=== PATIENT | female | born 1950 | race Caucasian/White ===

== ENCOUNTER 2016-05-29 20:08 | Observation (INO) | payer MEDICARE ==
[2016-05-29] MEDS ORDERED: Aspirin Low Dose CHEW TAB* 81 MG PO ONE (20:14)
--- NOTE | 2016-05-29 20:54 | RAD ---
INDICATION: Short of breath COMPARISON: Chest x-ray June 29, 2013 TECHNIQUE: An AP portable view obtained at 2045 hours is submitted. FINDINGS: Bones/Soft Tissues: There are no acute bony findings. Cardiomediastinal: The cardiomediastinal silhouette is normal. Lungs: There are no infiltrates. Pleura: There are no pleural effusions. Other: None IMPRESSION: NO ACTIVE DISEASE.
[2016-05-29 20:56] LABS: Hematocrit 26 % (35-47); Hemoglobin 8.7 g/dl (12.0-16.0); Mean Corpuscular HGB Conc 33 g/dl (31-36); Mean Corpuscular Hemoglobin 31 pg (27-31); Mean Corpuscular Volume 94 fL (80-97); Mean Platelet Volume 7 um3 (7.4-10.4); Red Blood Count 2.79 10^6/ul (4.0-5.4); Red Cell Distribution Width 14 % (10.5-15); White Blood Count 5.8 10^3/ul (3.5-10.8)
[2016-05-29 21:12] LABS: Albumin 3.8 g/dL (3.2-5.2); BUN/Creatinine Ratio 13.4 (8-20); Calcium 8.5 mg/dL (8.6-10.3); EGFR African American 11.1 (>60); EGFR Non-African American 8.6 (>60); Potassium 3.9 mmol/L (3.5-5.0); Total Bilirubin 0.3 mg/dL (0.2-1.0); Total Protein 6.8 g/dL (6.4-8.9)
--- NOTE | 2016-05-29 22:13 | ED ---
Francisco Bello Karl, scribed for Yani Lee MD on 05/29/16 at 2053 . HPI Chest Pain - HPI Summary HPI Summary: 65 y/o F presents with intermittent midsternal CP for the past 3 days. Pt reported that the CP began 3 days ago and radiates to her back. Pt stated that she has been having 4-5 episodes of CP per day with her episodes today starting this morning, the most recent being at approx 13:00 today. Pt reported nausea and diaphoresis with each episode. Pt described her CP as a pressure pain. Pt is on dialysis 3 days a week. Pt denied any current back pain, recent travel, or cough. Hx: renal failure. - History of Current Complaint Chief Complaint: EDChestPainROMI Time Seen by Provider: 05/29/16 20:14 Hx Obtained From: Patient Onset/Duration: Started Days Ago, Atraumatic, Still Present Timing: Intermittent Initial Severity: Mild Current Severity: None Pain Intensity: 0 Pain Scale Used: 0-10 Numeric Chest Pain Location: Mid Sternal Chest Pain Radiates: Yes Chest Pain Radiates To:: Back Character: Pressure/Squeezing Aggravating Factor(s): Nothing Alleviating Factor(s): Nothing Associated Signs and Symptoms: Positive: Chest Pain, Diaphoresis, Nausea, Back Pain - Additional Pertinent History Primary Care Physician: HETAL - Allergy/Home Medications Allergies/Adverse Reactions: Allergies Allergy/AdvReac Type Severity Reaction Status Date / Time Iodine Allergy Severe Hives Verified 02/14/15 08:06 Oxycodone [From Percocet] Allergy Severe Itching Verified 02/14/15 08:06 Penicillin G Allergy Severe Hives Verified 02/14/15 08:06 Risedronate [From Actonel] Allergy Severe Anaphylatic Verified 02/14/15 08:06 Shock Sulfa Antibiotics Allergy Severe Hives Verified 02/14/15 08:06 Tetracyclines & Related Allergy Severe Hives Verified 02/14/15 08:06 Calcium Acetate Allergy Intermediate trouble Verified 02/14/15 08:06 breathing, throat swelling Metronidazole Allergy Unknown Verified 02/14/15 08:06 Reaction Details Montelukast [From Singulair] Allergy Unknown Verified 02/14/15 08:06 Reaction Details butalazone Allergy Severe TOTAL BODY Uncoded 02/14/15 08:06 RASH latex Allergy Severe Rash Uncoded 02/14/15 08:06 pneumonia vaccine Allergy Severe arm Uncoded 02/14/15 08:06 swollen and hot APO-RISENDRONATE Allergy Unknown Uncoded 02/14/15 08:[address] CONTRAST DYE Allergy Hives Uncoded 02/14/15 08:06 PMH/Surg Hx/FS Hx/Imm Hx Previously Healthy: No Endocrine/Hematology History: Reports: Hx Anemia Denies: Hx Diabetes, Hx Systemic Lupus Erythematosus Cardiovascular History: Reports: Hx Congestive Heart Failure, Hx Hypercholesterolemia, Hx Hypertension, Hx Valvular Heart Disease - MITRAL VALVE PROLAPSE SEES DR TRACY, Other Cardiovascular Problems/Disorders - ANCA VASCULITIS Denies: Hx Pacemaker/ICD Respiratory History: Reports: Hx Asthma, Hx Chronic Obstructive Pulmonary Disease (COPD), Hx Lung Cancer, Other Respiratory Problems/Disorders - LLL lung ca dx'd 95 seen here @ [facility] GI History: Reports: Hx Diverticulosis, Other GI Disorders - ULCER REMOVED IN THE PAST History: Reports: Hx Acute Renal Failure, Hx Chronic Renal Failure, Hx Dialysis, 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 Musculoskeletal History: Reports: Hx Arthritis - KNEES Denies: Hx Rheumatoid Arthritis Sensory History: Reports: Hx Cataracts - FORMING, Hx Contacts or Glasses, Hx Eye Injury - retinal blister Denies: Hx Glaucoma, Hx Hearing Aid Opthamlomology History: Reports: Hx Cataracts - FORMING, Hx Contacts or Glasses , Hx Eye Injury - retinal blister Denies: Hx Glaucoma Neurological History: Reports: Other Neuro Impairments/Disorders - menigeal lesion Psychiatric History: Reports: Hx Anxiety - OK WITH MEDS, Hx Depression Denies: Hx Panic Disorder, Other Psychiatric Issues/Disorders - Cancer History Cancer Type, Location and Year: lung CA 1994 with partial lobectomy Hx Chemotherapy: No Hx Radiation Therapy: No - Surgical History Surgery Procedure, Year, and Place: tubal , left oopherectomy 1994,lung ca 1994 left lobectomy, benign tumor behind left eye per pt, breast lumpectomy 06/2011 benign,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 Hx Anesthesia Reactions: No - Immunization History Date of Influenza Vaccine: allergic Infectious Disease History: No Infectious Disease History: Denies: Traveled Outside the [place] in Last 30 Days - Family History Known Family History: Positive: Cardiac Disease - father MD in 80's, sister MD at 55 Negative: Other - breast CA - Social History Alcohol Use: None Substance Use Type: Reports: None Smoking Status (MU): Never Smoked Tobacco Review of Systems Positive: Skin Diaphoresis Eyes: Negative ENT: Negative Positive: Chest Pain Negative: Cough Positive: Nausea Genitourinary: Negative Positive: Arthralgia - back pain Skin: Negative Psychological: Normal All Other Systems Reviewed And Are Negative: Yes Physical Exam Triage Information Reviewed: Yes Vital Signs On Initial Exam: Initial Vitals Temp Pulse Resp BP Pulse Ox 99.6 F 72 16 172/92 100 05/29/16 20:17 05/29/16 20:17 05/29/16 20:17 05/29/16 20:17 05/29/16 20:17 Vital Signs Reviewed: Yes Appearance: Positive: Well-Appearing, No Pain Distress Skin: Positive: Warm, Skin Color Reflects Adequate Perfusion, Dry Head/Face: Positive: Normal Head/Face Inspection Eyes: Positive: EOMI, ALANA ENT: Positive: Hearing grossly normal, TMs normal Neck: Positive: Supple, Nontender Respiratory/Lung Sounds: Positive: Clear to Auscultation, Breath Sounds Present. Negative: Rales, Rhonchi, Wheezes Cardiovascular: Positive: RRR - good thrill in fistula right arm. Negative: Murmur, Rub Abdomen Description: Positive: Nontender, Soft Bowel Sounds: Positive: Present Musculoskeletal: Positive: Strength/ROM Intact. Negative: Edema Left, Edema Right Neurological: Positive: Sensory/Motor Intact, Alert, Oriented to Person Place, Time, CN Intact II-III Psychiatric: Positive: Affect/Mood Appropriate - Taylor Coma Scale Coma Scale Total: 15 Diagnostics - Vital Signs Vital Signs Temp Pulse Resp BP Pulse Ox 05/29/16 20:30 69 18 150/73 99 05/29/16 20:25 73 11 151/85 100 05/29/16 20:24 162/71 05/29/16 20:17 99.6 F 72 16 172/92 100 - Laboratory Lab Results: Lab Results 05/29/16 05/29/16 05/29/16 Range/Units 20:25 20:25 20:25 WBC 5.8 (3.5-10.8) 10^3/ul RBC 2.79 L (4.0-5.4) 10^6/ul Hgb 8.7 L (12.0-16.0) g/dl Hct 26 L (35-47) % MCV 94 (80-97) fL MCH 31 (27-31) pg MCHC 33 (31-36) g/dl RDW 14 (10.5-15) % Plt Count 206 (150-450) 10^3/ul MPV 7 L (7.4-10.4) um3 Neut % (Auto) 57.1 (38-83) % Lymph % (Auto) 27.1 (25-47) % Sabine % (Auto) 8.3 (1-9) % Eos % (Auto) 6.5 H (0-6) % Baso % (Auto) 1.0 (0-2) % Absolute Neuts (auto) 3.3 (1.5-7.7) 10^3/ul Absolute Lymphs (auto) 1.6 (1.0-4.8) 10^3/ul Absolute Monos (auto) 0.5 (0-0.8) 10^3/ul Absolute Eos (auto) 0.4 (0-0.6) 10^3/ul Absolute Basos (auto) 0.1 (0-0.2) 10^3/ul Absolute Nucleated RBC 0 10^3/ul Nucleated RBC % 0 Sodium 139 (133-145) mmol/L Potassium 3.9 (3.5-5.0) mmol/L Chloride 100 L (101-111) mmol/L Carbon Dioxide 30 (22-32) mmol/L Anion Gap 9 (2-11) mmol/L BUN 67 H (6-24) mg/dL Creatinine 5.00 H (0.51-0.95) mg/dL Est GFR ( Amer) 11.1 (>60) Est GFR (Non-Af Amer) 8.6 (>60) BUN/Creatinine Ratio 13.4 (8-20) Glucose 104 H (70-100) mg/dL Lactic Acid 1.4 (0.5-2.0) mmol/L Calcium 8.5 L (8.6-10.3) mg/dL Total Bilirubin 0.30 (0.2-1.0) mg/dL AST 13 (13-39) U/L ALT 7 (7-52) U/L Alkaline Phosphatase 133 H (34-104) U/L Troponin I 0.00 (<0.04) ng/mL B-Natriuretic Peptide ( - 100) pg/mL Total Protein 6.8 (6.4-8.9) g/dL Albumin 3.8 (3.2-5.2) g/dL Globulin 3.0 (2-4) g/dL Albumin/Globulin Ratio 1.3 (1-3) 05/29/16 Range/Units 20:25 WBC (3.5-10.8) 10^3/ul RBC (4.0-5.4) 10^6/ul Hgb (12.0-16.0) g/dl Hct (35-47) % MCV (80-97) fL MCH (27-31) pg MCHC (31-36) g/dl RDW (10.5-15) % Plt Count (150-450) 10^3/ul MPV (7.4-10.4) um3 Neut % (Auto) (38-83) % Lymph % (Auto) (25-47) % Sabine % (Auto) (1-9) % Eos % (Auto) (0-6) % Baso % (Auto) (0-2) % Absolute Neuts (auto) (1.5-7.7) 10^3/ul Absolute Lymphs (auto) (1.0-4.8) 10^3/ul Absolute Monos (auto) (0-0.8) 10^3/ul Absolute Eos (auto) (0-0.6) 10^3/ul Absolute Basos (auto) (0-0.2) 10^3/ul Absolute Nucleated RBC 10^3/ul Nucleated RBC % Sodium (133-145) mmol/L Potassium (3.5-5.0) mmol/L Chloride (101-111) mmol/L Carbon Dioxide (22-32) mmol/L Anion Gap (2-11) mmol/L BUN (6-24) mg/dL Creatinine (0.51-0.95) mg/dL Est GFR ( Amer) (>60) Est GFR (Non-Af Amer) (>60) BUN/Creatinine Ratio (8-20) Glucose (70-100) mg/dL Lactic Acid (0.5-2.0) mmol/L Calcium (8.6-10.3) mg/dL Total Bilirubin (0.2-1.0) mg/dL AST (13-39) U/L ALT (7-52) U/L Alkaline Phosphatase (34-104) U/L Troponin I (<0.04) ng/mL B-Natriuretic Peptide 204 H ( - 100) pg/mL Total Protein (6.4-8.9) g/dL Albumin (3.2-5.2) g/dL Globulin (2-4) g/dL Albumin/Globulin Ratio (1-3) Result Diagrams: 05/29/16 20:25 05/29/16 20:25 Lab Statement: Any lab studies that have been ordered have been reviewed, and results considered in the medical decision making process. - EKG 20:14 EKG Interpretation: NSR at 70 bpm, No STEMI Chest Pain Course/Dx - Course Course Of Treatment: 65 yo female with esrd and strong family hx for early cad comes in with episode of cp over the last few days first trop neg, ekg essentially normal. pt to be brought in as an obv - Diagnoses Provider Diagnoses: Chest pain - Provider Notifications Discussed Care Of Patient With: Dr. Baron (Hospitalist) at 21:15 who agreed to admit the pt. Discharge - Discharge Plan Condition: Stable Disposition: ADMITTED TO [facility] The documentation as recorded by the Francisco cabrera Karl accurately reflects the service I personally performed and the decisions made by me, Yani Lee MD.
[2016-05-29] MEDS ORDERED: Ondansetron INJ* 2 MG/ML VIAL IV PRN (22:15)
[2016-05-29] MEDS ORDERED: Acetaminophen TAB* 325 MG PO PRN (22:15)
--- NOTE | 2016-05-30 04:50 | HP ---
ADMISSION HISTORY AND PHYSICAL: DATE OF ADMISSION: 05/29/16 PRIMARY CARE PROVIDER: Dr. Bah. FIRE SPRINKLER FITTER: Dr. Gupta. ATTENDING PHYSICIAN: Christy Reyes MD * (DICTATED BY BEN BEASLEY) CHIEF COMPLAINT: Chest pain. HISTORY OF PRESENT ILLNESS: This is a 65-year-old female with history of end- stage renal disease secondary to vasculitis as well as chronic anemia, history of lung cancer status post resection, history of atrial fibrillation not currently anticoagulated, who presented to the emergency department with complaints of chest pain. The patient states that her symptoms started as right upper back pain earlier today and then migrated to kind of mid sternal pain. She experienced some associated shortness of breath and she states that her symptoms lasted all afternoon. The chest pain resolved after EMS gave her aspirin and has not resumed since reaching the hospital. She denies any associated palpitations. She has been a little congested recently but denies any associated cough or fever. No associated diaphoresis. No nausea or vomiting. No other associated symptoms. She denies any personal history of heart disease and no history of prior similar symptoms. PAST MEDICAL HISTORY: 1. End-stage renal disease, followed by Dr. Gupta secondary to ANCA-positive vasculitis. 2. Chronic anemia. 3. History of lung carcinoma, status post resection. 4. Atrial fibrillation, followed by Dr. Lara and not currently anticoagulated. PAST SURGICAL HISTORY: 1. 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 2. Hysterectomy. 3. Lung resection. HOME MEDICATIONS: (Unable to verify this list). 1. Aspirin 81 mg p.o. daily. 2. Celexa 10 mg p.o. daily. 3. Vitamin B12 at 1000 mcg p.o. daily. 4. Fluticasone nasal spray 2 puffs inhaled each morning. 5. Levalbuterol inhaler 2 puffs inhale daily. 6. Metoprolol succinate 12.5 mg p.o. daily. 7. Multivitamin 1 tablet p.o. daily. 8. Vitamin E. 9. Accolate 20 mg p.o. b.i.d. 10. Rythmol 75 mg p.o. t.i.d. FAMILY HISTORY: Both her father and sister of an acute NE. Her sister at about 55 years old. SOCIAL HISTORY: The patient lives at home alone in an apartment complex. She denies any history of smoking. Denies any regular alcohol consumption. REVIEW OF SYSTEMS: As noted above in HPI, otherwise negative. PHYSICAL EXAMINATION GENERAL: This is a well-appearing elderly female, in no acute distress. VITAL SIGNS: Initial vitals; temperature 99.6 degrees Fahrenheit, pulse 72 beats per minute, respiratory rate 16 per minute, oxygen saturation 100% on room air, and blood pressure 172/92 mmHg. HEENT: Head is normocephalic, atraumatic with moist mucous membranes. RESPIRATORY: Lungs are clear to auscultation without wheezes, crackles, or rhonchi. Chest wall exam: The patient does have some distal sternal tenderness to palpation, which she believes partially reproduces some of the symptoms that she was experiencing previously. CARDIOVASCULAR: Heart has regular rate and rhythm without murmurs, rubs, or gallops. ABDOMEN: Abdomen is soft and nontender to palpation. EXTREMITIES: No lower extremity edema appreciated. SKIN: Limited exam shows no concerning rashes or lesions. LABORATORY DATA: CBC shows white blood cell count of 5800, hemoglobin of 8.7 g /dL and platelet count of 206,000. Comprehensive metabolic panel shows sodium of 139 mmol/L, potassium 3.9 mmol/L. BUN of 67, creatinine 5.0. Estimated GFR of 8.6. Random glucose of 104 mg/dL. Transaminases and total bilirubin within normal limits. Troponin negative. BNP at 204. IMAGING: EKG shows a normal sinus rhythm. Chest x-ray shows no acute disease. ASSESSMENT AND PLAN: This is a 65-year-old female with end-stage renal disease secondary to vasculitis with an accompanying chronic anemia, history of lung cancer, status post resection and what sounds to be paroxysmal atrial fibrillation, not chronically anticoagulated and followed by Dr. Lara, who presents with complaints of chest pain. 1. Chest pain: The patient is at high risk for coronary artery disease due to family history and her comorbid conditions. Troponins are negative and initial EKG is benign. The patient will be admitted to observation status and cycle her troponins, maintain continuous telemetry monitoring. The patient does require stress testing but she is established with Dr. Lara and would recommend close followup with Dr. Lara for outpatient stress testing following discharge. 2. End-stage renal disease - the patient is followed by Dr. Gupta. She is on a Wednesday, , Wednesday schedule for her hemodialysis and will require dialysis prior to leaving the hospital tomorrow. 3. Chronic anemia - hemoglobin of 8.7. This seems to be near her baseline. 4. History of lung cancer, status post resection. 5. Paroxysmal atrial fibrillation, on antiarrhythmic and not chronically anticoagulated. 6. Code Status: The patient is full code. 7. DVT prophylaxis: The patient is at moderate to high risk for DVT and will be placed on heparin 5000 units q.8 hours for prophylaxis. 8. Healthcare proxy is unknown. DISPOSITION: The patient is being admitted to the hospital for observation status with complaints of chest pain. Anticipate discharge tomorrow morning. The patient does require hemodialysis prior to leaving the hospital tomorrow. BEN BEASLEY CC: Dr. Bah; Dr. Gupta* [id number]/[facility] #: [id number] RANDA
[2016-05-30] MEDS ORDERED: Heparin VIAL(*) 5000 UNITS/ML VIAL (FIVE THOUSAND) SUBCUT SCH (06:00)
[2016-05-30 06:35] LABS: HDL Cholesterol 40.7 mg/dL
[2016-05-30] MEDS ORDERED: Aspirin EC Low Dose* 81 MG TAB.EC PO SCH (09:00)
[2016-05-30] MEDS ORDERED: Cyanocobalamin TAB* 500 MCG PO SCH (09:45)
[2016-05-30 09:58] VITALS: BP 145/74
[2016-05-30] MEDS ORDERED: Vitamin E CAP* 400 UNIT PO SCH (10:00)
[2016-05-30] MEDS ORDERED: Prenatal Vitamin TAB PO SCH (10:00)
[2016-05-30] MEDS ORDERED: Mometasone 220 MCG MDI INH SCH (10:00)
[2016-05-30] MEDS ORDERED: proPAFENone TAB* 150 MG PO SCH (10:00)
[2016-05-30] MEDS ORDERED: Levalbuterol HFA INHALER* 1 PUFF MDI INH SCH (10:00)
[2016-05-30] MEDS ORDERED: Metoprolol Succinate XL TAB* 25 MG PO SCH (10:00)
[2016-05-30] MEDS ORDERED: Citalopram TAB* 10 MG PO SCH (12:00)
--- NOTE | 2016-05-31 01:52 | DS ---
DISCHARGE SUMMARY: DATE OF ADMISSION: 05/29/16 DATE OF DISCHARGE: 05/30/16 PRIMARY CARE PROVIDER: Pato Bah MD IN HOME SALES CONSULTANT: Cyril Lara MD HADOOP SOFTWARE ENGINEER: Don Gupta MD DISCHARGE DIAGNOSIS: Atypical chest pain, acute coronary syndrome ruled out, most likely musculoskeletal in nature. SECONDARY DIAGNOSES: 1. End-stage renal disease, on hemodialysis. 2. ANCA positive vasculitis. 3. Chronic anemia. 4. History of lung carcinoma, status post resection. 5. Paroxysmal atrial fibrillation. 6. 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 7. Status post hysterectomy. MEDICATION LIST: 1. Acetaminophen 650 mg p.o. q.4 hours p.r.n. pain. 2. Aspirin 81 mg p.o. daily. 3. Citalopram 10 mg p.o. daily. 4. Vitamin B12 1000 mcg p.o. daily. 5. Fluticasone HFA 2 puffs inhaled q.a.m. 6. Levalbuterol HFA 2 puffs inhaled q.a.m. 7. Metoprolol succinate 12.5 mg p.o. b.i.d. 8. Multivitamin 1 tablet p.o. daily. 9. PreserVision 1 tablet p.o. b.i.d. 10. Propafenone 75 mg p.o. t.i.d. 11. Vitamin E 1600 units p.o. daily. 12. Zafirlukast 20 mg b.i.d. HOSPITAL COURSE: Mrs. Cota is a 65-year-old lady with a past medical history as stated above that presented to the emergency room with complaints of chest pain. The patient states that she has had some right upper back pain earlier on the day of admission and this migrated to the anterior aspect of her chest. She did some cleaning at home and initially thought the pain was musculoskeletal that when migrated to her chest, she became concerned. For more details about her presentation, I refer you to her history and physical. The patient has had no recent surgical procedure, no recent trips, no lower extremity pain or edema, and her Wells score was 0. She had no significant arrhythmias while on telemetry and serial troponins were negative. Serial EKGs showed no acute changes. The impression is that the patient has chest pain, most likely musculoskeletal in nature and arrangements will be made for a stress test as outpatient with Dr. Lara. She is medically stable for discharge at this time. PHYSICAL EXAMINATION: Vital Signs: Temperature 97.9, heart rate is 67, respiratory rate is 16, oxygen saturation is 97% on room air, and blood pressure is 145/74. General: The patient is a pleasant elderly lady, sitting up in the bed, in no acute distress. Chest: Breath sounds present bilaterally , no added sounds. CVS: Normal S1, S2. Regular rate and rhythm. Abdomen: Soft. Bowel sounds are present. Extremities: No edema. There is a left arm AV fistula with a palpable thrill. Neuro: She is alert, awake, and oriented x3. She is able to move all 4 extremities. DIET: Heart healthy, renal diet. ACTIVITY: As tolerated. DISPOSITION: To home. STATUS WHILE IN THE HOSPITAL: Observation. If you need more information, please feel free to call me at or please obtain the full medical record. TIME SPENT: Approximately 45 minutes was spent to complete this discharge. CC: Dr. Bah; Dr. Lara; Dr. Gupta.* [id number]/[facility] #: [id number] [facility]
== END 2016-05-30 10:25 | disposition home or self-care (01) ==
LOC: ED 20:08 → MEDTELE 22:15
PROVIDERS: ADMIT Internal Medicine; ATTEND Internal Medicine
DX: R07.89 Other chest pain (principal); R06.02 Shortness of breath; N18.6 End stage renal disease; Z99.2 Dependence on renal dialysis; I77.6 Arteritis, unspecified; D64.9 Anemia, unspecified; Z85.118 Personal history of other malignant neoplasm of bronchus and lung; I48.0 Paroxysmal atrial fibrillation; Z85.841 Personal history of malignant neoplasm of brain; Z79.899 Other long term (current) drug therapy; Z79.82 Long term (current) use of aspirin; Z88.0 Allergy status to penicillin; Z88.2 Allergy status to sulfonamides; Z88.7 Allergy status to serum and vaccine; Z88.8 Allergy status to other drugs, medicaments and biological substances; Z91.041 Radiographic dye allergy status; Z91.040 Latex allergy status
CPT/HCPCS: 36415; 71010; 80053; 80061; 83605; 83880; 84484; 85025; 93005; 99284; A9270-GY; G0378; J1644

== ENCOUNTER 2017-04-24 09:11 | Emergency (ER) | payer MEDICARE ==
[2017-04-24 09:44] LABS: Hematocrit 34 % (35-47); Mean Corpuscular HGB Conc 35 g/dl (31-36); Mean Corpuscular Hemoglobin 35 pg (27-31); Mean Corpuscular Volume 98 fL (80-97); Mean Platelet Volume 6 um3 (7.4-10.4); Red Blood Count 3.47 10^6/ul (4.0-5.4); Red Cell Distribution Width 14 % (10.5-15)
[2017-04-24 10:00] LABS: Albumin 4.3 g/dL (3.2-5.2); BUN/Creatinine Ratio 9.8 (8-20); Calcium 8.8 mg/dL (8.6-10.3); EGFR African American 25.2 (>60); EGFR Non-African American 19.6 (>60); Globulin 3.1 g/dL (2-4); Magnesium 2.1 mg/dL (1.9-2.7); Potassium 3.7 mmol/L (3.5-5.0); Total Bilirubin 0.7 mg/dL (0.2-1.0); Total Protein 7.4 g/dL (6.4-8.9)
--- OUTSIDE RECORDS SUMMARY | 2017-04-24 10:28 | XMS REPORT ---
:1950 External Reference #:[id number] Author Organization [facility] Address [address] [place] [address] Phone [phone] Care Team Providers Name Role Phone Pato Bah M.D. Primary Care Physician Unavailable Payers Type Date Identification Numbers Payment Provider Subscriber Commercial Policy Number: [id number] BS [facility] Madelyn Cota Group Number: [id number] [address] [id number] PayID: [id number] MAHNAZ Velasquez [id number] Problems Date Description Provider Status Onset: Pruritus of skin Active Onset: Asthma Active Onset: Primary malignant neoplasm of lung Active Onset: Kidney disease Active Note: On Dialysis Onset: Atrial fibrillation Active Onset: Mitral valve prolapse Active Onset: Low blood pressure Active Onset: Osteoarthritis Active Onset: Depressive disorder Active Onset: Pure hypercholesterolemia Active Onset: Vasculitis Active Onset: 09/20/2015 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 Active Onset: 09/20/2015 Presence of intraocular lens Don Randall M.D. Active Onset: 10/07/2015 Other secondary cataract, right eye Don Randall M.D. Active Onset: Chronic renal failure Active Onset: 09/22/2016 Epiretinal membrane Don Randall M.D. 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 ETOH Use Occasionally consumes alcohol Smoking Patient has never smoked Daily Caffeine Consumes on average 1 cup of regular coffee per day Allergies, Adverse Reactions, Alerts Date Description Reaction Status Severity Comments 08/13/2014 Risedronate active 08/13/2014 Tetracycline active 08/13/2014 Codeine active 08/13/2014 Sulfa Antibiotics active 08/13/2014 Acetaminophen active 08/13/2014 Oxycodone active 08/13/2014 Iodine active 08/13/2014 Metaxalone active 08/13/2014 Prednisone active Medications Medication Date Status Form Strength Qnty SIG Indications Ordering Provider Preservision 09/18/ Active Capsules 1caps 1 tab by Don Pryor 2016 mouth Arleo, twice a M.D. day Visine Tears 09/18/ Active Solution 0.2-0.2-1% 3-4 times Don Randall 2016 a day Stephane Randall Zafirlukast 00/00/ Active Tablets 20mg Unknown 0000 Citalopram 00/ Active Tablets 10mg Unknown Hydrobromide 0000 Flovent HFA 00// Active Aerosol 110mcg/Act Unknown 0000 Multi Vitamin 00/00/ Active Tablets Unknown Daily 0000 Vitamin E 00/ Active Capsules 400Unit Unknown Complex 0000 Vitamin B12 0000/ Active Tablets 100mcg Unknown 0000 Aspirin 00/00/ Active Tablets 81mg Unknown 0000 Propafenone 00/00/ Active Tablets 150mg every day Unknown HCL 0000 Xopenex HFA 00/ Active Aerosol 45mcg/Act every day Unknown 0000 Renvela 0000/ Active Tablets 800mg Teeteeon,Ro 0000 justice M.D. Metoprolol /00/ Active Tablets ER 25mg Unknown Succinate ER 0000 24HR Ilevro 08/13/ Hx Suspension 0.3% 3ml 1 drop Don Randall 2014 - right eye [place], 08/12/ once a M.D. 2014 day. Start the day before surgery. [address] 04/12/ Hx Ointment 5% both eyes Don Randall 2014 - every Arleo, 09/18/ night M.D. 2015 Pred Forte 07/06/ Hx Suspension 1% 1 drop Don Randall 2014 - both eyes Arleo, 09/18/ every day M.D. 2016 Ilevro 07/06/ Hx Suspension 0.3% 3ml 1 drop Don Randall 2014 - right eye Arleo, 08/12/ once a M.D. 2014 day. Start the day before surgery. Vigamox 07/06/ Hx Solution 0.5% 3ml one drop Don Randall 2014 - right eye Arleo, 08/12/ three M.D. 2014 times a day, start the day before surgery Vital Signs Date Vital Result Comment 10/07/2015 BP Systolic 124 mmHg BP Diastolic 70 mmHg Heart Rate 80 /min Respiratory Rate 16 /min 09/23/2015 BP Systolic 100 mmHg BP Diastolic 60 mmHg Heart Rate 55 /min Respiratory Rate 14 /min Results Description No Information Procedures Date CPT Code Description Status 04/01/2017 40330 Patient No Show For Appt Completed 09/22/2016 60913 Scanning Computerized Opthalmic Diagnostic Posterior Completed Seg Retina 09/22/2016 85062 Est Patient Comprehensive Exam Completed 10/07/2015 25574 Remove Secondary Cataract, Laser (Yag) Completed 09/23/2015 05614 Remove Secondary Cataract, Laser (Yag) Completed 09/20/2015 89059 Est Patient Comprehensive Exam Completed 07/18/2014 45621 Cataract Surgery Complex Completed 07/12/2014 34911 Cataract Surgery Complex Completed 07/06/2014 03451 Ophthalmic Biometry Completed 07/06/2014 58655 Ophthalmic Biometry Completed 06/29/2014 72481 Scanning Computerized Opthalmic Diagnostic Posterior Completed Seg Retina 06/29/2014 94273 New Patient Comprehensive Exam Completed Plan of Care 04/05/2017 - Don Randall M.D.H35.373 Puckering of macula, bilateralComments :Smoking can increase the risk of developing or worsening any eye related disease, as well as affect your overall health. If you are a smoker, we strongly recommend that you quit.If you are not a smoker, we strongly recommend that you do not start. A Macular Pucker is a wrinkling of the retina tissue. It can cause distortion in your vision. Please call the office if you notice a decrease or new distortion in your vision before then.Follow up:6 Month Follow Up OCT MAC You can expect to have your eyes dilated at your next visit. If Dr. Orozcoders any additional testing, it may require extra time. We recommend that you bring sunglasses, asdilation drops often make you light sensitive until they wear off. We always recommend you bring someone to drive you home if you are uncomfortable driving with your eyes dilated. If you have any questions before your next visit, feel free to call our office at .H47.323 Drusen of optic disc, bilateralComments:You have Drusen of the Optic Nerves in both of your eyes. These can generally cause Visual Field Defects, so Dr. Randall will periodically request Visual Field testing to make sure these do not change.H37.2372 Nexdtve age-related mclr degn, bilateral, intermed dry [id number] Presence of intraocular lensComments:The artificial lens implants in both eyes appear to be stable at this time.
[2017-04-24 10:53] LABS: TSH (Thyroid Stimulating Horm) 2.38 mcIU/mL (0.34-5.60)
[2017-04-24 10:55] LABS: Free T4 0.97 ng/dL (0.61-1.12)
[2017-04-24 14:02] VITALS: BP 132/78
--- NOTE | 2017-04-25 15:25 | ED ---
Tao Bello Stephanie, scribed for Calvin Gatica MD on 04/24/17 at 1109 . HPI Chest Pain - HPI Summary HPI Summary: The pt is a 66 y/o F BIBA to the ED with c/o chest pain that began earlier today at the end of her dialysis treatment. Symptoms include a-fib (resolved). Pt denies fever, sweats, and chills. - History of Current Complaint Chief Complaint: EDChestPainROMI Time Seen by Provider: 04/24/17 09:21 Hx Obtained From: Patient Onset/Duration: Started Hours Ago Timing: Intermittent Pain Intensity: 0 Pain Scale Used: 0-10 Numeric Character: Fast Aggravating Factor(s): Nothing Alleviating Factor(s): Nothing Associated Signs and Symptoms: Negative: Fever, Chills, Diaphoresis - Additional Pertinent History Primary Care Physician: HETAL - Allergy/Home Medications Allergies/Adverse Reactions: Allergies Allergy/AdvReac Type Severity Reaction Status Date / Time Iodine Allergy Severe Hives Verified 04/24/17 09:17 Oxycodone [From Percocet] Allergy Severe Itching Verified 04/24/17 09:17 Penicillin G Allergy Severe Hives Verified 04/24/17 09:17 Risedronate [From Actonel] Allergy Severe Anaphylatic Verified 04/24/17 09:17 Shock Sulfa Antibiotics Allergy Severe Hives Verified 04/24/17 09:17 Tetracyclines & Related Allergy Severe Hives Verified 04/24/17 09:17 Calcium Acetate Allergy Intermediate trouble Verified 04/24/17 09:17 breathing, throat swelling Metronidazole Allergy Unknown Verified 04/24/17 09:17 Reaction Details Montelukast [From Singulair] Allergy Unknown Verified 04/24/17 09:17 Reaction Details butalazone Allergy Severe TOTAL BODY Uncoded 04/24/17 09:17 RASH latex Allergy Severe Rash Uncoded 04/24/17 09:17 pneumonia vaccine Allergy Severe arm Uncoded 04/24/17 09:17 swollen and hot APO-RISENDRONATE Allergy Unknown Uncoded 04/24/17 09:[address] CONTRAST DYE Allergy Hives Uncoded 04/24/17 09:17 PMH/Surg Hx/FS Hx/Imm Hx Endocrine/Hematology History: Reports: Hx Anemia Denies: Hx Diabetes, Hx Systemic Lupus Erythematosus Cardiovascular History: Reports: Hx Congestive Heart Failure, Hx Hypercholesterolemia, Hx Valvular Heart Disease - MITRAL VALVE PROLAPSE SEES DR TRACY, Other Cardiovascular Problems/Disorders - ANCA VASCULITIS Denies: Hx Hypertension, Hx Pacemaker/ICD Respiratory History: Reports: Hx Asthma, Hx Chronic Obstructive Pulmonary Disease (COPD), Hx Lung Cancer, Other Respiratory Problems/Disorders - [place] lung ca dx'd 95 [place] [facility] [place]: Reports: Hx Diverticulosis, Other GI Disorders - ULCER REMOVED IN THE PAST History: Reports: Hx Acute Renal Failure, Hx Chronic Renal Failure, Hx Dialysis - Wednesday, and Wednesday, 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 Musculoskeletal History: Reports: Hx Arthritis - KNEES Denies: Hx Rheumatoid Arthritis Sensory History: Reports: Hx Cataracts - FORMING, Hx Contacts or Glasses, Hx Eye Injury - retinal blister Denies: Hx Glaucoma, Hx Hearing Aid Opthamlomology History: Reports: Hx Cataracts - FORMING, Hx Contacts or Glasses , Hx Eye Injury - retinal blister Denies: Hx Glaucoma Neurological History: Reports: Other Neuro Impairments/Disorders - menigeal lesion Psychiatric History: Reports: Hx Anxiety - OK WITH MEDS, Hx Depression Denies: Hx Panic Disorder, Other Psychiatric Issues/Disorders - Cancer History Cancer Type, Location and Year: lung CA 1994 with partial lobectomy Hx Chemotherapy: No Hx Radiation Therapy: No - Surgical History Surgery Procedure, Year, and Place: tubal , left oopherectomy 1994,lung ca 1994 left lobectomy, benign tumor behind left eye per pt, breast lumpectomy 06/2011 benign,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 Hx Anesthesia Reactions: No - Immunization History Date of Influenza Vaccine: 2015 Infectious Disease History: No Infectious Disease History: Denies: Traveled Outside the [place] in Last 30 Days - Family History Known Family History: Positive: Cardiac Disease - father [place] in 80's, sister [place] at 55 Negative: Other - breast CA - Social History Alcohol Use: None Substance Use Type: Reports: None Smoking Status (MU): Never Smoked Tobacco Review of Systems Negative: Fever, Chills, Skin Diaphoresis Negative: Erythema Negative: Sore Throat Negative: Chest Pain Negative: Shortness Of Breath, Cough Negative: Abdominal Pain, Vomiting, Nausea Negative: dysuria, hematuria Negative: Myalgia, Edema Positive: Other - Negative: dizziness. Negative: Rash All Other Systems Reviewed And Are Negative: Yes Physical Exam - Summary Physical Exam Summary: Constitutional: Well-developed, Well-nourished, Alert. (-) Distressed Skin: Warm, Dry HENT: Normocephalic; Atraumatic Eyes: Conjunctiva normal Neck: Musculoskeletal ROM normal neck. (-) JVD, (-) Stridor, (-) Tracheal deviation Cardio: Rhythm regular, rate normal, Heart sounds normal; Intact distal pulses; The pedal pulses are 2+ and symmetric. Radial pulses are 2+ and symmetric. (-) Murmur Pulmonary/Chest wall: Effort normal. (-) Respiratory distress, (-) Wheezes, (-) Rales Abd: Soft, (-) Tenderness, (-) Distension, (-) Guarding, (-) Rebound Musculoskeletal: (-) Edema Lymph: (-) Cervical adenopathy Neuro: Alert, Oriented x3 Psych: Mood and affect Normal Triage Information Reviewed: Yes Vital Signs On Initial Exam: Initial Vitals Temp Pulse Resp BP Pulse Ox 97.8 F 92 14 132/91 100 04/24/17 09:18 04/24/17 09:18 04/24/17 09:18 04/24/17 09:18 04/24/17 09:18 Vital Signs Reviewed: Yes - [place] Coma Scale Coma Scale Total: 15 Diagnostics - Vital Signs Vital Signs Temp Pulse Resp BP Pulse Ox 04/24/17 09:18 97.8 F 92 14 132/91 100 - Laboratory Result Diagrams: 04/24/17 09:38 04/24/17 09:38 Lab Statement: Any lab studies that have been ordered have been reviewed, and results considered in the medical decision making process. Chest Pain Course/Dx - Course Course Of Treatment: Arrhythmia symptoms resolved prior to arriving to ED. - Diagnoses Provider Diagnoses: Atrial fibrillation Discharge - Discharge Plan Condition: Fair Disposition: HOME Patient Education Materials: A-fib (Atrial Fibrillation) (ED) Referrals: Pato Bah MD [Primary Care Provider] - The documentation as recorded by the Tao cabrera Stephanie accurately reflects the service I personally performed and the decisions made by , Cavlin Gatica MD.
== END 2017-04-24 14:01 | disposition home or self-care (01) ==
LOC: ED 09:11
DX: I48.91 Unspecified atrial fibrillation (principal); Z88.3 Allergy status to other anti-infective agents; Z88.0 Allergy status to penicillin; Z88.2 Allergy status to sulfonamides; Z88.7 Allergy status to serum and vaccine; Z88.8 Allergy status to other drugs, medicaments and biological substances
CPT/HCPCS: 36415; 80053; 83735; 84439; 84443; 85027; 99283

== ENCOUNTER 2017-05-22 10:00 | Emergency (ER) | payer MEDICARE ==
[2017-05-22 11:54] LABS: EGFR Non-African American 15.5 (>60)
[2017-05-22 12:25] VITALS: BP 108/63
[2017-05-22] MEDS ORDERED: Potassium Chlor TAB* 20 MEQ TAB.ER PO ONE (12:28)
--- NOTE | 2017-05-23 14:18 | ED ---
Ruma Bello Julia, scribed for Trent Marsh MD on 05/22/17 at 1034 . Palpitations / Dysrhythmia - HPI Summary HPI Summary: This patient is a 66 year old F BIBA to [facility] due to rapid a-fib during the end of dialysis at 10:03 today. Patient reports feeling okay now, but felt anxious while in a-fib at dialysis. Patient denies any pain. Patient goes to dialysis three times a week and takes. Patient takes half a pill of Propafenone three times a day. - History of Current Complaint Chief Complaint: EDDysrhythmPalp Time Seen by Provider: 05/22/17 10:19 Hx Obtained From: Patient Onset/Duration: Sudden Onset, Lasting Hours Character: Fast - Allergy/Home Medications Allergies/Adverse Reactions: Allergies Allergy/AdvReac Type Severity Reaction Status Date / Time Iodine Allergy Severe Hives Verified 05/22/17 10:08 Oxycodone [From Percocet] Allergy Severe Itching Verified 05/22/17 10:08 Penicillin G Allergy Severe Hives Verified 05/22/17 10:08 Risedronate [From Actonel] Allergy Severe Anaphylatic Verified 05/22/17 10:08 Shock Sulfa Antibiotics Allergy Severe Hives Verified 05/22/17 10:08 Tetracyclines & Related Allergy Severe Hives Verified 05/22/17 10:08 Calcium Acetate Allergy Intermediate trouble Verified 05/22/17 10:08 breathing, throat swelling Metronidazole Allergy Unknown Verified 05/22/17 10:08 Reaction Details Montelukast [From Singulair] Allergy Unknown Verified 05/22/17 10:08 Reaction Details butalazone Allergy Severe TOTAL BODY Uncoded 05/22/17 10:08 RASH latex Allergy Severe Rash Uncoded 05/22/17 10:08 pneumonia vaccine Allergy Severe arm Uncoded 05/22/17 10:08 swollen and hot APO-RISENDRONATE Allergy Unknown Uncoded 05/22/17 10:[address] CONTRAST DYE Allergy Hives Uncoded 05/22/17 10:08 PMH/Surg Hx/FS Hx/Imm Hx Endocrine/Hematology History: Reports: Hx Anemia Denies: Hx Diabetes, Hx Systemic Lupus Erythematosus Cardiovascular History: Reports: Hx Congestive Heart Failure, Hx Hypercholesterolemia, Hx Valvular Heart Disease - MITRAL VALVE PROLAPSE SEES DR TRACY, Other Cardiovascular Problems/Disorders - ANCA VASCULITIS Denies: Hx Hypertension, Hx Pacemaker/ICD Respiratory History: Reports: Hx Asthma, Hx Chronic Obstructive Pulmonary Disease (COPD), Hx Lung Cancer, Other Respiratory Problems/Disorders - LLL lung ca dx'd 95 seen here @ [facility] [place] GI History: Reports: Hx Diverticulosis, Other GI Disorders - ULCER REMOVED IN THE PAST History: Reports: Hx Acute Renal Failure, Hx Chronic Renal Failure, Hx Dialysis - Wednesday, and Wednesday, 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 Musculoskeletal History: Reports: Hx Arthritis - KNEES Denies: Hx Rheumatoid Arthritis Sensory History: Reports: Hx Cataracts - FORMING, Hx Contacts or Glasses, Hx Eye Injury - retinal blister Denies: Hx Glaucoma, Hx Hearing Aid Opthamlomology History: Reports: Hx Cataracts - FORMING, Hx Contacts or Glasses , Hx Eye Injury - retinal blister Denies: Hx Glaucoma Neurological History: Reports: Other Neuro Impairments/Disorders - menigeal lesion Psychiatric History: Reports: Hx Anxiety - OK WITH MEDS, Hx Depression Denies: Hx Panic Disorder, Other Psychiatric Issues/Disorders - Cancer History Cancer Type, Location and Year: lung CA 1994 with partial lobectomy Hx Chemotherapy: No Hx Radiation Therapy: No - Surgical History Surgery Procedure, Year, and Place: tubal , left oopherectomy 1994,lung ca 1994 left lobectomy, benign tumor behind left eye per pt, breast lumpectomy 06/2011 benign,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 Hx Anesthesia Reactions: No - Immunization History Date of Influenza Vaccine: 2015 Infectious Disease History: No Infectious Disease History: Denies: Traveled Outside the [place] in Last 30 Days - Family History Known Family History: Positive: Cardiac Disease - father [place] in 80's, sister [place] at 55 Negative: Other - breast CA - Social History Alcohol Use: None Hx Substance Use: No Substance Use Type: Reports: None Hx Tobacco Use: No Smoking Status (MU): Never Smoked Tobacco Review of Systems Positive: Palpitations Positive: Anxious All Other Systems Reviewed And Are Negative: Yes Physical Exam - Summary Physical Exam Summary: Appearance: The patient is well-nourished in no acute distress and in no acute pain. Skin: The skin is warm and dry and skin color reflects adequate perfusion. HEENT: The head is normocephalic and atraumatic. The pupils are equal and reactive. The conjunctivae are clear and without drainage. Nares are patent and without drainage. Mouth reveals moist mucous membranes and the throat is without erythema and exudate. The external ears are intact. The ear canals are patent and without drainage. The tympanic membranes are intact. Neck: the neck is supple with full range of motion and non-tender. There are no carotid bruits. There is no neck vein distension. Respiratory: Chest is non-tender. Lungs are clear to auscultation and breath sounds are symmetrical and equal. Cardiovascular: Heart is regular rate and rhythm. There is no murmur or rub auscultated. There is no peripheral edema and pulses are symmetrical and equal. Abdomen: The abdomen is soft and non-tender. There are normal bowel sounds heard in all four quadrants and there is no organomegaly palpated. Musculoskeletal: There is no back tenderness noted. Extremities are non-tender with full range of motion. There is good capillary refill. There is no peripheral edema or calf tenderness elicited. Neurological: Patient is alert and oriented to person, place and time. The patient has symmetrical motor strength in all four extremities. Cranial nerves are grossly intact. Deep tendon reflexes are symmetrical and equal in all four extremities. Psychiatric: The patient has an appropriate affect and does not exhibit any anxiety or depression. Triage Information Reviewed: Yes Vital Signs On Initial Exam: Initial Vitals Temp Pulse Resp BP Pulse Ox 98 F 97 22 128/84 100 05/22/17 10:02 05/22/17 10:02 05/22/17 10:02 05/22/17 10:02 05/22/17 10:02 Vital Signs Reviewed: Yes - [place] Coma Scale Coma Scale Total: 15 Diagnostics - Vital Signs Vital Signs Temp Pulse Resp BP Pulse Ox 05/22/17 10:02 98 F 97 22 128/84 100 - Laboratory Lab Results: Lab Results 05/22/17 Range/Units 10:54 Sodium 133 (133-145) mmol/L Potassium 3.4 L (3.5-5.0) mmol/L Chloride 91 L (101-111) mmol/L Carbon Dioxide 29 (22-32) mmol/L Anion Gap 13 H (2-11) mmol/L BUN 24 (6-24) mg/dL Creatinine 3.00 H (0.51-0.95) mg/dL Est GFR ( Amer) 20.0 (>60) Est GFR (Non-Af Amer) 15.5 (>60) BUN/Creatinine Ratio 8.0 (8-20) Glucose 94 (70-100) mg/dL Calcium 8.9 (8.6-10.3) mg/dL Result Diagrams: 05/22/17 10:54 Lab Statement: Any lab studies that have been ordered have been reviewed, and results considered in the medical decision making process. - EKG 10:02 Cardiac Rate: NL EKG Rhythm: Sinus Rhythm - borderline sinus tachycardia at 92 BPM EKG Interpretation: LVH Course/Dx - Course Course Of Treatment: Ms. Cota went into paroxysmal A-Fib at the end of dialysis and was sent over here. She converted on her own prior to my seeing her. I checked lytes and her potassium was low so I gave her a PO dose. She remained stable and asymptomatic here. - Diagnoses Provider Diagnoses: A-fib, Hypokalemia Discharge - Discharge Plan Condition: Stable Disposition: HOME Patient Education Materials: A-fib (Atrial Fibrillation) (ED), Hypokalemia (ED) Referrals: Pato Bah MD [Primary Care Provider] - Additional Instructions: Follow up with Primary Care Physician. RETURN TO THE EMERGENCY DEPARTMENT FOR CHANGING OR WORSENING SYMPTOMS. The documentation as recorded by the Ruma cabrera Julia accurately reflects the service I personally performed and the decisions made by me, Trent Marsh MD.
== END 2017-05-22 12:39 | disposition home or self-care (01) ==
LOC: ED 10:00
DX: R00.2 Palpitations (principal); F41.9 Anxiety disorder, unspecified; I48.91 Unspecified atrial fibrillation; E87.6 Hypokalemia; Z99.2 Dependence on renal dialysis; Z86.79 Personal history of other diseases of the circulatory system; Z87.09 Personal history of other diseases of the respiratory system
CPT/HCPCS: 36415; 80048; 93005; 99282; A9270-GY

== ENCOUNTER 2017-07-27 10:54 | Emergency (ER) | payer MEDICARE ==
[2017-07-27] MEDS ORDERED: Diltiazem IV* 5 MG/ML 5 ML VIAL (for loading dose/IV Push) (25 MG) IV PUSH ONE (11:23)
[2017-07-27] MEDS ORDERED: Metoprolol Tartrate TAB* 25 MG PO ONE (11:25)
[2017-07-27] MEDS ORDERED: Diltiazem IV* 5 MG/ML 5 ML VIAL (for loading dose/IV Push) (25 MG) ONE (11:27)
--- NOTE | 2017-07-27 12:26 | RAD ---
INDICATION: Near syncope COMPARISON: Chest x-ray June 29, 2013 TECHNIQUE: Single AP portable view of the chest was obtained. FINDINGS: Image quality is compromised due to the relative inferiority of a portable chest x-ray. Again seen are surgical clips overlying the left of midline upper mediastinum. The heart and mediastinum exhibit normal size and contour. The lungs are grossly clear. There is no evidence of a large pleural effusion. Visualized bones are normal for the patient's age. IMPRESSION: No radiographic evidence for acute cardiopulmonary abnormality on this portable chest x-ray.
[2017-07-27 12:31] LABS: ABS Basophils 0.1 10^3/ul (0-0.2); ABS Eosinophils 0.4 10^3/ul (0-0.6); ABS Lymphocytes 0.9 10^3/ul (1.0-4.8); ABS Monocytes 0.5 10^3/ul (0-0.8); ABS Neutrophils 5.7 10^3/ul (1.5-7.7); ABS Nucleated RBC 0 10^3/ul; Eosinophil % 5.8 % (0-6); Hematocrit 34 % (35-47); Hemoglobin 11.9 g/dl (12.0-16.0); Lymphocyte % 11.8 % (25-47); Mean Corpuscular HGB Conc 35 g/dl (31-36); Mean Corpuscular Hemoglobin 34 pg (27-31); Mean Corpuscular Volume 98 fL (80-97); Mean Platelet Volume 7.2 um3 (7.4-10.4); Nucleated Red Blood Cells % 0; Platelet Count 220 10^3/ul (150-450); Red Blood Count 3.51 10^6/ul (4.0-5.4); Red Cell Distribution Width 13 % (10.5-15); White Blood Count 7.6 10^3/ul (3.5-10.8)
[2017-07-27 12:43] LABS: INR 0.9 (0.77-1.02)
[2017-07-27 13:21] LABS: EGFR Non-African American 15.5 (>60)
[2017-07-27 14:53] VITALS: BP 121/81
--- NOTE | 2017-07-27 15:03 | ED ---
Luis Bello Jennifer, scribed for Joe Vegas on 07/27/17 at 1125 . Syncope/Near Syncope - HPI Summary HPI Summary: The patient is a 67 year old female who had a near syncopal episode at dialysis today. The patient reports that after dialysis, she went into afib. She denies chest pain, shortness of breath, or loss of consciousness. The patient adds that she last had afib a few months, but didnt take her medication this morning. - History Of Current Complaint Chief Complaint: EDSyncope Time Seen by Provider: 07/27/17 11:13 Hx Obtained From: Patient Onset/Duration: Sudden Onset, Lasting Hours, Still Present Timing: Frequency Of Episodes Activity At Onset: Other - At dialysis Aggravating Factor(s): Nothing Alleviating Factor(s): Nothing Associated Signs And Symptoms: Negative - Chest pain, shortness of breath, loss of consciousness, Other - Afib - Allergies/Home Medications Allergies/Adverse Reactions: Allergies Allergy/AdvReac Type Severity Reaction Status Date / Time MS Iodine [Iodine] Allergy Severe Hives Verified 05/22/17 10:08 MS Oxycodone [From Percocet] Allergy Severe Itching Verified 05/22/17 10:08 MS Penicillin G Allergy Severe Hives Verified 05/22/17 10:08 [Penicillin G] MS Risedronate [From Actonel] Allergy Severe Anaphylatic Verified 05/22/17 10:08 Shock MS Sulfa Antibiotics Allergy Severe Hives Verified 05/22/17 10:08 [Sulfa Antibiotics] MS Tetracyclines & Related Allergy Severe Hives Verified 05/22/17 10:08 [Tetracyclines & Related] MS Calcium Acetate Allergy Intermediate trouble Verified 05/22/17 10:08 [Calcium Acetate] breathing, throat swelling MS Metronidazole Allergy Unknown Verified 05/22/17 10:08 [Metronidazole] Reaction Details MS Montelukast Allergy Unknown Verified 05/22/17 10:08 [From Singulair] Reaction Details butalazone Allergy Severe TOTAL BODY Uncoded 05/22/17 10:08 RASH latex Allergy Severe Rash Uncoded 05/22/17 10:08 pneumonia vaccine Allergy Severe arm Uncoded 05/22/17 10:08 swollen and hot APO-RISENDRONATE Allergy Unknown Uncoded 05/22/17 10:[address] CONTRAST DYE Allergy Hives Uncoded 05/22/17 10:08 Home Medications: Home Medications Aspirin EC Low Dose* [Ecotrin EC Low Dose 81 MG*] 81 mg PO DAILY 07/27/17 [ History Confirmed 07/27/17] Cyanocobalamin TAB* [Vitamin B12 TAB*] 1,000 mcg PO DAILY 07/27/17 [History Confirmed 07/27/17] Ferrous Fum/Folic Acid/Bcomp,C [Dialyvite 800/Iron 29-0.8 mg] 1 tab PO DAILY [History Confirmed 07/27/17] Metoprolol Tartrate TAB* [Lopressor TAB*] 12.5 mg PO DAILY 07/27/17 [History Confirmed 07/27/17] Multivitamin [Daily Multiple Vitamins] 1 tab PO QAM 07/27/17 [History Confirmed 07/27/17] Sevelamer TAB* [Renvela TAB*] 2,400 mg PO TID WITH MEALS 07/27/17 [History Confirmed 07/27/17] Sodium Polystyrene Sulfon/Sorb [Sps] 30 gm PO DAILY PRN 07/27/17 [History Confirmed 07/27/17] Vit A/Vit C/Vit E/Zinc/Copper [Preservision Areds Softgel] 1 each PO BID [History Confirmed 07/27/17] Vitamin E CAP* 800 unit PO DAILY 07/27/17 [History Confirmed 07/27/17] Zafirlukast (NF) [Accolate (NF)] 20 mg PO DAILY 07/27/17 [History Confirmed ] proPAFENone TAB* [Rythmol*] 75 mg PO TID 07/27/17 [History Confirmed 07/27/17] PMH/Surg Hx/FS Hx/Imm Hx Endocrine/Hematology History: Reports: Hx Anemia Denies: Hx Diabetes, Hx Systemic Lupus Erythematosus Cardiovascular History: Reports: Hx Atrial Fibrillation, Hx Congestive Heart Failure, Hx Hypercholesterolemia, Hx Valvular Heart Disease - MITRAL VALVE PROLAPSE SEES DR TRACY, Other Cardiovascular Problems/Disorders - ANCA VASCULITIS Denies: Hx Hypertension, Hx Myocardial Infarction, Hx Pacemaker/ICD Respiratory History: Reports: Hx Asthma, Hx Chronic Obstructive Pulmonary Disease (COPD), Hx Lung Cancer, Other Respiratory Problems/Disorders - LLL lung ca dx'd 95 [place] [facility] [place] History: Reports: Hx Diverticulosis, Other GI Disorders - ULCER REMOVED IN THE PAST History: Reports: Hx Acute Renal Failure, Hx Chronic Renal Failure, Hx Dialysis - Wednesday, and Wednesday, 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 Musculoskeletal History: Reports: Hx Arthritis - KNEES Denies: Hx Rheumatoid Arthritis Sensory History: Reports: Hx Cataracts - FORMING, Hx Contacts or Glasses, Hx Eye Injury - retinal blister Denies: Hx Glaucoma, Hx Hearing Aid Opthamlomology History: Reports: Hx Cataracts - FORMING, Hx Contacts or Glasses , Hx Eye Injury - retinal blister Denies: Hx Glaucoma Neurological History: Reports: Other Neuro Impairments/Disorders - menigeal lesion Psychiatric History: Reports: Hx Anxiety - OK WITH MEDS, Hx Depression Denies: Hx Panic Disorder, Other Psychiatric Issues/Disorders - Cancer History Cancer Type, Location and Year: lung CA 1994 with partial lobectomy Hx Chemotherapy: No Hx Radiation Therapy: No - Surgical History Surgery Procedure, Year, and Place: tubal , left oopherectomy 1994,lung ca 1994 left lobectomy, benign tumor behind left eye per pt, breast lumpectomy 06/2011 benign,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 Hx Anesthesia Reactions: No - Immunization History Date of Influenza Vaccine: 2015 Infectious Disease History: No Infectious Disease History: Denies: Traveled Outside the [place] in Last 30 Days - Family History Known Family History: Positive: Cardiac Disease - father [place] in 80's, sister [place] at 55 Negative: Other - breast CA - Social History Alcohol Use: None Hx Substance Use: No Substance Use Type: Reports: None Hx Tobacco Use: No Smoking Status (MU): Never Smoked Tobacco Review of Systems Positive: Other - Afib Neurological: Negative - Loss of consciousness All Other Systems Reviewed And Are Negative: Yes Physical Exam - Summary Physical Exam Summary: Appearance: Well appearing, no pain distress Skin: warm, dry, reflects adequate perfusion Head/face: normal Eyes: EOMI, ALANA ENT: normal Neck: supple, non-tender Respiratory: CTA, breath sounds present Cardiovascular: Tachycardic, irregualrly irregular rhythm, pulses symmetrical ~ Abdomen: non-tender, soft Bowel: present Musculoskeletal: normal, strength/ROM intact, fistula shunt in left arm Neuro: normal, sensory motor intact, A&Ox3 Triage Information Reviewed: Yes Vital Signs On Initial Exam: Initial Vitals Temp Pulse Resp BP Pulse Ox 97.3 F 133 15 138/64 100 07/27/17 11:09 07/27/17 11:09 07/27/17 11:09 07/27/17 11:09 07/27/17 11:09 Vital Signs Reviewed: Yes Diagnostics - Vital Signs Vital Signs Temp Pulse Resp BP Pulse Ox 07/27/17 11:09 97.3 F 133 15 138/64 100 - Laboratory Lab Results: Lab Results 07/27/17 07/27/17 07/27/17 Range/Units 12:09 12:09 12:09 WBC 7.6 (3.5-10.8) 10^3/ul RBC 3.51 L (4.0-5.4) 10^6/ul Hgb 11.9 L (12.0-16.0) g/dl Hct 34 L (35-47) % MCV 98 H (80-97) fL MCH 34 H (27-31) pg MCHC 35 (31-36) g/dl RDW 13 (10.5-15) % Plt Count 220 (150-450) 10^3/ul MPV 7.2 L (7.4-10.4) um3 Neut % (Auto) 74.5 (38-83) % Lymph % (Auto) 11.8 L (25-47) % [place] % (Auto) 6.8 (0-7) % Eos % (Auto) 5.8 (0-6) % Baso % (Auto) 1.1 (0-2) % Absolute Neuts (auto) 5.7 (1.5-7.7) 10^3/ul Absolute Lymphs (auto) 0.9 L (1.0-4.8) 10^3/ul Absolute Monos (auto) 0.5 (0-0.8) 10^3/ul Absolute Eos (auto) 0.4 (0-0.6) 10^3/ul Absolute Basos (auto) 0.1 (0-0.2) 10^3/ul Absolute Nucleated RBC 0 10^3/ul Nucleated RBC % 0 INR (Anticoag Therapy) 0.90 (0.77-1.02) APTT 31.7 (26.0-36.3) seconds Sodium (139-145) mmol/L Potassium (3.5-5.0) mmol/L Chloride (101-111) mmol/L Carbon Dioxide (22-32) mmol/L Anion Gap (2-11) mmol/L BUN (6-24) mg/dL Creatinine (0.51-0.95) mg/dL Est GFR ( Amer) (>60) Est GFR (Non-Af Amer) (>60) BUN/Creatinine Ratio (8-20) Glucose (70-100) mg/dL Lactic Acid (0.5-2.0) mmol/L Calcium (8.6-10.3) mg/dL Magnesium (1.9-2.7) mg/dL Total Bilirubin (0.2-1.0) mg/dL AST (13-39) U/L ALT (7-52) U/L Alkaline Phosphatase (34-104) U/L Troponin I (<0.04) ng/mL B-Natriuretic Peptide 216 H ( - 100) pg/mL Total Protein (6.4-8.9) g/dL Albumin (3.2-5.2) g/dL Globulin (2-4) g/dL Albumin/Globulin Ratio (1-3) 07/27/17 07/27/17 Range/Units 12:09 12:09 WBC (3.5-10.8) 10^3/ul RBC (4.0-5.4) 10^6/ul Hgb (12.0-16.0) g/dl Hct (35-47) % MCV (80-97) fL MCH (27-31) pg MCHC (31-36) g/dl RDW (10.5-15) % Plt Count (150-450) 10^3/ul MPV (7.4-10.4) um3 Neut % (Auto) (38-83) % Lymph % (Auto) (25-47) % [place] % (Auto) (0-7) % Eos % (Auto) (0-6) % Baso % (Auto) (0-2) % Absolute Neuts (auto) (1.5-7.7) 10^3/ul Absolute Lymphs (auto) (1.0-4.8) 10^3/ul Absolute Monos (auto) (0-0.8) 10^3/ul Absolute Eos (auto) (0-0.6) 10^3/ul Absolute Basos (auto) (0-0.2) 10^3/ul Absolute Nucleated RBC 10^3/ul Nucleated RBC % INR (Anticoag Therapy) (0.77-1.02) APTT (26.0-36.3) seconds Sodium 136 L (139-145) mmol/L Potassium 3.9 (3.5-5.0) mmol/L Chloride 95 L (101-111) mmol/L Carbon Dioxide 30 (22-32) mmol/L Anion Gap 11 (2-11) mmol/L BUN 31 H (6-24) mg/dL Creatinine 3.00 H (0.51-0.95) mg/dL Est GFR ( Amer) 19.9 (>60) Est GFR (Non-Af Amer) 15.5 (>60) BUN/Creatinine Ratio 10.3 (8-20) Glucose 82 (70-100) mg/dL Lactic Acid 0.8 (0.5-2.0) mmol/L Calcium 9.3 (8.6-10.3) mg/dL Magnesium 2.3 (1.9-2.7) mg/dL Total Bilirubin 0.50 (0.2-1.0) mg/dL AST 16 (13-39) U/L ALT 7 (7-52) U/L Alkaline Phosphatase 169 H (34-104) U/L Troponin I 0.01 (<0.04) ng/mL B-Natriuretic Peptide ( - 100) pg/mL Total Protein 7.1 (6.4-8.9) g/dL Albumin 4.1 (3.2-5.2) g/dL Globulin 3.0 (2-4) g/dL Albumin/Globulin Ratio 1.4 (1-3) Result Diagrams: 07/27/17 12:09 07/27/17 12:09 Lab Statement: Any lab studies that have been ordered have been reviewed, and results considered in the medical decision making process. - Radiology CXR Xray Interpretation: No Acute Changes - No radiographic evidence for acute cardiopulmonary abnormality on this portable chest x-ray. Dr. Vegas has reviewed this report. Radiology Interpretation Completed By: Radiologist - EKG 11:23 EKG Rhythm: Atrial Fibrillation - 147 BPM EKG Interpretation: Rapid ventricular rate 14:11 Cardiac Rate: NL EKG Rhythm: Sinus Rhythm - 72 BPM EKG Comparison: No Significant Change Course/Dx Course Of Treatment: The patient is a 67 year old female who had a near syncopal episode after going into Afib at dialysis today. Bloodwork was obtained. CXR was obtained. EKG showed rapid afib at 147 BPM. The patient is diagnosed with end stage renal disease on dialysis and paroxysmal afib. I consulted with Dr. Lundy, cardiology, who recommended the patient take her meds before going to dialysis. Patient is instructed to follow up with PCP in 3 days. - Diagnoses Differential Diagnosis/HQI/PQRI: Positive: Dysrhythmia, Other - a fib parox Provider Diagnoses: ESRD on dialysis, Paroxysmal A-fib - Physician Notifications Discussed Care of Patient With: David Lundy Time Discussed With Above Provider: 14:20 Instructed by Provider To: Other - Pt said she did not take her meds. Dr. Lundy , cardiology, advised she take her meds before going to dialysis. - Critical Care Time Critical Care Time: 30-74 min Discharge - Sign-Out/Discharge Documenting (check all that apply): Discharge - Discharge Plan Condition: Stable Disposition: HOME Patient Education Materials: A-fib (Atrial Fibrillation) (ED), End Stage Kidney Disease (ED) Referrals: Pato Bah MD [Primary Care Provider] - 3 Days Additional Instructions: Follow up with your primary care physician in three days. Return to the emergency department for any new or worsening symptoms. - Billing Disposition and Condition Condition: STABLE Disposition: HOME The documentation as recorded by the Luis cabrera Jennifer accurately reflects the service I personally performed and the decisions made by me, Joe Vegas.
== END 2017-07-27 14:52 | disposition home or self-care (01) ==
LOC: ED 10:54
DX: N18.6 End stage renal disease (principal); Z99.2 Dependence on renal dialysis; I48.0 Paroxysmal atrial fibrillation; I50.9 Heart failure, unspecified; E78.00 Pure hypercholesterolemia, unspecified; I34.1 Nonrheumatic mitral (valve) prolapse; J44.9 Chronic obstructive pulmonary disease, unspecified; Z85.118 Personal history of other malignant neoplasm of bronchus and lung; F41.9 Anxiety disorder, unspecified; F32.9 Major depressive disorder, single episode, unspecified
CPT/HCPCS: 36415; 71045; 80053; 83605; 83735; 83880; 84484; 85025; 85610; 85730; 93005; 96374; 99283

== ENCOUNTER 2017-08-26 11:19 | Emergency (ER) | payer MEDICARE ==
[2017-08-26 12:33] LABS: ABS Basophils 0 10^3/ul (0-0.2); ABS Eosinophils 0.3 10^3/ul (0-0.6); ABS Lymphocytes 0.4 10^3/ul (1.0-4.8); ABS Monocytes 0.4 10^3/ul (0-0.8); ABS Nucleated RBC 0 10^3/ul; Hematocrit 31 % (35-47); Hemoglobin 10.3 g/dl (12.0-16.0); Lymphocyte % 5.2 % (25-47); Mean Corpuscular HGB Conc 34 g/dl (31-36); Mean Corpuscular Hemoglobin 33 pg (27-31); Mean Corpuscular Volume 99 fL (80-97); Mean Platelet Volume 6.5 um3 (7.4-10.4); Nucleated Red Blood Cells % 0; Platelet Count 249 10^3/ul (150-450); Red Blood Count 3.09 10^6/ul (4.0-5.4); Red Cell Distribution Width 13 % (10.5-15); White Blood Count 7.1 10^3/ul (3.5-10.8)
[2017-08-26 12:52] LABS: EGFR Non-African American 14.6 (>60)
[2017-08-26 13:03] VITALS: BP 125/71
--- NOTE | 2017-08-26 13:34 | ED ---
Tao Bello Stephanie, scribed for Joe Vegas on 08/26/17 at 1204 . GI/ HPI - HPI Summary HPI Summary: The pt is a 67 y/o F presenting to the ED with c/o N/V that began today s/p dialysis at 11:25 today. She denies CP, SOB and abd pain. - History of Current Complaint Chief Complaint: EDNauseaVomitDiarrh Time Seen by Provider: 08/26/17 11:29 Stated Complaint: GENERAL ILLNESS Hx Obtained From: Patient Onset/Duration: Started Hours Ago - 1, Resolved Timing: Constant Severity: Moderate Current Severity: Mild Pain Intensity: 0 Location of Pain: None Associated Signs and Symptoms: Positive: Nausea, Vomiting. Negative: Abdominal Pain, Chest Pain Alleviating Factor(s): Vomiting - Additional Pertinent History Primary Care Physician: HETAL - Allergy/Home Medications Allergies/Adverse Reactions: Allergies Allergy/AdvReac Type Severity Reaction Status Date / Time MS Iodine [Iodine] Allergy Severe Hives Verified 05/22/17 10:08 MS Oxycodone [From Percocet] Allergy Severe Itching Verified 05/22/17 10:08 MS Penicillin G Allergy Severe Hives Verified 05/22/17 10:08 [Penicillin G] MS Risedronate [From Actonel] Allergy Severe Anaphylatic Verified 05/22/17 10:08 Shock MS Sulfa Antibiotics Allergy Severe Hives Verified 05/22/17 10:08 [Sulfa Antibiotics] MS Tetracyclines & Related Allergy Severe Hives Verified 05/22/17 10:08 [Tetracyclines & Related] MS Calcium Acetate Allergy Intermediate trouble Verified 05/22/17 10:08 [Calcium Acetate] breathing, throat swelling MS Metronidazole Allergy Unknown Verified 05/22/17 10:08 [Metronidazole] Reaction Details MS Montelukast Allergy Unknown Verified 05/22/17 10:08 [From Singulair] Reaction Details butalazone Allergy Severe TOTAL BODY Uncoded 05/22/17 10:08 RASH latex Allergy Severe Rash Uncoded 05/22/17 10:08 pneumonia vaccine Allergy Severe arm Uncoded 05/22/17 10:08 swollen and hot APO-RISENDRONATE Allergy Unknown Uncoded 05/22/17 10:[address] CONTRAST DYE Allergy Hives Uncoded 05/22/17 10:08 Home Medications: Home Medications Multivitamins/Minerals TAB* [Theragran/minerals TAB*] 1 tab PO DAILY 08/26/17 [ History Confirmed 08/26/17] Sodium Polystyrene ORAL.KERRI* [Kayexalate ORAL.KERRI*] 30 gm PO DAILY PRN 08/26/17 [History Confirmed 08/26/17] PMH/Surg Hx/FS Hx/Imm Hx Endocrine/Hematology History: Reports: Hx Anemia Denies: Hx Diabetes, Hx Systemic Lupus Erythematosus Cardiovascular History: Reports: Hx Atrial Fibrillation, Hx Congestive Heart Failure, Hx Hypercholesterolemia, Hx Valvular Heart Disease - MITRAL VALVE PROLAPSE SEES DR TRACY, Other Cardiovascular Problems/Disorders - ANCA VASCULITIS Denies: Hx Hypertension, Hx Myocardial Infarction, Hx Pacemaker/ICD Respiratory History: Reports: Hx Asthma, Hx Chronic Obstructive Pulmonary Disease (COPD), Hx Lung Cancer, Other Respiratory Problems/Disorders - LLL lung ca dx'd 95 seen here @ [facility] [place] History: Reports: Hx Diverticulosis, Other GI Disorders - ULCER REMOVED IN THE PAST History: Reports: Hx Acute Renal Failure, Hx Chronic Renal Failure, Hx Dialysis - Wednesday, and Wednesday, 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 Musculoskeletal History: Reports: Hx Arthritis - KNEES Denies: Hx Rheumatoid Arthritis Sensory History: Reports: Hx Cataracts - FORMING, Hx Contacts or Glasses, Hx Eye Injury - retinal blister Denies: Hx Glaucoma, Hx Hearing Aid Opthamlomology History: Reports: Hx Cataracts - FORMING, Hx Contacts or Glasses , Hx Eye Injury - retinal blister Denies: Hx Glaucoma Neurological History: Reports: Other Neuro Impairments/Disorders - menigeal lesion Psychiatric History: Reports: Hx Anxiety - OK WITH MEDS, Hx Depression Denies: Hx Panic Disorder, Other Psychiatric Issues/Disorders - Cancer History Cancer Type, Location and Year: lung CA 1994 with partial lobectomy Hx Chemotherapy: No Hx Radiation Therapy: No - Surgical History Surgery Procedure, Year, and Place: tubal , left oopherectomy 1994,lung ca 1994 left lobectomy, benign tumor behind left eye per pt, breast lumpectomy 06/2011 benign,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 Hx Anesthesia Reactions: No - Immunization History Date of Influenza Vaccine: 2015 Infectious Disease History: No Infectious Disease History: Denies: Traveled Outside the [place] in Last 30 Days - Family History Known Family History: Positive: Cardiac Disease - father [place] in 80's, sister [place] at 55 Negative: Other - breast CA - Social History Occupation: Retired Lives: Alone Alcohol Use: None Hx Substance Use: No Substance Use Type: Reports: None Hx Tobacco Use: No Smoking Status (MU): Never Smoked Tobacco Have You Smoked in the Last Year: No Review of Systems Negative: Fever Negative: Chest Pain Negative: Shortness Of Breath Positive: Vomiting, Nausea. Negative: Abdominal Pain All Other Systems Reviewed And Are Negative: Yes Physical Exam - Summary Physical Exam Summary: Appearance: Well appearing, no pain distress, fistula in L arm Skin: warm, dry, reflects adequate perfusion Head/face: normal Eyes: EOMI, ALANA ENT: normal Neck: supple, non-tender Respiratory: CTA, breath sounds present Cardiovascular: RRR, pulses symmetrical Abdomen: non-tender, soft Bowel: present Musculoskeletal: normal, strength/ROM intact Neuro: normal, sensory motor intact, A&Ox3 Triage Information Reviewed: Yes Vital Signs On Initial Exam: Initial Vitals Temp Pulse Resp BP Pulse Ox 97.8 F 108 18 95/76 96 08/26/17 11:25 08/26/17 11:25 08/26/17 11:25 08/26/17 11:25 08/26/17 11:25 Vital Signs Reviewed: Yes Diagnostics - Vital Signs Vital Signs Temp Pulse Resp BP Pulse Ox 08/26/17 11:29 20 105/81 08/26/17 11:28 23 95/76 08/26/17 11:27 108 95 08/26/17 11:25 97.8 F 108 18 95/76 96 - Laboratory Lab Results: Lab Results 08/26/17 08/26/17 Range/Units 12:15 12:15 WBC 7.1 (3.5-10.8) 10^3/ul RBC 3.09 L (4.0-5.4) 10^6/ul Hgb 10.3 L (12.0-16.0) g/dl Hct 31 L (35-47) % MCV 99 H (80-97) fL MCH 33 H (27-31) pg MCHC 34 (31-36) g/dl RDW 13 (10.5-15) % Plt Count 249 (150-450) 10^3/ul MPV 6.5 L (7.4-10.4) um3 Neut % (Auto) 84.6 H (38-83) % Lymph % (Auto) 5.2 L (25-47) % [place] % (Auto) 5.6 (0-7) % Eos % (Auto) 4.0 (0-6) % Baso % (Auto) 0.6 (0-2) % Absolute Neuts (auto) 6.0 (1.5-7.7) 10^3/ul Absolute Lymphs (auto) 0.4 L (1.0-4.8) 10^3/ul Absolute Monos (auto) 0.4 (0-0.8) 10^3/ul Absolute Eos (auto) 0.3 (0-0.6) 10^3/ul Absolute Basos (auto) 0 (0-0.2) 10^3/ul Absolute Nucleated RBC 0 10^3/ul Nucleated RBC % 0 Sodium 139 (139-145) mmol/L Potassium 3.4 L (3.5-5.0) mmol/L Chloride 95 L (101-111) mmol/L Carbon Dioxide 30 (22-32) mmol/L Anion Gap 14 H (2-11) mmol/L BUN 25 H (6-24) mg/dL Creatinine 3.16 H (0.51-0.95) mg/dL Est GFR ( Amer) 18.7 (>60) Est GFR (Non-Af Amer) 14.6 (>60) BUN/Creatinine Ratio 7.9 L (8-20) Glucose 95 (70-100) mg/dL Calcium 8.8 (8.6-10.3) mg/dL Total Bilirubin 0.50 (0.2-1.0) mg/dL AST 14 (13-39) U/L ALT 7 (7-52) U/L Alkaline Phosphatase 155 H (34-104) U/L Troponin I 0.01 (<0.04) ng/mL Total Protein 7.4 (6.4-8.9) g/dL Albumin 4.2 (3.2-5.2) g/dL Globulin 3.2 (2-4) g/dL Albumin/Globulin Ratio 1.3 (1-3) Result Diagrams: 08/26/17 12:15 08/26/17 12:15 Lab Statement: Any lab studies that have been ordered have been reviewed, and results considered in the medical decision making process. - EKG 12:05 Cardiac Rate: Tachycardia EKG Rhythm: Sinus Tachycardia - 102 BPM EKG Interpretation: No acute changes Re-Evaluation - Re-Evaluation First Eval Re-Evaluation Time: 13:27 Change: Improved - The pt states she currently has no nausea. GIGU Course/Dx - Course Course Of Treatment: The pt is a 67 y/o F presenting to the ED with c/o N/V that began today s/p dialysis at 11:25 today. She denies CP, SOB and abd pain. Urines obtained. - Diagnoses Differential Diagnoses - Female: Gastroenteritis (Viral), Vomiting Provider Diagnoses: End stage kidney disease, Nausea and vomiting Discharge - Sign-Out/Discharge Documenting (check all that apply): Discharge/Admit/Transfer - discharge - Discharge Plan Condition: Stable Disposition: HOME Patient Education Materials: Acute Nausea and Vomiting (ED), End Stage Kidney Disease (ED) Referrals: Pato Bah MD [Primary Care Provider] - 2 Days Additional Instructions: Return to ED for any new or worsening symptoms. - Billing Disposition and Condition Condition: STABLE Disposition: HOME The documentation as recorded by the Tao cabrera Stephanie accurately reflects the service I personally performed and the decisions made by Shasta tafoya Emmanuel.
== END 2017-08-26 13:31 | disposition home or self-care (01) ==
LOC: ED 11:19
DX: N18.6 End stage renal disease (principal); R11.2 Nausea with vomiting, unspecified; R07.9 Chest pain, unspecified
CPT/HCPCS: 36415; 80053; 84484; 85025; 93005; 99282

== ENCOUNTER 2017-08-31 11:43 | Emergency (ER) | payer MEDICARE ==
[2017-08-31] MEDS ORDERED: Ondansetron ODT TAB* 4 MG SL ONE (12:00)
[2017-08-31] MEDS ORDERED: Metoprolol Tartrate TAB* 25 MG PO ONE (12:00)
[2017-08-31 13:05] LABS: Hematocrit 28 % (35-47); Hemoglobin 9.6 g/dl (12.0-16.0); Mean Corpuscular HGB Conc 34 g/dl (31-36); Mean Corpuscular Hemoglobin 34 pg (27-31); Mean Corpuscular Volume 99 fL (80-97); Mean Platelet Volume 6.6 um3 (7.4-10.4); Platelet Count 230 10^3/ul (150-450); Red Blood Count 2.84 10^6/ul (4.0-5.4); Red Cell Distribution Width 13 % (10.5-15); White Blood Count 5.6 10^3/ul (3.5-10.8)
[2017-08-31 13:14] LABS: INR 0.95 (0.77-1.02)
[2017-08-31 13:26] LABS: EGFR Non-African American 13.9 (>60)
[2017-08-31 14:39] VITALS: BP 121/76
--- NOTE | 2017-09-07 08:41 | ED ---
Luis Bello Jennifer scribed for Calvin Gatica MD on 08/31/17 at 1157 . Palpitations / Dysrhythmia - HPI Summary HPI Summary: The patient is a 67 year old female who went into atrial fibrillation while at dialysis today. The patient reports she felt fine before dialysis and only had two minutes left before she went into afib. She complains of nausea, vomiting, and abdominal pain in the ED. She denies chest pain, shortness of breath, and diarrhea. - History of Current Complaint Chief Complaint: EDDysrhythmPalp Time Seen by Provider: 08/31/17 11:49 Hx Obtained From: Patient Onset/Duration: Sudden Onset, Resolved Timing: Constant Severity Initially: Mild Severity Currently: None Character: Fast Aggravating: Nothing Alleviating: Nothing Associated Signs & Symptoms: Negative - Chest pain, shortness of breath, Nausea , Vomiting - Allergy/Home Medications Allergies/Adverse Reactions: Allergies Allergy/AdvReac Type Severity Reaction Status Date / Time MS Iodine [Iodine] Allergy Severe Hives Verified 05/22/17 10:08 MS Oxycodone [From Percocet] Allergy Severe Itching Verified 05/22/17 10:08 MS Penicillin G Allergy Severe Hives Verified 05/22/17 10:08 [Penicillin G] MS Risedronate [From Actonel] Allergy Severe Anaphylatic Verified 05/22/17 10:08 Shock MS Sulfa Antibiotics Allergy Severe Hives Verified 05/22/17 10:08 [Sulfa Antibiotics] MS Tetracyclines & Related Allergy Severe Hives Verified 05/22/17 10:08 [Tetracyclines & Related] MS Calcium Acetate Allergy Intermediate trouble Verified 05/22/17 10:08 [Calcium Acetate] breathing, throat swelling MS Metronidazole Allergy Unknown Verified 05/22/17 10:08 [Metronidazole] Reaction Details MS Montelukast Allergy Unknown Verified 05/22/17 10:08 [From Singulair] Reaction Details butalazone Allergy Severe TOTAL BODY Uncoded 05/22/17 10:08 RASH latex Allergy Severe Rash Uncoded 05/22/17 10:08 pneumonia vaccine Allergy Severe arm Uncoded 05/22/17 10:08 swollen and hot APO-RISENDRONATE Allergy Unknown Uncoded 05/22/17 10:[address] CONTRAST DYE Allergy Hives Uncoded 05/22/17 10:08 Home Medications: Home Medications Patiromer Calcium Sorbitex [Veltassa] 8.4 gm PO DAILY PRN 08/31/17 [History Confirmed 08/31/17] PMH/Surg Hx/FS Hx/Imm Hx Endocrine/Hematology History: Reports: Hx Anemia Denies: Hx Diabetes, Hx Systemic Lupus Erythematosus Cardiovascular History: Reports: Hx Atrial Fibrillation, Hx Congestive Heart Failure, Hx Hypercholesterolemia, Hx Valvular Heart Disease - MITRAL VALVE PROLAPSE SEES DR TRACY, Other Cardiovascular Problems/Disorders - ANCA VASCULITIS Denies: Hx Hypertension, Hx Myocardial Infarction, Hx Pacemaker/ICD Respiratory History: Reports: Hx Asthma, Hx Chronic Obstructive Pulmonary Disease (COPD), Hx Lung Cancer, Other Respiratory Problems/Disorders - LLL lung ca dx'd 95 seen here @ [facility] [place] GI History: Reports: Hx Diverticulosis, Other GI Disorders - ULCER REMOVED IN THE PAST History: Reports: Hx Acute Renal Failure, Hx Chronic Renal Failure, Hx Dialysis - Wednesday, and Wednesday, 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 Musculoskeletal History: Reports: Hx Arthritis - KNEES Denies: Hx Rheumatoid Arthritis Sensory History: Reports: Hx Cataracts - FORMING, Hx Contacts or Glasses, Hx Eye Injury - retinal blister Denies: Hx Glaucoma, Hx Hearing Aid Opthamlomology History: Reports: Hx Cataracts - FORMING, Hx Contacts or Glasses , Hx Eye Injury - retinal blister Denies: Hx Glaucoma Neurological History: Reports: Other Neuro Impairments/Disorders - menigeal lesion Psychiatric History: Reports: Hx Anxiety - OK WITH MEDS, Hx Depression Denies: Hx Panic Disorder, Other Psychiatric Issues/Disorders - Cancer History Cancer Type, Location and Year: lung CA 1994 with partial lobectomy Hx Chemotherapy: No Hx Radiation Therapy: No - Surgical History Surgery Procedure, Year, and Place: tubal , left oopherectomy 1994,lung ca 1994 left lobectomy, benign tumor behind left eye per pt, breast lumpectomy 06/2011 benign,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 Negative: Chest Pain Negative: Shortness Of Breath, Cough Positive: Abdominal Pain, Vomiting, Nausea. Negative: Diarrhea Negative: dysuria, hematuria Negative: Myalgia, Edema Negative: Rash Neurological: Negative - Dizziness All Other Systems Reviewed And Are Negative: Yes Physical Exam - Summary Physical Exam Summary: Constitutional: Well-developed, Well-nourished, Alert. (-) Distressed Skin: Warm, Dry HENT: Normocephalic; Atraumatic Eyes: Conjunctiva normal Neck: Musculoskeletal ROM normal neck. (-) JVD, (-) Stridor, (-) Tracheal deviation Cardio: Rhythm regular, rate normal, Heart sounds normal; Intact distal pulses; The pedal pulses are 2+ and symmetric. Radial pulses are 2+ and symmetric. (-) Murmur Pulmonary/Chest wall: Effort normal. (-) Respiratory distress, (-) Wheezes, (-) Rales Abd: Soft, (-) Tenderness, (-) Distension, (-) Guarding, (-) Rebound Musculoskeletal: (-) Edema Lymph: (-) Cervical adenopathy Neuro: Alert, Oriented x3 Psych: Mood and affect Normal Triage Information Reviewed: Yes Vital Signs Reviewed: Yes Diagnostics - Laboratory Result Diagrams: 08/31/17 12:45 08/31/17 12:45 Lab Statement: Any lab studies that have been ordered have been reviewed, and results considered in the medical decision making process. Re-Evaluation - Re-Evaluation First Eval Re-Evaluation Time: 14:25 Change: Improved Comment: The patient feels great and would like to go home. She is now normal sinus rhythm with heart rate 90 [address]pm. I discussed with Dr. Gupta, he agrees that she can go home. Course/Dx - Course Course Of Treatment: The patient is a 67 year old female who went into atrial fibrillation while at dialysis today. In the ED course the patient was given Lopressor and Zofran. Bloodwork and urinalysis were obtained. The patients Afib with RVR that she had at dialysis resolved before she got to the ED. Her labs were unremarkable. I discussed with Dr. Gupta, who agrees the patient can go home. The patient is diagnosed with tachycardia (resolved). The patient is instructed to follow up with PCP in three days. - Diagnoses Provider Diagnoses: Tachycardia - Physician Notifications Discussed Care Of Patient With: Don Gupta Time Discussed With Above Provider: 14:15 Instructed by Provider To: Other - Dr. Gupta agrees the patient can go home. Discharge - Sign-Out/Discharge Documenting (check all that apply): Discharge/Admit/Transfer - Discharge Plan Condition: Stable Disposition: HOME Patient Education Materials: Tachycardia (ED) Referrals: Pato Bah MD [Primary Care Provider] - 3 Days Additional Instructions: Follow up with your primary care physician in three days. RETURN TO THE EMERGENCY DEPARTMENT FOR CHANGING OR WORSENING SYMPTOMS. The documentation as recorded by the Luis cabrera Jennifer accurately reflects the service I personally performed and the decisions made by , Calvin Gatica MD.
== END 2017-08-31 14:39 | disposition home or self-care (01) ==
LOC: ED 11:43
DX: R00.0 Tachycardia, unspecified (principal); R00.2 Palpitations; R10.9 Unspecified abdominal pain; R11.2 Nausea with vomiting, unspecified
CPT/HCPCS: 36415; 80053; 84439; 84443; 85027; 85610; 85730; 99282; A9270-GY

== ENCOUNTER 2017-10-13 13:10 | Inpatient (IN) | payer MEDICARE ==
[2017-10-13] MEDS ORDERED: NS 0.9% 1000 ML* 1,000 ML IV ONE (13:11)
--- OUTSIDE RECORDS SUMMARY | 2017-10-13 13:18 | XMS REPORT ---
:1950 External Reference #:[id number] Author Organization [employer] Address [address] [place] [address] [place] [address] Phone [phone] Care Team Providers Name Role Phone Pato Bah III, MD Primary Care Physician Unavailable Payers Type Date Identification Numbers Payment Provider Subscriber Health Maintenance Policy Number: Medicare Blue [facility] Don Xavier [facility] (O) [id number] Group Number: [id number] [address] [address] PayID: [id number] [place] [address] Problems Date Description Provider Status Onset: 05/13/2011 Atrial fibrillation Pato Bah M.D. 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 Active Onset: 03/23/2016 Paroxysmal atrial fibrillation Cyril Lara M.D., Active SACHIN BRODY Onset: 03/11/2015 Other specified postprocedural Anjel Chiu M.D. 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 Cigarette Use Never Smoked Cigarettes ETOH Use Rarely consumes alcohol Smoking Patient has never smoked Recreational Drug Use Denies Drug Use Daily Caffeine Consumes on average 1 cup of regular coffee per day Exercise Type/Frequency Exercises regularly Exercise Type/Frequency walks briskly 30+ minutes daily weather permitting Allergies, Adverse Reactions, Alerts Date Description Reaction Status Severity Comments 04/13/2007 Iodine active 04/13/2007 Sulfa active 04/13/2007 Tetracyclines active 04/13/2007 Actonel active 04/13/2007 Percocet active 04/13/2007 Pneumovax active 04/13/2007 Butazolidin active 04/13/2007 Singulair active 01/30/2013 Latex hives active Mild 01/30/2013 CT Contrast Dye hives active Moderate to Severe 02/02/2014 Penicillins active 07/06/2014 PhosLo active 01/31/2015 Risedronate active 01/31/2015 Metronidazole active 02/20/2015 Dilantin Urticaria active Medications Medication Date Status Form Strength Qnty SIG Indications Ordering Provider Propafenone 04/13/ Active Tablets 150mg 135tab 1/2 tablet Cyril HCL 2013 s by mouth Dupont three times Lara, a day M.D., [facility], [facility] Xopenex HFA 01/06/ Active Aerosol 45mcg/Act 15unit Inhale 2 Pato Sultana 2012 s Puffs 4 Niurka, Times A M.D. Day as Needed Preservision 07/07/ Active Capsules 1 capsule Pato Pryor 2012 bid w/food Stephane Bah Aspirin 07/07/ Active Tablets 81 mg 1 po Pato Gaines 2012 daily Stephane Bah Vitamin B12 / Active Tablets ER 1000mcg 30tabs 1 po qd Unknown 0000 Vitamin E / Active Capsules 400Unit 1 po qd Unknown Complex 0000 Renvela / Active Tablets 800mg 3 tablets Unknown 0000 after every meal and snacks. Daily Millie / Active Tablets 1 by mouth Unknown 0000 every day Citalopram / Active Tablets 10mg 90tabs take 1 by Pato Sultana Hydrobromide 0000 mouth daily Stephane Bah Metoprolol 02/02/ Hx Tablets ER 25mg 90tabs take 1/2 by Pato Sultana Succinate ER 2014 - 24HR mouth two Niurka, 10/06/ timesdaily M.D. 2018 Aspirin 01/30/ Hx Tablets 81mg 1 po qd Cyril 2012 - Dupont 02/05/ Patti Lara M.D., [facility], FASNC Flovent HFA 01/09/ Hx Aerosol 110mcg/Act 12unit inhale 2 Adolfo 2012 - s puffs by Pachikara 10/06/ mouth two , M.D. 2018 times daily Ventolin HFA 10/07/ Hx Aerosol 108(90Base 1units 2 puffs po Marily 2012 - ) mcg/Act qid prn Hank, 12/28/ N.P. 2013 Vitamins/Director Content Marketing 06/03/ Hx Tablets 1 po qd Pato Sultana als Multiple 2009 - Niurka, 04/06/ M.D. 2013 Citalopram 06/03/ Hx Tablets 20mg 90tabs 1 po qd Pato Sultana Hydrobromide 2009 - Niurka, 07/07/ M.D. 2012 Pravastatin 06/03/ Hx Tablets 20mg 90tabs 1 po qd Pato Sultana Sodium 2009 - Niurka, 12/12/ M.D. 2009 Accolate 06/03/ Hx Tablets 20mg 60tabs Take 1 By Pato Sultana 2009 - Mouth Two Niurka, 10/06/ Times Daily M.D. 2018 Flovent 05/11/ Hx Aerosol 110mcg/Act 1units 2 po puffs Pato Sultana 2007 - bid Niurka, 01/09/ M.D. 2012 Theophylline / Hx Tablets ER 200mg 30tabs 1 po bid Pato Sultana CR 0000 - 12HR Niurka, 07/07/ M.D. 2012 Albuterol / Hx Aerosol 90mcg/Act 1units 2 puffs po Pato Sultana 0000 - qid prn Niurka, 12/28/ M.D. 2013 Multi-Day 00/00/ Hx Tablets 1 PO qd Unknown Vitamins 0000 - 2014 Lexapro 00/ Hx Tablets 10mg 90tabs 1 PO qd Mitali 0000 - MD Ralf 2009 Vagifem / Hx Tablets 10mcg 24tabs pv 6 days a Unknown 0000 - week for 2 07/07/ weeks and 2012 then pv twice a week. Vitamin D /00/ Hx Tablets 1000Unit 30tabs po qday Unknown - 2012 Flaxseed Oil / Hx Capsules 1000mg 1 po bid Unknown - 2012 Renagel 00/ Hx Tablets 800mg 270tab 3 pills tid Unknown 0000 - s 2014 Prednisone /00/ Hx Tablets 35mg 120tab 1 po qod Unknown 0000 - s 2013 Cytra-2 / Hx Solution 500-334mg/ tid Unknown 0000 - 5ML 2013 Coumadin 00/ Hx Tablets 2.5mg 90tabs take 1-3 as Unknown 0000 - directed at 02/05/ 5pm daily 2013 Metoprolol / Hx Tablets 100mg 60tabs 1 tab by Cyril Tartrate 0000 - mouth twice Cresencio 02/02/ a day Patti Lara M.D., RONN, SACHIN Propafenone / Hx Tablets 150mg 135tab 1/2 tab by Cyril HCL 0000 - s mouth three Cresencio 01/31/ times a day Елена Lara M.D., RONN, SACHIN Zafirlukast / Hx Tablets 20mg 180tab 1 po bid Unknown 0000 - s 2012 Propafanol / Hx 75mg 1/2 tid Unknown 0000 - 2014 Medications Administered in Office Medication Date Status Form Strength Qnty SIG Indications Ordering Provider Technetium TC Administered Injection Rich S. 99M 017 DO Ishan Carey FACC Per Unit Dose Up To 40 Millicuries Inj, Administered Injection Cyril Dupont Regadenoson, 013 Lara, 0.1 MG Stephane, RONN, SACHIN Technetium TC Administered Injection Cyril Dupont 99M 013 Ishan Lara M.D., FACC, Per Unit Dose SACHIN Up To 40 Millicuries Immunizations CPT Code Status Date Vaccine Lot # [id number] Given 01/02/2016 Influenza Virus Vaccine, Quadrivalent, Split Virus, [place] Use [id number] Given 07/06/2014 Tdap - Tetanus/Diptheria/Acellular Pertussis [id number] Given 04/20/2014 Pneumococcal Conjugate Vaccine 13 Valent For [id number] Intramuscular Use Vital Signs Date Vital Result Comment 10/06/2017 Weight 119.00 lb Heart Rate 76 /min BP Systolic Sitting 157 mmHg BP Diastolic Sitting 90 mmHg O2 % BldC Oximetry 96 % 09/22/2017 Weight 119.00 lb Heart Rate 75 /min BP Systolic Sitting 122 mmHg BP Diastolic Sitting 82 mmHg O2 % BldC Oximetry 94 % 06/29/2016 Height 59 inches 4'11" Weight 128.00 lb with shoes Heart Rate 68 /min BP Systolic Sitting 120 mmHg Rue reg cuff BP Diastolic Sitting 70 mmHg Rue reg cuff BP Systolic Standing 120 mmHg Rue reg cuff BP Diastolic Standing 72 mmHg Rue reg cuff Respiratory Rate 17 /min BMI (Body Mass Index) 25.9 kg/m2 Ejection Fraction 57% date 06/18/16 ECHO 06/03/2016 Height 60.25 inches 5'0.25" Weight 126.00 lb with shoes Heart Rate 66 /min BP Systolic Sitting 114 mmHg Rue reg cuff BP Diastolic Sitting 80 mmHg Rue reg cuff BP Systolic Standing 110 mmHg Rue reg cuff BP Diastolic Standing 72 mmHg Rue reg cuff Respiratory Rate 16 /min BMI (Body Mass Index) 24.4 kg/m2 Ejection Fraction 55-60% date 01/28/15 ECHO 05/18/2016 Height 60.75 inches 5'0.75" Weight 133.25 lb Heart Rate 65 /min BP Systolic Sitting 124 mmHg BP Diastolic Sitting 70 mmHg Body Temperature 97.8 F O2 % BldC Oximetry 98 % BMI (Body Mass Index) 25.4 kg/m2 03/23/2016 Height 60 inches 5'0" Weight 132.00 lb w/ shoes Heart Rate 64 /min BP Systolic Sitting 104 mmHg Rue, reg cuff BP Diastolic Sitting 66 mmHg Rue, reg cuff BP Systolic Standing 100 mmHg Rue BP Diastolic Standing 70 mmHg Rue Respiratory Rate 16 /min BMI (Body Mass Index) 25.8 kg/m2 Ejection Fraction 55-60% as of 01/28/15 echo 03/11/2015 Weight 119.00 lb Heart Rate 64 /min BP Systolic Sitting 112 mmHg BP Diastolic Sitting 78 mmHg Pain Level 4 lower back 02/04/2015 Height 59 inches 4'11" Weight 120.00 lb without shoes Heart Rate 60 /min BP Systolic Sitting 110 mmHg Ra reg cuff BP Diastolic Sitting 78 mmHg Ra reg cuff BP Systolic Standing 110 mmHg Ra reg cuff BP Diastolic Standing 80 mmHg Ra reg cuff Respiratory Rate 17 /min BMI (Body Mass Index) 24.2 kg/m2 Ejection Fraction 55-60% date 01/28/15 ECHO 01/31/2015 Height 59 inches 4'11" Weight 121.00 lb Heart Rate 60 /min BP Systolic Sitting 110 mmHg BP Diastolic Sitting 70 mmHg Pain Level 5 back BMI (Body Mass Index) 24.4 kg/m2 07/06/2014 Weight 113.25 lb Heart Rate 69 /min BP Systolic Sitting 108 mmHg BP Diastolic Sitting 74 mmHg 04/13/2014 Weight 114.50 lb Heart Rate 66 /min BP Systolic Sitting 118 mmHg BP Diastolic Sitting 73 mmHg Body Temperature 98.1 F O2 % BldC Oximetry 98 % 02/05/2014 Height 59 inches 4'11" Weight 115.00 lb w/shoes Heart Rate 64 /min BP Systolic Sitting 122 mmHg Ra Reg cuff BP Diastolic Sitting 60 mmHg Ra Reg cuff BP Systolic Standing 118 mmHg BP Diastolic Standing 60 mmHg BMI (Body Mass Index) 23.2 kg/m2 01/30/2013 Height 59 inches 4'11" Weight 110.31 lb Heart Rate 64 /min BP Systolic Sitting 140 mmHg R arm reg cuff BP Diastolic Sitting 82 mmHg R arm reg cuff BP Systolic Standing 134 mmHg R arm reg cuff BP Diastolic Standing 74 mmHg R arm reg cuff Respiratory Rate 16 /min BMI (Body Mass Index) 22.3 kg/m2 12/28/2012 Weight 115.00 lb Heart Rate 68 /min BP Systolic Sitting 140 mmHg BP Diastolic Sitting 82 mmHg O2 % BldC Oximetry 96 % 07/07/2012 Height 60.5 inches 5'0.50" Weight 139.00 lb Heart Rate 88 /min BP Systolic Sitting 144 mmHg BP Diastolic Sitting 86 mmHg BMI (Body Mass Index) 26.7 kg/m2 05/13/2011 Weight 163.00 lb Heart Rate 80 /min BP Systolic Sitting 116 mmHg BP Diastolic Sitting 70 mmHg 01/24/2010 Weight 166.00 lb Heart Rate 76 /min BP Systolic Sitting 120 mmHg BP Diastolic Sitting 78 mmHg 12/12/2009 Weight 164.00 lb Heart Rate 60 /min BP Systolic 128 mmHg BP Diastolic 80 mmHg 06/03/2009 Height 61 inches 5'1" Weight 163.50 lb Heart Rate 60 /min BP Systolic Sitting 130 mmHg BP Diastolic Sitting 70 mmHg BMI (Body Mass Index) 30.9 kg/m2 01/23/2009 Height 61 inches 5'1" Weight 158.00 lb down 3# Heart Rate 60 /min BP Systolic Sitting 104 mmHg BP Diastolic Sitting 70 mmHg BMI (Body Mass Index) 29.9 kg/m2 05/11/2007 Height 61 inches 5'1" Weight 161.00 lb Heart Rate 80 /min BP Systolic Sitting 104 mmHg BP Diastolic Sitting 66 mmHg BMI (Body Mass Index) 30.4 kg/m2 Results Test Date Test Result H/L Range Note Laboratory test finding 08/31/2017 TSH (Thyroid Stim 1.57 mcIU/mL 0.34- 5.60 Horm) Free T4 (Free Thyroxine) 1.02 ng/dL 0.61-1.12 Inr/Protime 08/31/2017 Inr 0.95 0.77-1.02 Laboratory test finding 08/31/2017 Partial Thrombo Time 30.5 seconds 26.0 -36.3 PTT CBC No Diff 08/31/2017 White Blood Count 5.6 10^3/uL 3.5-10.8 Red Blood Count 2.84 10^6/uL Low 4.0-5.4 Hemoglobin 9.6 g/dL Low 12.0-16.0 Hematocrit 28 % Low 35-47 Mean Corpuscular Volume 99 fL High 80-97 Mean Corpuscular Hemoglobin 34 pg High 27-31 Mean Corpuscular HGB Conc 34 g/dL 31-36 Red Cell Distribution Width 13 % 10.5-15 Platelet Count 230 10^3/uL 150-450 Mean Platelet Volume 6.6 um3 Low 7.4-10.4 Comp Metabolic Panel 08/31/2017 Sodium 138 mmol/L Low 139-145 Potassium 3.5 mmol/L 3.5-5.0 Chloride 95 mmol/L Low 101-111 Co2 Carbon Dioxide 31 mmol/L 22-32 Anion Gap 12 mmol/L High 2-11 Calcium 8.6 mg/dL 8.6-10.3 Albumin 4.0 g/dL 3.2-5.2 Total Bilirubin 0.50 mg/dL 0.2-1.0 Glucose 87 mg/dL 70-100 Blood Urea Nitrogen 24 mg/dL 6-24 Creatinine 3.29 mg/dL High 0.51-0.95 BUN/Creatinine Ratio 7.3 Low 8-20 Total Protein 7.0 g/dL 6.4-8.9 Globulin 3.0 g/dL 2-4 Albumin/Globulin Ratio 1.3 1-3 Alkaline Phosphatase 155 U/L High 34-104 Alt 6 U/L Low 7-52 Ast 13 U/L 13-39 Egfr Non- 13.9 >60 Egfr 17.9 >60 1 CBC Auto Diff 08/26/2017 White Blood Count 7.1 10^3/uL 3.5-10.8 Red Blood Count 3.09 10^6/uL Low 4.0-5.4 Hemoglobin 10.3 g/dL Low 12.0-16.0 Hematocrit 31 % Low 35-47 Mean Corpuscular Volume 99 fL High 80-97 Mean Corpuscular Hemoglobin 33 pg High 27-31 Mean Corpuscular HGB Conc 34 g/dL 31-36 Red Cell Distribution Width 13 % 10.5-15 Platelet Count 249 10^3/uL 150-450 Mean Platelet Volume 6.5 um3 Low 7.4-10.4 Abs Neutrophils 6.0 10^3/uL 1.5-7.7 Abs Lymphocytes 0.4 10^3/uL Low 1.0-4.8 Abs Monocytes 0.4 10^3/uL 0-0.8 Abs Eosinophils 0.3 10^3/uL 0-0.6 Abs Basophils 0 10^3/uL 0-0.2 Abs Nucleated RBC 0 10^3/uL Granulocyte % 84.6 % High 38-83 Lymphocyte % 5.2 % Low 25-47 Monocyte % 5.6 % 0-7 Eosinophil % 4.0 % 0-6 Basophil % 0.6 % 0-2 Nucleated Red Blood Cells % 0 Comp Metabolic Panel 08/26/2017 Sodium 139 mmol/L 139-145 Potassium 3.4 mmol/L Low 3.5-5.0 Chloride 95 mmol/L Low 101-111 Co2 Carbon Dioxide 30 mmol/L 22-32 Anion Gap 14 mmol/L High 2-11 Glucose 95 mg/dL 70-100 Blood Urea Nitrogen 25 mg/dL High 6-24 Creatinine 3.16 mg/dL High 0.51-0.95 BUN/Creatinine Ratio 7.9 Low 8-20 Calcium 8.8 mg/dL 8.6-10.3 Total Protein 7.4 g/dL 6.4-8.9 Albumin 4.2 g/dL 3.2-5.2 Globulin 3.2 g/dL 2-4 Albumin/Globulin Ratio 1.3 1-3 Total Bilirubin 0.50 mg/dL 0.2-1.0 Alkaline Phosphatase 155 U/L High 34-104 Alt 7 U/L 7-52 Ast 14 U/L 13-39 Egfr Non- 14.6 >60 Egfr 18.7 >60 2 Laboratory test finding 08/26/2017 Troponin-I (TnI) 0.01 ng/mL <0.04 CBC Auto Diff 07/27/2017 White Blood Count 7.6 10^3/uL 3.5-10.8 Red Blood Count 3.51 10^6/uL Low 4.0-5.4 Hemoglobin 11.9 g/dL Low 12.0-16.0 Hematocrit 34 % Low 35-47 Mean Corpuscular Volume 98 fL High 80-97 Mean Corpuscular Hemoglobin 34 pg High 27-31 Mean Corpuscular HGB Conc 35 g/dL 31-36 Red Cell Distribution Width 13 % 10.5-15 Platelet Count 220 10^3/uL 150-450 Mean Platelet Volume 7.2 um3 Low 7.4-10.4 Abs Neutrophils 5.7 10^3/uL 1.5-7.7 Abs Lymphocytes 0.9 10^3/uL Low 1.0-4.8 Abs Monocytes 0.5 10^3/uL 0-0.8 Abs Eosinophils 0.4 10^3/uL 0-0.6 Abs Basophils 0.1 10^3/uL 0-0.2 Abs Nucleated RBC 0 10^3/uL Granulocyte % 74.5 % 38-83 Lymphocyte % 11.8 % Low 25-47 Monocyte % 6.8 % 0-7 Eosinophil % 5.8 % 0-6 Basophil % 1.1 % 0-2 Nucleated Red Blood Cells % 0 Inr/Protime 07/27/2017 Inr 0.90 0.77-1.02 Laboratory test finding 07/27/2017 Partial Thrombo Time 31.7 seconds 26.0 -36.3 PTT B-Type Natriuretic Peptide BNP 216 pg/mL High 3 Lactic Acid 0.8 mmol/L 0.5-2.0 4 Troponin-I (TnI) 0.01 ng/mL <0.04 Comp Metabolic Panel 07/27/2017 Sodium 136 mmol/L Low 139-145 Potassium 3.9 mmol/L 3.5-5.0 Chloride 95 mmol/L Low 101-111 Co2 Carbon Dioxide 30 mmol/L 22-32 Anion Gap 11 mmol/L 2-11 Glucose 82 mg/dL 70-100 Blood Urea Nitrogen 31 mg/dL High 6-24 Creatinine 3.00 mg/dL High 0.51-0.95 BUN/Creatinine Ratio 10.3 8-20 Calcium 9.3 mg/dL 8.6-10.3 Total Protein 7.1 g/dL 6.4-8.9 Albumin 4.1 g/dL 3.2-5.2 Globulin 3.0 g/dL 2-4 Albumin/Globulin Ratio 1.4 1-3 Total Bilirubin 0.50 mg/dL 0.2-1.0 Alkaline Phosphatase 169 U/L High 34-104 Alt 7 U/L 7-52 Ast 16 U/L 13-39 Egfr Non- 15.5 >60 Egfr 19.9 >60 5 Laboratory test finding 07/27/2017 Magnesium 2.3 mg/dL 1.9-2.7 Basic Metabolic Panel 05/22/2017 Sodium 133 mmol/L 133-145 Potassium 3.4 mmol/L Low 3.5-5.0 Chloride 91 mmol/L Low 101-111 Co2 Carbon Dioxide 29 mmol/L 22-32 Anion Gap 13 mmol/L High 2-11 Glucose 94 mg/dL 70-100 Blood Urea Nitrogen 24 mg/dL 6-24 Creatinine 3.00 mg/dL High 0.51-0.95 BUN/Creatinine Ratio 8.0 8-20 Calcium 8.9 mg/dL 8.6-10.3 Egfr Non- 15.5 >60 Egfr 20.0 >60 6 Comp Metabolic Panel 05/29/2016 Sodium 139 mmol/L 133-145 Potassium 3.9 mmol/L 3.5-5.0 Chloride 100 mmol/L Low 101-111 Co2 Carbon Dioxide 30 mmol/L 22-32 Anion Gap 9 mmol/L 2-11 Glucose 104 mg/dL High 70-100 Blood Urea Nitrogen 67 mg/dL High 6-24 Creatinine 5.00 mg/dL High 0.51-0.95 BUN/Creatinine Ratio 13.4 8-20 Calcium 8.5 mg/dL Low 8.6-10.3 Total Protein 6.8 g/dL 6.4-8.9 Albumin 3.8 g/dL 3.2-5.2 Globulin 3.0 g/dL 2-4 Albumin/Globulin Ratio 1.3 1-3 Total Bilirubin 0.30 mg/dL 0.2-1.0 Alkaline Phosphatase 133 U/L High 34-104 Alt 7 U/L 7-52 Ast 13 U/L 13-39 Egfr Non- 8.6 >60 Egfr 11.1 >60 7 Laboratory test finding 05/29/2016 Troponin-I (TnI) 0.00 ng/mL <0.04 8 B-Type Natriuretic Peptide BNP 204 pg/mL High 9 Laboratory test finding 05/29/2016 Lactic Acid 1.4 mmol/L 0.5-2.0 10 CBC Auto Diff 05/29/2016 White Blood Count 5.8 10^3/uL 3.5-10.8 Red Blood Count 2.79 10^6/uL Low 4.0-5.4 Hemoglobin 8.7 g/dL Low 12.0-16.0 Hematocrit 26 % Low 35-47 Mean Corpuscular Volume 94 fL 80-97 Mean Corpuscular Hemoglobin 31 pg 27-31 Mean Corpuscular HGB Conc 33 g/dL 31-36 Red Cell Distribution Width 14 % 10.5-15 Platelet Count 206 10^3/uL 150-450 Mean Platelet Volume 7 um3 Low 7.4-10.4 Abs Neutrophils 3.3 10^3/uL 1.5-7.7 Abs Lymphocytes 1.6 10^3/uL 1.0-4.8 Abs Monocytes 0.5 10^3/uL 0-0.8 Abs Eosinophils 0.4 10^3/uL 0-0.6 Abs Basophils 0.1 10^3/uL 0-0.2 Abs Nucleated RBC 0 10^3/uL Granulocyte % 57.1 % 38-83 Lymphocyte % 27.1 % 25-47 Monocyte % 8.3 % 1-9 Eosinophil % 6.5 % High 0-6 Basophil % 1.0 % 0-2 Nucleated Red Blood Cells % 0 Basic Metabolic Panel 02/14/2015 Sodium 138 mmol/L 133-145 Potassium 4.3 mmol/L 3.5-5.0 Chloride 97 mmol/L Low 101-111 Co2 Carbon Dioxide 33 mmol/L High 22-32 Anion Gap 8 mmol/L 2-11 Glucose 80 mg/dL 70-100 Blood Urea Nitrogen 58 mg/dL High 6-24 Creatinine 4.44 mg/dL High 0.51-0.95 BUN/Creatinine Ratio 13.1 8-20 Calcium 9.0 mg/dL 8.6-10.3 Egfr Non- 9.9 >60 Egfr 12.8 >60 11 Type & Screen 02/05/2015 Patient Blood Type B Positive Antibody Screen NEGATIVE CBC No Diff 02/05/2015 White Blood Count 4.2 10^3/uL Low 4.8-10.8 Red Blood Count 3.13 10^6/uL Low 4.0-5.4 Hemoglobin 10.7 g/dL Low 12.0-16.0 Hematocrit 32 % Low 35-47 Mean Corpuscular Volume 103 fL High 80-97 Mean Corpuscular Hemoglobin 34 pg High 27-31 Mean Corpuscular HGB Conc 33 g/dL 31-36 Red Cell Distribution Width 15 % 10.5-15 Platelet Count 234 10^3/uL 150-450 Mean Platelet Volume 7 um3 Low 7.4-10.4 Anca Panel For Vasculitis 06/19/2014 Myeloperoxidase AB >8.0 U 12 Proteinase 3 AB <0.2 U 13 C-Anca Negative Negative P-Anca Positive Negative 14 CBC Auto Diff 06/29/2013 White Blood Count 4.0 10^3/uL Low 4.8-10.8 Red Blood Count 2.99 10^6/uL Low 4.0-5.4 Hemoglobin 10.2 g/dL Low 12.0-16.0 Hematocrit 30 % Low 35-47 Mean Corpuscular Volume 99 fL High 80-97 Mean Corpuscular Hemoglobin 34 pg High 27-31 Mean Corpuscular HGB Conc 35 g/dL 31-36 Red Cell Distribution Width 15 % 10.5-15 Platelet Count 199 10^3/uL 150-450 Mean Platelet Volume 7 um3 Low 7.4-10.4 Abs Neutrophils 2.2 10^3/uL 1.5-7.7 Abs Lymphocytes 1.4 10^3/uL 1.0-4.8 Abs Monocytes 0.4 10^3/uL 0-0.8 Abs Eosinophils 0 10^3/uL 0-0.6 Abs Basophils 0 10^3/uL 0-0.2 Abs Nucleated RBC 0 10^3/uL Granulocyte % 54.3 % 38-83 Lymphocyte % 34.5 % 25-47 Monocyte % 10.8 % High 1-9 Eosinophil % 0 % 0-6 Basophil % 0.4 % 0-2 Nucleated Red Blood Cells % 0.1 Comp Metabolic Panel 06/29/2013 Sodium 137 mmol/L 133-145 Potassium 3.4 mmol/L Low 3.7-5.6 Chloride 93 mmol/L Low 101-111 Co2 Carbon Dioxide 39 mmol/L High 22-32 Anion Gap 5 mmol/L 2-11 Glucose 80 mg/dL 70-100 Blood Urea Nitrogen 29 mg/dL High 6-24 Creatinine 2.42 mg/dL High 0.51-0.95 BUN/Creatinine Ratio 12.0 8-20 Calcium 8.5 mg/dL Low 8.6-10.3 Total Protein 6.3 g/dL Low 6.4-8.9 Albumin 4.2 g/dL 3.2-5.2 Globulin 2.1 g/dL 2-4 Albumin/Globulin Ratio 2.0 1-3 Total Bilirubin 0.40 mg/dL 0.2-1.0 Alkaline Phosphatase 122 U/L High 34-104 Alt 12 U/L 7-52 Ast 18 U/L 13-39 Egfr Non- 20.1 >60 Egfr 25.8 >60 15 Laboratory test finding 12/02/2012 B Type Natriuretic 2091.0 pg/mL High 0- 100 Peptide Comp Metabolic Panel 12/02/2012 Sodium 128 mmol/L Low 133-145 Potassium 3.8 mmol/L 3.5-5.0 Chloride 93 mmol/L Low 101-111 Co2 Carbon Dioxide 24.0 mmol/L 22-32 Anion Gap 11.0 mmol/L 2-11 Glucose 101 mg/dL High 70-100 Blood Urea Nitrogen 75 mg/dL High 6-24 Creatinine 5.90 mg/dL High 0.50-1.40 16 BUN/Creatinine Ratio 12.7 8-20 Calcium 8.4 mg/dL 8.1-9.9 Total Protein 5.4 g/dL Low 6.2-8.1 Albumin 3.7 g/dL 3.2-5.2 Globulin 1.7 g/dL Low 2-4 Albumin/Globulin Ratio 2.2 1-3 Total Bilirubin 0.8 mg/dL 0.4-1.5 Alkaline Phosphatase 57 U/L 30-110 Alt 24 U/L 14-54 Ast 23 U/L 12-42 Egfr Non- 7.2 >60 Egfr 9.3 >60 17 Laboratory test finding 12/02/2012 Magnesium 2.6 mg/dL 1.7-2.6 Troponin I 0.07 ng/mL High 0-0.06 18 Inr/Protime 12/02/2012 Inr 0.87 0.87-0.97 Laboratory test finding 12/02/2012 Serum Negative Negative 19 CBC Auto Diff 12/02/2012 White Blood Count 11.7 10^3/uL High 4.8-10.8 Red Blood Count 2.45 10^6/uL Low 4.0-5.4 Hemoglobin 7.7 g/dL Low 12.0-16.0 Hematocrit 23 % Low 35-47 Mean Corpuscular Volume 95 fL 80-97 Mean Corpuscular Hemoglobin 32 pg High 27-31 Mean Corpuscular HGB Conc 33 g/dL 31-36 Red Cell Distribution Width 13 % 10.5-15 Platelet Count 293 10^3/uL 150-450 Mean Platelet Volume 7 um3 Low 7.4-10.4 Abs Neutrophils 9.5 10^3/uL High 1.5-7.7 Abs Lymphocytes 1.3 10^3/uL 1.0-4.8 Abs Monocytes 0.9 10^3/uL High 0-0.8 Abs Eosinophils 0.1 10^3/uL 0-0.6 Abs Basophils 0 10^3/uL 0-0.2 Abs Nucleated RBC 0 10^3/uL Granulocyte % 80.5 % 38-83 Lymphocyte % 11.3 % Low 25-47 Monocyte % 7.3 % 1-9 Eosinophil % 0.7 % 0-6 Basophil % 0.2 % 0-2 Nucleated Red Blood Cells % 0 Cell Morphology 12/02/2012 Hypochromasia 1+ Polychromasia 1+ Basophilic Stippling 1+ Comp Metabolic Panel 11/19/2012 Sodium 132 mmol/L Low 133-145 Potassium 3.8 mmol/L 3.5-5.0 Chloride 97 mmol/L Low 101-111 Co2 Carbon Dioxide 26.0 mmol/L 22-32 Anion Gap 9.0 mmol/L 2-11 Glucose 97 mg/dL 70-100 Blood Urea Nitrogen 74 mg/dL High 6-24 Creatinine 5.80 mg/dL High 0.50-1.40 20 One Over Creatinine 0.10 BUN/Creatinine Ratio 12.8 8-20 Calcium 8.2 mg/dL 8.1-9.9 Total Protein 5.1 g/dL Low 6.2-8.1 Albumin 3.4 g/dL 3.2-5.2 Globulin 1.7 g/dL Low 2-4 Albumin/Globulin Ratio 2.0 1-3 Total Bilirubin 0.8 mg/dL 0.4-1.5 Alkaline Phosphatase 41 U/L 30-110 Alt 15 U/L 14-54 Ast 16 U/L 12-42 Egfr Non- 7.3 >60 Egfr 9.4 >60 21 Iron & Iron Binding Capacity 11/19/2012 Iron 43 g/dL 28-170 Unsaturated Iron Binding 254 g/dL Total Iron Binding Capacity 297 g/dL 250-450 % Iron Saturation 14 % Low 15-55 Laboratory test finding 11/19/2012 Ferritin 99 ng/mL 11-307 Creatinine Clearance 11/19/2012 Urine Random Creatinine 34.7 mg/dL Creatinine 5.9 mg/dL High 0.5-1.4 22 Creatinine Clearance 12 mL/min Low 80-125 Urine Random Creatinine 34.7 mg/dL Creatinine 5.9 mg/dL High 0.5-1.4 23 Creatinine Clearance 12 mL/min Low 80-125 Total Protein 24HR Urine 11/19/2012 Urine Random Total Protein 104 mg/dL Urine Total Protein/24HR 3021 mg/24Hr High 0-165 Urine Random Total Protein 104 mg/dL Urine Total Protein/24HR 3021 mg/24Hr High 0-165 Urea Nitrogen Clearance 11/19/2012 BUN Serum 74 mg/dL High 6-22 Urine Random Urea Nitrogen 237 Urea Nitrogen Clearance 6 mL/min Low 59-99 Urine Collection Time 24 Urine Total Volume 2850 mL Urea Nitrogen 24HR Urine 11/19/2012 Urine Random Urea Nitrogen 237 Urine Urea Nitrogen/24HR 6.0 Urine Collection Time 24 Urine Total Volume 2850 mL Urine Urea Nitrogen/24HR 6.0 Hemoglobin/Hematacrit 11/09/2012 Hemoglobin 7.6 g/dL Low 12.0-16.0 24 Hematocrit 23 % Low 35-47 25 Cytoplasmic Neutrophilic AB 10/04/2012 C-Anca Negative Negative P-Anca Positive Negative 26 Laboratory test finding 10/04/2012 Phosphorus 5.3 mg/dL High 2.4-4.7 27 Liver Function Panel 10/04/2012 Direct Bilirubin 0 mg/dL Low 0.1-0.5 Indirect Bilirubin (SEE NOTE) mg/dL 0.3-1.0 28 Lipid Profile (Trig/Chol/HDL) 10/04/2012 Triglycerides 325 mg/dL High 40- 200 Cholesterol 273 mg/dL High Less than 200 HDL Cholesterol 50 mg/dL 40-60 29 Cholesterol/HDL Ratio 5.5 Average High 1-4.44 LDL Cholesterol 158.0 High Less Than 100 30 Comp Metabolic Panel 10/04/2012 Sodium 137 mmol/L 133-145 Potassium 3.7 mmol/L 3.5-5.0 Chloride 109 mmol/L 101-111 Co2 Carbon Dioxide 19.0 mmol/L Low 22-32 Anion Gap 9.0 mmol/L 2-11 Glucose 87 mg/dL 70-100 Blood Urea Nitrogen 90 mg/dL High 6-24 Creatinine 5.20 mg/dL High 0.50-1.40 31 One Over Creatinine 0.10 BUN/Creatinine Ratio 17.3 8-20 Calcium 8.6 mg/dL 8.1-9.9 Total Protein 5.0 g/dL Low 6.2-8.1 Albumin 3.4 g/dL 3.2-5.2 Globulin 1.6 g/dL Low 2-4 Albumin/Globulin Ratio 2.1 1-3 Total Bilirubin 0.8 mg/dL 0.4-1.5 Alkaline Phosphatase 45 U/L 30-110 Alt 14 U/L 14-54 Ast 13 U/L 12-42 Egfr Non- 8.3 >60 Egfr 10.7 >60 32 Total Protein 24HR Urine 10/04/2012 Urine Random Total Protein 64 mg/dL Urine Total Protein/24HR 1728 mg/24Hr High 0-165 Creatinine Clearance 10/04/2012 Urine Random Creatinine 39.7 mg/dL Creatinine 5.3 mg/dL High 0.5-1.4 33 Creatinine Clearance 14 mL/min Low 80-125 Urine Collection Time 24 Urine Total Volume 2700 mL CBC Auto Diff 10/04/2012 White Blood Count 5.8 10^3/uL 4.8-10.8 Red Blood Count 2.50 10^6/uL Low 4.0-5.4 Hemoglobin 8.0 g/dL Low 12.0-16.0 Hematocrit 24 % Low 35-47 Mean Corpuscular Volume 94 fL 80-97 Mean Corpuscular Hemoglobin 32 pg High 27-31 Mean Corpuscular HGB Conc 34 g/dL 31-36 Red Cell Distribution Width 14 % 10.5-15 Platelet Count 192 10^3/uL 150-450 Mean Platelet Volume 7 um3 Low 7.4-10.4 Abs Neutrophils 3.8 10^3/uL 1.5-7.7 Abs Lymphocytes 1.6 10^3/uL 1.0-4.8 Abs Monocytes 0.3 10^3/uL 0-0.8 Abs Eosinophils 0.1 10^3/uL 0-0.6 Abs Basophils 0 10^3/uL 0-0.2 Abs Nucleated RBC 0 10^3/uL Granulocyte % 65.0 % 38-83 Lymphocyte % 27.9 % 25-47 Monocyte % 5.4 % 1-9 Eosinophil % 1.1 % 0-6 Basophil % 0.6 % 0-2 Nucleated Red Blood Cells % 0 Comp Metabolic Panel 09/14/2012 Sodium 137 mmol/L 133-145 Potassium 4.4 mmol/L 3.5-5.0 Chloride 108 mmol/L 101-111 Co2 Carbon Dioxide 20.0 mmol/L Low 22-32 Anion Gap 9.0 mmol/L 2-11 Glucose 183 mg/dL High 70-100 Blood Urea Nitrogen 80 mg/dL High 6-24 Creatinine 5.40 mg/dL High 0.50-1.40 34 One Over Creatinine 0.10 BUN/Creatinine Ratio 14.8 8-20 Calcium 8.2 mg/dL 8.1-9.9 Total Protein 5.1 g/dL Low 6.2-8.1 Albumin 3.4 g/dL 3.2-5.2 Globulin 1.7 g/dL Low 2-4 Albumin/Globulin Ratio 2.0 1-3 Total Bilirubin 0.7 mg/dL 0.4-1.5 Alkaline Phosphatase 52 U/L 30-110 Alt 17 U/L 14-54 Ast 16 U/L 12-42 Egfr Non- 8.0 >60 Egfr 10.3 >60 35 Urinalysis W/Microscopic 07/21/2012 Urine Color Yellow Urine Appearance Clear Urine Specific [place] 1.013 1.010-1.030 Urine Esterase Negative Negative Urine Nitrate Negative Negative Urine Urobilinogen Negative E.U./dL Negative Urine Protein 3+ mg/dL Negative Urine pH 5.5 5-9 Urine Blood 3+ Negative Urine Ketones Negative mg/dL Negative Urine Bilirubin Negative Negative Urine Glucose Negative mg/dL Negative Urine Casts 1+ Granular /lpf None Seen Urine WBC None Seen None Seen Urine RBC 3+ (>10 /hpf) None Seen CBC Auto Diff 07/21/2012 White Blood Count 6.8 10^3/uL 4.8-10.8 Red Blood Count 2.49 10^6/uL Low 4.0-5.4 Hemoglobin 7.6 g/dL Low 12.0-16.0 Hematocrit 23 % Low 35-47 Mean Corpuscular Volume 92 fL 80-97 Mean Corpuscular Hemoglobin 31 pg 27-31 Mean Corpuscular HGB Conc 33 g/dL 31-36 Red Cell Distribution Width 14 % 10.5-15 Platelet Count 233 10^3/uL 150-450 Mean Platelet Volume 7 um3 Low 7.4-10.4 Abs Neutrophils 4.3 10^3/uL 1.5-7.7 Abs Lymphocytes 1.4 10^3/uL 1.0-4.8 Abs Monocytes 0.4 10^3/uL 0-0.8 Abs Eosinophils 0.5 10^3/uL 0-0.6 Abs Basophils 0.1 10^3/uL 0-0.2 Abs Nucleated RBC 0 10^3/uL Granulocyte % 63.9 % 38-83 Lymphocyte % 21.0 % Low 25-47 Monocyte % 6.3 % 1-9 Eosinophil % 7.0 % High 0-6 Basophil % 1.8 % 0-2 Nucleated Red Blood Cells % 0 Comp Metabolic Panel 07/21/2012 Sodium 138 mmol/L 133-145 Potassium 4.6 mmol/L 3.5-5.0 Chloride 106 mmol/L 101-111 Co2 Carbon Dioxide 22.0 mmol/L 22-32 Anion Gap 10.0 mmol/L 2-11 Glucose 139 mg/dL High 70-100 Blood Urea Nitrogen 75 mg/dL High 6-24 Creatinine 5.50 mg/dL High 0.50-1.40 36 One Over Creatinine 0.10 BUN/Creatinine Ratio 13.6 8-20 Calcium 8.6 mg/dL 8.1-9.9 Total Protein 5.8 g/dL Low 6.2-8.1 Albumin 3.5 g/dL 3.2-5.2 Globulin 2.3 g/dL 2-4 Albumin/Globulin Ratio 1.5 1-3 Total Bilirubin 0.6 mg/dL 0.4-1.5 Alkaline Phosphatase 81 U/L 30-110 Alt 12 U/L Low 14-54 Ast 18 U/L 12-42 Egfr Non- 7.8 >60 Egfr 10.0 >60 37 Laboratory test finding 07/21/2012 Inr 0.92 0.87-0.97 38 Activated Partial Thrombo Time 30.7 sec 22.18-37.18 Hepatitis B Autumn AB 07/21/2012 Hepatitis B Surface AB Nonreactive Nonreactive Titer Hep B Surf AB Index < 0.10 39 Laboratory test finding 07/21/2012 Hepatitis B Surface Nonreactive Nonreactive Antigen Pthi 07/21/2012 PTH Intact 8.5 pmol/L 1.3-9.0 Calcium (PTH Intact) 8.5 mg/dL 8.1-9.9 Laboratory test finding 07/21/2012 Erythrocyte Sed Rate 96 mm/Hr High 0- 30 Retic Count 07/21/2012 Retic Count 1.5 % 0.5-1.5 Corrected Retic Count 0.8 % 0.5-1.5 Maturation Factor Retic 2.0 Retic Index 0.40 Mean Retic Volume 107.1 Immature Retic Fraction 0.36 RBC Retic Count 2.49 10^6/uL Low 4.6-6.2 Hematocrit for Retic CNT 23 % Low 35-47 Type & Screen 07/21/2012 Patient Blood Type B Positive Antibody Screen NEGATIVE Laboratory test 07/21/2012 Packed Cell - RBC [id number] B 40 finding Leukoreduced <SEE NOTE> Comp Metabolic Panel 07/21/2012 Sodium 137 mmol/L 133-145 Potassium 4.8 mmol/L 3.5-5.0 Chloride 106 mmol/L 101-111 Co2 Carbon Dioxide 22.0 mmol/L 22-32 Anion Gap 9.0 mmol/L 2-11 Glucose 82 mg/dL 70-100 Blood Urea Nitrogen 74 mg/dL High 6-24 Creatinine 5.40 mg/dL High 0.50-1.40 41 One Over Creatinine 0.10 BUN/Creatinine Ratio 13.7 8-20 Calcium 8.6 mg/dL 8.1-9.9 Total Protein 6.0 g/dL Low 6.2-8.1 Albumin 3.4 g/dL 3.2-5.2 Globulin 2.6 g/dL 2-4 Albumin/Globulin Ratio 1.3 1-3 Total Bilirubin 0.5 mg/dL 0.4-1.5 Alkaline Phosphatase 81 U/L 30-110 Alt 12 U/L Low 14-54 Ast 17 U/L 12-42 Egfr Non- 8.0 >60 Egfr 10.3 >60 42 Lipid Profile (Trig/Chol/HDL) 07/21/2012 Triglycerides 141 mg/dL 40-200 Cholesterol 209 mg/dL High Less than 200 HDL Cholesterol 48 mg/dL 40-60 43 Cholesterol/HDL Ratio 4.4 Average 1-4.44 LDL Cholesterol 132.8 mg/dL High Less Than 100 44 Liver Function Panel 07/21/2012 Direct Bilirubin < 0.1 mg/dL Low 0.1- 0.5 Indirect Bilirubin (SEE NOTE) mg/dL 0.3-1.0 45 Iron & Iron Binding Capacity 07/21/2012 Iron 49 g/dL 28-170 Unsaturated Iron Binding 253 g/dL Total Iron Binding Capacity 302 g/dL 250-450 % Iron Saturation 16 % 15-55 Laboratory test finding 07/21/2012 Ferritin 124 ng/mL 11-307 T4 9.2 g/mL 5.0-12.0 TSH (Thyroid Stimulating Horm) 3.36 miu/mL 0.34-5.60 C Reactive Protein 0.5 mg/dL Less than 0.5 Laboratory test 07/21/2012 Vanita (Anti-Nuclear AB) Reflexed to FA Negative finding Screen Vanita Hep-2 07/21/2012 Vanita Pattern Homogeneous Negative Vanita Titer 1:160 <1:80 Vanita Reviewed By MD Patrick Montanez <SEE NOTE> 46 Laboratory test 07/21/2012 Antistreptolysin O Negative IU/mL <200 Iu/ mL 47 finding Titer Vitamin D, 25 07/21/2012 25-Hydroxy Vitamin D2 <4.0 ng/mL Hydroxy 25-Hydroxy Vitamin D3 47 ng/mL 25-Hydroxy Vitamin D Total 47 ng/mL 48 Protein Electrophoresis Serum 07/21/2012 Albumin (Pep) 3.09 g/dL 3.0- 4.35 Alpha 1 Globulins 0.29 g/dL 0.09-0.33 Alpha 2 Globulin 0.96 g/dL 0.59-1.18 Beta Globulin 0.99 g/dL 0.68-1.02 Gamma Globulin 0.98 g/dL 0.76-1.60 Albumin % (Pep) 49.0 % 46-63 Alpha 1 Globulins % 4.6 % 1.2-5.3 Alpha 2 Globulin % 15.2 % 9-17 Beta Globulin % 15.7 % 10-16 Gamma Globulin % 15.6 % 12-22 Albumin/Globulin Ratio 1.0 0.9-2.0 Total Protein (Pep) 6.3 g/dL 6.2-8.1 Spep Comments (SEE NOTE) 49 Laboratory test finding 07/21/2012 Vitamin D 1,25-Dihydroxy 19 pg/mL 18- 78 50 Kemp/Lambda Free Light 07/21/2012 Kemp Free Light Chain 11.4 mg/dL 51 Chains Ser Lambda Free Light Chain 5.86 mg/dL 52 Kemp/Lambda Free Light Chain 1.95 53 Laboratory test finding 07/21/2012 Erythropoietin 7.4 mIU/mL 2.6 - 18.5 54 Glomerular Basement Membrane <0.2 U 55 Hepatitis B Core Total Ab Negative Negative 56 Cytoplasmic Neutrophilic AB 07/21/2012 C-Anca Negative Negative P-Anca Positive Negative 57 Laboratory test finding 07/21/2012 Complement C3 106 mg/dL 75 - 175 58 Complement C4 29 mg/dL 14 - 40 59 Complement CH50 54 U/mL 30 - 75 60 Stool For Blood 07/12/2012 Misc negative CBC Auto Diff 07/07/2012 White Blood Count 6.5 10^3/uL 4.8-10.8 Red Blood Count 2.61 10^6/uL Low 4.0-5.4 Hemoglobin 8.5 g/dL Low 12.0-16.0 Hematocrit 24 % Low 35-47 Mean Corpuscular Volume 92 fL 80-97 Mean Corpuscular Hemoglobin 33 pg High 27-31 Mean Corpuscular HGB Conc 36 g/dL 31-36 Red Cell Distribution Width 13 % 10.5-15 Platelet Count 227 10^3/uL 150-450 Mean Platelet Volume 7 um3 Low 7.4-10.4 Abs Neutrophils 5.4 10^3/uL 1.5-7.7 Abs Lymphocytes 0.6 10^3/uL Low 1.0-4.8 Abs Monocytes 0.3 10^3/uL 0-0.8 Abs Eosinophils 0.2 10^3/uL 0-0.6 Abs Basophils 0 10^3/uL 0-0.2 Abs Nucleated RBC 0 10^3/uL Granulocyte % 83.0 % 38-83 Lymphocyte % 9.5 % Low 25-47 Monocyte % 4.6 % 1-9 Eosinophil % 2.5 % 0-6 Basophil % 0.4 % 0-2 Nucleated Red Blood Cells % 0.1 Comp Metabolic Panel 07/07/2012 Sodium 136 mmol/L 133-145 Potassium 4.4 mmol/L 3.5-5.0 Chloride 103 mmol/L 101-111 Co2 Carbon Dioxide 23.0 mmol/L 22-32 Anion Gap 10.0 mmol/L 2-11 Glucose 77 mg/dL 70-100 Blood Urea Nitrogen 80 mg/dL High 6-24 Creatinine 4.80 mg/dL High 0.50-1.40 61 BUN/Creatinine Ratio 16.7 8-20 62 Calcium 8.7 mg/dL 8.1-9.9 Total Protein 6.2 g/dL 6.2-8.1 Albumin 3.7 g/dL 3.2-5.2 Globulin 2.5 g/dL 2-4 Albumin/Globulin Ratio 1.5 1-3 Total Bilirubin 0.6 mg/dL 0.4-1.5 Alkaline Phosphatase 80 U/L 30-110 Alt 13 U/L Low 14-54 Ast 20 U/L 12-42 Egfr Non- 9.1 >60 63 Egfr 11.7 >60 64 Urinalysis W/Microscopic 07/07/2012 Urine Color Yellow Urine Appearance Clear Urine Specific [place] 1.011 1.010-1.030 Urine Esterase Trace Negative Urine Nitrate Negative Negative Urine Urobilinogen Negative E.U./dL Negative Urine Protein 3+ mg/dL Negative Urine pH 6.0 5-9 Urine Blood 3+ Negative Urine Ketones Negative mg/dL Negative Urine Bilirubin Negative Negative Urine Glucose Negative mg/dL Negative Urine WBC 2+ (>10-30 /hpf) None Seen 65 Urine RBC 3+ (>10 /hpf) None Seen Bacteria Urine 1+ None Seen Laboratory test finding 07/07/2012 Erythrocyte Sed Rate 120 mm/Hr High 0- 30 CBC Auto Diff 06/15/2012 White Blood Count 5.2 10^3/uL 4.8-10.8 Red Blood Count 2.57 10^6/uL Low 4.0-5.4 Hemoglobin 8.2 g/dL Low 12.0-16.0 Hematocrit 24 % Low 35-47 Mean Corpuscular Volume 93 fL 80-97 Mean Corpuscular Hemoglobin 32 pg High 27-31 Mean Corpuscular HGB Conc 34 g/dL 31-36 Red Cell Distribution Width 13 % 10.5-15 Platelet Count 194 10^3/uL 150-450 Mean Platelet Volume 7 um3 Low 7.4-10.4 Abs Neutrophils 3.6 10^3/uL 1.5-7.7 Abs Lymphocytes 0.8 10^3/uL Low 1.0-4.8 Abs Monocytes 0.3 10^3/uL 0-0.8 Abs Eosinophils 0.4 10^3/uL 0-0.6 Abs Basophils 0.1 10^3/uL 0-0.2 Abs Nucleated RBC 0 10^3/uL Granulocyte % 69.8 % 38-83 Lymphocyte % 14.4 % Low 25-47 Monocyte % 6.6 % 1-9 Eosinophil % 7.7 % High 0-6 Basophil % 1.5 % 0-2 Nucleated Red Blood Cells % 0 Comp Metabolic Panel 06/15/2012 Sodium 138 mmol/L 133-145 Potassium 4.3 mmol/L 3.5-5.0 Chloride 106 mmol/L 101-111 Co2 Carbon Dioxide 24.0 mmol/L 22-32 Anion Gap 8.0 mmol/L 2-11 Glucose 151 mg/dL High 70-100 Blood Urea Nitrogen 66 mg/dL High 6-24 Creatinine 3.80 mg/dL High 0.50-1.40 66 BUN/Creatinine Ratio 17.4 8-20 Calcium 8.2 mg/dL 8.1-9.9 Total Protein 5.7 g/dL Low 6.2-8.1 Albumin 3.4 g/dL 3.2-5.2 Globulin 2.3 g/dL 2-4 Albumin/Globulin Ratio 1.5 1-3 Total Bilirubin 0.6 mg/dL 0.4-1.5 Alkaline Phosphatase 81 U/L 30-110 Alt 11 U/L Low 14-54 Ast 18 U/L 12-42 Egfr Non- 12.0 >60 Egfr 15.4 >60 67 Cytology Non-Career Development Associate 05/26/2012 N[place]ka RUN DATE: <SEE NOTE> Laboratory test 05/25/2012 HPV Dna High Risk TNP Negative 69 finding Cytology 05/25/2012 Cy RUN DATE: <SEE NOTE> Creatinine 02/13/2011 Creatinine 0.8 mg/dL 0.50-1.40 One Over Creatinine 1.25 eGFR Non- 72.7 > 60 eGFR 93.5 > 60 71 Laboratory test finding 02/13/2011 BUN 16 mg/dL 6-24 CBC With Electronic Diff 01/24/2010 White Blood Count 6.4 CUMM 4.8-10.8 Red Cell Count 3.81 CUMM Low 4.2-5.4 Hemoglobin 12.3 g/dL 12.0-16.0 Hematocrit 35 % 35-47 Mean Corpuscular Volume 92 um3 79-97 Mean Corpuscular Hemoglob 32 pg High 27-31 Mean Corpuscular HGB Cone 35 g/dL 32-36 Redcell Distribution WDTH 13 % 10.5-15 Platelet Count 289 CUMM 150-450 Mean Platelet Volume 6.4 um3 Low 7.4-10.4 Gran % 57.4 % 38-83 Lymph % 27.9 % 25-47 Mononuclear % 7.1 % 1-9 Eosinophil % 6.1 % High 0-6 Basophil % 1.5 % 0-2 Abs Lymphs 1.8 1.0-4.8 Abs Mononuclear 0.5 0-0.8 Absolute Neutrophil Count 3.7 1.5-7.7 Abs Eosinophils 0.4 0-0.6 Abs Basophils 0.1 0-0.2 Laboratory test finding 12/05/2009 PTT (Aptt) 27.5 25.15-38.53 72 D Dimer Quantitative < 200 Less Than 230 Comp Metabolic Panel 12/05/2009 Sodium 139 mmol/L 135-145 Potassium 3.7 mmol/L 3.5-5.0 Chloride 104 mmol/L 101-111 Co2 (Carbon Dioxide) 26.0 mmol/L 22-32 Anion Gap 9.0 mmol/L 2-11 73 Glucose 100 mg/dL 70-100 74 BUN 18 mg/dL 6-24 Creatinine 0.80 mg/dL 0.50-1.40 One Over Creatinine 1.20 BUN/Creatinine Ratio 22.5 High 8-20 Calcium 8.8 mg/dL 8.1-9.9 75 Total Protein 6.6 GM/DL 6.2-8.1 Albumin 3.8 GM/DL 3.2-5.2 Globulin 2.8 GM/DL 2-4 Albumin/Globulin Ratio 1.4 1-3 Bilirubin Total 0.6 mg/dL 0.4-1.5 76 Alkaline Phosphatase 89 U/L 30-110 Alt (SGPT) 17 U/L 14-54 Ast (Sgot) 25 U/L 12-42 eGFR Non- 77.5 > 60 eGFR 93.8 > 60 77 Laboratory test finding 12/05/2009 Troponin-I (TnI) 0 NG/ML 78 Protime 12/05/2009 Inr 0.97 0.97-1.03 79 Protime 11.4 SEC Low 11.5-12.2 80 CBC With Electronic Diff 12/05/2009 White Blood Count 5.5 CUMM 4.8-10.8 Red Cell Count 3.75 CUMM Low 4.2-5.4 Hemoglobin 11.9 g/dL Low 12.0-16.0 Hematocrit 34 % Low 35-47 Mean Corpuscular Volume 90 um3 79-97 Mean Corpuscular Hemoglob 32 pg High 27-31 Mean Corpuscular HGB Cone 35 g/dL 32-36 Redcell Distribution WDTH 13 % 10.5-15 Platelet Count 264 CUMM 150-450 Mean Platelet Volume 5.6 um3 Low 7.4-10.4 Gran % 56.1 % 38-83 Lymph % 27.6 % 25-47 Mononuclear % 8.5 % 1-9 Eosinophil % 6.8 % High 0-6 Basophil % 1.0 % 0-2 Abs Lymphs 1.5 1.0-4.8 Abs Mononuclear 0.5 0-0.8 Absolute Neutrophil Count 3.1 1.5-7.7 Abs Eosinophils 0.4 0-0.6 Abs Basophils 0.1 0-0.2 Lipid Profile (Trig/Chol/HDL) 08/05/2009 Triglyceride 108 mg/dL 40-200 Cholesterol 204 mg/dL High Less Than 200 81 High Density Lipoprotein 52 mg/dL 40-60 82 Cholesterol/HDL Ratio 3.92 AVERAGE 1-4.44 Low Density Lipoprotein 130 mg/dL High Less Than 100 83 Laboratory test finding 08/05/2009 Ast (Sgot) 22 U/L 12-42 Laboratory test finding 05/20/2009 LDL Direct 200 mg/dL High Less Than 100 84 Thyroid Panel 05/20/2009 Free Thyroxine 0.69 NG/ML 0.61-1.24 85 Thyroxine 6.6 g/dL 5-12 TSH 2.88 MIU/ML 0.34-5.60 CBC With Manual Diff 05/20/2009 White Blood Count 6.0 CUMM 4.8-10.8 Red Cell Count 4.40 CUMM 4.2-5.4 Hemoglobin 13.7 g/dL 12.0-16.0 Hematocrit 40 % 35-47 Mean Corpuscular Volume 91 um3 79-97 Mean Corpuscular Hemoglob 31 pg 27-31 Mean Corpuscular HGB Cone 34 g/dL 32-36 Redcell Distribution WDTH 13 % 10.5-15 Platelet Count 293 CUMM 150-450 Mean Platelet Volume 6.4 um3 Low 7.4-10.4 Polysegmented Neutrophil 40 % 38-83 Band Neutrophil 3 % 0-8 Lymphocyte 42 % 25-47 Monocyte 4 % 0-13 Eosenophil 9 % High 0-6 Basophil 2 % 0-2 Absolute Neutrophil Count 2.5 RBC Morphology NORMAL Manual Diff Comments (SEE NOTE) 86 Liver Function Panel 05/20/2009 Bilirubin Direct 0.0 mg/dL Low 0.1-0.5 Indirect Bilirubin (SEE NOTE) mg/dL 0.1-0.75 87 Lipid Profile (Trig/Chol/HDL) 05/20/2009 Triglyceride 189 mg/dL 40-200 Cholesterol 304 mg/dL High Less Than 200 88 High Density Lipoprotein 52 mg/dL 40-60 89 Cholesterol/HDL Ratio 5.85 AVERAGE High 1-4.44 Low Density Lipoprotein 214 mg/dL High Less Than 100 90 Comp Metabolic Panel 05/20/2009 Sodium 140 mmol/L 135-145 Potassium 4.6 mmol/L 3.5-5.0 Chloride 105 mmol/L 101-111 Co2 (Carbon Dioxide) 30.0 mmol/L 22-32 Anion Gap 5.0 mmol/L 2-11 91 Glucose 78 mg/dL 70-100 92 BUN 25 mg/dL High 6-24 Creatinine 0.70 mg/dL 0.50-1.40 One Over Creatinine 1.40 BUN/Creatinine Ratio 35.7 High 8-20 Calcium 9.7 mg/dL 8.1-9.9 93 Total Protein 6.5 GM/DL 6.2-8.1 Albumin 4.4 GM/DL 3.2-5.2 Globulin 2.1 GM/DL 2-4 Albumin/Globulin Ratio 2.1 1-3 Bilirubin Total 0.6 mg/dL 0.4-1.5 94 Alkaline Phosphatase 91 U/L 30-110 Alt (SGPT) 18 U/L 14-54 Ast (Sgot) 23 U/L 12-42 eGFR Non- 90.7 > 60 eGFR 109.8 > 60 95 Creatinine Stat 02/04/2009 Creatinine 0.73 mg/dL 0.50-1.40 One Over Creatinine 1.30 eGFR Non- 86.4 > 60 eGFR 104.6 > 60 96 Laboratory test finding 02/04/2009 BUN Urgent 29 mg/dL High 6-24 CBC With Manual Diff 05/09/2007 White Blood Count 5.1 CUMM 4.8-10.8 Absolute Neutrophil Count 3.1 Anisocytosis SLIGHT Band Neutrophil 7 % 0-8 Hematocrit 38 % 35-47 Hemoglobin 13.1 g/dL 12.0-16.0 Eosenophil 5 % 0-6 Lymphocyte 30 % 5-47 Mean Corpuscular HGB Cone 35 g/dL 32-36 Mean Corpuscular Hemoglob 31 pg 27-31 Mean Corpuscular Volume 90 um3 79-97 Monocyte 4 % 0-13 Mean Platelet Volume 6.8 um3 Low 7.4-10.4 Platelet Count 306 CUMM 150-450 Polysegmented Neutrophil 54 % 38-83 Red Cell Count 4.18 CUMM Low 4.2-5.4 Redcell Distribution WDTH 13 % 10.5-15 Comp Metabolic Panel 05/09/2007 One Over Creatinine 1.00 Anion Gap 6.0 mmol/L 2-11 97 Albumin/Globulin Ratio 1.5 1-3 Albumin 4.1 GM/DL 3.6-5.4 Alkaline Phosphatase 90 U/L 30-110 Alt (SGPT) 20 U/L 14-54 Ast (Sgot) 26 U/L 12-42 BUN 24 mg/dL 6-24 Calcium 9.0 mg/dL 8.7-10.2 Chloride 104 mmol/L 101-111 Co2 (Carbon Dioxide) 31.0 mmol/L 22-32 Globulin 2.8 GM/DL 2-4 Glucose 87 mg/dL 70-105 Potassium 3.9 mmol/L 3.5-5.0 Sodium 141 mmol/L 135-145 Bilirubin Total 0.8 mg/dL 0.4-1.5 Total Protein 6.9 GM/DL 6.2-8.1 BUN/Creatinine Ratio 24.0 High 8-20 Creatinine 1.0 mg/dL 0.5-1.4 Laboratory test finding 05/09/2007 LDH 180 U/L 95-185 1 Because ethnic data is not always readily available, this report includes an eGFR for both -Americans and non- Americans. The National Kidney Disease Education Program (NKDEP) does not endorse the use of the MDRD equation for patients that are not between the ages of 18 and 70, are , have extremes of body size, muscle mass, or nutritional status, or are non- or non-. According to the National Kidney Foundation, irrespective of diagnosis, the stage of the disease is based on the level of kidney function: Stage Description GFR(mL/min/1.73 m(2)) 1 Kidney damage with normal or decreased GFR 90 2 Kidney damage with mild decrease in GFR 60-89 3 Moderate decrease in GFR 30-59 4 Severe decrease in GFR 15-29 5 Kidney failure <15 (or dialysis) 2 Because ethnic data is not always readily available, this report includes an eGFR for both -Americans and non- Americans. The National Kidney Disease Education Program (NKDEP) does not endorse the use of the MDRD equation for patients that are not between the ages of 18 and 70, are , have extremes of body size, muscle mass, or nutritional status, or are non- or non-. According to the National Kidney Foundation, irrespective of diagnosis, the stage of the disease is based on the level of kidney function: Stage Description GFR(mL/min/1.73 m(2)) 1 Kidney damage with normal or decreased GFR 90 2 Kidney damage with mild decrease in GFR 60-89 3 Moderate decrease in GFR 30-59 4 Severe decrease in GFR 15-29 5 Kidney failure <15 (or dialysis) 3 >100 to <200 pg/mL: likely compensated congestive heart failure (CHF) 200 to 400 pg/mL: likely moderate CHF >400 pg/mL: likely moderate to severe CHF 4 Specimen hemolyzed. Result may not be valid. RIS Severe Sepsis and Septic Shock Management Bundle Measure requires all lactic acids initially measuring >2.0 mmol/L be repeated. 5 Because ethnic data is not always readily available, this report includes an eGFR for both -Americans and non- Americans. The National Kidney Disease Education Program (NKDEP) does not endorse the use of the MDRD equation for patients that are not between the ages of 18 and 70, are , have extremes of body size, muscle mass, or nutritional status, or are non- or non-. According to the National Kidney Foundation, irrespective of diagnosis, the stage of the disease is based on the level of kidney function: Stage Description GFR(mL/min/1.73 m(2)) 1 Kidney damage with normal or decreased GFR 90 2 Kidney damage with mild decrease in GFR 60-89 3 Moderate decrease in GFR 30-59 4 Severe decrease in GFR 15-29 5 Kidney failure <15 (or dialysis) 6 Because ethnic data is not always readily available, this report includes an eGFR for both -Americans and non- Americans. The National Kidney Disease Education Program (NKDEP) does not endorse the use of the MDRD equation for patients that are not between the ages of 18 and 70, are , have extremes of body size, muscle mass, or nutritional status, or are non- or non-. According to the National Kidney Foundation, irrespective of diagnosis, the stage of the disease is based on the level of kidney function: Stage Description GFR(mL/min/1.73 m(2)) 1 Kidney damage with normal or decreased GFR 90 2 Kidney damage with mild decrease in GFR 60-89 3 Moderate decrease in GFR 30-59 4 Severe decrease in GFR 15-29 5 Kidney failure <15 (or dialysis) 7 Because ethnic data is not always readily available, this report includes an eGFR for both -Americans and non- Americans. The National Kidney Disease Education Program (NKDEP) does not endorse the use of the MDRD equation for patients that are not between the ages of 18 and 70, are , have extremes of body size, muscle mass, or nutritional status, or are non- or non-. According to the National Kidney Foundation, irrespective of diagnosis, the stage of the disease is based on the level of kidney function: Stage Description GFR(mL/min/1.73 m(2)) 1 Kidney damage with normal or decreased GFR 90 2 Kidney damage with mild decrease in GFR 60-89 3 Moderate decrease in GFR 30-59 4 Severe decrease in GFR 15-29 5 Kidney failure <15 (or dialysis) 8 99th percentile=0.04 ng/mL Troponin results at [facility] and [facility] are not interchangeable. 9 >100 to <200 pg/mL: likely compensated congestive heart failure (CHF) 200 to 400 pg/mL: likely moderate CHF >400 pg/mL: likely moderate to severe CHF 10 [facility] Severe Sepsis and Septic Shock Management Bundle Measure requires all lactic acids initially measuring >2.0 mmol/L be repeated. 11 Because ethnic data is not always readily available, this report includes an eGFR for both -Americans and non- Americans. The National Kidney Disease Education Program (NKDEP) does not endorse the use of the MDRD equation for patients that are not between the ages of 18 and 70, are , have extremes of body size, muscle mass, or nutritional status, or are non- or non-. According to the National Kidney Foundation, irrespective of diagnosis, the stage of the disease is based on the level of kidney function: Stage Description GFR(mL/min/1.73 m(2)) 1 Kidney damage with normal or decreased GFR 90 2 Kidney damage with mild decrease in GFR 60-89 3 Moderate decrease in GFR 30-59 4 Severe decrease in GFR 15-29 5 Kidney failure <15 (or dialysis) 12 Interpretation: Positive (>=1.0) REFERENCE VALUE <0.4 (Negative) 13 REFERENCE VALUE <0.4 (Negative) Test Performed by: [place] [address] [employer]: Michael Singh II, M.D., Ph.D. 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 Test Performed by: [place] [address] [employer]: Michael Singh II, M.D., Ph.D. 15 Because ethnic data is not always readily available, this report includes an eGFR for both -Americans and non- Americans. The National Kidney Disease Education Program (NKDEP) does not endorse the use of the MDRD equation for patients that are not between the ages of 18 and 70, are , have extremes of body size, muscle mass, or nutritional status, or are non- or non-. According to the National Kidney Foundation, irrespective of diagnosis, the stage of the disease is based on the level of kidney function: Stage Description GFR(mL/min/1.73 m(2)) 1 Kidney damage with normal or decreased GFR 90 2 Kidney damage with mild decrease in GFR 60-89 3 Moderate decrease in GFR 30-59 4 Severe decrease in GFR 15-29 5 Kidney failure <15 (or dialysis) 16 Verbal to [id number] by [id number] at 1700 on 12/02/12. Results read back accurately. Consistent with previous results. 17 Because ethnic data is not always readily available, this report includes an eGFR for both -Americans and non- Americans. The National Kidney Disease Education Program (NKDEP) does not endorse the use of the MDRD equation for patients that are not between the ages of 18 and 70, are , have extremes of body size, muscle mass, or nutritional status, or are non- or non-. According to the National Kidney Foundation, irrespective of diagnosis, the stage of the disease is based on the level of kidney function: Stage Description GFR(mL/min/1.73 m(2)) 1 Kidney damage with normal or decreased GFR 90 2 Kidney damage with mild decrease in GFR 60-89 3 Moderate decrease in GFR 30-59 4 Severe decrease in GFR 15-29 5 Kidney failure <15 (or dialysis) 18 Reference Range and Interpretation: TnI (ng/mL) Interpretation Less Than 0.06 ng/mL Not supportive of diagnosis of [place] 0.06 - 0.50 ng/mL Indeterminate: suggest serial studies if clinically indicated. Greater than 0.5 ng/mL Consistent with diagnosis of [place] 19 This test detects intact HCG only and is indicated for the early detection of . 20 Verbal to answering service at 1208 on 11/19/12 by . Doctor to return call. 21 Because ethnic data is not always readily available, this report includes an eGFR for both -Americans and non- Americans. The National Kidney Disease Education Program (NKDEP) does not endorse the use of the MDRD equation for patients that are not between the ages of 18 and 70, are , have extremes of body size, muscle mass, or nutritional status, or are non- or non-. According to the National Kidney Foundation, irrespective of diagnosis, the stage of the disease is based on the level of kidney function: Stage Description GFR(mL/min/1.73 m(2)) 1 Kidney damage with normal or decreased GFR 90 2 Kidney damage with mild decrease in GFR 60-89 3 Moderate decrease in GFR 30-59 4 Severe decrease in GFR 15-29 5 Kidney failure <15 (or dialysis) 22 Verbal to answering service at 1144 on 11/19/12 by . Doctor to return call. Verbal to answering service at 1209 on 11/19/12 by . Doctor to return call. --- 11/19/12 1144 --- Creatinine previously reported as: 5.9 *P mg/dL --- 11/19/12 1209 --- Creatinine previously reported as: 5.9 *P mg/dL Verbal to answering service at 1144 on 11/19/12 by . Doctor to return call. --- 11/19/12 1144 --- Creatinine previously reported as: 5.9 *P mg/dL 23 Verbal to answering service at 1144 on 11/19/12 by . Doctor to return call. Verbal to answering service at 1209 on 11/19/12 by . Doctor to return call. --- 11/19/12 1209 --- Creatinine previously reported as: 5.9 *P mg/dL Verbal to answering service at 1144 on 11/19/12 by . Doctor to return call. --- 11/19/12 1144 --- Creatinine previously reported as: 5.9 *P mg/dL --- 11/21/12 1714 --- Creatinine previously reported as: 5.9 *P mg/dL Verbal to answering service at 1144 on 11/19/12 by . Doctor to return call. Verbal to answering service at 1209 on 11/19/12 by . Doctor to return call. --- 11/19/12 1144 --- Creatinine previously reported as: 5.9 *P mg/dL --- 11/19/12 1209 --- Creatinine previously reported as: 5.9 *P mg/dL Verbal to answering service at 1144 on 11/19/12 by . Doctor to return call. 24 Verbal to CELESTIA by [id number] at 1029 on 11/09/12. Results read back accurately. --- 11/09/12 1029 --- Hemoglobin previously reported as: 7.6 L g/dl 25 Verbal to CELESTIA by [id number] at 1030 on 11/09/12. Results read back accurately. 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 Suggest further testing for anti-myeloperoxidase (anti-MPO) antibodies, if clinically indicated. Test Performed by: [address] [address] [employer]er: Brandon Tirado III, M.D. 27 Note: High doses of Liposomal Amphotericin bB(Ambisome) therapy may cause falsely elevated results for phosphorous. 28 UNABLE TO CALCULATE IND.BILI D.BILI IS <0.1 29 HDL Interpretation: Undesirable: High Risk: Less than 40 mg/dL Desirable: Low Risk: Greater than 60 mg/dL 30 LDL Interpretation: Low Risk Optimal Level: LDL Less than 100 mg/dL Near or Above Optimal: LDL 100-129 mg/dL Borderline High Risk: LDL 130-159 mg/dL High Risk: LDL 160-189 mg/dL Very High Risk: LDL Greater than 189 mg/dL 31 Consistent with previous results. Verbal to CEDRIC SALGADO by [id number] at 1157 on 10/04/12. Results read back accurately. 32 Because ethnic data is not always readily available, this report includes an eGFR for both -Americans and non- Americans. The National Kidney Disease Education Program (NKDEP) does not endorse the use of the MDRD equation for patients that are not between the ages of 18 and 70, are , have extremes of body size, muscle mass, or nutritional status, or are non- or non-. According to the National Kidney Foundation, irrespective of diagnosis, the stage of the disease is based on the level of kidney function: Stage Description GFR(mL/min/1.73 m(2)) 1 Kidney damage with normal or decreased GFR 90 2 Kidney damage with mild decrease in GFR 60-89 3 Moderate decrease in GFR 30-59 4 Severe decrease in GFR 15-29 5 Kidney failure <15 (or dialysis) 33 Consistent with previous results. Verbal to CEDRIC SALGADO by [id number] at 1141 on 10/04/12. Results read back accurately. 34 Verbal to CEDRIC SALGADO by [id number] at 1348 on 09/14/12. Results read back accurately. 35 Because ethnic data is not always readily available, this report includes an eGFR for both -Americans and non- Americans. The National Kidney Disease Education Program (NKDEP) does not endorse the use of the MDRD equation for patients that are not between the ages of 18 and 70, are , have extremes of body size, muscle mass, or nutritional status, or are non- or non-. According to the National Kidney Foundation, irrespective of diagnosis, the stage of the disease is based on the level of kidney function: Stage Description GFR(mL/min/1.73 m(2)) 1 Kidney damage with normal or decreased GFR 90 2 Kidney damage with mild decrease in GFR 60-89 3 Moderate decrease in GFR 30-59 4 Severe decrease in GFR 15-29 5 Kidney failure <15 (or dialysis) 36 Verbal to CEDRIC by ADITI at 1210 on 07/21/12. Results read back accurately. Consistent with previous results. 37 Because ethnic data is not always readily available, this report includes an eGFR for both -Americans and non- Americans. The National Kidney Disease Education Program (NKDEP) does not endorse the use of the MDRD equation for patients that are not between the ages of 18 and 70, are , have extremes of body size, muscle mass, or nutritional status, or are non- or non-. According to the National Kidney Foundation, irrespective of diagnosis, the stage of the disease is based on the level of kidney function: Stage Description GFR(mL/min/1.73 m(2)) 1 Kidney damage with normal or decreased GFR 90 2 Kidney damage with mild decrease in GFR 60-89 3 Moderate decrease in GFR 30-59 4 Severe decrease in GFR 15-29 5 Kidney failure <15 (or dialysis) 38 Please note the change in INR reference range effective 12. The INR(International Normalized Ratio) was adopted by the World Health Organization (WHO) in 1982 as a standardized system of reporting PT (Prothrombin Time). The Centers for Disease Control (CDC) states that reporting of PT results in INR only is the preferred method. Recommended INR for Patients on Oral Anticoagulants Prophylaxis 2.0 - 3.0 Treatment of thrombosis 2.0 - 3.0 Prevention of embolism 2.0 - 3.0 Prevention of embolism from prosthetic heart valves 2.5 - 3.5 39 The World Health Organization (WHO) Hepatitis B Immunoglobulin 1st International Reference Preparation (1976): The accepted criteria for immunity to HBV is anti-HBs activity greater than or equal to 10 mIU/mL. An Index Value of 1.00 is equivalent to 10 mIU/mL. Samples with an Index Value of 1.00 or greater are considered reactive (protective) in accordance with the CDC guidelines. 40 [id number] BP PC TRANSFUSED 07/22/12 1512 [id number] BP PC NOT AVAILABLE 41 Verbal to CEDRIC by ADITI at 1433 on 07/21/12. Results read back accurately. Consistent with previous results. 42 Because ethnic data is not always readily available, this report includes an eGFR for both -Americans and non- Americans. The National Kidney Disease Education Program (NKDEP) does not endorse the use of the MDRD equation for patients that are not between the ages of 18 and 70, are , have extremes of body size, muscle mass, or nutritional status, or are non- or non-. According to the National Kidney Foundation, irrespective of diagnosis, the stage of the disease is based on the level of kidney function: Stage Description GFR(mL/min/1.73 m(2)) 1 Kidney damage with normal or decreased GFR 90 2 Kidney damage with mild decrease in GFR 60-89 3 Moderate decrease in GFR 30-59 4 Severe decrease in GFR 15-29 5 Kidney failure <15 (or dialysis) 43 HDL Interpretation: Undesirable: High Risk: Less than 40 MG/DL Desirable: Low Risk: Greater than 60 MG/DL 44 LDL Interpretation: Low Risk Optimal Level: LDL Less than 100 MG/DL Near or Above Optimal: LDL 100-129 MG/DL Borderline High Risk: LDL 130-159 MG/DL High Risk: LDL 160-189 MG/DL Very High Risk: LDL Greater than 189 MG/DL 45 UNABLE TO CALCULATE IND.BILI D.BILI IS <0.1 46 Patrick Santoro 47 Normal values may vary with age, season and geographic area. Titers above upper limits may be indicative of infection, however only a two dilution rise in titer is required to be considered significant. ASO titer will usually rise above upper limits within one week of exposure, increase to peak levels at 3-5 weeks and return to baseline level at 6-12 twelve months. 48 -- REFERENCE VALUE -- 25-HYDROXY D TOTAL (D2+D3) Optimum levels in the normal population are 25-80 Test Performed by: [address] [address] [employer]: Brandon Tirado III, M.D. 49 Normal serum electrophoretic pattern. 50 Test Performed by: [place] [address] [employer]er: Brandon Tirado III, M.D. 51 -- REFERENCE VALUE -- 0.3300-1.94 52 -- REFERENCE VALUE -- 0.5700-2.63 53 -- REFERENCE VALUE -- 0.2600-1.65 Test Performed by: [place] [address] [employer]er: Brandon Tirado III, M.D. 54 Test Performed by: [place] [address] [employer]er: Brandon Tirado III, M.D. 55 -- REFERENCE VALUE -- <1.0 (Negative) Test Performed by: [place] [address] [employer]er: Brandon Tirado III, M.D. 56 Test Performed by: [place] [address] [employer]er: Brandon Tirado III, M.D. 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 Suggest further testing for anti-myeloperoxidase (anti-MPO) antibodies, if clinically indicated. Test Performed by: [place] [address] [employer]er: Brandon Tirado III, M.D. 58 Test Performed by: [place] [address] [employer]in [employer]er: Brandon Tirado III, M.D. 59 Test Performed by: [place] [address] [employer]er: Brandon Tirado III, M.D. 60 Test Performed by: [place] [address] [employer]in [employer]er: Brandon Tirado III, M.D. 61 @Repeated by: Rosalinda Dillard 07/07/121945 @Prev Result: 4.90 #*P mg/dL @Avg 4.70,4.9=4.80 07/07/121946 Verbal to answering service at 1949 on 07/07/12 by [id number] . Doctor to return call. 62 --- 07/07/121945 --- BUN/Creat Ratio previously reported as: 16.3 @ Edited by: Rosalinda Dillard @ Reason: 63 --- 07/07/121945 --- EGFR Non-Margie previously reported as: 8.9 @ Edited by: Rosalinda Dillard @ Reason: 64 --- 07/07/121945 --- EGFR Afric.Amer previously reported as: 11.5 @ Edited by: Rosalinda Dillard @ Reason: Because ethnic data is not always readily available, this report includes an eGFR for both -Americans and non- Americans. The National Kidney Disease Education Program (NKDEP) does not endorse the use of the MDRD equation for patients that are not between the ages of 18 and 70, are , have extremes of body size, muscle mass, or nutritional status, or are non- or non-. According to the National Kidney Foundation, irrespective of diagnosis, the stage of the disease is based on the level of kidney function: Stage Description GFR(mL/min/1.73 m(2)) 1 Kidney damage with normal or decreased GFR 90 2 Kidney damage with mild decrease in GFR 60-89 3 Moderate decrease in GFR 30-59 4 Severe decrease in GFR 15-29 5 Kidney failure <15 (or dialysis) 65 2+ (>10-30 /hpf) 66 @Repeated by: Katarina Malagon 06/15/12 1901 @Prev Result: 3.70 *P mg/dL 67 Because ethnic data is not always readily available, this report includes an eGFR for both -Americans and non- Americans. The National Kidney Disease Education Program (NKDEP) does not endorse the use of the MDRD equation for patients that are not between the ages of 18 and 70, are , have extremes of body size, muscle mass, or nutritional status, or are non- or non-. According to the National Kidney Foundation, irrespective of diagnosis, the stage of the disease is based on the level of kidney function: Stage Description GFR(mL/min/1.73 m(2)) 1 Kidney damage with normal or decreased GFR 90 2 Kidney damage with mild decrease in GFR 60-89 3 Moderate decrease in GFR 30-59 4 Severe decrease in GFR 15-29 5 Kidney failure <15 (or dialysis) 68 RUN DATE: 05/30/12 [facility] LAB LIVE PAGE 1 RUN TIME: 0 [place], [place] [address] Specimen Inquiry Name: DON XAVIER : [address]: Patrick Santoro MD Acct: [id number] Unit: [id number] AGE: 61 Location: [facility] Re05/26/12 SEX: F Status: REG REF SPEC: [id number] GASTON: 05/26/12-[address]: Patrick Santoro MD REQ: [id number] RECD: 05/26/12-1533 STATUS: CARLEE SMALL DR: Gold Bah III, MD _ ORDERED: FN ASP SUPERFIC, FN ASP PALP, LEVEL IV, FNA IMMEDIATE S, PATH CONSULT FINAL DIAGNOSIS Breast, left, fine needle aspiration by palpation: Benign - lymphocytic mastitis/fibrous mastopathy (see comment). COMMENTS: The aspirate smear slides are cellular and demonstrate a pleomorphic mixed lymphoid background with lymphoid tangles and histiocytic aggregates including tingible body macrophages. Within this inflammatory background are scattered cohesive, relatively flat locker benign appearing epithelial elements with mild reactive nuclear changes and associated myoepithelial elements. No specific features of a neoplastic process are identified. No distinct features of neoplasia are identified. The cytologic features are compatible with the clinical exam. Lymphocytic mastitis (fibrous mastopathy) includes a spectrum of inflammatory changes that can occur in the breast with age ranges from the late 20's into the 70's. While this may be entirely idiopathic it is not infrequently associated with autoimmune diseases and/or diabetes mellitus. Clinical correlation and correlation with imaging findings is suggested. The procedure was explained to and understood by the patient. Signed consent was obtained and a time-out procedure was performed to verify patient identity and biopsy site. Fine needle aspiration biopsy was performed a 2.5 cm. ill-defined CONTINUED ON NEXT PAGE * ML=Testing performed at Main Lab DEPARTMENT OF PATHOLOGY, [facility] [employer] [place], [place] [address] Patrick Santoro M.D. Director [facility] Permit #[id number] RUN DATE: 05/30/12 [facility] LAB LIVE PAGE 2 RUN TIME: [address] [facility] [employer] [place], [place] [address] Specimen Inquiry Patient: DUCTERRIDON R [id number] (Continued) SPECIMEN COMMENTS (Continued) soft density in the left breast lower outer quadrant. The procedure was performed with a 25 gauge needle. Adequacy was assessed by fast stain technique. Two biopsies were performed. The procedure was tolerated well without complications. A cell block was prepared in the evaluation of this specimen. Smears and cell block reveal similar findings. BREAST LEFT - LEFT BREAST, FINE NEEDLE ASPIRATION IMMEDIATE INTERPRETATION Breast, left, fine needle aspiration: Pass 1- adequate Pass 2- adequate GROSS DESCRIPTION Fine needle aspiration by palpation x 2 passes done at Breast [facility], with 3 Alcohol fixed slide(s) and needle rinse in formalin for cell block. Signed (signature on file) Patrick Santoro MD 1617 END OF REPORT * ML=Testing performed at Main Lab DEPARTMENT OF PATHOLOGY, [address] [place] [address] Patrick Santoro M.D. Director [facility] Permit #[id number] 69 High Risk HPV DNA Detection was cancelled on 05/27/2012 at 14:42; Quantity not sufficient. source:cerv Test Performed by: [address] [address] [employer]er: Brandon Tirado III, M.D. 70 RUN DATE: 05/30/12 [facility] LAB LIVE PAGE 1 RUN TIME: [address] [place] [address] Specimen Inquiry Name: DON XAVIER : [address]: Ivan Avila MD Acct: [id number] Unit: [id number] AGE: 61 Location: [facility] Re05/25/12 SEX: F Status: REG REF SPEC: [id number] GASTON: 05/25/12-[address] [facility] [address]: Ivan Avila MD REQ: [id number] RECD: 05/25/12 STATUS: SOUT _ ORDERED: IMAGE ANALYSIS, HPV / Thin Prep HPV DNA High Risk Test Cancelled. Quantity not sufficient. [employer]imen [employer] or [employer] ThinPrep PapTest PreservCyt Solution are the collection systems approved for use with this method by the U.S. Food and Drug Administration. Performance characteristics for [employer] (SurPath) collection device have been determined by [facility], [place], [place]. It has not been cleared or approved by the U.S. Food and Drug Administration. Test Performed by: [facility] Dpt of lab Med and Pathology [address] [place] [address] [employer]er: Brandon Tirado III, M.D. Original hard copy report from [facility] [employer] is available upon request by calling Pathology at [phone]. Addendum Signed (signature on file) OFE Becker (ASCP) 05/30/12 0855 FINAL DIAGNOSIS Negative for Intraepithelial lesion or Malignancy COMMENTS: Specimen sent to [employer] in [place], [place] on 05/26/12. Results will be reported separately in an Addendum. A. Ectocervical/Endocervical Specimen Adequacy: Satisfactory of evaluation Transformation zone component cannot be definitely identified due to presence of atrophy or other hormonal changes Patient Information: CONTINUED ON NEXT PAGE * ML=Testing performed at Main Lab DEPARTMENT OF PATHOLOGY, [facility] [employer] [place], [place] [address] Patrick Santoro M.D. Director [facility] Permit #[id number] RUN DATE: 05/30/12 [facility] LAB LIVE PAGE 2 RUN TIME: [address] [facility] [employer] [facility], [place], [place] [address] Specimen Inquiry Patient: DON XAVIER [id number] (Continued) CYTOLOGY PATIENT INFORMATION (Continued) HPV: High risk HPV DNA testing regardless of pap results. Actual Specimen Date: 05/25/12 LMP If Unknown: None Given Spec Date if unknown: None Given Post Menopausal?: Y Previous Abnormal Pap Smears?:Y If Yes, enter Diagnosis: Dysplasia Signed (signature on file) OFE Becker (ASCP) 05/26/12 1024 This Pap test was evaluated with the assistance of the [employer] Test Imaging System. Due to cytologic findings at the wood heel flap trimmer microscope, comprehensive manual rescreening by a Water Purifier Operator may be required. The Pap Smear is a screening test designed to aid in the detection of premalignant and malignant conditions of the uterine cervix. It is not a diagnostic procedure and should not be used as the sole means of detecting cervical cancer. Both false- positive and false- negative reports do occur. Depending on your risk status, a Pap smear shoudl be obtained and evaluated every 1-3 years. END OF REPORT * ML=Testing performed at Main Lab DEPARTMENT OF PATHOLOGY, [address] [place] [address] Patrick Santoro M.D. Director [facility] Permit #[id number] 71 Because ethnic data is not always readily available, this report includes an eGFR for both -Americans and non- Americans. The National Kidney Disease Education Program (NKDEP) does not endorse the use of the MDRD equation for patients that are not between the ages of 18 and 70, are , have extremes of body size, muscle mass, or nutritional status, or are non- or non-. According to the National Kidney Foundation, irrespective of diagnosis, the stage of the disease is based on the level of kidney function: Stage Description GFR(mL/min/1.73 m(2)) 1 Kidney damage with normal or decreased GFR 90 2 Kidney damage with mild decrease in GFR 60-89 3 Moderate decrease in GFR 30-59 4 Severe decrease in GFR 15-29 5 Kidney failure <15 (or dialysis) 72 PLEASE NOTE NEW REFERENCE RANGE EFFECTIVE 08. 73 Anion gap measurement may be of limited value in the presence of any alkalosis, especially in a combined acid base disorder. . 74 Note change in reference range as of 12/22/07. The change was based on recommendations from the [place] [employer]. 75 Please note change in reference range effective 07 . 76 A metabolite of Naproxen, O-desmethylnaproxen, has been shown to interfere with the Jendrassik-Mark method for measuring total bilirubin. Samples from patients who have taken Naproxen have shown spurious elevation in total bilirubin levels. 77 Because ethnic data is not always readily available, this report includes an eGFR for both -Americans and non- Americans. The National Kidney Disease Education Program (NKDEP) does not endorse the use of the MDRD equation for patients that are not between the ages of 18 and 70, are , have extremes of body size, muscle mass, or nutritional status, or are non- or non-. According to the National Kidney Foundation, irrespective of diagnosis, the stage of the disease is based on the level of kidney function: Stage Description GFR(mL/min/1.73 m(2)) 1 Kidney damage with normal or decreased GFR 90 2 Kidney damage with mild decrease in GFR 60-89 3 Moderate decrease in GFR 30-59 4 Severe decrease in GFR 15-29 5 Kidney failure <15 (or dialysis) 78 New Reference Range and Interpretation effective 02/03/2002 TnI (ng/ml) INTERPRETATION Less Than 0.06 ng/mL NOT SUPPORTIVE OF DIAGNOSIS OF [place] 0.06 - 0.50 ng/ml INDETERMINATE: SUGGEST SERIAL STUDIES IF CLINICALLY INDICATED. Greater than 0.5 ng/mL CONSISTENT WITH DIAGNOSIS OF [place] . 79 Recommended INR for Patients on Oral Anticoagulants Prophylaxis 2.0 - 3.0 Treatment of thrombosis 2.0 - 3.0 Prevention of embolism 2.0 - 3.0 Prevention of embolism from prosthetic heart valves 2.5 - 3.5 80 DIAGNOSIS,TREATMENT,AND THERAPY MUST BE BASED ON THE INR VALUE ALONE. 81 CHOLESTEROL INTERPRETATION: Desirable: Less than 200 MG/DL Borderline-High Risk: 200-239 MG/DL High-Risk: 240 MG/DL and over 82 HDL INTERPRETATION: Undesirable: High Risk: Less than 40 MG/DL Desirable: Low Risk: Greater than 60 MG/DL 83 LDL INTERPRETATION: Low Risk Optimal Level: LDL Less than 100 MG/DL Near or Above Optimal: LDL 100-129 MG/DL Borderline High Risk: LDL 130-159 MG/DL High Risk: LDL 160-189 MG/DL Very High Risk: LDL Greater than 189 MG/DL 84 LDL INTERPRETATION: Low Risk Optimal Level: LDL Less than 100 MG/DL Near or Above Optimal: LDL 100-129 MG/DL Borderline High Risk: LDL 130-159 MG/DL High Risk: LDL 160-189 MG/DL Very High Risk: LDL Greater than 189 MG/DL 85 PLEASE NOTE NEW REFERENCE RANGES. 86 REVIEWED BY MARTHA TIM MD 87 UNABLE TO CALCULATE IND.BILI D.BILI IS <0.1 88 CHOLESTEROL INTERPRETATION: Desirable: Less than 200 MG/DL Borderline-High Risk: 200-239 MG/DL High-Risk: 240 MG/DL and over 89 HDL INTERPRETATION: Undesirable: High Risk: Less than 40 MG/DL Desirable: Low Risk: Greater than 60 MG/DL 90 LDL INTERPRETATION: Low Risk Optimal Level: LDL Less than 100 MG/DL Near or Above Optimal: LDL 100-129 MG/DL Borderline High Risk: LDL 130-159 MG/DL High Risk: LDL 160-189 MG/DL Very High Risk: LDL Greater than 189 MG/DL 91 Anion gap measurement may be of limited value in the presence of any alkalosis, especially in a combined acid base disorder. . 92 Note change in reference range as of 12/22/07. The change was based on recommendations from the [place] [employer]. 93 Please note change in reference range effective 07 . 94 A metabolite of Naproxen, O-desmethylnaproxen, has been shown to interfere with the Jendrassik-Mark method for measuring total bilirubin. Samples from patients who have taken Naproxen have shown spurious elevation in total bilirubin levels. 95 Because ethnic data is not always readily available, this report includes an eGFR for both -Americans and non- Americans. The National Kidney Disease Education Program (NKDEP) does not endorse the use of the MDRD equation for patients that are not between the ages of 18 and 70, are , have extremes of body size, muscle mass, or nutritional status, or are non- or non-. According to the National Kid[employer] Foundation, irrespective of diagnosis, the stage of the disease is based on the level of kidney function: Stage Description GFR(mL/min/1.73 m(2)) 1 Kidney damage with normal or decreased GFR 90 2 Kidney damage with mild decrease in GFR 60-89 3 Moderate decrease in GFR 30-59 4 Severe decrease in GFR 15-29 5 Kidney failure <15 (or dialysis) 96 Because ethnic data is not always readily available, this report includes an eGFR for both -Americans and non- Americans. The National Kidney Disease Education Program (NKDEP) does not endorse the use of the MDRD equation for patients that are not between the ages of 18 and 70, are , have extremes of body size, muscle mass, or nutritional status, or are non- or non-. According to the National Kidney Foundation, irrespective of diagnosis, the stage of the disease is based on the level of kidney function: Stage Description GFR(mL/min/1.73 m(2)) 1 Kidney damage with normal or decreased GFR 90 2 Kidney damage with mild decrease in GFR 60-89 3 Moderate decrease in GFR 30-59 4 Severe decrease in GFR 15-29 5 Kidney failure <15 (or dialysis) 97 Anion gap measurement may be of limited value in the presence of any alkalosis, especially in a combined acid base disorder. . Procedures Date CPT Code Description Status Comment 06/22/2016 10392 Stress Test Completed 06/22/2016 41597 Myocardial Perfusion Imaging Completed Tomographic (Spect) Multiple Studies 06/18/2016 53462 ECHO Transthoracic, Real-Time Completed 2D With Doppler And Color Flow 06/03/2016 84400 EKG Tracing & Completed Interpretation 05/30/2016 54015 EKG, Interpretation Only Completed 03/23/2016 10453 EKG Tracing & Completed Interpretation 02/15/2015 39196 EKG, Interpretation Only Completed 02/14/2015 34951 Stereotactic CAD Proc Completed Cranial,Intradural Add On Code 02/14/2015 44271 Craniectomy, Trephination,Bone Completed Flap For Exc Meningioma, Supratent 02/04/2015 32946 EKG Tracing & Completed Interpretation 01/28/2015 01550 ECHO Transthoracic, Real-Time Completed 2D With Doppler And Color Flow 05/28/2014 Diabetic Retinal Eye Exam Completed 03/05/2014 Mammogram Completed 02/05/2014 01329 EKG Tracing & Completed Interpretation 01/03/2014 46422 ECHO Transthoracic, Real-Time Completed 2D With Doppler And Color Flow 08/31/2013 Mammogram Completed 01/25/2013 Diabetic Retinal Eye Exam Completed Document: 01/25/13 - Consult Ophthalmology/[place] 01/16/2013 35046 ECHO Transthoracic, Real-Time Completed 2D With Doppler And Color Flow 01/13/2013 50361 Myocardial Perfusion Imaging Completed Tomographic (Spect) Multiple Studies 01/13/2013 67178 Stress Test Completed 01/06/2013 60184 EKG Tracing & Completed Interpretation 12/15/2012 35803 EKG, Interpretation Only Completed 12/14/2012 15718 EKG, Interpretation Only Completed 12/13/2012 16137 EKG, Interpretation Only Completed 12/12/2012 60077 EKG, Interpretation Only Completed 12/11/2012 52825 EKG, Interpretation Only Completed 12/09/2012 17151 EKG, Interpretation Only Completed 12/09/2012 45038 EKG, Interpretation Only Completed 12/09/2012 15588 EKG, Interpretation Only Completed 12/08/2012 01586 EKG, Interpretation Only Completed 12/07/2012 10428 EKG, Interpretation Only Completed 12/05/2012 15785 EKG, Interpretation Only Completed 12/04/2012 66004 EKG, Interpretation Only Completed 12/04/2012 68328 ECHO Transthorasic Realtime 2D Completed W Doppler & Color Flow Hosp 12/03/2012 44499 EKG, Interpretation Only Completed 12/02/2012 69437 EKG, Interpretation Only Completed 07/04/2012 86420 EKG Tracing & Completed Interpretation 06/27/2012 52681 ECHO Transthoracic, Real-Time Completed 2D With Doppler And Color Flow 05/26/2012 Mammogram Completed 06/29/2011 Mammogram Completed 05/20/2011 27796 Holter Monitor Review (24 hr)dr Completed review & interp only 05/12/2011 82172 EKG, Interpretation Only Completed 05/12/2011 Colonoscopy Completed 06/17/2010 Mammogram Completed 06/12/2010 Diabetic Retinal Eye Exam Completed Document: 06/12/10 - Consult Yuridia Tee 04/22/2009 Mammogram Completed 05/07/2006 Colonoscopy Completed Encounters Type Date Location Provider CPT E/M Dx Office Visit 09/22/[address] [facility] Internal Medicine Pato Bah, 59611 G31.84 3:20p - Varun Calderón I48.0 Office Visit 06/29/2016 11:30a [facility] Cyril Cresencio Lara, 26383 R07.9 MMessi, [facility], FASMI Office Visit 06/03/2016 1:30p [facility] Cyril Lara, 93381 R07.9 M.DXavier, [facility], FASMI Office Visit 05/30/2016 8:51a [facility] Christy Reza, 23059 R07.9 Hospitalists M.DXavier N18.6 I48.0 Office Visit 05/29/2016 8:46a [facility] Vijay Dumas, 49203 R07.9 Assoc,pc [place] Hospitalists N18.6 I48.0 Z99.2 Office Visit 05/18/2016 1:20p [facility] Internal Medicine Pato Bah, 73474 N18.6 [place]phane I48.0 D32.0 J45.909 F41.3 G31.84 Z12.31 Z13.820 Office Visit 03/23/2016 1:30p [facility] Cyril Lara, 48068 I48.0 Stephane, [facility], [facility] Office Visit 02/17/2015 [facility]maz [facility], 91964 N18.6 Hospitalists N.P. D32.9 I48.91 Z98.89 Office Visit 02/16/2015 9:46a [facility] Almaz Correa, 38424 N18.6 Hospitalists N.P. D32.9 I48.91 Z98.89 Office Visit 02/15/2015 9:45a [facility] Almaz Correa, 23252 Z98.89 Hospitalists N.P. D32.9 I42.9 N18.9 Office Visit 02/14/2015 9:44a [facility] Jeremy Fontenot, 20597 Z98.89 Assoc,pc Hospitalists N.P. D32.9 I42.9 N18.6 Office Visit 02/04/2015 11:00a [facility] Cyril Cresencio Lara, 82302 I48.0 AT [facility] Stephane, FAC, FASMI Office Visit 01/31/2015 3:00p [facility] Ch[facility], 85538 D32.0 Dena Calderón G93.9 Office Visit 07/06/2014 11:00a [facility] Internal Medicine Pato Bah, 34264 V72.81 - Sterling Calderón 366.10 493.90 585.6 272.0 300.00 V10.11 V06.1 Office Visit 04/13/2014 11:40a [facility] Internal Medicine Pato Bah, 73035 585.6 - Sterling Calderón 427.31 493.90 272.0 300.00 V10.11 Office Visit 02/05/2014 12:45p [facility] Cyr[facility] Dupont Lara, 85157 427.31 Dena Calderón, [facility], [facility] Office Visit 01/30/2013 11:30a [facility] C[facility] Dupont Lara, 73528 424.0 Dena Calderón, RONN, [facility] Office Visit 01/06/2013 9:30a [facility] C[facility] Dupont Lara, 87686 427.31 Dena Calderón, IVIS, [facility] Office Visit 12/28/2012 2:00p [facility] Internal Medicine - Pato Bah, 29304 427.31 Sterling Calderón 585.6 493.90 272.0 Office Visit 12/20/2012 10:40a [facility], Leyda Cox, 01485 427.31 Hospitalists D.O. 512.1 585.6 Office Visit 12/19/2012 10:39a [facility] Leyda Cox, 81933 427.31 Hospitalists D.O. 512.1 585.6 Office Visit 12/18/2012 10:39a [facility] Leyda Cox, 89379 427.31 Hospitalists D.O. 512.1 585.6 518.4 Office Visit 12/17/2012 10:39a [facility] Leyda Cox, 39640 427.31 Hospitalists D.O. 512.1 585.6 518.4 Office Visit 12/16/2012 10:38a [facility] Alberto Reese, 50551 518.4 Hospitalists Stephane 585.6 512.1 427.31 Office Visit 12/15/2012 10:38a [facility], Alberto Reese, 82747 518.4 Hospitalists Stephane 585.6 512.1 427.31 Office Visit 12/14/2012 10:37a [facility], Alberto Reese, 05554 518.4 Hospitalists Stephane 585.6 512.1 427.31 Office Visit 12/13/2012 10:37a [facility], Solomon Horn 79399 518.4 Hospitalists Stephane Calero 427.31 512.1 585.6 Office Visit 12/13/2012 10:54a [facility] Cyril Lara, 83841 427.31 Stephane, [facility], [facility] Office Visit 12/12/2012 10:37a [facility], Solomon Horn 72407 518.4 Hospitalists Stephane Calero 427.31 512.1 585.6 Office Visit 12/12/2012 10:18a [facility] Cyril Lara, 96436 427.31 Stephane, [facility], [facility] Office Visit 12/11/2012 12:29p [facility] Yakelin Pickard, 96004 427.31 Stephane Office Visit 12/11/2012 10:36a [facility], Solomon Horn 46821 518.4 Hospitalists Stephane Calero 427.31 512.1 585.6 Office Visit 12/10/2012 10:36a [facility], Solomon Horn 12848 518.4 Hospitalists Stephane Calero 427.31 512.1 585.6 Office Visit 12/09/2012 11:03a [facility] Yakelin Pickard M.D. [address] [facility] 428.0 786.05 Office Visit 12/09/2012 10:36a [facility], Solomon Horn 74895 518.4 Hospitalists Stephane Calero 427.31 512.1 585.6 Office Visit 12/08/2012 10:34a [facility] Solomon GraceXavier Horn 84850 518.4 Hospitalists Stephane Calero 427.31 512.1 585.6 Office Visit 12/08/2012 10:00a [facility] Cyr[facility] Dupont Marco, 29836 427.31 Dena Calderón, [facility], [facility] 786.05 Office Visit 12/07/2012 10:34a [facility] Adela Nolasco, 80083 518.4 Hospitalists MMessi 427.31 512.1 585.6 Office Visit 12/06/2012 10:36a [facility] Alberto Reese, 73534 428.0 Hospitalists M.DXavier 427.0 585.6 279.10 Office Visit 12/05/2012 10:35a [facility] Alberto Reese, 07693 428.0 Hospitalists MXavierDXavier 427.0 585.6 279.10 Office Visit 12/04/2012 10:35a [facility], Kun Scott D.O. 93199 428.0 Hospitalists 427.0 585.6 279.10 Office Visit 12/03/2012 10:34a [facility] Kun Scott D.O. 73246 428.0 Hospitalists 427.31 585.6 279.10 Office Visit 12/02/2012 9:17a [facility] Jamie Milligan 21028 486 Infectious Diseases Stephane Reyes Office Visit 12/02/2012 10:34a [facility] Kun Scott D.O. 85337 518.81 Assoc, Hospitalists 428.0 427.31 585.6 Office Visit 07/07/2012 3:40p [facility] Internal Medicine Pato Bah, 23729 586 - Sterling Calderón Office Visit 07/04/2012 1:00p [facility] Cyrilayad Lara, 02597 427.31 Dena Calderón, [facility], [facility] Office Visit 05/13/2011 1:20p [facility] Internal Medicine Pato Bah, 00019 427.31 - Sterling Calderón Office Visit 01/24/2010 10:20a DO Not Use [facility], 25119 386.11 [facility] 12/12/2009 4:00p DO Not Use [facility], 26970 780.2 [facility] 06/[facility]/2009 4:00p DO Not Use [facility], 20003 272.0 [facility] 01/23/2009 3:00p DO Not Use [facility], 53851 493.90 [facility] 272.0 227.3 Office Visit 05/11/2007 3:30p [facility], 28279 493.90 [facility] 272.0 300.09 Plan of Care 10/06/2017 - Pato Bah M.D.G31.84 Mild cognitive impairment, so statedNew Labs:C Reactive ProteinErythrocyte Sed RateSyphillis Igg W/Reflex RPRVitamin B12 And Folate SerumVitamin D Total 25(Oh)New Xrays:MRI Brain W/ ON18.6 End stage renal khhclqdJ40.0 Benign neoplasm of cerebral gzjdyjdeR49.2 Mixed hyperlipidemiaNew Labs:Lipid Profile (Trig/Chol/HDL)Z11.59 Encounter for screening for other viral diseasesNew Labs:Hepatitis C HpdlilvyS27.0 Paroxysmal atrial fibrillationFollow up:call cardiology- pt overdue for a recheck with Dr Lara
--- OUTSIDE RECORDS SUMMARY | 2017-10-13 13:19 | XMS REPORT ---
:1950 External Reference #:[id number] Author Organization [facility] Address [address] [address] Phone [phone] Care Team Providers Name Role Phone Pato Bah III, MD Primary Care Physician Unavailable Payers Type Date Identification Numbers Payment Provider Subscriber Health Maintenance Policy Number: Medicare Blue [facility] Don Xavier [facility] (O) [id number] Group Number: [id number] [address] [address] PayID: [id number] [place] [address] Problems Date Description Provider Status Onset: 05/13/2011 Atrial fibrillation Pato Bah M.D. 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 Active Onset: 03/23/2016 Paroxysmal atrial fibrillation Cyril Lara M.D., Active FACC, FASNC Onset: 03/11/2015 Other specified postprocedural Anjel Chiu M.D. 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 Day as Needed Preservision 07/07/ Active Capsules 1 capsule Pato Pryor 2012 bid w/food Stephane Bah Aspirin 07/07/ Active Tablets 81 mg 1 po Pato Gaines 2012 daily Stephane Bah Accolate 06/03/ Active Tablets 20mg 60tabs Take 1 By Pato Chan Mouth Two Niurka, Times Daily M.DXavier Vitamin B12 / Active Tablets ER 1000mcg 30tabs 1 po qd Unknown 0000 Vitamin E / Active Capsules 400Unit 2 po qd Unknown Complex 0000 Renvela / Active Tablets 800mg 3 tablets Unknown 0000 after every meal and snacks. Daily Millie / Active Tablets 1 by mouth Unknown 0000 every day Citalopram / Active Tablets 10mg 90tabs take 1 by Pato Braunbromide 0000 mouth daily Stephane Bah Aspirin 01/30/ Hx Tablets 81mg 1 po qd Cyril 2012 - Dupont 02/05/ Lara, 2013 Stephane, [facility], FASNC Ventolin HFA 10/07/ Hx Aerosol 108(90Base 1units 2 puffs po Marily 2012 - ) mcg/Act qid prn Hank, 12/28/ N.P. 2013 Vitamins/[place] 06/03/ Hx Tablets 1 po qd Pato Kramer. als Multiple 2009 - Niurka, 04/06/ M.D. 2013 Citalopram 06/03/ Hx Tablets 20mg 90tabs 1 po qd Pato E. Hydrobromide 2009 - Niurka, 07/07/ M.D. 2012 Pravastatin 06/03/ Hx Tablets 20mg 90tabs 1 po qd Pato E. Sodium 2009 - Niurka, 12/12/ M.D. 2009 Flovent 05/11/ Hx Aerosol 110mcg/Act 1units 2 po puffs Pato Sultana 2007 - bid Niurka, 01/09/ M.D. 2012 Theophylline / Hx Tablets ER 200mg 30tabs 1 po bid Pato E. CR 0000 - 12HR Niurka, 07/07/ M.D. 2012 Albuterol / Hx Aerosol 90mcg/Act 1units 2 puffs po Pato E. 0000 - qid prn Niurka, 12/28/ M.D. 2012 Multi-Day / Hx Tablets 1 PO qd Unknown Vitamins 0000 - 2014 Lexapro / Hx Tablets 10mg 90tabs 1 PO qd Mitali 0000 - MD Ralf 2009 Vagifem / Hx Tablets 10mcg 24tabs pv 6 days a Unknown 0000 - week for 2 07/07/ and 2012 then pv twice a week. Vitamin D 00/00/ Hx Tablets 1000Unit 30tabs po qday Unknown 0000 - 2012 Flaxseed Oil / Hx Capsules 1000mg 1 po bid Unknown 0000 - 2012 Renagel / Hx Tablets 800mg 270tab 3 pills tid [...] 01/31/ times a day Елена Lara M.D., FACC, SACHIN Zafirlukast / Hx Tablets 20mg 180tab 1 po bid Unknown 0000 - s 2012 Propafanol / Hx 75mg 1/2 tid Unknown 0000 - 2014 Medications Administered in Office Medication Date Status Form Strength Qnty SIG Indications Ordering Provider Technetium TC Administered Injection Rich S. 99M 017 DO Aurelio TetrofosmRONN gutierrez Per Unit Dose Up To 40 Millicuries Inj, Administered Injection Cyril Dupont Regadenoson, 013 Lara, 0.1 MG RONN Calderón, SACHIN Technetium TC Administered Injection Cyril Dupont 99M 013 Ishan Lara M.D., FACC, Per Unit Dose SACHIN Up To 40 Millicuries Immunizations CPT Code Status Date Vaccine Lot # [id number] Given 01/02/2016 Influenza Virus Vaccine, Quadrivalent, Split Virus, [place] Use [id number] Given 07/06/2014 Tdap - Tetanus/Diptheria/Acellular Pertussis [id number] Given 04/20/2014 Pneumococcal Conjugate Vaccine 13 Valent For [id number] Intramuscular Use Vital Signs Date Vital Result Comment 09/22/2017 Weight 119.00 lb Heart Rate 75 [...] Test Date Test Result H/L Range Note Inr/Protime 08/31/2017 Inr 0.95 0.77-1.02 Laboratory test finding 08/31/2017 Partial Thrombo 30.5 seconds 26.0- 36.3 Time PTT CBC No Diff 08/31/2017 White Blood [...] Non- 13.9 >60 Egfr 17.9 >60 1 Laboratory test finding 08/31/2017 TSH (Thyroid Stim Horm) 1.57 mcIU/mL 0.34-5.60 Free T4 (Free Thyroxine) 1.02 ng/dL 0.61-1.12 CBC Auto Diff 08/26/2017 White Blood Count [...] finding 08/26/2017 Troponin-I (TnI) 0.01 ng/mL <0.04 Laboratory test finding 07/27/2017 Magnesium 2.3 mg/dL 1.9-2.7 Comp Metabolic Panel 07/27/2017 Sodium 136 mmol/L [...] Egfr Non- 15.5 >60 Egfr 19.9 >60 3 Laboratory test finding 07/27/2017 Partial Thrombo Time 31.7 seconds 26.0 -36.3 PTT B-Type Natriuretic Peptide BNP 216 pg/mL High 4 Lactic Acid 0.8 mmol/L 0.5-2.0 5 Troponin-I (TnI) 0.01 ng/mL <0.04 Inr/Protime 07/27/2017 Inr 0.90 0.77-1.02 CBC Auto Diff 07/27/2017 White Blood Count [...] Blood Cells % 0 Basic Metabolic Panel 05/22/2017 Sodium 133 mmol/L 133-145 Potassium 3.4 mmol/L Low 3.5-5.0 Chloride 91 mmol/L Low 101-111 Co2 Carbon Dioxide 29 mmol/L 22-32 Anion Gap 13 mmol/L High 2-11 Glucose 94 mg/dL 70-100 Blood Urea Nitrogen 24 mg/dL 6-24 Creatinine 3.00 mg/dL High 0.51-0.95 BUN/Creatinine Ratio 8.0 8-20 Calcium 8.9 mg/dL 8.6-10.3 Egfr Non- 15.5 >60 Egfr 20.0 >60 6 Laboratory test finding 05/29/2016 Lactic Acid 1.4 mmol/L 0.5-2.0 7 Comp Metabolic Panel 05/29/2016 Sodium 139 mmol/L [...] Egfr Non- 8.6 >60 Egfr 11.1 >60 8 Laboratory test finding 05/29/2016 Troponin-I (TnI) 0.00 ng/mL <0.04 9 B-Type Natriuretic Peptide BNP 204 pg/mL High 10 CBC Auto Diff 05/29/2016 White Blood [...] C-Anca Negative Negative P-Anca Positive Negative 14 Comp Metabolic Panel 06/29/2013 Sodium 137 mmol/L [...] Non- 20.1 >60 Egfr 25.8 >60 15 CBC Auto Diff 06/29/2013 White Blood Count [...] 0-2 Nucleated Red Blood Cells % 0.1 Laboratory test finding 12/02/2012 B Type Natriuretic [...] 24 Hematocrit 23 % Low 35-47 25 CBC Auto Diff 10/04/2012 White Blood Count [...] 0-2 Nucleated Red Blood Cells % 0 Creatinine Clearance 10/04/2012 Urine Random Creatinine 39.7 mg/dL Creatinine 5.3 mg/dL High 0.5-1.4 26 Creatinine Clearance 14 mL/min Low 80-125 Urine Collection Time 24 Urine Total Volume 2700 mL Total Protein 24HR Urine 10/04/2012 Urine Random Total Protein 64 mg/dL Urine Total Protein/24HR 1728 mg/24Hr High 0-165 Comp Metabolic Panel 10/04/2012 Sodium 137 mmol/L 133-145 Potassium 3.7 mmol/L 3.5-5.0 Chloride 109 mmol/L 101-111 Co2 Carbon Dioxide 19.0 mmol/L Low 22-32 Anion Gap 9.0 mmol/L 2-11 Glucose 87 mg/dL 70-100 Blood Urea Nitrogen 90 mg/dL High 6-24 Creatinine 5.20 mg/dL High 0.50-1.40 27 One Over Creatinine 0.10 BUN/Creatinine Ratio 17.3 8-20 Calcium 8.6 mg/dL 8.1-9.9 Total Protein 5.0 g/dL Low 6.2-8.1 Albumin 3.4 g/dL 3.2-5.2 Globulin 1.6 g/dL Low 2-4 Albumin/Globulin Ratio 2.1 1-3 Total Bilirubin 0.8 mg/dL 0.4-1.5 Alkaline Phosphatase 45 U/L 30-110 Alt 14 U/L 14-54 Ast 13 U/L 12-42 Egfr Non- 8.3 >60 Egfr 10.7 >60 28 Lipid Profile (Trig/Chol/HDL) 10/04/2012 Triglycerides 325 mg/dL High 40- 200 Cholesterol 273 mg/dL High Less than 200 HDL Cholesterol 50 mg/dL 40-60 29 Cholesterol/HDL Ratio 5.5 Average High 1-4.44 LDL Cholesterol 158.0 High Less Than 100 30 Liver Function Panel 10/04/2012 Direct Bilirubin 0 mg/dL Low 0.1-0.5 Indirect Bilirubin (SEE NOTE) mg/dL 0.3-1.0 31 Laboratory test finding 10/04/2012 Phosphorus 5.3 mg/dL High 2.4-4.7 32 Cytoplasmic Neutrophilic AB 10/04/2012 C-Anca Negative Negative P-Anca Positive Negative 33 Comp Metabolic Panel 09/14/2012 Sodium 137 mmol/L [...] Color Yellow Urine Appearance Clear Urine Specific [place] 1.013 1.010-1.030 Urine Esterase Negative Negative Urine [...] 0-2 Nucleated Red Blood Cells % 0 Laboratory test finding 07/21/2012 Erythrocyte Sed Rate [...] Laboratory test 07/21/2012 Packed Cell - RBC [id number] B 36 finding Leukoreduced <SEE NOTE> Comp Metabolic Panel 07/21/2012 Sodium 138 mmol/L 133-145 Potassium 4.6 mmol/L 3.5-5.0 Chloride 106 mmol/L 101-111 Co2 Carbon Dioxide 22.0 mmol/L 22-32 Anion Gap 10.0 mmol/L 2-11 Glucose 139 mg/dL High 70-100 Blood Urea Nitrogen 75 mg/dL High 6-24 Creatinine 5.50 mg/dL High 0.50-1.40 37 One Over Creatinine 0.10 BUN/Creatinine Ratio 13.6 8-20 Calcium 8.6 mg/dL 8.1-9.9 Total Protein 5.8 g/dL Low 6.2-8.1 Albumin 3.5 g/dL 3.2-5.2 Globulin 2.3 g/dL 2-4 Albumin/Globulin Ratio 1.5 1-3 Total Bilirubin 0.6 mg/dL 0.4-1.5 Alkaline Phosphatase 81 U/L 30-110 Alt 12 U/L Low 14-54 Ast 18 U/L 12-42 Egfr Non- 7.8 >60 Egfr 10.0 >60 38 Laboratory test finding 07/21/2012 Inr 0.92 0.87-0.97 39 Activated Partial Thrombo Time 30.7 sec 22.18-37.18 Hepatitis B Autumn AB 07/21/2012 Hepatitis B Surface AB Nonreactive Nonreactive Titer Hep B Surf AB Index < 0.10 40 Laboratory test finding 07/21/2012 Hepatitis B Surface Nonreactive Nonreactive Antigen Pthi 07/21/2012 PTH Intact 8.5 pmol/L 1.3-9.0 Calcium (PTH Intact) 8.5 mg/dL 8.1-9.9 Comp Metabolic Panel 07/21/2012 Sodium 137 mmol/L [...] 25-Hydroxy Vitamin D Total 47 ng/mL 48 Laboratory test finding 07/21/2012 Complement C3 106 mg/dL 75 - 175 49 Complement C4 29 mg/dL 14 - 40 50 Complement CH50 54 U/mL 30 - 75 51 Protein Electrophoresis Serum 07/21/2012 Albumin (Pep) 3.09 [...] 6.3 g/dL 6.2-8.1 Spep Comments (SEE NOTE) 52 Laboratory test finding 07/21/2012 Vitamin D 1,25-Dihydroxy 19 pg/mL 18- 78 53 Allison Gap/Lambda Free Light 07/21/2012 Allison Gap Free Light Chain 11.4 mg/dL 54 Chains Ser Lambda Free Light Chain 5.86 mg/dL 55 Allison Gap/Lambda Free Light Chain 1.95 56 Laboratory test finding 07/21/2012 Erythropoietin 7.4 mIU/mL 2.6 - 18.5 57 Glomerular Basement Membrane <0.2 U 58 Hepatitis B Core Total Ab Negative Negative 59 Cytoplasmic Neutrophilic AB 07/21/2012 C-Anca Negative Negative P-Anca Positive Negative 60 Stool For Blood 07/12/2012 Misc negative [...] Color Yellow Urine Appearance Clear Urine Specific [place] 1.011 1.010-1.030 Urine Esterase Trace Negative Urine [...] 12.0 >60 Egfr 15.4 >60 67 Cytology Non-Hotel Clerk 05/26/2012 Nneka RUN DATE: <SEE NOTE> Cytology 05/25/2012 Cy RUN DATE: <SEE NOTE> Laboratory test 05/25/2012 HPV Dna High Risk TNP Negative 70 finding Laboratory test 02/13/2011 BUN 16 mg/dL 6-24 finding Creatinine 02/13/2011 Creatinine 0.8 mg/dL 0.50-1.40 One Over Creatinine 1.25 eGFR Non- 72.7 > 60 eGFR 93.5 > 60 71 CBC With Electronic Diff 01/24/2010 White Blood [...] Eosinophils 0.4 0-0.6 Abs Basophils 0.1 0-0.2 Protime 12/05/2009 Inr 0.97 0.97-1.03 72 Protime 11.4 SEC Low 11.5-12.2 73 CBC With Electronic Diff 12/05/2009 White Blood [...] Eosinophils 0.4 0-0.6 Abs Basophils 0.1 0-0.2 Comp Metabolic Panel 12/05/2009 Sodium 139 mmol/L 135-145 Potassium 3.7 mmol/L 3.5-5.0 Chloride 104 mmol/L 101-111 Co2 (Carbon Dioxide) 26.0 mmol/L 22-32 Anion Gap 9.0 mmol/L 2-11 74 Glucose 100 mg/dL 70-100 75 BUN 18 mg/dL 6-24 Creatinine 0.80 mg/dL 0.50-1.40 One Over Creatinine 1.20 BUN/Creatinine Ratio 22.5 High 8-20 Calcium 8.8 mg/dL 8.1-9.9 76 Total Protein 6.6 GM/DL 6.2-8.1 Albumin 3.8 GM/DL 3.2-5.2 Globulin 2.8 GM/DL 2-4 Albumin/Globulin Ratio 1.4 1-3 Bilirubin Total 0.6 mg/dL 0.4-1.5 77 Alkaline Phosphatase 89 U/L 30-110 Alt (SGPT) 17 U/L 14-54 Ast (Sgot) 25 U/L 12-42 eGFR Non- 77.5 > 60 eGFR 93.8 > 60 78 Laboratory test finding 12/05/2009 Troponin-I (TnI) 0 NG/ML 79 Laboratory test finding 12/05/2009 PTT (Aptt) 27.5 25.15-38.53 80 D Dimer Quantitative < 200 Less Than 230 Laboratory test finding 08/05/2009 Ast (Sgot) 22 U/L 12-42 Lipid Profile (Trig/Chol/HDL) 08/05/2009 Triglyceride 108 mg/dL 40-200 Cholesterol 204 mg/dL High Less Than 200 81 High Density Lipoprotein 52 mg/dL 40-60 82 Cholesterol/HDL Ratio 3.92 AVERAGE 1-4.44 Low Density Lipoprotein 130 mg/dL High Less Than 100 83 CBC With Manual Diff 05/20/2009 White Blood [...] Morphology NORMAL Manual Diff Comments (SEE NOTE) 84 Thyroid Panel 05/20/2009 Free Thyroxine 0.69 NG/ML 0.61-1.24 85 Thyroxine 6.6 g/dL 5-12 TSH 2.88 MIU/ML 0.34-5.60 Laboratory test finding 05/20/2009 LDL Direct 200 mg/dL High Less Than 100 86 Liver Function Panel 05/20/2009 Bilirubin Direct [...] 5 Kidney failure <15 (or dialysis) 3 Because ethnic data is not always readily [...] 15-29 5 Kidney failure <15 (or dialysis) 4 >100 to <200 pg/mL: likely compensated congestive heart failure (CHF) 200 to 400 pg/mL: likely moderate CHF >400 pg/mL: likely moderate to severe CHF 5 Specimen hemolyzed. Result may not be valid. [facility] Severe Sepsis and Septic Shock Management Bundle Measure requires all lactic acids initially measuring >2.0 mmol/L be repeated. 6 Because ethnic data is not always [...] 5 Kidney failure <15 (or dialysis) 7 [facility] Severe Sepsis and Septic Shock Management Bundle Measure requires all lactic acids initially measuring >2.0 mmol/L be repeated. 8 Because ethnic data is not always readily [...] 15-29 5 Kidney failure <15 (or dialysis) 9 99th percentile=0.04 ng/mL Troponin results at [facility] and [facility] are not interchangeable. 10 >100 to <200 pg/mL: likely compensated congestive heart failure (CHF) 200 to 400 pg/mL: likely moderate CHF >400 pg/mL: likely moderate to severe CHF 11 Because ethnic data is not always [...] REFERENCE VALUE <0.4 (Negative) Test Performed by: [place] [address] Curing Bin Operator: Michael Singh II, M.D., Ph.D. 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 Test Performed by: [place] [address] Curing Bin Operator: Michael Singh II, M.D., Ph.D. 15 Because [...] failure <15 (or dialysis) 16 Verbal to [id number] by [id number] at 1700 on 12/02/12. Results read back [...] 0.06 ng/mL Not supportive of diagnosis of MD 0.06 - 0.50 ng/mL Indeterminate: suggest serial studies if clinically indicated. Greater than 0.5 ng/mL Consistent with diagnosis of MD 19 This test detects intact HCG only [...] Doctor to return call. 24 Verbal to YESENIA by [id number] at 1029 on 11/09/12. Results read back accurately. --- 11/09/12 1029 --- Hemoglobin previously reported as: 7.6 L g/dl 25 Verbal to CELESTIA by [id number] at 1030 on 11/09/12. Results read back accurately. --- 11/09/12 1030 --- Hematocrit previously reported as: 23 L % 26 Consistent with previous results. Verbal to CEDRIC SALGADO by [id number] at 1141 on 10/04/12. Results read back accurately. 27 Consistent with previous results. Verbal to CEDRIC SALGADO by [id number] at 1157 on 10/04/12. Results read back accurately. 28 Because ethnic data is not always readily [...] 15-29 5 Kidney failure <15 (or dialysis) 29 HDL Interpretation: Undesirable: High Risk: Less than 40 mg/dL Desirable: Low Risk: Greater than 60 mg/dL 30 LDL Interpretation: Low Risk Optimal Level: LDL Less than 100 mg/dL Near or Above Optimal: LDL 100-129 mg/dL Borderline High Risk: LDL 130-159 mg/dL High Risk: LDL 160-189 mg/dL Very High Risk: LDL Greater than 189 mg/dL 31 UNABLE TO CALCULATE IND.BILI D.BILI IS <0.1 32 Note: High doses of Liposomal Amphotericin bB(Ambisome) therapy may cause falsely elevated results for phosphorous. 33 Positive for pANCA pattern by immunofluorescence. Suggest further testing for anti-myeloperoxidase (anti-MPO) antibodies, if clinically indicated. Test Performed by: [place] [id number] Curing Bin Operator: Brandon Tirado III, M.D. 34 Verbal to CEDRIC SALGADO by [id number] at 1348 on 09/14/12. Results read back [...] 5 Kidney failure <15 (or dialysis) 36 [id number] BP PC TRANSFUSED 07/22/12 1512 [id number] BP PC NOT AVAILABLE 37 Verbal to CEDRIC by [email or web address] at 1210 on 07/21/12. Results read back accurately. Consistent with previous results. 38 Because ethnic data is not always readily [...] 15-29 5 Kidney failure <15 (or dialysis) 39 Please note the change in INR reference [...] from prosthetic heart valves 2.5 - 3.5 40 The World Health Organization (WHO) Hepatitis B Immunoglobulin 1st International Reference Preparation (1976): The accepted criteria for immunity to HBV is anti-HBs activity greater than or equal to 10 mIU/mL. An Index Value of 1.00 is equivalent to 10 mIU/mL. Samples with an Index Value of 1.00 or greater are considered reactive (protective) in accordance with the CDC guidelines. 41 Verbal to CEDRIC by ADITI at [...] normal population are 25-80 Test Performed by: [place] [address] Curing Bin Operator: Brandon Tirado III, M.D. 49 Test Performed by: [address] [address] Curing Bin Operator: Brandon Tirado III, M.D. 50 Test Performed by: [place] [address] Curing Bin Operator: Brandon Tirado III, M.D. 51 Test Performed by: [place] [address] Curing Bin Operator: Brandon Tirado III, M.D. 52 Normal serum electrophoretic pattern. 53 Test Performed by: [place] [address] Curing Bin Operator: Brandon Tirado III, M.D. 54 -- REFERENCE VALUE -- 0.3300-1.94 55 -- REFERENCE VALUE -- 0.5700-2.63 56 -- REFERENCE VALUE -- 0.2600-1.65 Test Performed by: [place] [address] Curing Bin Operator: Brandon Tirado III, M.D. 57 Test Performed by: [place] [address] Curing Bin Operator: Brandon Tirado III, M.D. 58 -- REFERENCE VALUE -- <1.0 (Negative) Test Performed by: [place] [address] Curing Bin Operator: Brandon Tirado III, M.D. 59 Test Performed by: [place] [address] Curing Bin Operator: Brandon Tirado III, M.D. 60 Positive for pANCA pattern by immunofluorescence. Suggest further testing for anti-myeloperoxidase (anti-MPO) antibodies, if clinically indicated. Test Performed by: [place] [address] Curing Bin Operator: Brandon Tirado III, M.D. 61 @Repeated by: Rosalinda Dillard 07/07/121945 @Prev Result: 4.90 #*P mg/dL @Avg 4.70,4.9=4.80 07/07/121946 Verbal to answering service at 1948 on 07/07/12 by . Doctor to return call. 62 --- 07/07/121945 --- BUN/Creat Ratio previously reported as: 16.3 @ Edited by: Rosalinda Dillard @ Reason: 63 --- 07/07/121945 --- EGFR Non-Margie previously reported as: 8.9 @ Edited by: Rosalinda Dillard @ Reason: 64 --- 07/07/121945 --- EGFR Afric.Georgi previously reported as: 11.5 @ Edited by: [...] /hpf) 66 @Repeated by: Katarina Malagon 06/15/12 190 @Prev Result: 3.70 *P mg/dL 67 Because [...] <15 (or dialysis) 68 RUN DATE: 05/30/12 [facility] LAB LIVE PAGE 1 RUN TIME: [address] [place] [address], [place], [place] [address] Specimen Inquiry Name: DON XAVIER Anca : [address]: Patrick Santoro MD Acct: [id number] Unit: [id number] AGE: 61 [place] [facility]05[place]26/12 SEX: F Status: REG REF SPEC: [id number] GASTON: 05/26/12-[address]: Patrick Santoro MD REQ: [id number] RECD: 05/26/12-1533 STATUS: CARLEE SMALL DR: Gold [...] this inflammatory background are scattered cohesive, relatively senior foreman benign appearing epithelial elements with mild reactive [...] performed at Main Lab DEPARTMENT OF PATHOLOGY, [facility] [place] [address] Patrick Santoro M.D. Director [facility] Permit #[id number] RUN DATE: 05/30/12 [facility] LAB LIVE PAGE 2 RUN TIME: 659 [facility] [address] [employer] [place], [place] [address] Specimen Inquiry Patient: DON XAVIER [id number] (Continued) SPECIMEN COMMENTS (Continued) soft density in [...] palpation x 2 passes done at [facility], with 3 Alcohol fixed slide(s) and needle rinse in formalin for cell block. Signed (signature on file) Patrick Santoro MD 1617 END OF REPORT * ML=Testing performed at Main Lab DEPARTMENT OF PATHOLOGY, [facility] [place] [address] Patrick Santoro M.D. Director [facility] Permit #[id number] RUN DATE: 05/30/12 [facility] LAB LIVE PAGE 1 RUN TIME: 0855 [facility] [address] [place], [place] [address] Specimen Inquiry Name: DON XAVIER : [address]: Ivan Avila MD Acct: [id number] Unit: [id number] AGE: 61 Location: [facility] Re05/25/12 SEX: F Status: REG REF SPEC: [id number] GASTON: 05/25/12-[address] [facility] [address]: Ivan Avila MD REQ: [id number] RECD: 05/25/12 STATUS: SOUT _ ORDERED: IMAGE ANALYSIS, HPV / Thin Prep HPV DNA High Risk Test Cancelled. Quantity not sufficient. [place] Hybrid Capture Specimen Transport Media or HeyLets ThinPrep PapTest PreservCyt Solution are the collection systems approved for use with this method by the U.S. Food and Drug Administration. Performance characteristics for AutoCyte (SurPath) collection device have been determined by Laboratory Medicine and Pathology, [facility], [place], [place]. It has not been cleared or approved by the U.S. Food and Drug Administration. Test Performed by: [facility] Dpt of lab Med and Pathology [address] [place] [address] Curing Bin Operator: Brandon Tirado III, M.D. Original hard copy report from [facility] is available upon request by calling Pathology at [phone]. Addendum Signed (signature on file) OFE Becker (ASCP) 05/30/12 0855 FINAL DIAGNOSIS Negative for Intraepithelial lesion or Malignancy COMMENTS: Specimen sent to [facility] in [place], [place] on 05/26/12. Results will be reported separately in an Addendum. A. Ectocervical/Endocervical Specimen Adequacy: Satisfactory of evaluation Transformation zone component cannot be definitely identified due to presence of atrophy or other hormonal changes Patient Information: CONTINUED ON NEXT PAGE * ML=Testing performed at Main Lab DEPARTMENT OF PATHOLOGY, [address] [place] [address] Patrick Santoro M.D. Director [facility] Permit #[id number] RUN DATE: 05/30/12 [facility] LAB LIVE PAGE 2 RUN TIME: [address] [place] [address] Specimen Inquiry Patient: DON XAVIER [id number] (Continued) CYTOLOGY PATIENT INFORMATION (Continued) HPV: High risk HPV DNA testing regardless of pap results. Actual Specimen Date: 05/25/12 LMP If Unknown: None Given Spec Date if unknown: None Given Post Menopausal?: Y Previous Abnormal Pap Smears?:Y If Yes, enter Diagnosis: Dysplasia Signed (signature on file) OFE Becker (ASCP) 05/26/12 1024 This Pap test was evaluated with the assistance of the Beyond Meat[employer] Test Imaging System. Due to cytologic findings at the after school caregiver microscope, comprehensive manual rescreening by a Lpn Private Duty may be required. The Pap Smear is [...] at Main Lab DEPARTMENT OF PATHOLOGY, [address] [place] [address] Patrick Santoro M.D. Director [facility] Permit #[id number] 70 High Risk HPV DNA Detection was cancelled on 05/27/2012 at 14:42; Quantity not sufficient. source:cerv Test Performed by: [address] [address] Curing Bin Operator: Brandon Tirado III, M.D. 71 Because ethnic data is not always [...] 5 Kidney failure <15 (or dialysis) 72 Recommended INR for Patients on Oral Anticoagulants Prophylaxis 2.0 - 3.0 Treatment of thrombosis 2.0 - 3.0 Prevention of embolism 2.0 - 3.0 Prevention of embolism from prosthetic heart valves 2.5 - 3.5 73 DIAGNOSIS,TREATMENT,AND THERAPY MUST BE BASED ON THE INR VALUE ALONE. 74 Anion gap measurement may be of limited value in the presence of any alkalosis, especially in a combined acid base disorder. . 75 Note change in reference range as of 12/22/07. The change was based on recommendations from the [employer]. 76 Please note change in reference range effective 07 . 77 A metabolite of Naproxen, O-desmethylnaproxen, has been shown to interfere with the Jendrassik-Mark method for measuring total bilirubin. Samples from patients who have taken Naproxen have shown spurious elevation in total bilirubin levels. 78 Because ethnic data is not always readily [...] 15-29 5 Kidney failure <15 (or dialysis) 79 New Reference Range and Interpretation effective 02/03/2002 TnI (ng/ml) INTERPRETATION Less Than 0.06 ng/mL NOT SUPPORTIVE OF DIAGNOSIS OF MD 0.06 - 0.50 ng/ml INDETERMINATE: SUGGEST SERIAL STUDIES IF CLINICALLY INDICATED. Greater than 0.5 ng/mL CONSISTENT WITH DIAGNOSIS OF MD . 80 PLEASE NOTE NEW REFERENCE RANGE EFFECTIVE 08. 81 CHOLESTEROL INTERPRETATION: Desirable: Less than 200 [...] Risk: LDL Greater than 189 MG/DL 84 REVIEWED BY MARTHA TIM MD 85 PLEASE NOTE NEW REFERENCE RANGES. 86 LDL INTERPRETATION: Low Risk Optimal Level: LDL Less than 100 MG/DL Near or Above Optimal: LDL 100-129 MG/DL Borderline High Risk: LDL 130-159 MG/DL High Risk: LDL 160-189 MG/DL Very High Risk: LDL Greater than 189 MG/DL 87 UNABLE TO CALCULATE IND.BILI D.BILI IS [...] change was based on recommendations from the [employer]. 93 Please note change in [...] Date CPT Code Description Status Comment 06/22/2016 04946 Stress Test Completed 06/22/2016 18088 Myocardial Perfusion Imaging Completed Tomographic (Spect) Multiple Studies 06/18/2016 03256 ECHO Transthoracic, Real-Time Completed 2D With Doppler And Color Flow 06/03/2016 17138 EKG Tracing & Completed Interpretation 05/30/2016 49133 EKG, Interpretation Only Completed 03/23/2016 95019 EKG Tracing & Completed Interpretation 02/15/2015 63185 EKG, Interpretation Only Completed 02/14/2015 19291 Stereotactic CAD Proc Completed Cranial,Intradural Add On Code 02/14/2015 25464 Craniectomy, Trephination,Bone Completed Flap For Exc Meningioma, Supratent 02/04/2015 20807 EKG Tracing & Completed Interpretation 01/28/2015 64481 ECHO Transthoracic, Real-Time Completed 2D With Doppler And Color Flow 05/28/2014 Diabetic Retinal Eye Exam Completed 03/05/2014 Mammogram Completed 02/05/2014 85748 EKG Tracing & Completed Interpretation 01/03/2014 50338 ECHO Transthoracic, Real-Time Completed 2D With Doppler And Color Flow 08/31/2013 Mammogram Completed 01/25/2013 Diabetic Retinal Eye Exam Completed Document: 01/25/13 - Consult Ophthalmology/Emmons 01/16/2013 27958 ECHO Transthoracic, Real-Time Completed 2D With Doppler And Color Flow 01/13/2013 26963 Myocardial Perfusion Imaging Completed Tomographic (Spect) Multiple Studies 01/13/2013 81753 Stress Test Completed 01/06/2013 80209 EKG Tracing & Completed Interpretation 12/15/2012 14892 EKG, Interpretation Only Completed 12/14/2012 66782 EKG, Interpretation Only Completed 12/13/2012 56747 EKG, Interpretation Only Completed 12/12/2012 11082 EKG, Interpretation Only Completed 12/11/2012 46907 EKG, Interpretation Only Completed 12/09/2012 00766 EKG, Interpretation Only Completed 12/09/2012 03172 EKG, Interpretation Only Completed 12/09/2012 35805 EKG, Interpretation Only Completed 12/08/2012 48384 EKG, Interpretation Only Completed 12/07/2012 69792 EKG, Interpretation Only Completed 12/05/2012 41986 EKG, Interpretation Only Completed 12/04/2012 22466 EKG, Interpretation Only Completed 12/04/2012 56840 ECHO Transthorasic Realtime 2D Completed W Doppler & Color Flow Hosp 12/03/2012 36831 EKG, Interpretation Only Completed 12/02/2012 17205 EKG, Interpretation Only Completed 07/04/2012 42738 EKG Tracing & Completed Interpretation 06/27/2012 54606 ECHO Transthoracic, Real-Time Completed 2D With Doppler And Color Flow 05/26/2012 Mammogram Completed 06/29/2011 Mammogram Completed 05/20/2011 91319 Holter Monitor Review (24 hr)dr Completed review & interp only 05/12/2011 73204 EKG, Interpretation Only Completed 05/12/2011 Colonoscopy Completed 06/17/2010 Mammogram Completed 06/12/2010 Diabetic Retinal Eye Exam Completed Document: 06/12/10 - Consult Yuridia Tee 04/22/2009 Mammogram Completed 05/07/2006 Colonoscopy Completed Encounters Type Date Location Provider CPT E/M Dx Office Visit 06/29/2016 [facility] Alexander Lara, 82884 R07.9 11:30a Dena Calderón, [facility], [facility] Office Visit 06/03/2016 [facility] Cyril Lara, 73611 R07.9 1:30p Dena Calderón, [facility], [facility] Office Visit 05/30/2016 [facility],pc Christy Reza, 32438 R07.9 8:51a Hospitalists Stephane N18.6 I48.0 Office Visit 05/29/2016 8:46a [facility] Vijay Dumas, 76476 R07.9 Assoc,pc [facility] Hospitalists N18.6 I48.0 Z99.2 Office Visit 05/18/2016 1:20p [facility] Pato Bah, 92841 N18.6 - Varun Calderón I48.0 D32.0 J45.909 F41.3 G31.84 Z12.31 Z13.820 Office Visit 03/23/2016 1:30p [facility] Cyril Lara, 64298 I48.0 Stephane, [facility], [facility] Office Visit 02/17/2015 9:47a [facility] Almaz Correa, 48391 N18.6 Hospitalists N.P. D32.9 I48.91 Z98.89 Office Visit 02/16/2015 9:46a [facility] Almaz Correa, 64657 N18.6 Hospitalists N.P. D32.9 I48.91 Z98.89 Office Visit 02/15/2015 9:45a [facility] Almaz Correa, 42597 Z98.89 Hospitalists N.P. D32.9 I42.9 N18.9 Office Visit 02/14/2015 9:44a [facility], 57410 Z98.89 Assoc,pc Hospitalists N.P. D32.9 I42.9 N18.6 Office Visit 02/04/2015 11:00a [facility] Cyril Lara, 63583 I48.0 [place] [facility] [place]ane, [facility], [facility] Office Visit 01/31/2015 3:00p [facility] Anjel Chiu, 69151 D32.0 [facility] Stephane G93.9 Office Visit 07/06/2014 11:00a [facility] Pato Bah, 88672 V72.81 - Menominee M.D. 366.10 493.90 585.6 272.0 300.00 V10.11 V06.1 Office Visit 04/13/2014 11:40a [facility] Pato Bah, 20814 585.6 - Sterling Calderón 427.31 493.90 272.0 300.00 V10.11 Office Visit 02/05/2014 12:45p [facility] Cyril Dupont Lara, 48849 427.31 Dena Calderón, [facility], [facility] Office Visit 01/30/2013 11:30a [facility] Cyril Dupont Lara, 41241 424.0 Dena Calderón, [facility], [facility] Office Visit 01/06/2013 9:30a [facility] Of Cyrilayad Dupont Lara, 83006 427.31 Dena Calderón, [facility], [facility] Office Visit 12/28/2012 2:00p [facility] - Pato Bah, 60932 427.31 Sterling Calderón 585.6 493.90 272.0 Office Visit 12/20/2012 10:40a [facility], Leyda Cox, 09424 427.31 Hospitalists D.O. 512.1 585.6 Office Visit 12/19/2012 10:39a [facility], Leyda Cox, 66446 427.31 Hospitalists D.O. 512.1 585.6 Office Visit 12/18/2012 10:39a [facility], Leyda Cox, 43922 427.31 Hospitalists D.O. 512.1 585.6 518.4 Office Visit 12/17/2012 10:39a [facility], Leyda Cox, 48099 427.31 Hospitalists D.O. 512.1 585.6 518.4 Office Visit 12/16/2012 10:38a [facility], Alberto Reese, 91946 518.4 Hospitalists Stephane 585.6 512.1 427.31 Office Visit 12/15/2012 10:38a [facility], Alberto Reese, 47062 518.4 Hospitalists Stephane 585.6 512.1 427.31 Office Visit 12/14/2012 10:37a [facility]pc Alberto Reese, 50755 518.4 Hospitalists Stephane 585.6 512.1 427.31 Office Visit 12/13/2012 10:37a [facility], Solomon Horn 88897 518.4 Hospitalists Stephane Calero 427.31 512.1 585.6 Office Visit 12/13/2012 10:54a [facility] Cyril Lara, 61752 427.31 Stephane, [facility], [facility] Office Visit 12/12/2012 10:37a [facility], Solomon Horn 58805 518.4 Hospitalists Stephane Calero 427.31 512.1 585.6 Office Visit 12/12/2012 10:18a [facility] Cyril Lara, 61482 427.31 Stephane, [facility], [facility] Office Visit 12/11/2012 12:29p [facility] Yakelin Pickard, 51062 427.31 Stephane Office Visit 12/11/2012 10:36a [facility], Solomon Horn 68033 518.4 Hospitalists Stephane Calero 427.31 512.1 585.6 Office Visit 12/10/2012 10:36a [facility] Solomon Horn 08452 518.4 Hospitalists Stephane Calero 427.31 512.1 585.6 Office Visit 12/09/2012 11:03a [facility] Yakelin Pickard M.D. 73372 427.31 [facility] 428.0 786.05 Office Visit 12/09/2012 10:36a [facility] Solomon Horn 48771 518.4 Hospitalists Stephane Calero 427.31 512.1 585.6 Office Visit 12/08/2012 10:34a [facility] Solomon Horn 66876 518.4 Hospitalists Stephane Calero 427.31 512.1 585.6 Office Visit 12/08/2012 10:00a [facility] 63799 427.31 Dena Calderón, [facility], [facility] 786.05 Office Visit 12/07/2012 10:34a [facility] Adela Nolasco, 76149 518.4 Hospitalists M.Chel 427.31 512.1 585.6 Office Visit 12/06/2012 10:36a [facility] Alberto Reese, 24064 428.0 Hospitalists M.D. 427.0 585.6 279.10 Office Visit 12/05/2012 10:35a [facility] Alberto Reese, 75328 428.0 Hospitalists M.D. 427.0 585.6 279.10 Office Visit 12/04/2012 10:35a [facility] Kun Scott D.O. 51437 428.0 Hospitalists 427.0 585.6 279.10 Office Visit 12/03/2012 10:34a [facility] Kun Scott D.O. 04664 428.0 Hospitalists 427.31 585.6 279.10 Office Visit 12/02/2012 [facility] 28697 486 Infectious Diseases Stephane Reyes Office Visit 12/02/2012 10:34a [facility] Kun Scott D.O. 16365 518.81 Assoc, Hospitalists 428.0 427.31 585.6 Office Visit 07/07/2012 3:40p [facility] Medicine Pato Bah, 84485 586 Lawanda Katz M.D. Office Visit 07/04/2012 1:00p [facility] Cyril Lara, 40164 427.31 Dena Calderón, [facility] Office Visit 05/13/2011 1:20p [facility] Medicine Pato Bah 00055 427.31 Lawanda Katz M.D. Office Visit 01/24/2010 10:20a DO Not Use [facility] AT Pato Bah, 14331 386.11 Bettye Calderón 285.9 Office Visit 12/12/2009 4:00p DO Not Use [facility] AT Pato Bah, 41420 780.2 Bettye Calderón Office Visit 06/03/2009 4:00p DO Not Use [facility] AT [facility], 35918 272.0 [facility] 01/23/2009 3:00p DO Not Use [facility] AT [facility], 43374 493.90 [facility] 272.0 227.3 Office Visit 05/11/2007 3:30p [facility], 36427 493.90 [facility] 272.0 300.09 Plan of Care Future Appointment(s):10/06/2017 4:00 pm - Pato Bah M.D. at [facility] Internal Medicine - Ghqiqlgpd22/23/2018 - Pato Bah M.D.G31.84 Mild cognitive impairment, so statedFollow up:2 weeks for MMSEI48.0 Paroxysmal atrial fibrillationFollow up:pt needs a recheck appt with Dr Lara for her a-fib
[2017-10-13] MEDS ORDERED: Dexamethasone IV* 4 MG/ML 5 ML VIAL (20 MG) IVPB ONE (13:34)
[2017-10-13] MEDS ORDERED: levETIRAcetam IV* 500 MG in NS 0.9% 100 ML* 100 ML IVPB ONE (13:34)
[2017-10-13] MEDS ORDERED: Diltiazem IV* 5 MG/ML 5 ML VIAL (for loading dose/IV Push) (25 MG) IV SLOW PU ONE (13:36)
--- NOTE | 2017-10-13 13:37 | RAD ---
HISTORY: Neurological changes/code montano COMPARISONS: Head CT dated February 14, 2015, MRI dated August 14, 2016 TECHNIQUE: Multiple contiguous axial CT scans were obtained of the head without intravenous contrast. FINDINGS: HEMORRHAGE/INFARCT: There is no hemorrhage or acute infarct. MASSES/SHIFT: Again noted is a left parietal mass corresponding to the extra-axial lesion on the previous MRI. This measures 3.2 x 3.9 cm transversely, increased in size from the previous examination. There has been interval development of extensive vasogenic edema. There is approximately 0.4 cm of subfalcine shift to the right. The basal cisterns are preserved. EXTRA-AXIAL SPACES: As noted above, there is a 3.9 cm mass of the left parietal region corresponding to an extra-axial lesion on the previous MRI, increased in size. SULCI AND VENTRICLES: There is mass effect upon the left lateral ventricle. CEREBRUM: There has been interval development of a pattern of vasogenic edema within the left posterior frontal, posterior temporal, parietal, and occipital lobes. BRAINSTEM: There are no focal parenchymal abnormalities. CEREBELLUM: There are no focal parenchymal abnormalities. VESSELS: The vessels are grossly normal. PARANASAL SINUSES: The paranasal sinuses are clear. ORBITS: The orbits are unremarkable. BONES AND SOFT TISSUE: There is postsurgical change to the skull. OTHER: None IMPRESSION: 1. THERE HAS BEEN INTERVAL PROGRESSION OF THE LEFT PARIETAL EXTRA-AXIAL MASS, WITH INTERVAL DEVELOPMENT OF EXTENSIVE VASOGENIC EDEMA. THE DIFFERENTIAL INCLUDES PROGRESSION OF AN INVASIVE /AGGRESSIVE MENINGIOMA, OR PROGRESSION OF DURAL BASED METASTATIC DISEASE. 2. THERE IS 0.4 CM OF SUBFALCINE SHIFT TO THE RIGHT. PRELIMINARY FINDINGS WERE DISCUSSED WITH DR. TERRELL IN THE EMERGENCY DEPARTMENT AT APPROXIMATELY 1:33 PM ON OCTOBER 13, 2017.
[2017-10-13] MEDS ORDERED: Diltiazem DRIP* 100 MG/100 ML ADDV.BAG IVPB ONE (13:47)
[2017-10-13 13:50] LABS: ABS Basophils 0 10^3/ul (0-0.2); ABS Eosinophils 0.3 10^3/ul (0-0.6); ABS Lymphocytes 1.3 10^3/ul (1.0-4.8); ABS Monocytes 0.2 10^3/ul (0-0.8); ABS Neutrophils 5.2 10^3/ul (1.5-7.7); ABS Nucleated RBC 0 10^3/ul; Eosinophil % 3.9 % (0-6); Hematocrit 31 % (35-47); Hemoglobin 10.1 g/dl (12.0-16.0); Lymphocyte % 18.1 % (25-47); Mean Corpuscular HGB Conc 33 g/dl (31-36); Mean Corpuscular Hemoglobin 33 pg (27-31); Mean Corpuscular Volume 98 fL (80-97); Nucleated Red Blood Cells % 0; Platelet Count 285 10^3/ul (150-450); Red Blood Count 3.12 10^6/ul (4.00-5.40); Red Cell Distribution Width 14 % (10.5-15)
[2017-10-13 14:14] LABS: INR 0.93 (0.77-1.02)
--- NOTE | 2017-10-13 14:17 | RAD ---
Indication: Code montano; possible stroke. History of atrial fibrillation, mitral valve prolapse, end-stage renal disease on dialysis, and remote history of lung carcinoma. ANCA vasculitis. Comparison: July 27, 2017 Technique: Upright AP 1351 hours Report: Negative for cardiomegaly. Prominent central pulmonary vasculature with mild prominence of interstitial markings most confluent within the residual LEFT lung including subtle thickened peripheral interlobular septa. Negative for pleural effusions or pneumothorax. Mildly tortuous descending thoracic aorta. LEFT suprahilar surgical clips. Negative for free air beneath the diaphragm. Chronic postsurgical deformity of the LEFT thorax. IMPRESSION: Mild pulmonary vascular congestion and interstitial edema.
[2017-10-13 14:20] LABS: EGFR Non-African American 8.6 (>60)
[2017-10-13] MEDS: Diltiazem IV VIAL* 125 MG in NS 0.9% 100 ML* 100 ML IVPB ONE ×2 (14:39→16:12)
[2017-10-13] MEDS ORDERED: levETIRAcetam 500 MG IVPREMIX* 500 MG/100 ML BAG IV ONE (15:00)
[2017-10-13] MEDS ORDERED: Gadoteridol* (CONTRAST) 279.3 MG/ML 10 ML IV ONE (16:14)
--- NOTE | 2017-10-13 16:22 | RAD ---
INDICATION: Altered mental status, brain mass, history of meningioma and lung cancer. COMPARISON: Comparison is made with a prior MRI of the brain from August 14, [address] of the brain from October 13, 2017. TECHNIQUE: Sagittal T1, axial T1, T2, susceptibility, FLAIR and diffusion weighted images were obtained. FINDINGS: There is a large extra-axial mass which is heterogeneous in signal intensity on T1 and T2-weighted images centered in the posterior left parietal lobe with a large amount of surrounding vasogenic edema. The mass has restricted diffusion and measures 5.0 x 5.0 x 3.0 cm in size and has increased significantly in size from the prior exam and previously measured 2.4 x 2.2 x 2.5 cm. There are postsurgical changes in this region. There is significant mass effect with compression and anterior displacement of the atrium of the left lateral ventricle and approximate 7 mm of herniation toward the right side. No other focal abnormalities are seen. There is some susceptibility artifact within the mass although no hemorrhage is seen on the prior CT study and there are no other areas of hemorrhage seen. Incidental note is made of mucosal thickening within the frontal, ethmoid and maxillary sinuses consistent with chronic sinusitis. IMPRESSION: LARGE EXTRA-AXIAL MASS CENTERED IN THE POSTERIOR LEFT PARIETAL REGION WITH SURROUNDING VASOGENIC EDEMA SIGNIFICANTLY INCREASED IN SIZE FROM THE PRIOR EXAM AND CAUSING MASS EFFECT DESCRIBED DIFFERENTIAL DIAGNOSIS INCLUDES INVASIVE AGGRESSIVE MENINGIOMA OR LESS LIKELY DURAL METASTATIC DISEASE.
[2017-10-13] MEDS: Metoprolol Tartrate IV* 1 MG/ML 5 ML VIAL IV ONE (17:13)
[2017-10-13 17:27] LABS: Urine Appearance Clear; Urine Blood 3+ (Negative); Urine Color Yellow; Urine Ketones 1+ (Negative); Urine Protein 2+(100 mg/dL) (Negative); Urine Specific Gravity 1.006 (1.010-1.030); Urine Urobilinogen Negative (Negative)
[2017-10-13] MEDS ORDERED: Dexamethasone IV* 4 MG in NS 0.9% 50 ML* 50 ML IVPB SCH (20:00)
[2017-10-13] MEDS: Dexamethasone IV* 4 MG/ML 1 ML (4 MG) IV SLOW PU SCH (20:11)
[2017-10-13] MEDS: cefTRIAXone(*) 1 GM in NS 0.9% 50 ML* 50 ML IVPB SCH (20:11)
[2017-10-13] MEDS: Metoprolol Tartrate TAB* 25 MG PO SCH (20:11)
--- NOTE | 2017-10-13 21:28 | CONS ---
NEUROLOGY CONSULTATION NOTE: DATE OF CONSULT: 10/13/17 CONSULTING PHYSICIAN: Dr. Pato Sanchez. REASON FOR CONSULT: Activated Code Cabrera due to right-sided weakness. CHIEF COMPLAINT: Right-sided weakness. HISTORY OF PRESENT ILLNESS: The patient is a 67-year-old right-handed female with history of end-stage renal disease, on hemodialysis; ANCA-positive vasculitis; history of lung cancer, status post resection; paroxysmal atrial fibrillation, not on any anticoagulation therapy; history of meningioma base tumor, status post left parietal craniotomy, who has had episodes on and off of headaches for the last 1-2 weeks as well as progressive declining in cognitive state according to her . The patient was on dialysis today when she was last seen normal at 12:00 and at 12:30, developed symptoms of confusion and right-sided weakness. No seizure activity was noted. The findings were constant. The patient was having trouble stating her name. She had what was reported as contractures of the right upper extremity with abnormal movements. This lasted for approximately 1-2 minutes. The patient was neglecting the right side. EMS was contacted. Her Accu-Chek was 107 and blood pressure was 139/78. The patient takes aspirin 81 mg daily. NIH Stroke Scale done at 1:15 p.m. was 10 for inability to answer 1 question, right facial droop, right arm weakness, right leg weakness, and aphasia. I also gave her a point for mild dysarthria. CT head without contrast was obtained immediately upon arrival, which showed an interval progression of the left parietal mass with interval development of extensive vasogenic edema. The differential includes progression of an invasive aggressive meningioma or progression of dural-based mass metastasis. There is a subfalcine shift to the right measuring approximately 4 mm. The patient was deemed not a tPA candidate due to her symptoms being related to a large intracranial mass and we suspect that the patient may have had a focal motor seizure. PAST MEDICAL HISTORY: End-stage renal disease; ANCA-positive vasculitis; chronic anemia; history of lung cancer; paroxysmal atrial fib, not on anticoagulation; meningeal base tumor, status post left parietal craniotomy; status post hysterectomy. The patient has IgA nephropathy that caused end- stage renal disease. MEDICATIONS: 1. Fluticasone. 2. Citalopram. 3. Vitamin E. 4. Sevelamer. 5. Metoprolol. 6. Vitamin A, C, E, zinc, copper. 7. Cyanocobalamin. 8. Aspirin 81 mg. 9. Kayexalate. ALLERGIES: IODINE CONTRAST, OXYCODONE, PENICILLIN, RISEDRONATE. REVIEW OF SYSTEMS: The patient is unable to complete a review of systems due to significant aphasia. PHYSICAL EXAM: Vitals: Blood pressure 138/78; heart rate 160, dropped to 125 after diltiazem; respiratory rate 18. The patient is in no acute distress. General: Ill-appearing female, who appears older than stated age. She is confused. Head is normocephalic without obvious abnormality. Eyes: Conjunctivae/corneas are clear. Neck is supple and symmetrical with no carotid bruit. Lungs are clear to auscultation bilaterally. Irregular rate and rhythm with heart rate in the 160s. She is in atrial fibrillation with RVR. Extremities: Normal range of motion with no cyanosis, but there is some mild asterixis, especially in the right upper and right lower extremities. Skin: No skin lesions or laceration. She has an AV fistula in the left upper arm. Psych: No applicable. Neurological Examination: Mental Status: Awake, alert to self, but not place or time. She has perseverative speech with mixed aphasia and nearly global aphasia. Cranial Nerves: Right homonymous hemianopsia with pupils mid range and reactive to light, normal consensual response. No ptosis. Sensation is intact in the forehead, cheeks, and jaw region bilaterally. There is a right facial droop. She is able to hear throughout the history process. Tongue is symmetrical and midline. Motor Examination: She is able to elevate all 4 extremities on command, but there is a droop on the right arm and right leg. She has mild contractures of the right wrist. Reflexes: Right/left, brachioradialis 2/1, biceps 2/1, triceps 2/1, patella 1/0, ankle 0/0, plantar extensor/flexor. Sensation is intact to distal noxious stimuli. Coordination: Limited examination due to poor cooperation due to aphasia. Gait and station were not assessed as the patient is in AFib with RVR. LABORATORY DATA: This is what is currently available: WBC of 7.1, hemoglobin of 10.1, platelets of 285. ASSESSMENT: 1. Ms. Madelyn Cota is a 67-year-old critically-ill female, who is currently in atrial fibrillation with rapid ventricular response, who developed progressive confusion over the last few days and new-onset aphasia with right- sided weakness. The patient was found to have a large intracranial versus extradural mass with significant vasogenic cerebral edema with midline shift of approximately 4 mm. 2. We suspect the patient may have had focal motor seizures without secondary generalization. She is not on any antiseizure therapy. 3. Atrial fibrillation with rapid ventricular response. The patient is not on any anticoagulation therapy and is only taking aspirin 81 mg daily. 4. History of end-stage renal disease, on hemodialysis. RECOMMENDATIONS: It is difficult to say that the patient did not have an acute infarct; however, given her temporal profile and history, I suspect the patient' s symptoms are most likely progressive and are related to the intracranial mass with cerebral edema rather than an acute vascular phenomenon. It is difficult to say that the patient may not be experiencing vascular occlusion related to the extensive cerebral edema or possible emboli from the ongoing atrial fibrillation with RVR without anticoagulation therapy. However, considering the fact that she has a progressive worsening tumor that has progressed since 2017, and her intermittent confusion over the last few days, I suspect an intracranial mass is the likely cause of her presentation. Therefore, the patient was not and will not be a candidate for IV tPA. Neurosurgery has been consulted. Please obtain an MRI brain with and without contrast. Decadron will be started by Dr. Sanchez. I do recommend loading her with levetiracetam 1000 mg IV x1 and continuing 500 mg IV twice a day. I recommend ICU admission for close monitoring as the patient's swelling may progressively increase over the next 24 hours. Neuro checks every 1 hour for the next 24 hours, maintain normotensive blood pressures. There is no absolute contraindication to anticoagulation therapy from the neurology standpoint, but please consult with the neurosurgeon as the patient may require craniotomy surgery. TIME SPENT: I spent a total of 80 minutes of critical care time and greater than 50% of that was spent directly reviewing the medical chart, obtaining history, evaluating the patient for acute stroke, examining the patient, and discussing the treatment plan and prognosis with the primary team. Her prognosis at this time is guarded. I will continue to follow. [id number]/[facility] #: [id number] RANDA
[2017-10-13] MEDS: levETIRAcetam 500 MG IVPREMIX* 500 MG/100 ML BAG IV SCH (22:51)
--- NOTE | 2017-10-13 23:16 | HP ---
CC: Dr. Bah * [facility] MEDICINE HISTORY AND PHYSICAL: DATE OF ADMISSION: 10/13/17 ATTENDING PHYSICIAN: Dr. Christy Snow * (dictation provided by Kimberlyn Landaverde NP ). PRIMARY CARE PHYSICIAN: Dr. Bah. CHIEF COMPLAINT: Confusion. HISTORY OF PRESENT ILLNESS: Ms. Cota is a 67-year-old female, who is very confused today and cannot offer any of her medical history to me. Medical history was obtained from the medical record and from the patient's ex-, who is at the bedside, and the patient's son. Per the report, the patient has a history of IgA nephropathy leading to end-stage renal disease, on hemodialysis. She also has a history of atrial fibrillation; COPD; lung cancer , status post resection; left parietal craniotomy for meningeal-based tumor resected in 2014 with pathology showing a meningioma. Per the patient's son, the patient reportedly has had a decline generally since January of last year. Within the past couple of months, the patient went from living alone independently to living with her estranged who has been helping to take care of her. He has noted that she has very poor short-term memory, that she seems very confused at times. He states at times he will ask her questions and she will stare at him without answering. Sometimes, he finds her up standing in the middle of the room at night staring at the wall. Other times, she answers questions, but inappropriately. She had been driving up until a week ago when they realized that she was too significantly confused to be allowed to drive any further as she was likely to get lost or be injured. The patient has been following with Dr. Bah, her primary care physician, for this reason and it appears per the record that an MRI had been attempted to be obtained outpatient, but thus far the authorization for that has not been given per her insurance company. The patient continues with hemodialysis with Dr. Gupta. Today, she was at the hemodialysis appointment when she suddenly began staring off into space. She was unresponsive, her pupils were fixed, and therefore they transferred her to the emergency room about shelter through dialysis for further evaluation. In the emergency room, Ms. Cota is now awake. She is very confused. When I asked her where she is, she states "I'm in my ." She has difficulty following commands. She repeatedly asked where her is. She went on to have a CT of the brain, which showed concern for return of her meningioma and then she has now had an MRI brain, which indeed confirms this along with an extensive edema and midline shift. Consultation has been obtained with Dr. Vela from Neurosurgery, who recommends that the patient be started on Decadron and Keppra. In addition to this alteration in mental status, the patient was also noted to be in rapid atrial fibrillation with the heart rate running about one teens to 140s. Diltiazem drip has been initiated in the emergency room. PAST MEDICAL HISTORY: 1. IgA nephropathy. 2. End-stage renal disease, on hemodialysis. 3. Atrial fibrillation. 4. COPD. 5. Anemia of chronic disease. 6. Lung cancer, status post resection. 7. Left parietal craniotomy for meningeal-based tumor, found to have meningioma in 2015. 8. Hysterectomy. MEDICATIONS: As outpatient: The patient is unable to give me her medication list and I spoke with both her son and her ex-, who also do not know which medication she takes. There are clear discrepancies between the list at Dr. Bah's office and available in [facility] and what appears to be available in the electronic medical record today. At this point, based on the description of the patient's home status, I do not believe she was taking any of her medications regularly. ALLERGIES: To IODINE, OXYCODONE, PENICILLIN, RISEDRONATE, SULFA ANTIBIOTICS, TETRACYCLINE, CALCIUM ACETATE, METRONIDAZOLE, MONTELUKAST, METOLAZONE, LATEX, PNEUMONIA VACCINE, APO-RISEDRONATE, CT CONTRAST DYE. FAMILY HISTORY: She had both father and sister related to an [place]. No further information was available in the electronic medical record. SOCIAL HISTORY: There is no report of alcohol, tobacco, and drug use per the family or per the electronic medical record. REVIEW OF SYSTEMS: Unobtainable. PHYSICAL EXAMINATION GENERAL: Ms. Cota is lying in the bed. She is in no acute distress. VITAL SIGNS: Temperature 98.3, pulse rate 118, respiratory rate 22, O2 saturation 95% on room air, blood pressure 137/75. LUNGS: Clear to auscultation bilaterally with no accessory muscle use and good aeration. HEART: S1, S2. No murmur, rub, or gallop and regular. ABDOMEN: Soft, nontender with bowel sounds positive x4. EXTREMITIES: No cyanosis or edema. NEURO: She is alert. She is very interactive. She is noted to move all extremities equally. She has no facial droop. Her pupils are fixed and about 1 to 2 mm. She has some ataxia with movement with [id number], but some of this appears to be related to how difficult it is for her to follow directions. She is not able to follow directions to check it for ataxia in her lower extremities. She has good strong strength, +5, upper and lower. She has sensation intact. She is oriented to herself only. SKIN: Intact. DIAGNOSTIC STUDIES/LAB DATA: WBC 7.0, hemoglobin 10.1, hematocrit 31, platelet count 285. INR 0.93. Sodium 135, potassium 4.1, chloride 91, serum bicarbonate 27, BUN 30, creatinine 5.01, glucose 85, lactic acid 1.8. Urine is not available. Urinalysis has been ordered and is pending. We will straight cath if necessary. CT brain: There has been interval progression of the left parietal intraaxial mass with interval development of extensive vasogenic edema. Differential includes progression of an invasive aggressive meningioma or progression of dural-based metastatic disease. The chest x-ray shows mild pulmonary vascular congestion and interstitial edema. The brain MRI shows "large intraaxial mass centered in the posterior left parietal region with surrounding vasogenic edema significantly increased in size from the prior exam and causing mass effect as described. Differential diagnosis includes invasive aggressive meningioma or less likely dural metastatic disease." ASSESSMENT AND PLAN: Ms. Cota is a 67-year-old female with a past medical history of meningeal tumor, status post resection in 2014; as well as atrial fibrillation; end-stage renal disease, on hemodialysis; chronic obstructive pulmonary disease, who presents to the hospital today with concern for significantly altered mental status, found to have a large meningeal tumor with vasogenic edema and shift. Our plans are for inpatient admission as I expect her length of stay to be greater than 2 days for the followin. Large meningeal tumor: Neurosurgery has been consulted and Dr. Vela will be following along with the patient. He has recommended that she have Decadron and Keppra, which have been ordered, and he will be seeing the patient in consultation as well as speaking with the family about any possible surgical intervention. In the meantime, the patient will have neuro checks q 4 hours and seizure precautions. 2. End-stage renal disease, on hemodialysis. I have spoken with the dialysis unit and they will be dialyzing her per routine. 3. Atrial fibrillation. The patient has a rapid ventricular response and has thus far not been very susceptible to diltiazem. We will switch to metoprolol for rate control. The patient is not a good candidate for anticoagulation at this time and appears not to have been on anticoagulation at home. 4. Chronic obstructive pulmonary disease. No evidence of acute exacerbation. 5. DVT prophylaxis. With SCDs. 6. Code status is full code at this point. TIME SPENT: Approximately 60 minutes was spent in the admission of this patient , more than half of the time was spent with the patient at the bedside reviewing the events leading up to and during this hospitalization with the patient's son and the ex-, performing the physical examination, and reviewing the plan of care. KIMBERLYN LANDAVERDE NP [id number]/CPS #: [id number] RANDA
[2017-10-14] MEDS: Melatonin 3 MG TAB PO PRN (01:13)
[2017-10-14] MEDS: Dexamethasone IV* 4 MG/ML 1 ML (4 MG) IV SLOW PU SCH ×4 (01:13→19:46)
--- NOTE | 2017-10-14 02:56 | CONS ---
CONSULTATION NOTE: DATE OF CONSULT: 10/13/17 HISTORY OF PRESENT ILLNESS: The patient is a very pleasant 67-year-old female with a history of left parietal meningioma resection by Dr. Chiu in 2014, history of lung CA and end-stage renal failure, on hemodialysis as well as anemia, history of atrial fibrillation, congestive heart failure, hypercholesterolemia, who was reported here for altered mental status this morning during dialysis. The patient was transferred to the emergency room and the CT scan revealed a large lesion adjacent to her previous resection cavity with significant surrounding edema. MRI requested to the patient by emergency room physician, Dr. Sanchez, because of the CT scan findings. The patient had MRI of the brain revealing similar findings and was admitted to the intensive care unit. History was obtained from the patient's chart. The patient is confused. He is a poor historian at this time and there is no family available. The patient was seen in the intensive care unit. She denies any headaches. There is no history of seizures. No history of urinary or GI incontinence. The patient is and has 1 son, who is her healthcare proxy. PAST MEDICAL HISTORY: The patient has history of anemia; atrial fibrillation; congestive heart failure; hypercholesterolemia; mitral valve prolapse; vasculitis; asthma; COPD; lung cancer; diverticulosis; GI ulcers; acute renal failure, on dialysis; arthritis; cataracts; lung CA. PAST SURGICAL HISTORY: Left oophorectomy; lung CA, left lobectomy in 1994; left eye benign tumor; breast lumpectomy; and meningioma resection on 02/15/15. ALLERGIES: The patient has multiple allergies including IODINE, OXYCODONE, PENICILLIN, RISEDRONATE, SULFA, TETRACYCLINES, CALCIUM ACETATE, METRONIDAZOLE, MONTELUKAST, METOLAZONE, LATEX, PNEUMONIA VACCINE, CT CONTRAST DYE. FAMILY HISTORY: Cardiac disease, breast CA. SOCIAL HISTORY: Tobacco: Negative. Alcohol: Negative. Recreational drug use : Negative. PHYSICAL EXAM: The patient is not in acute distress. She is awake, alert and pleasantly confused. She is oriented x1. Her pupils are equal and reactive. Cranial nerves II through XII are grossly intact, visual bazan are difficult to asses . Motor 4-5/5 in all extremities with the exception of the right upper extremity, which is 4/5. The patient does have a mild right-sided pronator drift. Sensory is grossly intact to light touch. Deep tendon reflexes +1 bilaterally. No clonus, no Babinski. Wong's negative. Straight leg raise test is negative in sitting position. DIAGNOSTIC STUDIES/LAB DATA: The patient had a CT scan of the brain revealing postoperative changes of the left parietal craniotomy and left parietal tumor with surrounding edema. The patient also had an MRI of the brain revealing a large left parietal lesion with significant edema and mass effect. ASSESSMENT: The patient is a very pleasant 67-year-old female with history of left parietal meningoma resection, end-stage renal failure and lung cancer who presented with new onset of altered mental status and MRI findings consistent with recurrent left parietal tumor, possibly meningoma. PLAN: The patient is being admitted to intensive care unit. Based on her imaging and her presentation, the patient may require surgical intervention in the form of left parietal craniotomy and tumor resection. At this point, the patient is placed on steroids. We discussed with the patient's oncologist, Dr. Espino, regarding the patient's presentation and at this point, he is agreeable with the possibility of surgical intervention from oncologic standpoint. We will discuss with the patient's family and if family will be agreeable to proceed with surgical intervention, we will schedule the patient for the above procedure. Appreciate Internal Medicine care. Thank you very much for allowing us to participate in the care of this patient. Please do not hesitate to contact our office in case you have any further questions or concerns regarding the care of this patient. [id number]/CPS #: [id number] MTDD
[2017-10-14 05:26] LABS: ABS Basophils 0 10^3/ul (0-0.2); ABS Eosinophils 0 10^3/ul (0-0.6); ABS Lymphocytes 0.4 10^3/ul (1.0-4.8); ABS Monocytes 0 10^3/ul (0-0.8); ABS Neutrophils 2.5 10^3/ul (1.5-7.7); ABS Nucleated RBC 0 10^3/ul; Eosinophil % 0.1 % (0-6); Hematocrit 25 % (35-47); Hemoglobin 8.6 g/dl (12.0-16.0); Lymphocyte % 14.1 % (25-47); Mean Corpuscular HGB Conc 34 g/dl (31-36); Mean Corpuscular Hemoglobin 33 pg (27-31); Mean Corpuscular Volume 97 fL (80-97); Mean Platelet Volume 6.8 um3 (7.4-10.4); Nucleated Red Blood Cells % 0; Platelet Count 191 10^3/ul (150-450); Red Blood Count 2.59 10^6/ul (4.00-5.40); Red Cell Distribution Width 14 % (10.5-15)
[2017-10-14 05:45] LABS: EGFR Non-African American 6.8 (>60)
[2017-10-14] MEDS: Metoprolol Tartrate TAB* 25 MG PO SCH ×2 (07:32→19:44)
[2017-10-14] MEDS: levETIRAcetam 500 MG IVPREMIX* 500 MG/100 ML BAG IV SCH ×2 (10:30→23:21)
[2017-10-14] MEDS ORDERED: ALPRAZolam TAB* 0.25 MG PO ONE (10:31)
--- NOTE | 2017-10-14 13:47 | PN ---
Subjective Date of Service: 10/14/17 Interval History: Mr. Cota is much more oriented today. She denies any complaint and is aware that her meningioma has returned. She specifically denies chest pain, SOB, nausea, or abdominal pain. Objective Active Medications: Dexamethasone Sodium Phosphate (Decadron Iv*) 4 mg IV SLOW PU Q6H GURJIT Levetiracetam (Keppra Iv Premix*) 500 mg in 100 mls @ 400 mls/hr IV Q12H GURJIT Ceftriaxone Sodium 1 gm/ (Sodium Chloride) 50 mls @ 200 mls/hr IVPB Q24H GURJIT Melatonin (Melatonin) 3 mg PO BEDTIME PRN Metoprolol Tartrate (Lopressor Tab*) 12.5 mg PO BID GURJIT Vital Signs: Temp Pulse Resp BP Pulse Ox 97.9 F 76 18 132/70 98 10/14/17 13:14 10/14/17 13:14 10/14/17 13:14 10/14/17 13:14 10/14/17 13:14 Oxygen Devices in Use Now: None Appearance: Female sitting up in chair in NAD Eyes: No Scleral Icterus Ears/Nose/Mouth/Throat: NL Teeth, Lips, Gums Respiratory: Symmetrical Chest Expansion and Respiratory Effort, Clear to Auscultation Cardiovascular: NL Sounds; No Murmurs; No JVD, No Edema Abdominal: NL Sounds; No Tenderness; No Distention Extremities: No Edema Skin: No Rash or Ulcers Neurological: Alert and Oriented x 3, NL Muscle Strength and Tone Nutrition: Taking PO's Result Diagrams: 10/14/17 05:12 10/14/17 05:12 Microbiology and Other Data: Microbiology 10/13/17 17:00 Nasal Screen MRSA (PCR)(YOSSI) - Final Nasal Mrsa Not Detected Assess/Plan/Problems-Billing Assessment: Ms. Cota is a 67 yo female with a PMH of afib and menigioma s/p resection in 2015 who was admitted on 10/13/17 with altered mental status with return of large meningeal tumor. - Patient Problems (1) Meningioma Comment: - Significant improvement in mentation with decadron, may also have had seizure and been post ictal on arrival. - Management per neurosurgery. - Continue decadron and keppra. (2) End stage renal disease Comment: - MWF dialysis while inpatient. - Have updated dialysis team to make plan for dialysis in light of planned surgery on Wednesday. (3) Atrial fibrillation Comment: - Rapid afib on arrival, now converted to NSR. - Continue metoprolol. (4) Anemia Comment: - At baseline. May need a transfusion before surgery. (5) ANCA-associated vasculitis Comment: - Hx noted. (6) DVT prophylaxis Comment: - SCDs (7) Full code status Comment: Status and Disposition: Inpatient. Anticipate discharge to home when medically stable, however may need rehab after surgery
--- NOTE | 2017-10-14 16:16 | PN ---
NEUROLOGY PROGRESS NOTE: DATE OF SERVICE: 10/14/17 PRIMARY PROVIDER: Kimberlyn Landaverde NP. Neurology is following for the evaluation and management of seizures. CHIEF COMPLAINT: Word finding difficulty. INTERVAL HISTORY: The patient is resting comfortably. She is in no acute distress. She has not had any more seizures. Her sensorium is clear, but she has significant word finding difficulty. She de nied any headaches, visual disturbance, or focal weakness. REVIEW OF SYSTEMS: She denies any chest pain, shortness of breath, or palpitations. MEDICATIONS: 1. Ceftriaxone. 2. Dexamethasone 4 mg IV slow push every 6 hours. 3. Levetiracetam 500 mg twice daily. 4. Melatonin. 5. Metoprolol. PHYSICAL EXAMINATION: Vitals: Temperature of 98.4, heart rate 65, respiratory rate is 24, oxygen sa turation is 92% on room air, blood pressure is 146/74. General: Ill-appearing female, in no acute di stress. Head: Atraumatic, normocephalic. Eyes: Conjunctivae/corneas are clear. Neck is supple wi th no carotid bruits. Lungs are clear to auscultation bilaterally. Cardiovascular: Irregular rhythm with normal rate. Extremities: Normal range of motion with no cyanosis. Skin: No skin lesions or laceration. Neurological Examination: Mental Status: Awake and alert to self and place, but has m oderate mixed aphasia. She had trouble naming, fluency, but had intact comprehension. Cranial Nerve s: Pupils are equal, round, reactive to light. Extraocular muscles are intact. There is a right fa cial droop. Tongue is symmetrical and midline. Motor Examination: Pronator drift on the right upper extremity. Otherwise, 5/5 strength throughout. Reflexes: Right/left, brachioradialis 2/1, biceps 2 /1, triceps 2/1, patella 2/1, ankle 0/0, plantar extensor/flexor. Sensation is intact to light touch throughout. Coordination: Normal [id number] on the left, but mild motor dysmetria on the right. Gait was not assessed as the patient is in the ICU and has language impairment making it difficult to follow complex commands. LABS, IMAGING, AND OTHER DIAGNOSTIC TESTING: Laboratory Findings: WBC of 3, hemoglobin of 8.6, isidro tocrit 25. Sodium of 136, potassium of 5.4, BUN 43, creatinine 6.10. MRI of the brain done with and without contrast completed on 10/13/17 showed evidence of a large extr aaxial mass centered in the posterior left parietal region with surrounding vasogenic edema, signific antly increased in size from the prior exam causing mass effect. I personally reviewed this study. ASSESSMENT AND PLAN: 1. Large intracranial mass in the left parietal region with mass effect - the patient is on Decadron . Neurosurgery is on the case and there is presumptive craniotomy and resection of the tumor/mass to be arranged for Wednesday. 2. Suspect complex partial seizures secondary to intracranial mass - the patient's mentation was com pletely different than her current mental status. This can be in part due to seizures with postictal confusion or improvement in the cerebral edema secondary to Decadron. However, given the large intr acranial mass, I recommend to continue levetiracetam 500 mg twice daily. Continue neuro checks every 2 hours. Seizure precautions. 3. Endstage renal disease, anemia, leukopenia. Defer to the primary team. Continue supportive care. Neurology will sign off. Please contact us for any questions or concerns, or if the patient has any new neurological deficits or seizures. Discussed the above recommendations with Dr. Crain, as well as Dr. Vela from Neurosurgery. TIME SPENT: I spent a total of 25 minutes and greater than 50% was spent directly reviewing the [facility] chart, obtaining history, examining the patient, and discussing the treatment plan with the [facility] team. [id number]/[facility] #: [id number]
[2017-10-14] MEDS: cefTRIAXone(*) 1 GM in NS 0.9% 50 ML* 50 ML IVPB SCH (20:04)
--- NOTE | 2017-10-14 21:03 | PN ---
Progress Note - Progress Note Date of Service: 10/14/17 SOAP: Subjective: [] Patient seen earlier in ICU. No events ON. On steroids Objective: []VSS, Afebrile AAOx1, ALANA, CN III-XII grossly intact. Visual field difficult to assess in details, Rt visual field deficit. Motor 4-5/5 Rt pronator drift. Sensory grossly intact to light touch Assessment: []67 yof ESRF, Left parietal tumor. Plan: []Monitor VS, Neurochecks continue Steroids Patient was seen later in the afternoon. Discussed in details with family (son and ) on the phone, regarding patient's condition and possible surgical intervention. Family will decide regarding further treatment. Plan for OR on Wednesday if family agreeable. May need dialysis without heparin the day before surgery. Appreciate IM care. Vincenzo Vela MD
[2017-10-15] MEDS: Dexamethasone IV* 4 MG/ML 1 ML (4 MG) IV SLOW PU SCH ×4 (01:39→21:00)
[2017-10-15 07:14] LABS: EGFR Non-African American 5.3 (>60)
[2017-10-15] MEDS: Metoprolol Tartrate TAB* 25 MG PO SCH ×2 (10:01→22:28)
--- NOTE | 2017-10-15 10:40 | ED ---
Ruma Bello Julia, scribed for Pato Sanchez MD on 10/13/17 at 1311 . Neurological HPI - HPI Summary HPI Summary: This patient is a 67 year old F BIBA to [facility] due to stroke like symptoms during dialysis today. Patient is unable to report her name or her age correctly. - History of Current Complaint Stated Complaint: POSS STROKE Time Seen by Provider: 10/13/17 13:11 - Additional Pertinent History Primary Care Physician: HETAL - Allergy/Home Medications Allergies/Adverse Reactions: Allergies Allergy/AdvReac Type Severity Reaction Status Date / Time iodine Allergy Severe Hives Verified 10/13/17 19:19 oxycodone Allergy Severe Itching Verified 10/13/17 19:19 penicillin G Allergy Severe Hives Verified 10/13/17 19:19 risedronate sodium Allergy Severe Anaphylatic Verified 10/13/17 19:19 Shock Sulfa (Sulfonamide Allergy Severe Hives Verified 10/13/17 19:20 Antibiotics) Tetracyclines Allergy Severe Hives Verified 10/13/17 19:20 metronidazole Allergy Unknown Verified 10/13/17 19:22 Reaction Details montelukast Allergy Unknown Verified 10/13/17 19:40 Reaction Details butalazone Allergy Severe TOTAL BODY Uncoded 05/22/17 10:08 RASH latex Allergy Severe Rash Uncoded 05/22/17 10:08 pneumonia vaccine Allergy Severe arm Uncoded 05/22/17 10:08 swollen and hot APO-RISENDRONATE Allergy Unknown Uncoded 05/22/17 10:08 Reaction Details CALCIUM ACETATE Allergy See Comment Uncoded 10/13/17 19:40 CT CONTRAST DYE Allergy Hives Uncoded 05/22/17 10:08 PMH/Surg Hx/FS Hx/Imm Hx Endocrine/Hematology History: Reports: Hx Anemia Denies: Hx Diabetes, Hx Systemic Lupus Erythematosus Cardiovascular History: Reports: Hx Atrial Fibrillation, Hx Congestive Heart Failure, Hx Hypercholesterolemia, Hx Valvular Heart Disease - MITRAL VALVE PROLAPSE SEES DR TRACY, Other Cardiovascular Problems/Disorders - ANCA VASCULITIS Denies: Hx Hypertension, Hx Myocardial Infarction, Hx Pacemaker/ICD Respiratory History: Reports: Hx Asthma, Hx Chronic Obstructive Pulmonary Disease (COPD), Hx Lung Cancer, Other Respiratory Problems/Disorders - LLL lung ca dx'd 95 [place] [facility] [place] History: Reports: Hx Diverticulosis, Other GI Disorders - ULCER REMOVED IN THE PAST History: Reports: Hx Acute Renal Failure, Hx Chronic Renal Failure, Hx Dialysis - Wednesday, and Wednesday, 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 Musculoskeletal History: Reports: Hx Arthritis - KNEES Denies: Hx Rheumatoid Arthritis Sensory History: Reports: Hx Cataracts - FORMING, Hx Contacts or Glasses, Hx Eye Injury - retinal blister Denies: Hx Glaucoma, Hx Hearing Aid Opthamlomology History: Reports: Hx Cataracts - FORMING, Hx Contacts or Glasses , Hx Eye Injury - retinal blister Denies: Hx Glaucoma Neurological History: Reports: Other Neuro Impairments/Disorders - menigeal lesion Psychiatric History: Reports: Hx Anxiety - OK WITH MEDS, Hx Depression Denies: Hx Panic Disorder, Other Psychiatric Issues/Disorders - Cancer History Cancer Type, Location and Year: lung CA 1994 with partial lobectomy Hx Chemotherapy: No Hx Radiation Therapy: No - Surgical History Surgery Procedure, Year, and Place: tubal , left oopherectomy 1994,lung ca 1994 left lobectomy, benign tumor behind left eye per pt, breast lumpectomy 06/2011 benign,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 GENERAL: Patient is a well-developed and nourished female who is lying comfortable in the stretcher. Patient is not in any acute respiratory distress. HEAD AND FACE: No signs of trauma. No ecchymosis, hematomas or skull depressions. No sinus tenderness. EYES: PERRLA, EOMI x 2, No injected conjunctiva, no nystagmus. No photophobia. EARS: Hearing grossly intact. Ear canals and tympanic membranes are within normal limits. MOUTH: Oropharynx within normal limits. NECK: Supple, trachea is midline, no adenopathy, no JVD, no carotid bruit, no c- spine tenderness, neck with full ROM. No meningeal signs, no Kernig's or brudzinskis signs. CHEST: Symmetric, no tenderness at palpation LUNGS: Clear to auscultation bilaterally. No wheezing or crackles. CVS: Regular rhythm tachycardic rate, S1 and S2 present, no murmurs or gallops appreciated. ABDOMEN: Soft, non-tender. No signs of distention. No rebound no guarding, and no masses palpated. Bowel sounds are normal. EXTREMITIES: FROM in all major joints, no edema, no cyanosis or clubbing. Positive LUE AV fistula. NEURO: Alert but not oriented. Weakness in the RUE. NIH score is 5 SKIN: Dry and warm Triage Information Reviewed: Yes Vital Signs On Initial Exam: Initial Vitals Temp Pulse Resp BP Pulse Ox 98.1 F 160 18 135/84 97 10/13/17 13:10 10/13/17 13:10 10/13/17 13:10 10/13/17 13:10 10/13/17 13:10 Vital Signs Reviewed: Yes Diagnostics - Vital Signs Vital Signs Temp Pulse Resp BP Pulse Ox 10/13/17 14:58 99.5 F 124 18 136/87 94 10/13/17 13:35 94 10/13/17 13:20 98.1 F 165 18 135/84 97 10/13/17 13:10 98.1 F 160 18 135/84 97 - Laboratory Lab Results: Lab Results 10/13/17 10/13/17 10/13/17 Range/Units 13:41 13:41 13:41 WBC (3.5-10.8) 10^3/ul RBC (4.00-5.40) 10^6/ul Hgb (12.0-16.0) g/dl Hct (35-47) % MCV (80-97) fL MCH (27-31) pg MCHC (31-36) g/dl RDW (10.5-15) % Plt Count (150-450) 10^3/ul MPV (7.4-10.4) um3 Neut % (Auto) (38-83) % Lymph % (Auto) (25-47) % Barnes % (Auto) (0-7) % Eos % (Auto) (0-6) % Baso % (Auto) (0-2) % Absolute Neuts (auto) (1.5-7.7) 10^3/ul Absolute Lymphs (auto) (1.0-4.8) 10^3/ul Absolute Monos (auto) (0-0.8) 10^3/ul Absolute Eos (auto) (0-0.6) 10^3/ul Absolute Basos (auto) (0-0.2) 10^3/ul Absolute Nucleated RBC 10^3/ul Nucleated RBC % INR (Anticoag Therapy) 0.93 (0.77-1.02) APTT 30.3 (26.0-36.3) seconds Sodium 135 L (139-145) mmol/L Potassium 4.1 (3.5-5.0) mmol/L Chloride 91 L (101-111) mmol/L Carbon Dioxide 27 (22-32) mmol/L Anion Gap 17 H (2-11) mmol/L BUN 30 H (6-24) mg/dL Creatinine 5.01 H (0.51-0.95) mg/dL Est GFR ( Amer) 11.0 (>60) Est GFR (Non-Af Amer) 8.6 (>60) BUN/Creatinine Ratio 6.0 L (8-20) Glucose 85 (70-100) mg/dL Lactic Acid 1.8 (0.5-2.0) mmol/L Calcium 9.3 (8.6-10.3) mg/dL Total Bilirubin 0.70 (0.2-1.0) mg/dL AST 16 (13-39) U/L ALT 6 L (7-52) U/L Alkaline Phosphatase 142 H (34-104) U/L Troponin I 0.02 (<0.04) ng/mL Total Protein 7.5 (6.4-8.9) g/dL Albumin 4.2 (3.2-5.2) g/dL Globulin 3.3 (2-4) g/dL Albumin/Globulin Ratio 1.3 (1-3) Triglycerides 296 mg/dL Cholesterol 238 mg/dL LDL Cholesterol 138 mg/dL HDL Cholesterol 41.0 mg/dL Blood Type Antibody Screen 10/13/17 10/13/17 Range/Units 13:41 13:44 WBC 7.0 (3.5-10.8) 10^3/ul RBC 3.12 L (4.00-5.40) 10^6/ul Hgb 10.1 L (12.0-16.0) g/dl Hct 31 L (35-47) % MCV 98 H (80-97) fL MCH 33 H (27-31) pg MCHC 33 (31-36) g/dl RDW 14 (10.5-15) % Plt Count 285 (150-450) 10^3/ul MPV 7.0 L (7.4-10.4) um3 Neut % (Auto) 74.1 (38-83) % Lymph % (Auto) 18.1 L (25-47) % Barnes % (Auto) 3.5 (0-7) % Eos % (Auto) 3.9 (0-6) % Baso % (Auto) 0.4 (0-2) % Absolute Neuts (auto) 5.2 (1.5-7.7) 10^3/ul Absolute Lymphs (auto) 1.3 (1.0-4.8) 10^3/ul Absolute Monos (auto) 0.2 (0-0.8) 10^3/ul Absolute Eos (auto) 0.3 (0-0.6) 10^3/ul Absolute Basos (auto) 0 (0-0.2) 10^3/ul Absolute Nucleated RBC 0 10^3/ul Nucleated RBC % 0 INR (Anticoag Therapy) (0.77-1.02) APTT (26.0-36.3) seconds Sodium (139-145) mmol/L Potassium (3.5-5.0) mmol/L Chloride (101-111) mmol/L Carbon Dioxide (22-32) mmol/L Anion Gap (2-11) mmol/L BUN (6-24) mg/dL Creatinine (0.51-0.95) mg/dL Est GFR ( Amer) (>60) Est GFR (Non-Af Amer) (>60) BUN/Creatinine Ratio (8-20) Glucose (70-100) mg/dL Lactic Acid (0.5-2.0) mmol/L Calcium (8.6-10.3) mg/dL Total Bilirubin (0.2-1.0) mg/dL AST (13-39) U/L ALT (7-52) U/L Alkaline Phosphatase (34-104) U/L Troponin I (<0.04) ng/mL Total Protein (6.4-8.9) g/dL Albumin (3.2-5.2) g/dL Globulin (2-4) g/dL Albumin/Globulin Ratio (1-3) Triglycerides mg/dL Cholesterol mg/dL LDL Cholesterol mg/dL HDL Cholesterol mg/dL Blood Type B Positive Antibody Screen Negative Result Diagrams: 10/14/17 05:12 10/15/17 06:38 Lab Statement: Any lab studies that have been ordered have been reviewed, and results considered in the medical decision making process. - CT Brain CT CT Interpretation Completed By: Radiologist - 1. THERE HAS BEEN INTERVAL PROGRESSION OF THE LEFT PARIETAL EXTRA-AXIAL MASS, WITH INTERVAL DEVELOPMENT OF EXTENSIVE VASOGENIC EDEMA. THE DIFFERENTIAL INCLUDES PROGRESSION OF AN INVASIVE /AGGRESSIVE MENINGIOMA, OR PROGRESSION OF DURAL BASED METASTATIC DISEASE. 2. THERE IS 0.4 CM OF SUBFALCINE SHIFT TO THE RIGHT. PRELIMINARY FINDINGS WERE DISCUSSED WITH DR. SANCHEZ IN THE EMERGENCY DEPARTMENT AT APPROXIMATELY 1:33 PM ON OCTOBER 13, 2017. ED Physician has reviewed this report. MRI CT Interpretation Completed By: Radiologist - LARGE EXTRA-AXIAL MASS CENTERED IN THE POSTERIOR LEFT PARIETAL REGION WITH SURROUNDING VASOGENIC EDEMA SIGNIFICANTLY INCREASED IN SIZE FROM THE PRIOR EXAM AND CAUSING MASS EFFECT DESCRIBED DIFFERENTIAL DIAGNOSIS INCLUDES INVASIVE AGGRESSIVE MENINGIOMA OR LESS LIKELY DURAL METASTATIC DISEASE. ED Physician has reviewed this report. - EKG 1325 Cardiac Rate: Tachycardia - 142 BPM EKG Rhythm: Atrial Fibrillation EKG Interpretation: no ST elevations EKG Comparison: Other - changed from 08/26/17 NIH Scale - NIH Scale Level of Consciousness: Alert/Keenly Responsive Ask Patient the Month and His/Her Age: Neither Correct/Aphasic Ask Pt to Open/Close Eyes and Track Dresser/Release Non-Paretic Hand: One Correctly Best Gaze (Only Horizontal Eye Movement): Normal Visual Field Testing: No Visual Loss Facial Paresis-Pt to Smile & Close Eyes or Grimace Symmetry: Normal/Symmetrical Motor Function - Right Arm: Drifts LT 10 seconds Motor Function - Left Arm: No Drift-Holds 10 Seconds Motor Function - Right Leg: No Drift-Holds 10 Seconds Motor Function - Left Leg: No Drift-Holds 10 Seconds Limb Ataxia-Must be out of Proportion to Weakness Present: Present in One Limb Sensory (Use Pinprick to Test Arms/Legs/Trunk/Face): Normal Best Language (Describe Picture, Name Items): No Aphasia Dysarthria (Read Several Words): Normal Extinction and Inattention: No Abnormality Total Score: 5 Course/Dx - Course Assessment/Plan: This is a 67-year-old female who presents to the emergency department via ambulance with a chief complaint of confusion, facial droop, slurred speech. Patient was at Dr. Graham office and he was noticing above complaints. Arrival to the emergency department the patient had an NIH score 5 therefore she was sent to the CT suite for head CT. She was placed in a playground monitor and was noted to the patient has atrial fibrillation with RVR and she was given Cardizem bolus of 20 mg IV and after in a cardizem drip. Dr. Rdz from neurology came and assessed the patient thank you recommends no TPA at this time since the patient has a CT with a Brain mass and vasogenic edema. Thus, she was given Decadron and Keppra. I discussed the case with Dr. Jc who recommends an MRI with and without IV contrast. He will consult for the patient. Blood test results without any significant abnormality except for normocytic normochromic anemia, renal failure however the patient has history of end-stage renal disease. MRI impression: Large extra-axial mass centrally in the posterior left parietal region with surrounding vasogenic edema significantly increased in size from the prior exam and causing mass effect as described differential diagnoses includes invasive aggressive meningioma or less likely throughout metastatic disease. At this point since the patient has a intervention with rate control and discussed case with Dr. Reza who accepted the patient for admission. - Differential Dx Differential Diagnoses Neuro: Positive: Cerebrovascular Accident, Concussion, Intracranial Bleed, Seizure Disorder, Transient Ischemic Attack - Diagnoses Provider Diagnoses: Brain mass, Atrial fibrillation with RVR, ESRD (end stage renal disease), Meningioma, Atrial fibrillation During the Visit The Following Alert/Code Occurred: Code Wood - 13:11 - Physician Notifications Discussed Care Of Patient With: Christy Reza - hospitalist Time Discussed With Above Provider: 14:56 Instructed by Provider To: Admit As Inpatient - Critical Care Time Critical Care Time: 75-104 min Discharge - Sign-Out/Discharge Documenting (check all that apply): Discharge/Admit/Transfer - Discharge Plan Condition: Stable Disposition: ADMITTED TO [facility] - Billing Disposition and Condition Condition: STABLE Disposition: Admitted to [facility] The documentation as recorded by the mayeibRuma crockett Julia accurately reflects the service I personally performed and the decisions made by me, Pato Sanchez MD.
[2017-10-15] MEDS ORDERED: Metoprolol Tartrate TAB* 25 MG PO ONE (11:07)
--- NOTE | 2017-10-15 11:10 | PN ---
Subjective Date of Service: 10/15/17 Interval History: Ms. Cota denies complaint today. She is not able to confirm her medications and confirms that she was likely not taking many of them at home. She denies chest pain, SOB, nausea, or abdominal pain. She notes that she is generally active though she does not exercise regularly. She confirms that she would be able to walk up a flight of stairs easily and denies chest pain or unusual shortness of breath with activity. The hydroelectric plant electrical engineer called during dialysis to report that patient had converted to rapid afib during dialysis, requiring it to be discontinued early. Patient asymptomatic, SBP 120-150s throughout. Objective Active Medications: Dexamethasone Sodium Phosphate (Decadron Iv*) 4 mg IV SLOW PU Q6H GURJIT Levetiracetam (Keppra Iv Premix*) 500 mg in 100 mls @ 400 mls/hr IV Q12H GURJIT Ceftriaxone Sodium 1 gm/ (Sodium Chloride) 50 mls @ 200 mls/hr IVPB Q24H GURJIT Melatonin (Melatonin) 3 mg PO BEDTIME PRN Metoprolol Tartrate (Lopressor Tab*) 12.5 mg PO BID GURJIT Metoprolol Tartrate (Lopressor Tab*) 12.5 mg PO ONCE ONE Propafenone HCl (Rythmol*) 75 mg PO Q8HR GURJIT Vital Signs: Temp Pulse Resp BP Pulse Ox 97.7 F 66 18 141/73 97 10/15/17 07:30 10/15/17 07:30 10/15/17 08:00 10/15/17 07:30 10/15/17 07:30 Oxygen Devices in Use Now: None Appearance: Female lying in bed in NAD Eyes: No Scleral Icterus Ears/Nose/Mouth/Throat: Mucous Membranes Moist Neck: Trachea Midline Respiratory: Symmetrical Chest Expansion and Respiratory Effort, Clear to Auscultation Cardiovascular: NL Sounds; No Murmurs; No JVD, No Edema Abdominal: NL Sounds; No Tenderness; No Distention Extremities: No Edema Skin: No Rash or Ulcers Neurological: Alert and Oriented x 3, NL Muscle Strength and Tone Nutrition: Taking PO's Result Diagrams: 10/14/17 05:12 10/15/17 06:38 Additional Lab and Data: . Assess/Plan/Problems-Billing Assessment: Ms. Cota is a 67 yo female with a PMH of afib and menigioma s/p resection in 2014 who was admitted on 10/13/17 with altered mental status with return of large meningeal tumor. - Patient Problems (1) Meningioma Comment: - Significant improvement in mentation with decadron, may also have had seizure and been post ictal on arrival. - Management per neurosurgery. - Continue decadron and keppra. - Plan for surgical resection on Wednesday with Dr. Jc. In terms of perioperative cardic evaluation, patient states that she is able to obtain 4 METS of activity and she has no known cardiac history other than afib. Exercise stress test 06/2016 without evidence of ischemia. Echo from 06/2016 showed an intact EF and functionally benign heart valves. However, patient has had chronic problems with rapid afib per report from hydroelectric plant electrical engineer. Plan to consult cardiology (Kamron arevalo) for optimization of rate control. (2) Atrial fibrillation Comment: - Rapid afib during dialysis today. Transferred to telemetry, now back in NSR. - Spoke briefly with Dr. Lundy (sees Dr. Lara outpatient) who will provide official consultation today or tomorrow. Plan to resume home propafenone. - Patient has refused anticoagulation in the past but has agreed to asa 81mg per Dr. Lara's records. Recommend resume aspirin when approved per neurosurgery. (3) End stage renal disease Comment: - Secondary to ANCA vasculitis history. - MWF dialysis while inpatient. Patient had only partial dialysis today due to rapid afib but hydroelectric plant electrical engineer notes that patient is euvolemic and that this dialysis was likely enough to clear her hyperkalemia. Check labs in AM. - Patient will have dialysis on Wednesday in preparation for surgery Wednesday. Will need to avoid heparin during dialysis until approved per neurosurg. (4) UTI (urinary tract infection) Comment: - Continue ceftriaxone for proteus UTI with sensitivies pending. (5) Anemia Comment: - At baseline. May need a transfusion before surgery, CBC ordered for Wednesday. (6) COPD (chronic obstructive pulmonary disease) Comment: - Asymptomatic. (7) ANCA-associated vasculitis Comment: - Hx noted. (8) DVT prophylaxis Comment: - Heparin SQ, will need to hold for surgery on Wednesday (9) Full code status Comment: Status and Disposition: Inpatient. Anticipate discharge to home when medically stable, however may need rehab after surgery
[2017-10-15] MEDS ORDERED: Epoetin Alfa* 10,000 UNITS/ML VIAL IV ONE (11:30)
[2017-10-15] MEDS: levETIRAcetam 500 MG IVPREMIX* 500 MG/100 ML BAG IV SCH ×2 (12:18→23:47)
[2017-10-15] MEDS: proPAFENone TAB* 150 MG PO SCH ×3 (12:18→22:30)
[2017-10-15] MEDS: Heparin VIAL(*) 5000 UNITS/ML VIAL (FIVE THOUSAND) SUBCUT SCH ×2 (13:59→22:31)
[2017-10-15] MEDS: ALPRAZolam TAB* 0.25 MG PO PRN (16:09)
[2017-10-15] MEDS: cefTRIAXone(*) 1 GM in NS 0.9% 50 ML* 50 ML IVPB SCH (21:00)
--- NOTE | 2017-10-15 21:51 | PN ---
Progress Note - Progress Note Date of Service: 10/15/17 SOAP: Subjective: []Patient seen earlier. No events ON. On steroids. Reported episode of Afib during dialysis. Objective: []VSS, Afebrile AAOx1, ALANA, CN III-XII grossly intact. Visual field difficult to assess in details. Motor 4-5/5 Rt pronator drift. Sensory grossly intact to light touch Assessment: []67 yof ESRF, Left parietal tumor. Plan: [] Monitor VS, Neurochecks Continue Steroids On Keppra.On ceftrioxone for UTI. Patient was seen later in the afternoon. Discussed in details with family, son and , at the bedside, regarding patient's condition and possible surgical intervention. Discussed treatment options as well as expectations, limitations and possible complications of surgical intervention. Complications include, but not limited to bleeding, infection, risk of injury to adjacent structures, coma, paralysis, , need for additional procedures, VPS placement, prolonged ICU stay, need for tracheostomy or gastrostomy, need for further treatment modalities, inability to remove tumor, anesthesia risks. Family understands that her condition may not improve and in fact may get worse after surgery and that she may need additional procedures in the future. They also understand that operative plan may be modified according to intraoperative findings and conditions and that it may be performed in more than one stages. Family understood and would like to proceed with surgical intervention. Plan for OR on Wednesday if medically cleared. May need dialysis without heparin the day before surgery. Cardiology consult pending. Appreciate IM, nephrology, cardiology care. Vincenzo Vela MD
--- NOTE | 2017-10-15 22:22 | CONS ---
CC: Dr. David Lundy; Dr. Gupta; Dr. Bah; Kimberlyn Landaverde NP CARDIOLOGY CONSULTATION NOTE: DATE OF CONSULT: 10/15/17 CONSULTING PROVIDER: Kimberlyn Landaverde NP REASON FOR EVALUATION: Paroxysmal atrial fibrillation. HISTORY OF PRESENT ILLNESS: History was obtained from the chart note from 10/13 by Kimberlyn Landaverde NP, as well as talking to Kimberlyn Landaverde NP, directly and the patient and Dr. Lara's prior note from June 2016. This is a very pleasant , but somewhat limited historian, a 67-year-old woman, who was admitted with confusion, and was brought into the emergency room and found to be in AFib with rapid ventricular response. She was confused at dialysis and transferred to the emergency room. She was confused. She had a CT of the brain, which was concerning for return of meningioma and had an MRI, which confirmed that along with extensive edema and midline shift. She was started on Decadron. She was also noted to be in AFib in the 140s and she was started on a diltiazem drip. Eventually, she converted to sinus rhythm. It is unclear if she was taking her medications when she was home. Today, she went to dialysis and had recurrent AFib and a consult was requested. Of note, she was restarted on a beta rita , but has not been restarted on her propafenone. The patient said in the past, she has been aware of her AFib and feels her heart racing, but was not aware of it today or on admission, although her history is somewhat unreliable. She denies chest pain, syncope, near syncope. The patient does report that she has had decline in her ability to live independently over the last 6 to 8 months. Within the last 2 months, she went from living independently to living with a person that Kimberlyn Landaverde NP, thought was her ex-. PAST MEDICAL HISTORY: She denies tobacco use, but she does have a history of paroxysmal atrial fibrillation; COPD; lung cancer, status post resection; craniotomy for meningeal-based tumor in 2014. She has a history of IgA nephropathy and end-stage renal disease, on hemodialysis; COPD; anemia of chronic disease. PAST SURGICAL HISTORY: Includes hysterectomy, meningioma resection in 2015. MEDICATIONS: Include: 1. Keppra 500 mg q.12. 2. Subcu heparin 5000 q.8. 3. Dexamethasone 4 mg IV q.6. 4. Melatonin 3 mg at bedtime as needed. 5. Metoprolol 12.5 mg b.i.d. 6. Propafenone 75 mg q.8. ALLERGIES: Include IODINE, OXYCODONE, PENICILLIN, RISEDRONATE, SULFA ANTIBIOTICS, TETRACYCLINE, CALCIUM ACETATE, METRONIDAZOLE, SINGULAIR, METOLAZONE , LATEX, PNEUMONIA VACCINE, APO-RISEDRONATE. FAMILY HISTORY: Includes according to the patient, brother of an [place], sister in her 30s of an [place], although this was not confirmed. Mother and father, she said both of coronary disease. SOCIAL HISTORY: She says she is , although the history says that she has been from for 25 years until recently. She is and has 2 children. She cannot tell me her former employment. ROS x10 neg except as above ; however, patient' s history is unreliable. PHYSICAL EXAM: She is a well-developed, well-nourished woman, who is somewhat emotional and concerned about what is happening. She knows that she has had trouble with confusion. She cannot tell me the year or the date. At first, she said she is home, then she said she is at [facility], even though she is at [facility]. She seemed to recognize me from a previous encounter when I first walked in, although I am not sure that we had an encounter before, but she could not remember my name even a few minutes after I told her. Her blood pressure is 160/88, it had been 120s/60s earlier today; temperature 99; heart rate of 85. No significant JVD. Carotids 2+. Cardiac Exam: S1, S2 with a 3/4 diastolic decrescendo murmur at the left upper sternal border. Chest was mostly clear with some scattered expiratory wheezes and increased resonance to percussion. No CVAT. Abdomen: Bowel sounds present, nontender. No hepatosplenomegaly. Femoral pulses intact without bruits. Distal pulses intact. No edema. Motor strength 5/5 bilaterally. Her left upper extremity has 3 AV fistulas in it with thrills. Distal radial pulse was diminished on the left, present on the right. The patient was not oriented to person, place, or time. DIAGNOSTIC STUDIES/LAB DATA: CBC includes a white count of 3, hemoglobin of 8.6 , hematocrit of 25, platelet count of 191. Sodium 133, potassium of 5.5, BUN of 68, creatinine of 7.6, calcium of 6.9. Cholesterol of 238, LDL of 138, triglycerides of 296. EKG from 10/13/17 at 1325 revealed what appeared to be AFib with LVH, ST-T changes and rapid ventricular response in the 140s. EKG from 10/13/17 at 2108 revealed sinus rhythm and prolonged QT. Her echocardiogram from 06/18/16 revealed EF of 57%, abnormal diastolic function , benign valves with trace MR, [id number] TR, and trace AI, and similar to . She had a stress test on 06/22/16, which revealed normal stress nuclear with no evidence of ischemia or infarct, low risk, and she completed 8 minutes of a Salvador to 10.1 METs. IMPRESSION AND PLAN: My impression is that Ms. Cota has multiple medical issues including possible recurrent meningioma; end-stage renal disease, on dialysis; as well as paroxysmal atrial fibrillation and mildly prolonged QT. In order to facilitate stabilization of her rhythm and future treatment, I would suggest restarting the propafenone cautiously and following her QT intervals. In the past, she has tolerated the propafenone with a corrected QT of 459. She has a murmur on exam, which was not heard before. I will repeat her echo to evaluate for possible aortic insufficiency. She has had no cardioembolic events, although certainly she is at risk for cardioembolic on the basis of her CHADS2-VASc score of 2 given her age and gender. In the past, she has declined anticoagulation and was put on aspirin. At this point, I would defer anticoagulation given her need for surgery. We would try to correct her calcium, which may be contributing to prolonged QT. She had a negative stress test and a nl echo in 2017; this would make her relatively low risk for surgery. We will await the echo to evaluate the murmur and her LV function before making a final recommendation. Further recommendations will depend on her clinical course. [id number]/[facility] #: [id number] RANDA
[2017-10-15] MEDS: Melatonin 3 MG TAB PO PRN (23:56)
[2017-10-16] MEDS: Dexamethasone IV* 4 MG/ML 1 ML (4 MG) IV SLOW PU SCH ×4 (01:40→22:18)
[2017-10-16 05:30] LABS: ABS Basophils 0 10^3/ul (0-0.2); ABS Eosinophils 0 10^3/ul (0-0.6); ABS Lymphocytes 0.3 10^3/ul (1.0-4.8); ABS Monocytes 0.1 10^3/ul (0-0.8); ABS Neutrophils 2.6 10^3/ul (1.5-7.7); ABS Nucleated RBC 0 10^3/ul; Eosinophil % 0 % (0-6); Hematocrit 23 % (35-47); Hemoglobin 7.7 g/dl (12.0-16.0); Lymphocyte % 10.8 % (25-47); Mean Corpuscular HGB Conc 34 g/dl (31-36); Mean Corpuscular Hemoglobin 33 pg (27-31); Mean Corpuscular Volume 97 fL (80-97); Mean Platelet Volume 7.2 um3 (7.4-10.4); Nucleated Red Blood Cells % 0; Platelet Count 230 10^3/ul (150-450); Red Blood Count 2.33 10^6/ul (4.00-5.40); Red Cell Distribution Width 14 % (10.5-15)
[2017-10-16] MEDS: Heparin VIAL(*) 5000 UNITS/ML VIAL (FIVE THOUSAND) SUBCUT SCH ×3 (05:40→22:19)
[2017-10-16 05:51] LABS: EGFR Non-African American 6.3 (>60)
[2017-10-16] MEDS: Metoprolol Tartrate TAB* 25 MG PO SCH ×2 (08:04→22:17)
[2017-10-16] MEDS: ALPRAZolam TAB* 0.25 MG PO PRN (09:17)
[2017-10-16] MEDS: levETIRAcetam 500 MG IVPREMIX* 500 MG/100 ML BAG IV SCH ×2 (11:02→23:22)
[2017-10-16] MEDS: proPAFENone TAB* 150 MG PO SCH ×2 (11:55→22:18)
--- NOTE | 2017-10-16 12:15 | PN ---
Subjective Date of Service: 10/16/17 Interval History: Ms. Cota reports she feels "much, much better". Reports she overall feels better and wishes she could go home. She is upset she has to have surgery again but states she wants to move forward with it. per friend at the bedside she confirms that she is looking much better and acting more like herself. No further seizure activity. reports her appetite is better today. Denies any weakness, no current GERARDO. She has been ambulating from bed to bathroom reporting a steady gait. Objective Active Medications: Alprazolam (Xanax Tab*) 0.25 mg PO Q8H PRN PRN Reason: ANXIETY Last Admin: 10/16/17 09:17 Dose: 0.25 mg Dexamethasone Sodium Phosphate (Decadron Iv*) 4 mg IV SLOW PU Q6H [facility] Last Admin: 10/16/17 08:04 Dose: 4 mg Heparin Sodium (Porcine) (Heparin Vial(*)) 5,000 units SUBCUT Q8HR [facility] Last Admin: 10/16/17 05:40 Dose: 5,000 units Levetiracetam (Keppra Iv Premix*) 500 mg in 100 mls @ 400 mls/hr IV Q12H [facility] Last Admin: 10/16/17 11:02 Dose: 400 mls/hr Ceftriaxone Sodium 1 gm/ (Sodium Chloride) 50 mls @ 200 mls/hr IVPB Q24H [facility] Last Admin: 10/15/17 21:00 Dose: 200 mls/hr Melatonin (Melatonin) 3 mg PO BEDTIME PRN PRN Reason: INSOMNIA Last Admin: 10/15/17 23:56 Dose: 3 mg Metoprolol Tartrate (Lopressor Tab*) 12.5 mg PO BID [facility] Last Admin: 10/16/17 08:04 Dose: 12.5 mg Propafenone HCl (Rythmol*) 75 mg PO BID [facility] Last Admin: 10/16/17 11:55 Dose: 75 mg Vital Signs - 8 hr 10/16/17 10/16/17 10/16/17 08:00 08:02 08:04 Temperature 97.3 F Pulse Rate 58 62 Respiratory 16 16 Rate Blood Pressure 138/72 (mmHg) O2 Sat by Pulse 95 Oximetry 10/16/17 10/16/17 09:17 11:52 Temperature Pulse Rate Respiratory 18 16 Rate Blood Pressure (mmHg) O2 Sat by Pulse Oximetry Oxygen Devices in Use Now: None Appearance: 67 yo female sitting up in bed visiting with a freiend in NAD. A+O x3 Eyes: No Scleral Icterus, PERRLA Ears/Nose/Mouth/Throat: Mucous Membranes Moist Neck: NL Appearance and Movements; NL JVP Respiratory: Symmetrical Chest Expansion and Respiratory Effort, Clear to Auscultation Cardiovascular: NL Sounds; No Murmurs; No JVD, RRR, No Edema Abdominal: NL Sounds; No Tenderness; No Distention Extremities: No Edema, No Clubbing, Cyanosis Skin: No Rash or Ulcers, No Nodules or Sclerosis Neurological: Alert and Oriented x 3, NL Sensation, NL Gait, NL Muscle Strength and Tone Lines/Tubes/Other Access: Clean, Dry and Intact Peripheral IV Nutrition: Taking PO's Result Diagrams: 10/16/17 04:56 10/16/17 04:56 Additional Lab and Data: . Microbiology and Other Data: Microbiology 10/13/17 17:00 Nasal Screen MRSA (PCR)(YOSSI) - Final Nasal Mrsa Not Detected Assess/Plan/Problems-Billing Assessment: Ms. Cota is a 67 yo female with a PMH of afib and menigioma s/p resection in 2014 who was admitted on 10/13/17 with altered mental status with return of large meningeal tumor. - Patient Problems (1) Meningioma Comment: - Significant improvement in mentation with decadron, may also have had seizure and been post ictal on arrival. - Management per neurosurgery. - Continue decadron (no change in dose per NS) and keppra. - Plan for surgical resection on Wednesday with Dr. Jc. In terms of perioperative cardic evaluation, patient states that she is able to obtain 4 METS of activity and she has no known cardiac history other than afib. Exercise stress test 06/2016 without evidence of ischemia. Echo from 06/2016 showed an intact EF and functionally benign heart valves. However, patient has had chronic problems with rapid afib per report from office electrician. Cardiology ( Kamron aware) for optimization of rate control. - Wednesday morning plan per NS is to obatin MRI w/wo with [employer] (MM) protocol. Spoke to radiology to set this up for 6am Wednesday (awaiting a call back) (2) COPD (chronic obstructive pulmonary disease) Comment: - Asymptomatic. (3) Anemia Comment: - At baseline. May need a transfusion before surgery, CBC ordered for Wednesday. (4) Atrial fibrillation Comment: - Rapid afib during dialysis yesterday. Transferred to telemetry, now back in NSR. - Spoke with Dr. Lundy (sees Dr. Lara outpatient) who saw the pt in consultation today. Plan to resume home propafenone - Patient has refused anticoagulation in the past but has agreed to asa 81mg per Dr. Lara's records. Recommend resume aspirin when approved per neurosurgery. (5) End stage renal disease Comment: - Secondary to ANCA vasculitis history. - MWF dialysis while inpatient. Patient had only partial dialysis yesterday due to rapid afib but office electrician notes that patient is euvolemic and that this dialysis was likely enough to clear her hyperkalemia. Check labs in AM. - Patient will have dialysis on Wednesday in preparation for surgery Wednesday. Will need to avoid heparin during dialysis until approved per neurosurg. - Hypocalcemia with ionized calcium of 2.9; replace calcium and recheck in 4 hours. may require supplementaion as an outpt (6) Full code status Current Visit: No Status: Acute Code(s): Z78.9 - OTHER SPECIFIED HEALTH STATUS SNOMED Code(s): 617008117 Comment: (7) DVT prophylaxis Comment: - Heparin SQ, will need to hold for surgery on Wednesday Status and Disposition: Inpatient. Anticipate discharge to home when medically stable, however may need rehab after surgery
[2017-10-16] MEDS ORDERED: Calcium CHLORIDE 10% SYRINGE* 1 GM in D5W 100 ML BAG* 100 ML IV ONE (14:00)
[2017-10-16] MEDS ORDERED: CALCIUM CHLORIDE IV ONE (14:00)
[2017-10-16] MEDS ORDERED: NS 0.9% IV ONE (14:00)
[2017-10-16] MEDS: cefTRIAXone(*) 1 GM in NS 0.9% 50 ML* 50 ML IVPB SCH (22:17)
--- NOTE | 2017-10-16 23:41 | PN ---
Progress Note - Progress Note Date of Service: 10/16/17 SOAP: Subjective: []]Patient seen earlier. No events ON. On steroids. Objective: [VSS, Afebrile AAOx1, ALANA, CN III-XII grossly intact. Visual field difficult to assess in details. Motor 4-5/5 Rt pronator drift. Sensory grossly intact to light touch Assessment: []67 yof ESRF, Left parietal tumor. Plan: []Monitor VS, Neurochecks Continue Steroids On .On ceftrioxone for UTI. Plan for OR on Wednesday if cardiac/medical clearance is possible. Dialysis without heparin the day before surgery. Anemia. Will need transfusion prior to surgery. Appreciate IM, nephrology, cardiology care. Vincenzo Vela MD
[2017-10-17] MEDS: Dexamethasone IV* 4 MG/ML 1 ML (4 MG) IV SLOW PU SCH ×4 (02:43→20:36)
[2017-10-17] MEDS: Heparin VIAL(*) 5000 UNITS/ML VIAL (FIVE THOUSAND) SUBCUT SCH ×2 (06:00→14:48)
[2017-10-17 07:11] LABS: ABS Basophils 0 10^3/ul (0-0.2); ABS Eosinophils 0 10^3/ul (0-0.6); ABS Lymphocytes 0.3 10^3/ul (1.0-4.8); ABS Monocytes 0.1 10^3/ul (0-0.8); ABS Neutrophils 3.2 10^3/ul (1.5-7.7); ABS Nucleated RBC 0 10^3/ul; Eosinophil % 0 % (0-6); Hematocrit 23 % (35-47); Mean Corpuscular HGB Conc 34 g/dl (31-36); Mean Corpuscular Hemoglobin 33 pg (27-31); Mean Corpuscular Volume 97 fL (80-97); Mean Platelet Volume 7.5 um3 (7.4-10.4); Nucleated Red Blood Cells % 0.1; Platelet Count 257 10^3/ul (150-450); Red Blood Count 2.42 10^6/ul (4.00-5.40); Red Cell Distribution Width 14 % (10.5-15); White Blood Count 3.6 10^3/ul (3.5-10.8)
[2017-10-17 07:20] LABS: EGFR Non-African American 5.4 (>60)
[2017-10-17] MEDS ORDERED: Calcium CHLORIDE 10% SYRINGE* 1 GM in D5W 100 ML BAG* 100 ML IV ONE ×2 (09:00→19:05)
--- NOTE | 2017-10-17 09:31 | PN ---
Subjective Date of Service: 10/17/17 Interval History: Pt underwent dialysis early this morning. She feels "better". She denies GERARDO, vision changes or any numbness, tingling. Reports good appetite this am. Objective Active Medications: Alprazolam (Xanax Tab*) 0.25 mg PO Q8H PRN PRN Reason: ANXIETY Last Admin: 10/16/17 09:17 Dose: 0.25 mg Calcitriol (Rocaltrol Cap*) 0.5 mcg PO ONCE ONE Stop: 10/17/17 10:01 Calcitriol (Rocaltrol Cap*) 0.25 mcg PO ONCE ONE Stop: 10/17/17 21:01 Dexamethasone Sodium Phosphate (Decadron Iv*) 4 mg IV SLOW PU Q6H [facility] Last Admin: 10/17/17 02:43 Dose: 4 mg Heparin Sodium (Porcine) (Heparin Vial(*)) 5,000 units SUBCUT Q8HR [facility] Last Admin: 10/17/17 06:00 Dose: 5,000 units Levetiracetam (Keppra Iv Premix*) 500 mg in 100 mls @ 400 mls/hr IV Q12H [facility] Last Admin: 10/16/17 23:22 Dose: 400 mls/hr Ceftriaxone Sodium 1 gm/ (Sodium Chloride) 50 mls @ 200 mls/hr IVPB Q24H [facility] Last Admin: 10/16/17 22:17 Dose: 200 mls/hr Calcium Chloride 1 gm/ (Dextrose) 110 mls @ 55 mls/hr IV ONCE ONE Stop: 10/17/17 10:59 Melatonin (Melatonin) 3 mg PO BEDTIME PRN PRN Reason: INSOMNIA Last Admin: 10/15/17 23:56 Dose: 3 mg Metoprolol Tartrate (Lopressor Tab*) 12.5 mg PO BID [facility] Last Admin: 10/16/17 22:17 Dose: 12.5 mg Propafenone HCl (Rythmol*) 75 mg PO BID [facility] Last Admin: 10/16/17 22:18 Dose: 75 mg Vital Signs - 8 hr 10/17/17 10/17/17 03:54 07:38 Temperature 97.8 F 99.2 F Pulse Rate 57 57 Respiratory 16 16 Rate Blood Pressure 144/75 144/73 (mmHg) O2 Sat by Pulse 97 96 Oximetry Oxygen Devices in Use Now: None Appearance: 67 yo female laying in bed in NAD. Alert and oriented Eyes: No Scleral Icterus, PERRLA Ears/Nose/Mouth/Throat: NL Teeth, Lips, Gums, Mucous Membranes Moist Neck: NL Appearance and Movements; NL JVP Respiratory: Symmetrical Chest Expansion and Respiratory Effort, Clear to Auscultation Cardiovascular: NL Sounds; No Murmurs; No JVD, RRR, No Edema Abdominal: NL Sounds; No Tenderness; No Distention Extremities: No Edema, No Clubbing, Cyanosis Neurological: Alert and Oriented x 3, NL Sensation, - - Rt pronator drift noted Lines/Tubes/Other Access: Clean, Dry and Intact Peripheral IV Nutrition: Taking PO's Result Diagrams: 10/17/17 06:43 10/17/17 06:43 Additional Lab and Data: . Microbiology and Other Data: Microbiology 10/13/17 17:00 Nasal Screen MRSA (PCR)(YOSSI) - Final Nasal Mrsa Not Detected Assess/Plan/Problems-Billing Assessment: Ms. Cota is a 67 yo female with a PMH of afib and menigioma s/p resection in 2014 who was admitted on 10/13/17 with altered mental status with return of large meningeal tumor. - Patient Problems (1) Meningioma Comment: - Significant improvement in mentation with decadron, may also have had seizure and been post ictal on arrival. - Management per neurosurgery. Continue decadron (no change in dose per NS) and keppra. - Plan for surgical resection on Wednesday with Dr. Jc. In terms of perioperative cardic evaluation, patient states that she is able to obtain 4 METS of activity and she has no known cardiac history other than afib. Exercise stress test 06/2016 without evidence of ischemia. Echo from 06/2016 showed an intact EF and functionally benign heart valves. Patient has had chronic problems with rapid afib per report from junior paralegal. Appreciate Cardiology Dr. Lundy - Patient again went into rapid afib during dialysis today. Pt now is sinus rhythm. Propafenone 75 mg BID. If she goes into rapid afib recommends small dose of digoxin. She is bradycardia to SR on telemetry. Continue to replace calicum this evening and this could help improve her paroxsymal afib. Per Dr. lundy he would not recommend a pacer at this point. The patients repeat echo is stable. The patient is optimized to proceed with surgery tomorrow. - Wednesday morning plan per NS is to obatin MRI w/wo with [email or web address] protocol. Spoke to radiology to set this up for 6am Wednesday (2) COPD (chronic obstructive pulmonary disease) Comment: - Asymptomatic. (3) Hypocalcemia Comment: - trending down since admission. Ionized calcium 2.9, was given 1gm calcium chloride 10/16 w/o much improvement, Spoke to Dr. eldridge today, plan to give Calcium chloride 1gm now, calcitriol 0.5mg po now and 0.25 mg this evening. Will repeat ionized calcium 4 hours after IV calcium, most likely she will need another 1 gm this evening. Repeat labs this evening - Follow up with Dr. Eldridge after surgery regarding calcium if she continues to lose calcium (4) Anemia Comment: - Transfused 1 unit PRBC for 12/23 - discussed with NS and Dr. Eldridge. Was given slowly after dialysis today (5) Atrial fibrillation Comment: - Paroxsymal afib. Now back in NSR to bradycardia. - Spoke with Dr. Lundy (sees Dr. Lara outpatient) who saw the pt in consultation today. Continue propafenone. Recommends digoxin if needed - Patient has refused anticoagulation in the past but has agreed to asa 81mg [address] Dr. Lara's records. Recommend resume aspirin when approved per neurosurgery. (6) End stage renal disease Comment: - Secondary to ANCA vasculitis history. - MWF dialysis while inpatient. Patient had dialysis this am in prepartaion for surgery (7) Full code status Comment: (8) DVT prophylaxis Comment: - Heparin SQ, hold for surgery on Wednesday Status and Disposition: Inpatient. Unclear discharge plan, will determine post-op course.
[2017-10-17] MEDS ORDERED: Calcitriol CAP* 0.25 MCG PO ONE ×2 (10:00→21:00)
[2017-10-17] MEDS: Metoprolol Tartrate TAB* 25 MG PO SCH ×2 (10:59→20:39)
[2017-10-17] MEDS: proPAFENone TAB* 150 MG PO SCH ×2 (10:59→20:38)
[2017-10-17] MEDS: levETIRAcetam 500 MG IVPREMIX* 500 MG/100 ML BAG IV SCH ×2 (12:17→23:40)
--- NOTE | 2017-10-17 13:30 | PN ---
Progress Note - Progress Note Date of Service: 10/17/17 SOAP: Subjective: [] No events ON. On steroids. Dialysis today. Objective: []VSS, Afebrile AAOx1, ALANA, CN III-XII grossly intact. Visual field difficult to assess in details. Motor 4-5/5 Rt pronator drift. Sensory grossly intact to light touch Assessment: []67 yof ESRF, Left parietal tumor, possible recurrent meningioma. Plan: [] Monitor VS, Neurochecks Continue Steroids On Keppra.On ceftrioxone for UTI. Plan for OR tomorrow if cardiac/medical clearance is possible. Anemia. Will need transfusion prior to surgery. Called Blood Bank, will have RBC, PLT available for OR Appreciate IM, nephrology, cardiology care. Vincenzo Vela MD
--- NOTE | 2017-10-17 15:17 | ECHO ---
Patient: DON XAVIER [facility] Rec#: [id number] : 1950 Date: 10/17/2017 Age: 67y Height: 152.4 cm / 60.0 in Weight: 54.88 kg / 121.0 lbs Sex: F BSA: 1.51 Room#: 438 Admit Date#: 10/13/2017 Type: Inpatient Referring: David Lundy MD Reading: David Lundy MD [employer] Custodian: Pavithra Kaye RD,RDMS CC: Pato Bah MD Transthoracic Echocardiogram Indication: Murmur BP: 144/73 HR: 120 Rhythm: A-Fib Findings History: AFIB, COPD, lung cancer, ESRD Technical Comments: The study quality is fair. Left Ventricle: The left ventricular chamber size is normal. There is increased basal septal hypertrophy noted without evidence of an increased gradient across the left ventricular outflow tract. The estimated ejection fraction is 60-65%. The assessment of diastolic function is non-diagnostic. Left Atrium: The left atrium is moderate to severely dilated. Right Ventricle: The right ventricular chamber size and systolic function are within normal limits. Right Atrium: The right atrial cavity size is normal. Aortic Valve: The aortic valve leaflets are mildly thickened. Systolic excursion of the aortic valve is normal. There is trace to mild aortic regurgitation. There is no evidence of aortic stenosis. Mitral Valve: The mitral valve leaflets are mildly thickened. There is mild mitral regurgitation. There is no evidence of mitral stenosis. Tricuspid Valve: The tricuspid valve leaflets are normal. There is mild to moderate tricuspid regurgitation. No pulmonary hypertension is noted. Pulmonic Valve: The pulmonic valve structure is not well visualized. There is trace to mild pulmonic regurgitation. Pericardium: There is no significant pericardial effusion. Aorta: The aortic root appears normal. There is no dilatation of the aortic arch. Pulmonary Artery: The main pulmonary artery is not well visualized. Venous: The inferior vena cava is dilated. There is an approximate 50% respiratory change in the inferior vena cava dimension. Summary: There was not any prior study for comparison. Conclusions There is increased basal septal hypertrophy noted without evidence of an increased gradient across the left ventricular outflow tract. The estimated ejection fraction is 60-65%. The left atrium is moderate to severely dilated. The aortic valve leaflets are mildly thickened. There is trace to mild aortic regurgitation. There is mild mitral regurgitation. There is mild to moderate tricuspid regurgitation. There is trace to mild pulmonic regurgitation. No prior echo at this time. Measurements Name Value Normal Range RVIDd (AP) 2D 3.2 cm (0.9 - 2.6) RVDdMajor (2D) 3.1 cm (2.2 - 4.4) RAd ISD 4CH 4.6 cm (3.4 - 4.9) RA (A4C)W 4.1 cm (2.9 - 4.6) IVSd (2D) 1.6 cm (0.6 - 1) LVPWd (2D) 1 cm (0.6 - 1) LVIDd (2D) 4 cm (3.6 - 5.4) LVIDs (2D) 2.9 cm - LV FS (2D) 26 % (25 - 45) Aortic Annulus 1.9 cm (1.4 - 2.6) Ao root diameter (2D) 2.6 cm (2.1 - 3.5) Ascending Ao 2.1 cm (2.1 - 3.4) Aortic arch 3.2 cm (1.8 - 3.4) LA dimension (AP) 2D 4.2 cm (2.3 - 3.8) LAd ISD 4CH 5.5 cm (2.9 - 5.3) LA ISD 4CH W 4.8 cm (2.5 - 4.5) Name Value Normal Range LA ESV SP 4CH (A/L) 84.58 ml - LA ESV SP 2CH (A/L) 102.62 ml - LA ESV BP (A/L) 93.84 ml - LA ESV BP (A/L) index 62 ml/m2 - LA ESV SP 4CH (MOD) 78.6 ml - LA ESV SP 2CH (MOD) 95.7 ml - Name Value Normal Range MV E-wave Vmax 1.1 m/sec - MV deceleration time 144 msec - LV septal e' Vmax 0.06 m/sec - LV E:e' septal ratio 17 ratio - Name Value Normal Range AV Vmax 1.4 m/sec - AV peak gradient 8 mmHg - LVOT Vmax 1 m/sec - LVOT peak gradient 4 mmHg - AR PHT 409.94 msec - AR peak gradient 63.62 mmHg - SANDRA Vmax 0.5 m/sec - Name Value Normal Range MV Vmax 1.1 m/sec - MV VTI 13.4 cm - MV peak gradient 5 mmHg - MV mean gradient 2.2 mmHg - MV PHT 32 msec - MVA (PHT) 6.9 cm2 - Name Value Normal Range TR Vmax 2.3 m/sec - TR peak gradient 21 mmHg - RAP 8 mmHg - RVSP 29 mmHg - IVC diameter 2.4 cm - Name Value Normal Range PV Vmax 1 m/sec - PV peak gradient 4 mmHg -
[2017-10-17] MEDS ORDERED: Buffered Lidocaine 0.9% SYRIN* 5 ML/SYR SYRINGE INTRADERM ONE (15:24)
[2017-10-17 20:10] LABS: EGFR Non-African American 10.3 (>60)
[2017-10-17] MEDS: cefTRIAXone(*) 1 GM in NS 0.9% 50 ML* 50 ML IVPB SCH (20:39)
[2017-10-18] MEDS: Dexamethasone IV* 4 MG/ML 1 ML (4 MG) IV SLOW PU SCH ×4 (02:17→20:19)
[2017-10-18] MEDS ORDERED: Calcium CHLORIDE 1 GM in D5W* (approx = 2.92 gm of Calcium Gluc) IV ONE (04:00)
[2017-10-18 04:58] LABS: ABS Basophils 0 10^3/ul (0-0.2); ABS Eosinophils 0 10^3/ul (0-0.6); ABS Lymphocytes 0.4 10^3/ul (1.0-4.8); ABS Monocytes 0.2 10^3/ul (0-0.8); ABS Nucleated RBC 0 10^3/ul; Eosinophil % 0 % (0-6); Hematocrit 27 % (35-47); Hemoglobin 9.4 g/dl (12.0-16.0); Lymphocyte % 10.4 % (25-47); Mean Corpuscular HGB Conc 35 g/dl (31-36); Mean Corpuscular Hemoglobin 33 pg (27-31); Mean Corpuscular Volume 94 fL (80-97); Mean Platelet Volume 7.2 um3 (7.4-10.4); Nucleated Red Blood Cells % 0.1; Platelet Count 223 10^3/ul (150-450); Red Blood Count 2.85 10^6/ul (4.00-5.40); Red Cell Distribution Width 14 % (10.5-15); White Blood Count 3.6 10^3/ul (3.5-10.8)
[2017-10-18 05:14] LABS: EGFR Non-African American 8.8 (>60)
[2017-10-18] MEDS ORDERED: Famotidine IV* 10 MG/ML 2 ML (20 mg) IV ONE (06:00)
[2017-10-18] MEDS ORDERED: NS 0.45% 1000 ML BAG* 1,000 ML IV SCH (06:00)
[2017-10-18] MEDS ORDERED: Famotidine IV* 10 MG/ML 2 ML (20 mg) ONE (06:04)
[2017-10-18] MEDS ORDERED: Buffered Lidocaine 0.9% SYRIN* 5 ML/SYR SYRINGE ONE (06:04)
[2017-10-18] MEDS ORDERED: Thrombin 5,000 UNITS* 1 APPLIC KIT - topical use - TOPICAL ONE ×3 (07:15→23:11)
[2017-10-18] MEDS ORDERED: Lidocain 1% EPI 1:100,000 * 30 ML MDV ONE ×2 (07:15→23:10)
[2017-10-18] MEDS ORDERED: Mannitol 25% (12.5 GM) 50 ML* 12.5 GM/50 ML VIAL ONE ×2 (07:16→23:11)
[2017-10-18] MEDS ORDERED: Artificial Tear OPHTH.OINT* 3.5 GM ONE (07:33)
[2017-10-18] MEDS ORDERED: Dexamethasone IV* 4 MG/ML 1 ML (4 MG) ONE ×3 (07:33→16:38)
[2017-10-18] MEDS ORDERED: fentaNYL* 50 MCG/ML 2 ML VIAL (100 MCG VIAL) ONE ×2 (07:33→11:43)
[2017-10-18] MEDS ORDERED: Propofol* 500 MG/50 ML BTL ONE ×2 (07:33→11:03)
[2017-10-18] MEDS ORDERED: Phenylephrine INJ* 10 MG/ML 1 ML VIAL (10 MG) ONE (07:33)
[2017-10-18] MEDS ORDERED: Propofol* 10 MG/ML 20 ML BTL IV PUSH ONE ×2 (07:33→23:05)
[2017-10-18] MEDS ORDERED: Sodium Chloride 0.9%* 10 ML ONE (07:33)
[2017-10-18] MEDS ORDERED: Cisatracurium* 2 MG/ML MDV 5 ML ONE (07:33)
[2017-10-18] MEDS ORDERED: Remifentanil* 2 MG VIAL ONE ×2 (07:33→11:00)
[2017-10-18] MEDS ORDERED: Midazolam* 1 MG/ML 5 ML VIAL (5 MG) ONE (07:33)
[2017-10-18] MEDS ORDERED: Lidocaine 2% PF * 5 ML VIAL ONE (07:33)
[2017-10-18] MEDS ORDERED: EPHEDrine (Pressors)* 50 MG/ML VIAL ONE (07:36)
[2017-10-18] MEDS: proPAFENone TAB* 150 MG PO SCH ×2 (07:42→20:50)
[2017-10-18] MEDS: Metoprolol Tartrate TAB* 25 MG PO SCH ×2 (07:43→20:50)
--- NOTE | 2017-10-18 07:50 | RAD ---
HISTORY: Brain tumor COMPARISONS: MRI dated October 13, 2017 TECHNIQUE: Multiple 3-D phase contrast MR venography was performed, with multiple 3-D maximum intensity projection reconstructions. FINDINGS: VENOUS SINUSES: The venous sinuses are patent. There is no stenosis or occlusion. There is no filling defect to suggest thrombosis. DEEP VEINS: The deep veins are patent. The internal cerebral veins are dominant over the basal veins of Db. OTHER FINDINGS: The left parieto-occipital tumor described on previous examinations is distant from the venous sinuses. There is mild plethora of the cortical veins in the region of tumor suggestive of increased venous drainage. IMPRESSION: NO VENOUS SINUS THROMBOSIS OR OCCLUSION. THE LEFT SIDED TUMOR IS NOT CLOSELY RELATED TO THE VENOUS SINUSES..
[2017-10-18] MEDS ORDERED: ceFAZolin 1 GM in Dextrose (*) 1 GM/50 ML BAG IVPB ONE (07:59)
--- NOTE | 2017-10-18 08:20 | RAD ---
HISTORY: brain tumor COMPARISONS: October 13, 2017 TECHNIQUE: The following sequences were obtained of the head: Thin section axial 3-D T1-weighted gradient echo imaging for the purposes of intraoperative navigation. FINDINGS: This is a limited study for the purposes of intraoperative navigation. Again noted is a mass of the left parietal-occipital region that appears to be extra-axial with associated vasogenic edema and minimal subfalcine shift to the right. This is stable from the October 13, 2017 examination. IMPRESSION: LIMITED STUDY FOR THE PURPOSES OF INTRAOPERATIVE NAVIGATION AGAIN DEMONSTRATES A LEFT PARIETO-OCCIPITAL MASS WITH ASSOCIATED VASOGENIC EDEMA AND MINIMAL SUBFALCINE SHIFT.
[2017-10-18] MEDS ORDERED: Labetalol IV* 5 MG/ML 20 ML VIAL ONE (10:11)
[2017-10-18] MEDS: levETIRAcetam 500 MG IVPREMIX* 500 MG/100 ML BAG IV SCH ×2 (10:54→22:52)
[2017-10-18] MEDS ORDERED: Acetaminophen IV 1GM/100ML * 1,000 MG/100 ML VIAL IVPB ONE (11:36)
[2017-10-18] MEDS ORDERED: fentaNYL* 50 MCG/ML 2 ML VIAL (100 MCG VIAL) IV PRN (11:36)
[2017-10-18] MEDS ORDERED: DiMENhydriNATE IV* 50 MG/ML VIAL IV PUSH PRN (11:36)
[2017-10-18] MEDS ORDERED: Naloxone* 0.4 MG/ML 1 ML VIAL IV PRN (11:36)
[2017-10-18] MEDS ORDERED: PROCHLORPERAZINE INJ 5 MG/ML 2 ML VIAL IV PRN (11:36)
[2017-10-18] MEDS ORDERED: Ondansetron INJ* 2 MG/ML VIAL IV PRN (14:46)
[2017-10-18 15:12] LABS: ABS Basophils 0 10^3/ul (0-0.2); ABS Eosinophils 0 10^3/ul (0-0.6); ABS Lymphocytes 0.6 10^3/ul (1.0-4.8); ABS Monocytes 0.6 10^3/ul (0-0.8); ABS Neutrophils 16.2 10^3/ul (1.5-7.7); ABS Nucleated RBC 0 10^3/ul; Eosinophil % 0 % (0-6); Hematocrit 23 % (35-47); Hemoglobin 7.8 g/dl (12.0-16.0); Lymphocyte % 3.2 % (25-47); Mean Corpuscular HGB Conc 34 g/dl (31-36); Mean Corpuscular Hemoglobin 32 pg (27-31); Mean Corpuscular Volume 94 fL (80-97); Mean Platelet Volume 7.6 um3 (7.4-10.4); Nucleated Red Blood Cells % 0; Platelet Count 313 10^3/ul (150-450); Red Blood Count 2.45 10^6/ul (4.00-5.40); Red Cell Distribution Width 14 % (10.5-15); White Blood Count 17.4 10^3/ul (3.5-10.8)
[2017-10-18] MEDS ORDERED: PROCHLORPERAZINE INJ 5 MG/ML 2 ML VIAL ONE ×2 (15:17→15:49)
[2017-10-18 15:27] LABS: INR 1.02 (0.77-1.02)
[2017-10-18 16:11] LABS: EGFR Non-African American 7.9 (>60)
[2017-10-18] MEDS ORDERED: Acetaminophen IV 1GM/100ML * 100 ML ONE (17:03)
--- NOTE | 2017-10-18 19:29 | PN ---
Date of Service: 10/18/17 - Note from Lamberto Carey MD (ICU Attending) Critical Care Services: Patient back from OR following resection of meningioma - the major postop event has been BRB per saba catheter, which has cleared with bladder irrigation. No prior Hx of urinary bleeding and no apparent hemostatic defect (other than the platelet function abnormality in renal failure). Currently receiving one unit packed RBCs - pre-infusion Hb was 7.8, and has been hemodynamically stable. Vital Signs: Temp Pulse Resp BP SpO2 FiO2 97.7 F 50 18 113/78 100 Physical Exam: Gen:arouses with difficulty HEENT:pupils midposition and reactive Lungs:clear Cardiac: reg rhythm Extremities:warm. No cyanosis Fluid Balance (Past 24 Hours): 10/18/17 06:59 Intake Total 583 Output Total 550 Balance 33 Weight 121 lb Intake: IV Fluids 20 ABX - CEFTRIAXONE 20 Keppra LR NS (0.9%) NS 50ML, Cefazolin 1G IVPB 363 ABX - CEFTRIAXONE 55 Calcium 208 Keppra 100 Oral 200 Output: RUDDY #1 Urine 250 Saba 300 Other: # Bowel Movements 0 # Voids 1 Labs: 10/18/17 10/18/17 10/18/17 04:52 04:52 04:52 WBC 3.6 Hgb 9.4 L Hct 27 L MCV 94 Plt Count 223 Sodium 135 Potassium 4.5 Chloride 95 L Carbon Dioxide 31 Anion Gap 9 BUN 52 H Creatinine 4.88 H Glucose 128 H Calcium 8.4 L Ionized Calcium 4.06 L Total Bilirubin AST ALT Alkaline Phosphatase Total Protein Albumin Globulin Albumin/Globulin Ratio Blood Type Antibody Screen Crossmatch 10/18/17 10/18/17 10/18/17 09:36 15:05 15:05 WBC 17.4 RBC 2.45 Hgb 7.8 Hct 23 MCV 94 MCH 32 MCHC 34 RDW 14 Plt Count 313 MPV 7.6 Neut % (Auto) 92.9 H Lymph % (Auto) 3.2 L Bradford % (Auto) 3.7 Eos % (Auto) 0 Baso % (Auto) 0.2 Absolute Neuts (auto) 16.2 H Absolute Lymphs (auto) 0.6 L Absolute Monos (auto) 0.6 Absolute Eos (auto) 0 Absolute Basos (auto) 0 Absolute Nucleated RBC 0 Nucleated RBC % 0 INR (Anticoag Therapy) 1.02 ABG pH 7.65 H* ABG pCO2 26 L ABG pO2 352 H ABG HCO3 31.1 H ABG O2 Saturation 95.0 ABG Base Excess 7.9 H 10/18/17 15:37 Sodium 131 L Potassium 4.6 Chloride 93 L Carbon Dioxide 27 Anion Gap 11 BUN 60 H Creatinine 5.35 H Glucose 249 H Calcium 7.6 L Ionized Calcium Total Bilirubin 0.40 AST 12 L ALT 9 Alkaline Phosphatase 91 Total Protein 5.0 L Albumin 2.9 Globulin 2.1 Albumin/Globulin Ratio 1.4 Studies: Postop CT scan for tonight Nutrition: NPO since surgery Impression: Doing well postop without recurrence of urinary bleeding. Has been hemodyanmically stable. Plan: 1. Continue irrigation for now (can probably d/c in AM) 2. Check H&H post transfusion 2. if rebleeds, give DDAVP to correct the platelet defects associated with renal failure.
[2017-10-18] MEDS: cefTRIAXone(*) 1 GM in NS 0.9% 50 ML* 50 ML IVPB SCH (20:39)
--- NOTE | 2017-10-18 21:38 | RAD ---
Indication: Postop removal of extra-axial LEFT parietal region mass. Comparison: October 18, 2017 0652 hours neural navigation MRI. October 13, [address] Technique: Noncontrast CT vertex of skull through foramen magnum. Report: Postsurgical change of LEFT occipital temporal parietal craniotomy and craniectomy with overlying mesh. Postsurgical change of resection of the extra-axial mass at the LEFT parietal region with resolution of compression of the LEFT lateral ventricle and significant improvement in magnitude of [id number] subfalcine herniation which measures only 2 mm on the current study. Interval decrease in magnitude of vasogenic edema at the LEFT frontal and parietal lobes. New hyperdense intra-axial hematoma at the LEFT cerebellum measuring up to 3.3 cm AP by 4.6 cm transverse with associated partial compression and up to 5 mm rightward shift of the fourth ventricle. Postoperative extra-axial gas noted. IMPRESSION: 1. Acute large LEFT posterior fossa intra-axial hematoma with significant mass effect on the fourth ventricle. 2. Postsurgical change of resection of the extra-axial mass at the LEFT parietal region and interval decrease in magnitude of vasogenic edema at the LEFT frontal and parietal lobes with resolution of compression of the LEFT lateral ventricle and significant improvement in magnitude of [id number] subfalcine herniation which measures only 2 mm on the current study. Results discussed with nurse Walker in the ICU 10/18/2017 9:31 PM EDT
--- NOTE | 2017-10-18 21:47 | CONS ---
CONSULTATION NOTE: DATE OF CONSULT: 10/18/17 HISTORY OF PRESENT ILLNESS: I was asked by Dr. Vela and by the recovery room staff to see this 67-year-old white female because of gross hematuria and clot urinary retention. Ms. Cota has end-stage renal disease secondary to IgA nephropathy and has been on hemodialysis, foll owed by Dr. Gupta. She has history of COPD, atrial fibrillation, and is on no anticoagulation. She had history of a meningioma of the left parietal lobe and had resection of the meningioma in 2014. She was admitted with increasing confusion and the CT of the brain showed recurrence of the meningiom a in the left parietal lobe. There are no reports of any gross hematuria or voiding problems prior to her surgery today. The patient underwent a left craniotomy and excision of the meningioma by Dr. Vela. She had a Colvin catheter inserted just before the surgery started. At the completion of the surgery, she was n oted to have a significant amount of blood clots in the Colvin bag, around the Colvin catheter, and on the sheets underneath her. The patient was taken to the recovery room and the PACU nurses tried to irrigate without success. Sh e kept on having clot retention. A urology consultation was obtained. The urological history is obtained from the chart and from the floor nurses. In particular, there is no report of any previous episodes of gross hematuria and her urine was clear before she went to the OR today. I replaced her catheter with a 22 Colvin catheter. Extensive irrigation was performed evacuating almo st 200 cc of clots. Where no more clots could be evacuated, the returns remained light gregorio. A 24-Greenlandic 3-way Colvin catheter was then placed and the patient was placed on continuous bladder irr igation. She was observed. The outflow became crystal clear and the hematuria was totally resolved. Considering the history and presentation, I would suspect that the gross hematuria is traumatic seco ndary to the Colvin catheter. If her urine remains clear, the Colvin catheter can be removed. If the gross hematuria recurs, a cystoscopy will be indicated to rule out any bladder pathology. [id number]/[facility] #: [id number]
[2017-10-18 22:21] LABS: Hematocrit 25 % (35-47); Hemoglobin 8.2 g/dl (12.0-16.0)
[2017-10-18] MEDS: hydrALAZINE IV* 20 MG/ML VIAL IV SLOW PU PRN (22:33)
[2017-10-18] MEDS ORDERED: Calcium CHLORIDE 10% SYRINGE* 1 GM in D5W 100 ML BAG* 100 ML IV ONE (22:44)
--- NOTE | 2017-10-18 22:56 | PN ---
Progress Note - Progress Note Date of Service: 10/18/17 SOAP: Subjective: []Patient in ICU. NPO. RUDDY in place. Patient had placement of 3 way bladder catheter in recovery by Dr Parks for bladder hemorrhage. Urine output clear at this point Objective: []VSS Wound soft,clean,dry. RUDDY in place. Opens eyes to verbal, Ox1, ALANA, CN II-XII grossly inact. Motor 5/5 all extremities, No pronator drift. Sensory grossly intact to light touch. Assessment: []67 yof POD#0 Left parietal tumor resection Plan: []Post op CT reveals good resection of tumor no hemorrhage at tumor bed. Patient has left cerebellar ICH. Discussed with patient's son on the phone, regarding CT findings and treatment options. Patient may benefit for posterior fossa ICH evacuation and possible craniectomy / revision of craniotomy and placement of ventriculostomy. After discussing treatment options, expectations, limitations and possible complications of the procedure, with complications including, but not limited to bleeding, infection, risk of injury to adjacent structures, coma, paralysis, , need for additional procedures, anesthesia risks, patient's son understood and was agreeable to proceed with surgery. IC was obtained. Plan may be modified according intraoperative findings and conditions. Plan for OR tonight. Appreciate IM/ICU care. Vincenzo Vela MD
[2017-10-18] MEDS ORDERED: Atracurium* 10 MG/ML 10 ML VIAL ONE (23:05)
[2017-10-18] MEDS ORDERED: Bacitracin IV* 50,000 UNITS INJ ONE (23:11)
[2017-10-19] MEDS ORDERED: ceFAZolin 1 GM VIAL(*) ONE ×2 (00:49→02:28)
[2017-10-19] MEDS ORDERED: Bacitracin OINTMENT* 0.5% 0.5 oz TUBE ONE (01:42)
[2017-10-19] MEDS ORDERED: fentaNYL* 50 MCG/ML 5 ML VIAL (250 MCG VIAL) ONE (02:11)
[2017-10-19] MEDS ORDERED: ceFAZolin 2 GM PREMIX (*) 2 GM/50 ML BAG IVPB ONE (02:43)
[2017-10-19] MEDS ORDERED: fentaNYL* 50 MCG/ML 2 ML VIAL (100 MCG VIAL) IV PRN (02:48)
[2017-10-19] MEDS ORDERED: Acetaminophen TAB* 325 MG PO PRN ×2 (02:48→21:38)
[2017-10-19] MEDS ORDERED: Naloxone* 0.4 MG/ML 1 ML VIAL IV PRN (02:48)
[2017-10-19] MEDS: Dexamethasone IV* 4 MG/ML 1 ML (4 MG) IV SLOW PU SCH ×4 (05:36→18:20)
[2017-10-19 06:03] LABS: Hematocrit 30 % (35-47); Hemoglobin 10.5 g/dl (12.0-16.0); Mean Corpuscular HGB Conc 35 g/dl (31-36); Mean Corpuscular Hemoglobin 32 pg (27-31); Mean Corpuscular Volume 92 fL (80-97); Mean Platelet Volume 7.6 um3 (7.4-10.4); Platelet Count 135 10^3/ul (150-450); Red Cell Distribution Width 15 % (10.5-15); White Blood Count 8.3 10^3/ul (3.5-10.8)
[2017-10-19 06:20] LABS: EGFR Non-African American 9.6 (>60)
[2017-10-19] MEDS: hydrALAZINE IV* 20 MG/ML VIAL IV SLOW PU PRN ×2 (07:00→12:50)
--- NOTE | 2017-10-19 07:43 | RAD ---
HISTORY: Postop eval COMPARISONS: October 18, 2017, October 13, 2014 TECHNIQUE: Multiple contiguous axial CT scans were obtained of the head without intravenous contrast. FINDINGS: HEMORRHAGE/INFARCT: There is intraparenchymal hematoma of the left cerebral hemisphere. This is decreased in size currently measuring 2.9 x 2.1 cm transversely. There is a small amount of blood within the surgical resection cavity of the left parietal lobe. Elsewhere, there is no hemorrhage or acute infarct. MASSES/SHIFT: There is partial effacement of the left ambient cistern. There is narrowing at the level of the foramen magnum. There is no transtentorial or transverse foraminal shift. EXTRA-AXIAL SPACES: There is a small amount of extra-axial fluid and gas along the surgical resection cavity of the left parietal lobe. SULCI AND VENTRICLES: There is partial effacement of the fourth ventricle. There is a small amount of intraventricular hemorrhage. CEREBRUM: As noted above, there is a surgical resection cavity of the left frontal lobe with a small amount of hemorrhagic material. There is small amount of gas within the resection cavity. There is persistent but decreasing vasogenic edema when compared to October 13, 2017. BRAINSTEM: There are no focal parenchymal abnormalities. CEREBELLUM: As noted above, there is an intraparenchymal hematoma of the left cerebellar hemisphere with associated vasogenic edema and mass effect upon the fourth ventricle. This is decreased in size compared to the October 18, 2017 examination, though the degree of vasogenic edema is similar. VESSELS: The vessels are grossly normal. PARANASAL SINUSES: The paranasal sinuses are clear. ORBITS: The orbits are unremarkable. BONES AND SOFT TISSUE: There is post surgical change to the skull and scalp. OTHER: None IMPRESSION: 1. AGAIN NOTED IS AN INTRAPARENCHYMAL HEMATOMA OF THE LEFT CEREBRAL HEMISPHERE. THIS IS DECREASED IN SIZE COMPARED TO OCTOBER 18, 2017, THOUGH THE DEGREE OF VASOGENIC EDEMA IS SIMILAR. THERE IS MASS EFFECT UPON THE FOURTH VENTRICLE WITH A SMALL AMOUNT OF INTRAVENTRICULAR HEMORRHAGE. 2. THE PATIENT IS STATUS POST RESECTION OF THE LEFT PARIETO-OCCIPITAL MASS. THERE IS GAS AND BLOOD PRODUCT WITHIN THE SURGICAL RESECTION CAVITY AND ALONG THE SITE OF CRANIOTOMY. THERE IS PERSISTENT BUT DECREASED VASOGENIC EDEMA COMPARED TO THE JUNE 15, 2017 EXAMINATION
[2017-10-19] MEDS ORDERED: Ondansetron ODT TAB* 4 MG ONE (10:08)
--- NOTE | 2017-10-19 10:37 | PN ---
Progress Note - Progress Note Date of Service: 10/19/17 SOAP: Subjective: []Patient in ICU. NPO. EVD functioning, open at 10 since this am. RUDDY in place Objective: [] VSS Wound soft,clean,dry. RUDDY in place. EVD in place. Opens eyes to verbal, Ox1, ALANA, CN II-XII grossly inact. Motor 4-5/5 all extremities, Sensory grossly intact to light touch. Assessment: []67 yof POD#1 Left parietal tumor resection, Left cerebellar hematoma evacuation. Plan: [] Monitor VS, Neurochecks. Ht 30 after RBC transfusion overnight. Repeat K levels this am Consider dialysis without heparin today if needed. NPO CT good decompression of posterior fossa, fourth ventricle open, No HCP. Raise EVD at 15 for now Keep SBP 90-140 Keep NPO for now. HOB 30 ' Consider start tapering steroids slowly. Follow pathology report. IV access difficult. Called patient's son Nacho to discuss patient's condition. Not available on phone, left message. Appreciate ICU, Nephrology, IM care. Vincenzo Vela MD
[2017-10-19] MEDS ORDERED: Ondansetron ODT TAB* 4 MG PO ONE (12:00)
[2017-10-19] MEDS ORDERED: Desmopressin Acetate* 4 MCG/ML 10 ML VIAL IVPB ONE (12:31)
[2017-10-19] MEDS: proPAFENone TAB* 150 MG PO SCH ×3 (12:34→21:32)
[2017-10-19] MEDS: Metoprolol Tartrate TAB* 25 MG PO SCH ×3 (12:35→21:32)
[2017-10-19] MEDS: levETIRAcetam 500 MG IVPREMIX* 500 MG/100 ML BAG IV SCH ×2 (12:35→23:07)
[2017-10-19] MEDS ORDERED: NS 0.9% IVPB ONE (14:00)
[2017-10-19] MEDS ORDERED: DESMOPRESSIN ACETATE IVPB ONE (14:00)
--- NOTE | 2017-10-19 14:55 | PN ---
Date of Service: 10/19/17 Critical Care Services: Patient is clinically stable today, without evidence of continued MANAGER OF OPERATIONS or bladder hemorrhage. Bladder irrigation has been discontinued. Patient received DDAVP (0.3 mcg/kg) to correct the platelet function abnormality associated with renal failure. Vital Signs: Temp Pulse Resp BP SpO2 FiO2 95.0 F 73 23 160/47 98 Physical Exam: Gen:Somnolent but arousable, and responds to verbal commands. HEENT:Pupils midposition and responsive. No facial asymmetry. Lungs: Clear Cardiac: Reg rhythm Abdomen: Not distended. Extremities:Cool. No cyanosis or edema. Neuro: Moves all limbs equally. Fluid Balance (Past 24 Hours): 10/19/17 06:59 Intake Total 1706 Output Total 1125 Balance +581 Weight Intake: IV Fluids 1201 ABX - CEFTRIAXONE Keppra LR 1140 NS (0.9%) 11 NS 50ML, Cefazolin 1G 50 IVPB 205 ABX - CEFTRIAXONE 55 Calcium 50 Keppra 100 Oral 0 Colvin Irrigate Amount 300 Output: RUDDY #1 225 Cranial Drain Urine Colvin 900 Other: # Bowel Movements # Voids Labs: 10/19/17 10/19/17 10/19/17 05:50 05:50 09:50 WBC 8.3 Hgb 10.5 Hct 30 MCV 92 Plt Count 135 Sodium 132 Potassium 8.2 4.7 Chloride 102 Carbon Dioxide 18 BUN 51 Creatinine 4.55 Glucose 291 Calcium 8.9 Studies: Head CT Scan this AM: No evidence of rebleeding. Nutrition: None Impression: Clinically stable today, without evidence of continued bleeding (MANAGER OF OPERATIONS or urinary) . Plan: 1. General supportive care 2. MRI this afternoon. 3. Hemodialysis planned for tomorrow. Critical Care Time: 40 minutes
[2017-10-19] MEDS: Ondansetron ODT TAB* 4 MG SL PRN (20:12)
[2017-10-19] MEDS: cefTRIAXone(*) 1 GM in NS 0.9% 50 ML* 50 ML IVPB SCH (20:13)
[2017-10-19] MEDS ORDERED: PROCHLORPERAZINE INJ 5 MG/ML 2 ML VIAL ONE (21:06)
[2017-10-19] MEDS: ALPRAZolam TAB* 0.25 MG PO PRN ×2 (21:27→21:32)
[2017-10-19] MEDS: PROCHLORPERAZINE INJ 5 MG/ML 2 ML VIAL IV PRN (21:49)
[2017-10-19] MEDS: fentaNYL* 50 MCG/ML 2 ML VIAL (100 MCG VIAL) IV SLOW PU PRN (23:29)
[2017-10-20] MEDS: Dexamethasone IV* 4 MG/ML 1 ML (4 MG) IV SLOW PU SCH ×4 (00:29→18:49)
[2017-10-20] MEDS: fentaNYL* 50 MCG/ML 2 ML VIAL (100 MCG VIAL) IV SLOW PU PRN ×2 (04:13→20:14)
[2017-10-20 05:29] LABS: Hematocrit 20 % (35-47); Hemoglobin 6.9 g/dl (12.0-16.0); Mean Corpuscular HGB Conc 36 g/dl (31-36); Mean Corpuscular Hemoglobin 32 pg (27-31); Mean Corpuscular Volume 90 fL (80-97); Mean Platelet Volume 7.6 um3 (7.4-10.4); Platelet Count 159 10^3/ul (150-450); Red Blood Count 2.18 10^6/ul (4.00-5.40); Red Cell Distribution Width 16 % (10.5-15)
--- NOTE | 2017-10-20 05:42 | PN ---
Progress Note - Progress Note Date of Service: 10/20/17 Note: Paged for H/H 6.01/20 - will order 2 units of PRBCs
[2017-10-20 05:44] LABS: EGFR Non-African American 6.7 (>60)
--- NOTE | 2017-10-20 07:38 | OP ---
DATE OF OPERATION: 10/18/17 - ROOM #ICU-06 DATE OF : 46 SURGEON: Dr. Mary Vela. CO-SURGEON: Dr. Solomon Lee. ANESTHESIA: General. PRE-OP DIAGNOSIS: Left temporal tumor. POST-OP DIAGNOSIS: Left temporal tumor. OPERATIVE PROCEDURE: The patient underwent left parietal craniotomy with extension and revision of previous craniotomy for resection of recurrent tumor, possible meningioma with stereotactic navigation. ESTIMATED BLOOD LOSS: 100 cc. COMPLICATIONS: None. SUMMARY: The patient is a very pleasant 67-year-old female with multiple medical comorbidities including end-stage renal failure, on hemodialysis; anemia ; history of atrial fibrillation; congestive heart failure, who had meningioma resection on the left parietal lobe by Dr. Chiu in 2014. The patient had altered mental status during dialysis and CT and MRI imaging revealed large left parietal tumor adjacent to the previous resected tumor. The patient, after explaining expectations, limitations, and possible complications, was offered the option of surgical intervention in the form of left parietal tumor resection. All treatment options were discussed with the patient and the patient's family including nonoperative and operative treatment as well as possibility for transfer. The patient's family understood the possibility of complications including, but not limited to bleeding, infection, risk of damage to adjacent structures, coma, paralysis, , need for additional procedures, anesthesia risks, stroke, blindness, need for prolonged ICU stay, need for tracheostomy or gastrostomy, placement of AUTO DEALER shunt, need for additional procedures, and would like to proceed with surgical intervention. Informed consent was obtained. They understood that the patient's condition may not improve, in fact, may get worse after the surgery and she may need to have additional procedure in the future and that operative plan may be modified according to intraoperative findings and conditions. DESCRIPTION OF PROCEDURE: The patient was brought to the operating room and was placed under general anesthesia by the anesthesia team. She was carefully positioned in the lateral position with a panchal bag and all bony prominences were meticulously padded. Her head was secured in 3 point Sr fixation system and the patient was registered with the [employer] navigation platform with the use of fiducials and MRI that was obtained preoperatively. After hair removal with a surgical clip and after the skin was prepped and draped in the standard fashion, the incision of the previous craniotomy was identified and this was extended more anteriorly and posteriorly and also was curved with a wide-based flap to allow for extension of the craniotomy into the new tumor site. Planning was done with the assistance of intraoperative navigation. The skin was infiltrated with local anesthetic and a #10 scalpel was used to incise the skin. This incision was carried down into the periosteum with Bovie cautery and the skin flap was gently elevated. This was secured in place with lone star hooks and was gently folded over a gauze. Plates from the previous craniotomy were gently removed. After removing the screws, the skull was inspected in the previous craniotomy site where tumor was evident, it did infiltrate the skull and protrude on outside of the skull. Craniotomy was planned with intraoperative navigation and performed after placement of several olinda holes and connecting the olinda holes with a craniotome. A bone flap was elevated in two pieces, one for the main craniotomy and one for the smaller portion of the bone flap that was overlying the previous resection cavity which was elevated after drilling with high speed drill and using Kerrison punches to complete the craniotomy. The dura was then gently opened and excised with the use of 15 surgical blade and Metzenbaum scissors. A large tumor was identified as predicted from the preoperative imaging. Then, attention was paid in order to carefully dissect all the margins of the tumor with the use of gentle retraction, suction and bipolar cautery. After gentle debulking of the core of the tumor, the tumor was easily from the surrounding brain and after copious irrigation, meticulous hemostasis was confirmed. It was decided that, macroscopically, the patient had a gross total resection of the tumor including the tumor in the previous surgical bed. A large piece of DuraGen was placed in the dural defect while duraplasty was performed with bovine pericardium and 4-0 Nurolon sutures. The bone flap was gently repositioned except for the bone overlying the previous craniotomy site, which was found to be infiltrated with tumor, while titanium mesh was placed over the craniectomy defect in the previous craniotomy site and all of these were secured with titanium screws. A Arthur drain was then placed in the subgaleal space and was done with a separate skin incision. Incision was then closed by layers with interrupted 2-0 Vicryl sutures to approximate the temporalis muscle and fascia, the galea and subcutaneous tissue while the skin was approximated with lucy and covered with sterile dressings and sponges. Meticulous inspection of the wound was performed prior to closure. At the end of the procedure, all counts were reported to be correct. The patient remained hemodynamically stable throughout the case. She was then carefully removed from the Sr frame and was transferred to Recovery in excellent condition. The case was done with two attending physicians because of the complexity of the case. [id number]/[facility] #: [id number] MTDD
[2017-10-20] MEDS: Metoprolol Tartrate TAB* 25 MG PO SCH ×2 (09:19→22:10)
[2017-10-20] MEDS: Ondansetron ODT TAB* 4 MG SL PRN (09:19)
[2017-10-20] MEDS: proPAFENone TAB* 150 MG PO SCH ×2 (09:20→22:10)
[2017-10-20] MEDS ORDERED: Epoetin Alfa* 10,000 UNITS/ML VIAL IV ONE (11:00)
[2017-10-20] MEDS ORDERED: Metoprolol Tartrate IV* 1 MG/ML 5 ML VIAL ONE ×3 (11:09→11:29)
[2017-10-20] MEDS: PROCHLORPERAZINE INJ 5 MG/ML 2 ML VIAL IV PRN ×2 (11:44→19:02)
[2017-10-20] MEDS: levETIRAcetam 500 MG IVPREMIX* 500 MG/100 ML BAG IV SCH ×2 (13:01→23:56)
[2017-10-20] MEDS ORDERED: Diltiazem IV* 5 MG/ML 5 ML VIAL (for loading dose/IV Push) (25 MG) ONE (13:43)
[2017-10-20] MEDS ORDERED: Metoprolol Tartrate IV* 1 MG/ML 5 ML VIAL IV PRN (13:46)
[2017-10-20] MEDS ORDERED: Diltiazem IV VIAL* 125 MG in NS 0.9% 100 ML* 100 ML IV SCH (14:00)
[2017-10-20] MEDS ORDERED: Diltiazem IV* 5 MG/ML 5 ML VIAL (for loading dose/IV Push) (25 MG) IV SLOW PU ONE (14:00)
--- NOTE | 2017-10-20 16:37 | PN ---
Date of Service: 10/20/17 Critical Care Services: Mental status improved today. Had hemodialysis, but developed AFib and dialysis terminated prematurely. Subsequently converted to sinus rhythm. Vital Signs: Temp Pulse Resp BP SpO2 FiO2 97.7 F 63 14 153/56 97 Physical Exam: Gen:Awake and responds appropriately to verbal commands Lungs:Clear Extremities:No cyanosis or edema. Neuro:Moves all extremities equally Fluid Balance (Past 24 Hours): 10/20/17 06:59 Intake Total 1547.1 Output Total 612 Balance 935.1 Weight 130 lb Intake: IV Fluids 1169.5 ABX - CEFTRIAXONE LR 1146 NS (0.9%) 23.5 NS 50ML, Cefazolin 1G IVPB 260 ABX - CEFTRIAXONE 55 Calcium Keppra 205 Medicated IV 57.6 Desmopressin Acetate 57.6 Oral 60 Packed Cells Colvin Irrigate Amount Output: RUDDY #1 37 Cranial Drain 118 Urine Colvin 457 Other: # Bowel Movements # Voids Labs: 10/17/17 10/20/17 10/20/17 11:51 05:20 05:20 WBC 8.0 Hgb 6.9 Hct 20 Plt Count 159 MPV 7.6 Sodium 133 Potassium 5.3 Chloride 98 L Carbon Dioxide 25 Anion Gap 10 BUN 70 H Creatinine 6.20 H Glucose 115 H Calcium 6.4 NOTE: Received erythropoietin after dialysis. Studies: None today Nutrition: None Impression: Slow but steady improvement in neuro status. Plan: 1. Start feeding (oral diet). 2. Hemodialysis as needed. 3. Repeat head CT scan tomorrow. 4. Treat AFib if recurs.
[2017-10-20] MEDS: hydrALAZINE IV* 20 MG/ML VIAL IV SLOW PU PRN (18:48)
[2017-10-20] MEDS: cefTRIAXone(*) 1 GM in NS 0.9% 50 ML* 50 ML IVPB SCH (20:17)
[2017-10-20] MEDS: Ondansetron 40 MG VIAL* 2 MG/ML 20 ML VIAL IV PRN (20:21)
--- NOTE | 2017-10-21 00:03 | PN ---
Progress Note - Progress Note Date of Service: 10/20/17 SOAP: Subjective: [] Patient seen earlier in ICU. Tolerates PO well. EVD functioning, open at 15 since this am. RUDDY in place Objective: []VSS Wound soft,clean,dry. RUDDY in place. EVD in place. Opens eyes to verbal, Ox1, ALANA, CN II-XII grossly inact. Motor 4-5/5 all extremities, No drift. Sensory grossly intact to light touch. Assessment: []67 yof POD#2 Left parietal tumor resection, Left cerebellar hematoma evacuation. Plan: []Monitor VS, Neurochecks. Consider dialysis without heparin in am. CT in am EVD at 15 for now Keep SBP 90-140. HOB 30 ' Consider start tapering steroids in am Follow pathology report. Discussed with patient's son Nacho on the phone regarding patient's condition yesterday. Appreciate ICU, Nephrology, IM care. Vincenzo Vela MD
[2017-10-21] MEDS: Dexamethasone IV* 4 MG/ML 1 ML (4 MG) IV SLOW PU SCH ×5 (00:28→23:33)
--- NOTE | 2017-10-21 02:25 | OP ---
DATE OF OPERATION: 10/19/17 - ROOM #ICU-06 DATE OF : 46 SURGEON: Dr. Mary Vela. CO-SURGEON: Dr. Solomon Lee. ANESTHESIA: General. PRE-OP DIAGNOSIS: Left cerebellar intracranial hemorrhage. POST-OP DIAGNOSIS: Left cerebellar intracranial hemorrhage. OPERATIVE PROCEDURE: Left suboccipital craniectomy for evacuation of intracranial hemorrhage. Revision of previous wound. Right frontal EVD placement. ESTIMATED BLOOD LOSS: 350 cc. COMPLICATIONS: None. SUMMARY: The patient is a very pleasant 67-year-old female with multiple medical comorbidities including renal failure, on dialysis, who underwent a recent left parietal craniotomy for resection of recurrent left parietal tumor earlier today. The patient tolerated the procedure well. She had an episode of urinary bladder hemorrhage, which was treated post-operatively and in the postoperative CT scan, the patient was found to have a left cerebellar intracranial hemorrhage. After explaining expectations, limitations, and possible complications of the procedure to the patient's son, Nacho, the patient was offered the option of a left suboccipital craniectomy for evacuation of the intracranial hemorrhage. Possible complications including but not limited to bleeding, infection, risk of injury to adjacent structures, coma, paralysis, , need for additional procedures, anesthesia risks, stroke , blindness, cancer,speech, balance difficulties, the patient's son was agreeable to proceed with surgery and informed consent was obtained over the phone. The patient's son understood that her condition may not improve and in fact may get worse after the surgery and that she may need to have additional procedures in the future. He also understood that the patient may have prolonged ICU stay, need for tracheostomy or gastrostomy, and that intraoperative plan may be modified according to intraoperative findings and conditions. DESCRIPTION OF PROCEDURE: The patient was brought to the operating room, was placed under general anesthesia by the anesthesia team. Hair was removed with surgical clippers on the right frontal area and the skin was prepped and draped in the sterile fashion. After appropriate surgical pause and patient identification, a small incision over the right frontal area was made with #10 surgical blade after infiltrating the skin with local anesthetic. A handheld drill was used to create a twist olinda hole and the dura was opened, a ventricular catheter was placed with good return of spinal fluid in the first pass. Then the cather was tunneled through a separate stab wound incision and was secured in place. The incision was closed with Nylon sutures covered with sterile sponges and the dressing, The drain was carefully secured, kept closed while patient was positioned and connected to an EVD drainage bag after patient was positioned. After placement of the ventriculostomy, the patient was positioned in the lateral decubitus position with an axillary roll and the assistance of the panchal bag. Her head was secured in 3-point Sr fixation system and additional hair was removed with surgical clipper. The previous incision was identified and an extension of the incision was marked in the skin. Skin was prepped and draped in the sterile fashion and after surgical pause and patient identification, the incision of the previous craniotomy was gently opened and a #10 surgical blade was used to extend the lower part of the incision caudally. The incision was carried down into the periosteum with Bovie cautery to the lower part of the incision and the skin flap was gently reflected over a folded sponge and secured in place with [place] hooks. The bur hole cover in the lower part of the incision was removed and a high-speed drill was used to perform a small craniectomy extending over the left suboccipital area. The craniectomy was completed with the use of Kerrison punches. The dura was divided with the use of a #15 surgical blade and Metzenbaum scissors and evacuation of the left cerebellar hematoma was performed with bipolar cautery and gentle suction. Large amount of intracranial hemorrhage in that area was identified and was then removed. At the end of the removal, meticulous hemostasis was obtained. The cerebellum was found to be pulsating nicely without evidence of mass effect while all visible clots were removed. Also, the dura was covered with DuraGen and the wound was closed by layers in a watertight fashion with 2-0 interrupted Vicryl sutures to approximate the dorsal fascia and galea, while the skin was approximated with surgical clips. At the end of the procedure, all counts were reported to be correct. Prior to the closure, a meticulous inspection of the wound and confirmation of meticulous hemostasis was performed. The patient remained hemodynamically stable throughout the case. At the end of the procedure, she was removed from the 3-point Sr frame system. She was extubated and was transferred back to the intensive care unit in excellent condition. The case was done with two attending physicians because of the complexity of the case. [id number]/[facility] #: [id number] RANDA
[2017-10-21] MEDS: Ondansetron 40 MG VIAL* 2 MG/ML 20 ML VIAL IV PRN (04:30)
[2017-10-21] MEDS: hydrALAZINE IV* 20 MG/ML VIAL IV SLOW PU PRN ×3 (05:00→20:29)
[2017-10-21 05:45] LABS: Hematocrit 21 % (35-47); Hemoglobin 7.5 g/dl (12.0-16.0); Mean Corpuscular HGB Conc 35 g/dl (31-36); Mean Corpuscular Hemoglobin 32 pg (27-31); Mean Corpuscular Volume 91 fL (80-97); Mean Platelet Volume 7.8 um3 (7.4-10.4); Platelet Count 140 10^3/ul (150-450); Red Blood Count 2.35 10^6/ul (4.00-5.40); Red Cell Distribution Width 15 % (10.5-15); White Blood Count 5.7 10^3/ul (3.5-10.8)
[2017-10-21 05:52] LABS: EGFR Non-African American 8.3 (>60)
[2017-10-21] MEDS: Metoprolol Tartrate TAB* 25 MG PO SCH ×2 (09:02→20:10)
[2017-10-21] MEDS: proPAFENone TAB* 150 MG PO SCH ×2 (09:02→20:09)
--- NOTE | 2017-10-21 09:53 | RAD ---
Indication: Follow-up left cerebellar hemorrhage. CT of the brain was performed without IV contrast. Comparison is made with previous exam dated October 19, 2017. Again noted is left cerebellar hematoma not significantly changed since previous exam. Left occipital craniotomy is noted. Small amount of intraventricular blood is noted in the fourth ventricle which is similar to that seen previously. Ventricular shunt is in place. Vasogenic edema in the left occipital lobe appears to be similar to that seen previously. IMPRESSION: Left cerebellar hematoma. Patient is status post left craniotomy. Vasogenic edema in the left parietal area is unchanged. No significant change is noted since October 21, 2017.
[2017-10-21] MEDS: levETIRAcetam 500 MG IVPREMIX* 500 MG/100 ML BAG IV SCH (11:43)
--- NOTE | 2017-10-21 14:29 | PN ---
Date of Service: 10/21/17 Critical Care Services: More alert today but still intermittently confused. Has been afebrile. Ventricular drain continues to drain about 10-15 cc/hr. Vital Signs: Temp Pulse Resp BP SpO2 FiO2 97.5 F 78 18 159/57 98 Physical Exam: Gen:Alert and follows commands HEENT:Surgical dressing in place. Ventricular drain in place. Lungs:Clear Extremities:No cyanosis or edema. Neuro: Moves all extremities equally Fluid Balance (Past 24 Hours): 10/21/17 06:59 Intake Total 1107.4 Output Total 938 Balance +169.4 Weight 132 lb Intake: IV Fluids 583.4 LR 432 NS (0.9%) 151.4 NS 50ML, Cefazolin 1G IVPB 254 ABX - CEFTRIAXONE Calcium Keppra 254 Medicated IV Desmopressin Acetate Oral 20 Packed Cells 250 Colvin Irrigate Amount Output: RUDDY #1 13 RUDDY #2 2 Cranial Drain 162 Colvin 761 Other: # Bowel Movements 0 Labs: 10/21/17 10/21/17 04:30 04:30 WBC 5.7 Hgb 7.5 L Hct 21 L MCV 91 MCH 32 H MCHC 35 RDW 15 Plt Count 140 L Sodium 132 L Potassium 4.7 Chloride 95 L Carbon Dioxide 27 Anion Gap 10 BUN 53 H Creatinine 5.12 H Est GFR ( Amer) 10.1 Est GFR (Non-Af Amer) 8.3 BUN/Creatinine Ratio 10.4 Glucose 127 H Calcium 7.0 L Studies: None today Nutrition: Oral diet - intake improving Impression: Satisfactory postop course. Plan: Continue general supportive care. Dialysis tomorrow.
[2017-10-21] MEDS: levETIRAcetam IV* 500 MG in NS 0.9% 100 ML* 100 ML IVPB SCH ×2 (15:57→23:33)
--- NOTE | 2017-10-21 18:29 | PN ---
Progress Note - Progress Note Date of Service: 10/21/17 SOAP: Subjective: []Patient seen earlier in ICU. Tolerates PO well. EVD functioning, open at 10 since this am. RUDDY in place. More awake today. Patient reported to be agitated for a short period of time, pulled EVD slightly. Objective: [] VSS Wound soft,clean,dry. RUDDY in place. EVD in place. Output noted Opens eyes to verbal, Ox1-2, ALANA, CN II-XII grossly inact. Motor 4-5/5 all extremities, No drift. Sensory grossly intact to light touch. Assessment: []67 yof POD#3 Left parietal tumor resection, Left cerebellar hematoma evacuation. Plan: [] Monitor VS, Neurochecks. Consider dialysis without heparin. CT stable. Ventricular size slightly decreased Raise EVD to 15 for now. Keep drainage between 5 and 10 cc/h if tolerated. Consider raising further tomorrow as tolerated. Keep SBP 90-140. HOB 30 ' Consider start tapering steroids. Nutrition. 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 Follow final pathology report. Appreciate ICU, Nephrology, IM care. Vincenzo Vela MD
[2017-10-21] MEDS: cefTRIAXone(*) 1 GM in NS 0.9% 50 ML* 50 ML IVPB SCH (20:09)
[2017-10-21] MEDS: ALPRAZolam TAB* 0.25 MG PO PRN (20:28)
[2017-10-22 05:07] LABS: Hematocrit 20 % (35-47); Hemoglobin 7.1 g/dl (12.0-16.0); Mean Corpuscular HGB Conc 35 g/dl (31-36); Mean Corpuscular Hemoglobin 32 pg (27-31); Mean Corpuscular Volume 91 fL (80-97); Mean Platelet Volume 7.5 um3 (7.4-10.4); Platelet Count 140 10^3/ul (150-450); Red Blood Count 2.22 10^6/ul (4.00-5.40); Red Cell Distribution Width 15 % (10.5-15)
[2017-10-22 05:20] LABS: EGFR Non-African American 7.1 (>60)
[2017-10-22] MEDS: Dexamethasone IV* 4 MG/ML 1 ML (4 MG) IV SLOW PU SCH ×3 (06:10→22:32)
[2017-10-22] MEDS: Metoprolol Tartrate TAB* 25 MG PO SCH ×2 (09:00→20:11)
[2017-10-22] MEDS: proPAFENone TAB* 150 MG PO SCH ×2 (09:00→20:12)
[2017-10-22] MEDS ORDERED: Epoetin Alfa* 10,000 UNITS/ML VIAL SUBCUT ONE (10:00)
[2017-10-22] MEDS: hydrALAZINE IV* 20 MG/ML VIAL IV SLOW PU PRN ×2 (10:07→20:13)
[2017-10-22] MEDS ORDERED: Metoprolol Tartrate IV* 1 MG/ML 5 ML VIAL ONE (11:09)
[2017-10-22] MEDS: Metoprolol Tartrate IV* 1 MG/ML 5 ML VIAL IV ONE ×2 (11:10→11:28)
[2017-10-22] MEDS: levETIRAcetam IV* 500 MG in NS 0.9% 100 ML* 100 ML IVPB SCH ×2 (12:10→22:32)
--- NOTE | 2017-10-22 18:57 | PN ---
Date of Service: 10/22/17 Critical Care Services: Patient continues to do well. Was dialysed today and tolerated full dialysis run. Food intake improving. Vital Signs: Temp Pulse Resp BP SpO2 FiO2 97.5 F 119 18 168/87 94 NOTE: Cardiac rhythm is AFIB Physical Exam: Gen:Alert. Oriented to person but not place or time. HEENT:No facial asymmetry Lungs: Clear Abdomen: Not distended Extremities:Moves all extremities. Fluid Balance (Past 24 Hours): 10/22/17 06:59 Intake Total 852 Output Total 553 Balance +299 Weight 138 lb Intake: IV Fluids 722 ABX - CEFTRIAXONE 55 Keppra 110 LR 547 NS (0.9%) 10 IVPB ABX - CEFTRIAXONE Keppra Medicated IV Desmopressin Acetate Oral 110 Packed Cells Colvin Irrigate Amount 20 Output: RUDDY #1 RUDDY #2 Cranial Drain 91 Colvin 462 Other: # Bowel Movements Labs: 10/22/17 10/22/17 04:55 04:55 WBC 4.0 RBC 2.22 L Hgb 7.1 L Hct 20 L MCV 91 MCH 32 H MCHC 35 RDW 15 Plt Count 140 L MPV 7.5 Sodium 133 L Potassium 4.8 Chloride 97 L Carbon Dioxide 26 Anion Gap 10 BUN 70 H Creatinine 5.92 H Est GFR ( Amer) 8.5 Est GFR (Non-Af Amer) 7.1 BUN/Creatinine Ratio 11.8 Glucose 125 H Calcium 6.8 L Studies: None today Nutrition: Oral diet Impression: Satisfactory postop course. Two most concerning conditions are the anemia (Hb = 7.1) and the AFib (is paroxysmal and being Rxed with beta rita) Plan: 1. Continue general supportive care. 2. Increase steroid dosing interval from q6 to q8h 3. Monitor serum Hb 4. Consider diltiazem or amiodarone if Afib becomes problematic Critical Care Time: 30 minutes
[2017-10-22] MEDS ORDERED: ALPRAZolam TAB* 0.25 MG ONE (20:06)
[2017-10-22] MEDS: ALPRAZolam TAB* 0.25 MG PO PRN (20:11)
[2017-10-22] MEDS: cefTRIAXone(*) 1 GM in NS 0.9% 50 ML* 50 ML IVPB SCH (20:11)
--- NOTE | 2017-10-23 00:02 | PN ---
Progress Note - Progress Note Date of Service: 10/22/17 SOAP: Subjective: []Patient seen earlier in ICU. Tolerates PO well. EVD functioning, changed to 15 since this am. RUDDY in place. Reported episode of Afib during dialysis, resolved. Objective: []VSS Wound soft,clean,dry. RUDDY in place. EVD in place. Output noted Opens eyes to verbal, Ox1-2, ALANA, CN II-XII grossly inact. Motor 4-5/5 all extremities, No drift. Sensory grossly intact to light touch. Assessment: []67 yof POD#4 Left parietal tumor resection, Left cerebellar hematoma evacuation. Plan: [] Monitor VS, Neurochecks. Dialysis without heparin. Raise EVD to 15 for now. Keep drainage between 3 and 7 cc/h if tolerated. Start weaning EVD as tolerated. Keep SBP 90-140. HOB 30 ' Tapering steroids. Nutrition consult. DC planning for placement. 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 Follow final pathology report. Appreciate ICU, Nephrology, IM care. Vincenzo Vela MD
[2017-10-23 05:31] LABS: Hematocrit 21 % (35-47); Hemoglobin 7.4 g/dl (12.0-16.0); Mean Corpuscular HGB Conc 35 g/dl (31-36); Mean Corpuscular Hemoglobin 32 pg (27-31); Mean Corpuscular Volume 92 fL (80-97); Mean Platelet Volume 7.5 um3 (7.4-10.4); Platelet Count 159 10^3/ul (150-450); Red Blood Count 2.29 10^6/ul (4.00-5.40); Red Cell Distribution Width 15 % (10.5-15); White Blood Count 4.1 10^3/ul (3.5-10.8)
[2017-10-23 05:54] LABS: EGFR Non-African American 10.8 (>60)
[2017-10-23] MEDS: Dexamethasone IV* 4 MG/ML 1 ML (4 MG) IV SLOW PU SCH ×3 (06:20→23:08)
[2017-10-23] MEDS: hydrALAZINE IV* 20 MG/ML VIAL IV SLOW PU PRN ×2 (06:34→20:49)
[2017-10-23] MEDS: proPAFENone TAB* 150 MG PO SCH ×2 (09:24→20:24)
[2017-10-23] MEDS: Metoprolol Tartrate TAB* 25 MG PO SCH ×2 (09:24→20:24)
[2017-10-23] MEDS: levETIRAcetam IV* 500 MG in NS 0.9% 100 ML* 100 ML IVPB SCH ×2 (10:50→23:08)
--- NOTE | 2017-10-23 13:10 | PN ---
Date of Service: 10/23/17 Critical Care Services: Has an uneventful evening, and is much more alert today. Dr. Espino (oncology) in to see patient yesterday. Vital Signs: Temp Pulse Resp BP SpO2 FiO2 97.7 F 56 15 168/87 77 Physical Exam: Gen:Alert. Responds to verbal commands. HEENT:Surgical dressing in p-lace. Ventricular drain draining about 5 cc/hr. Lungs:Clear Extremities:Warm. No cyanosis or edema. Neuro: Moves all extremities equally Fluid Balance (Past 24 Hours): 10/22/17 10/23/17 06:59 06:59 Intake Total 852 703 Output Total 553 499 Balance 299 204 Weight 138 lb 137 lb Intake: IV Fluids 722 561 ABX - CEFTRIAXONE 55 55 Keppra 110 113 LR 547 294 NS (0.9%) 10 99 IVPB 112 Keppra LR 112 Oral 110 30 Packed Cells Colvin Irrigate Amount 20 Output: RUDDY #1 30 RUDDY #2 Cranial Drain 91 99 Colvin 462 370 Other: # Bowel Movements Labs: 10/23/17 10/23/17 05:14 05:14 WBC 4.1 Hgb 7.4 Hct 21 Plt Count 159 Sodium 135 Potassium 4.5 Chloride 96 L Carbon Dioxide 30 Anion Gap 9 BUN 40 Creatinine 4.10 Glucose 105 H Calcium 7.7 L Magnesium 2.0 Studies: None today Nutrition: Oral Diet Impression: Continues to improve postop. No signs of infection Plan: 1. Continue ventricular drainage 2. General supportive care 3. Up in chair when tolerated. 4. Physical therapy consult
--- NOTE | 2017-10-23 14:32 | PN ---
Progress Note - Progress Note Date of Service: 10/23/17 SOAP: Subjective: []Patient seen earlier in ICU. No events ON. Tolerates PO well. EVD functioning after flushing this am. Objective: []]VSS Wound soft,clean,dry. RUDDY in place. EVD in place. Output noted Opens eyes to verbal, Ox1-2, ALANA, CN II-XII grossly inact. Motor 4-5/5 all extremities, No drift. Sensory grossly intact to light touch. Assessment: []67 yof POD#4 Left parietal tumor resection, Left cerebellar hematoma evacuation. Plan: [] Monitor VS, Neurochecks. Dialysis without heparin. Raise EVD to 12 for now. Keep drainage between 2 and 5 cc/h if tolerated. Start weaning EVD as tolerated. Keep SBP 90-140. HOB 30 ' Tapering steroids. Nutrition consult. DC planning for placement. 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 Follow final pathology report. Appreciate ICU, Nephrology, IM care. Vincenzo Vela MD
[2017-10-23] MEDS: cefTRIAXone(*) 1 GM in NS 0.9% 50 ML* 50 ML IVPB SCH (20:23)
[2017-10-23] MEDS: ALPRAZolam TAB* 0.25 MG PO PRN (23:09)
[2017-10-24] MEDS ORDERED: hydrALAZINE IV* 20 MG/ML VIAL IV SLOW PU ONE (00:31)
[2017-10-24] MEDS: Dexamethasone IV* 4 MG/ML 1 ML (4 MG) IV SLOW PU SCH ×3 (04:56→20:56)
[2017-10-24 07:11] LABS: Hematocrit 23 % (35-47); Hemoglobin 7.8 g/dl (12.0-16.0); Mean Corpuscular HGB Conc 35 g/dl (31-36); Mean Corpuscular Hemoglobin 32 pg (27-31); Mean Corpuscular Volume 93 fL (80-97); Mean Platelet Volume 7.5 um3 (7.4-10.4); Platelet Count 201 10^3/ul (150-450); Red Blood Count 2.43 10^6/ul (4.00-5.40); Red Cell Distribution Width 15 % (10.5-15); White Blood Count 8.2 10^3/ul (3.5-10.8)
[2017-10-24] MEDS: hydrALAZINE IV* 20 MG/ML VIAL IV SLOW PU PRN ×2 (07:11→21:06)
[2017-10-24] MEDS: Metoprolol Tartrate TAB* 25 MG PO SCH ×2 (09:11→21:06)
[2017-10-24] MEDS: proPAFENone TAB* 150 MG PO SCH ×2 (09:11→20:56)
[2017-10-24] MEDS: levETIRAcetam IV* 500 MG in NS 0.9% 100 ML* 100 ML IVPB SCH ×2 (11:10→23:53)
--- NOTE | 2017-10-24 12:05 | PN ---
Progress Note - Progress Note Date of Service: 10/24/17 SOAP: Subjective: []Patient seen earlier in ICU. No events ON. Tolerates PO well. EVD non functioning after patient pulled it this am. Objective: []VSS Wound soft,clean,dry. RUDDY in place. EVD in place. Output noted Under sterile technique and local anesthesia EVD was removed . Catheter appeared to be intact. No complications. Patient tolerated the procedure well. Opens eyes to verbal, Ox1-2, ALANA, CN II-XII grossly inact. Motor 4-5/5 all extremities, No drift. Sensory grossly intact to light touch. Assessment: []67 yof POD#5 Left parietal tumor resection, Left cerebellar hematoma evacuation. Plan: [] Monitor VS, Neurochecks. Dialysis without heparin. CT today and in am. Keep SBP 90-140. HOB 30 ' Tapering steroids, may change to 2q 8h. Nutrition consult. DC planning for placement. 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 Follow final pathology report. Appreciate ICU, Nephrology, IM care. Vincenzo Vela MD
--- NOTE | 2017-10-24 12:42 | RAD ---
INDICATION: Postoperative evaluation COMPARISON: CT brain October 21, 2017 TECHNIQUE: Noncontrast axial source images were acquired from the skull base to the vertex. FINDINGS: Ventricles/sulci: The ventricles and cisterns are unchanged. There is mild compensatory dilatation of the CSF spaces. Brain parenchyma: Vasogenic edema and a small amount of hemorrhage in the left posterior parietal region near the craniotomy defect is again seen, unchanged. There is minor mass effect with subfalcine shift to the right measuring approximately 5 mm. Intracranial hemorrhage: There is a small amount of right frontal hemorrhage along the course of the ventricular shunt catheter which has not been removed There is intracranial hemorrhage in the left cerebellum with associated vasogenic edema and mild mass effect. This has not changed appreciably. There is mass effect on the ipsilateral basilar cistern. The fourth ventricle appears unchanged Extra-axial spaces: Intracranial hemorrhage is noted above some of which may be extra-axial, unchanged. Calvarium: Left calvarial defect from prior craniotomy. Scalp: Scalp changes consistent with craniotomy. Paranasal sinuses/mastoid: The paranasal sinuses and mastoid air cells are clear. Other: Interval removal of right-sided shunt catheter.. IMPRESSION: No signal significant interval change in the range parenchymal changes, degree of mass effect, and hemorrhage in the left frontal region and left cerebellum. Interval removal of the right ventricular shunt catheter with a small amount of hemorrhage along the course of the tract.
--- NOTE | 2017-10-24 18:03 | PN ---
Date of Service: 10/24/17 Critical Care Services: More alert today, but remains intermittently confused. Ventricular drain removed. Vital Signs: Temp Pulse Resp BP SpO2 FiO2 96.8 F 63 20 151/80 97 Physical Exam: Gen: Appears comfortable in bed. HEENT: Surgical dressing in place. Lungs: Clear Extremities: Warm. No cyanosis or edema Fluid Balance (Past 24 Hours): 10/22/17 10/23/17 10/24/17 06:59 06:59 06:59 Intake Total 554 836 9698 Output Total 553 499 555 Balance 299 204 767 Weight 138 lb 137 lb 133 lb Intake: IV Fluids 722 561 542 ABX - CEFTRIAXONE 55 55 125 Keppra 110 113 50 LR 547 294 NS (0.9%) 10 99 367 IVPB 112 LR 112 Oral 110 30 530 Packed Cells 250 Colvin Irrigate Amount 20 Output: RUDDY #1 30 26 Cranial Drain 91 99 14 Colvin 462 370 515 Other: Date of Last Bowel Movement # Bowel Movements 0 Estimated Stool Amount Labs: 10/24/17 10/24/17 06:22 06:22 WBC 8.2 Hgb 7.8 L Hct 23 L MCV 93 Plt Count 201 Sodium 134 L Potassium 4.9 Chloride 96 L Carbon Dioxide 30 BUN 55 Creatinine 4.78 Glucose 111 H Calcium 7.3 L Studies: Head CT -no significant change from prior study. Nutrition: Oral diet Impression: Tolerating removal of drain Plan: 1. General supportive care 2. Repeat CT scan in AM tomorrow. 3. Scheduled dialysis tomorrow.
[2017-10-24] MEDS: ALPRAZolam TAB* 0.25 MG PO PRN (22:43)
[2017-10-25] MEDS ORDERED: hydrALAZINE IV* 20 MG/ML VIAL IV SLOW PU ONE (00:03)
[2017-10-25] MEDS ORDERED: Hydrocortisone 1% CREAM* 30 GM TUBE TOPICAL PRN (01:58)
[2017-10-25] MEDS: fentaNYL* 50 MCG/ML 2 ML VIAL (100 MCG VIAL) IV SLOW PU PRN (03:09)
[2017-10-25] MEDS: hydrALAZINE IV* 20 MG/ML VIAL IV SLOW PU PRN ×3 (03:10→15:55)
[2017-10-25] MEDS: Dexamethasone IV* 4 MG/ML 1 ML (4 MG) IV SLOW PU SCH ×3 (06:46→22:17)
[2017-10-25 07:02] LABS: Hematocrit 22 % (35-47); Hemoglobin 7.4 g/dl (12.0-16.0); Mean Corpuscular HGB Conc 34 g/dl (31-36); Mean Corpuscular Hemoglobin 32 pg (27-31); Mean Corpuscular Volume 94 fL (80-97); Mean Platelet Volume 7.1 um3 (7.4-10.4); Platelet Count 199 10^3/ul (150-450); Red Blood Count 2.29 10^6/ul (4.00-5.40); Red Cell Distribution Width 15 % (10.5-15); White Blood Count 8.1 10^3/ul (3.5-10.8)
[2017-10-25 07:18] LABS: EGFR Non-African American 7.6 (>60)
--- NOTE | 2017-10-25 08:24 | RAD ---
INDICATION: Intracranial hemorrhage. Postoperative craniotomy. COMPARISON: CT brain October 24, 2017 TECHNIQUE: Noncontrast axial source images were acquired from the skull base to the vertex. FINDINGS: Ventricles/sulci: The ventricles appear unchanged. There is mild diffuse volume loss. Brain parenchyma: There is vasogenic edema and a small amount of hemorrhage in the left posterior parietal region near the craniotomy defect this is unchanged. There is mass effect with mild subfalcine shift measuring 5 mm, unchanged. There is left cerebellar hemorrhage. The hemorrhagic focus measures approximately 2.3 cm in maximum transverse dimension. This has not changed appreciably. There is mild mass effect with effacement of the right lateral basilar cistern, unchanged. The fourth ventricle is unchanged. There is a small defect at the site of right frontal intracranial shunt catheter with a small amount of hemorrhage along the course of the shunt, unchanged. Intracranial hemorrhage:Foci of intracranial hemorrhage is noted above. Extra-axial spaces: Extra axial spaces appear unchanged. Some of the hemorrhages extra-axial. Calvarium: There is a left calvarial defect secondary to recent craniotomy.. Scalp: Skeletal changes consistent with the craniotomy. Paranasal sinuses/mastoid: The paranasal sinuses and mastoid air cells are clear. Other: None. IMPRESSION: NO SIGNIFICANT INTERVAL CHANGES AT THE OPERATIVE SITE OR FOCUS OF HEMORRHAGE IN LEFT CEREBELLUM.
[2017-10-25] MEDS: proPAFENone TAB* 150 MG PO SCH ×2 (08:54→21:42)
[2017-10-25] MEDS: Metoprolol Tartrate TAB* 25 MG PO SCH ×2 (08:54→21:42)
--- NOTE | 2017-10-25 09:32 | PN ---
Progress Note - Progress Note Date of Service: 10/25/17 Note: Progress Note Critical Care 24 hour events/significant events: -no events overnight; in bed, awake/alert. Oriented x2. Answering questions appropriately. -denies headache/n/v/blurry vision. Tele: NSR Vitals: Vital Signs Temp 96.6 F 10/25/17 08:18 Pulse 62 10/25/17 08:18 Resp 20 10/25/17 08:18 BP 176/83 10/25/17 08:18 Pulse Ox 97 10/25/17 08:18 Intake & Output 10/24/17 10/25/17 10/25/17 18:59 06:59 18:59 Intake Total 729 283 Output Total 199 304 95 Balance 530 -21 -95 Weight 134 lb 7.712 oz Intake: IV Fluids 159 283 Keppra 107 NS (0.9%) 159 176 Oral 570 0 Output: RUDDY #1 23 10 Cranial Drain 1 Colvin 175 294 95 Other: Date of Last Bowel 10/24/17 Movement # Bowel Movements 0 Estimated Stool Amount Small O2/Vent: RA Infusions: heplock Medications: Alprazolam (Xanax Tab*) 0.25 mg PO TID PRN PRN Reason: ANXIETY Last Admin: 10/24/17 22:43 Dose: 0.25 mg Dexamethasone Sodium Phosphate (Decadron Iv*) 2 mg IV SLOW PU Q8HR GURJIT Last Admin: 10/25/17 06:46 Dose: 2 mg Fentanyl Citrate (Fentanyl*) 12.5 mcg IV SLOW PU Q4H PRN PRN Reason: PAIN Last Admin: 10/25/17 03:09 Dose: 12.5 mcg Hydralazine HCl (Apresoline Iv*) 5 mg IV SLOW PU Q6H PRN PRN Reason: BLOOD PRESSURE Last Admin: 10/25/17 09:09 Dose: 5 mg Hydrocortisone (Hytone Cream 1%*) 1 applic TOPICAL DAILY PRN PRN Reason: ITCHING Last Admin: 10/25/17 03:10 Dose: 1 applic Levetiracetam 500 mg/ Sodium (Chloride) 105 mls @ 420 mls/hr IVPB Q12H GURJIT Last Admin: 10/24/17 23:53 Dose: 420 mls/hr Lactated Ringer's (Lactated Ringers 1000 Ml Bag*) 1,000 mls @ 5 mls/hr IV PER RATE [facility] Metoprolol Tartrate (Lopressor Tab*) 25 mg PO BID [facility] Last Admin: 10/25/17 08:54 Dose: 25 mg Ondansetron HCl (Zofran 40 Mg Vial*) 4 mg IV Q6H PRN PRN Reason: NAUSEA/VOMITING Last Admin: 10/21/17 04:30 Dose: 4 mg Prochlorperazine Edisylate (Compazine Inj*) 5 mg IV Q6H PRN PRN Reason: NAUSEA/VOMITING Last Admin: 10/20/17 19:02 Dose: 1 ml Propafenone HCl (Rythmol*) 75 mg PO BID [facility] Last Admin: 10/25/17 08:54 Dose: 75 mg Physical Exam: General: awake, alert, no distress, no diaphoresis Head: left parietal dressing in place; RUDDY drain noted posteriorly HEENT: no pallor, no icterus, moist mucous membranes Neck: soft, supple, no jvd, no stridor CVS: normal rate, regular, no murmur Resp: bilateral air entry, no rhales, no wheeze, no rhonchi, no acc muscle use Abdomen: soft, nontender, nondistended, bowel sounds present Ext: pulses+, warm, no edema Skin: intact, no breakdown, no dryness Neuro: awake, alert, orientedx3, moving all extremities, right upper ext 4-5/5, left side 5/5 Labs: Laboratory Results - last 24 hr 10/25/17 10/25/17 06:47 06:47 WBC 8.1 RBC 2.29 L Hgb 7.4 L Hct 22 L MCV 94 MCH 32 H MCHC 34 RDW 15 Plt Count 199 MPV 7.1 L Sodium 134 L Potassium 4.7 Chloride 98 L Carbon Dioxide 27 Anion Gap 9 BUN 64 H Creatinine 5.55 H Est GFR ( Amer) 9.2 Est GFR (Non-Af Amer) 7.6 BUN/Creatinine Ratio 11.5 Glucose 88 Calcium 6.9 L Imaging: ct brain 10/25 - no new changes noted (reviewed report) Assessment: 67y F pmhx Afib, Chf, HLD, COPD, h/o lung CA 1994 s/p lobectomy, ESRD on HD, h/o meningioma resection 2014; admitted for confusion, stroke likey symptoms, found to have left parietal mass with vasogenic edema. -Left parietal meningioma, s/p parietal tumour resection 10/18 -Left cerebellar hematoma resection 10/18 -Afib -ESRD on HD Plan: Neuro- awake, minimal/no confusion. EVD removed. RUDDY in place. pt/ot. cont keppra 500 q12h. decadrone 2mg iv q8h, tapering. CVS- nsr, not in afib. cont metoprolol 25mg bid. no AC given hemorrhage. hydralazine prn. Resp- on RA, no distress ID- afebrile. wbc bright. Proteus UTI tx course complete. no abx indicated. GI- tolerating po intake. advnace/encourage as tolerated. Renal- ESRD on HD, HD today. Heme- hg okay. plt okay. Endo- fingersticks as needed Musculsk- pt/ot Wounds- wound care to craniotomy site. Nutrition- encourage po intake DVT prophylaxis: - GI prophylaxis:- Central Line:- Arterial Line:- Colvin Cathetor:- Disposition: ICU, improving; discharge planning Code Status: full code Jack Carlson MD [place] [place] [employer] (Electronically Signed)
[2017-10-25] MEDS ORDERED: Diltiazem IV* 5 MG/ML 5 ML VIAL (for loading dose/IV Push) (25 MG) IV SLOW PU ONE (11:52)
[2017-10-25] MEDS ORDERED: Epoetin Alfa* 10,000 UNITS/ML VIAL IV ONE (13:00)
[2017-10-25] MEDS: levETIRAcetam IV* 500 MG in NS 0.9% 100 ML* 100 ML IVPB SCH (15:09)
--- NOTE | 2017-10-25 18:22 | PN ---
Progress Note - Progress Note Date of Service: 10/25/17 SOAP: Subjective: []Patient seen earlier in ICU. No events ON. Tolerates PO well. On dialysis. Objective: []VSS Wound soft,clean,dry. Arthur catheter was removed . Catheter appeared to be intact. No complications. Patient tolerated the procedure well. Opens eyes to verbal, Ox1-2, ALANA, CN II-XII grossly inact. Motor 4-5/5 all extremities, No drift. Sensory grossly intact to light touch. Assessment: []67 yof POD#6 Left parietal tumor resection, Left cerebellar hematoma evacuation. Plan: []Monitor VS, Neurochecks. Dialysis without heparin. CT stable postop changes, No changes in ventricular size. Keep SBP 90-140. HOB 30 ' Tapering steroids, may change to 2mg q 12 and continue tapering. Nutrition consult. DC planning for placement. Final pathology report meningioma WHO II. Follow up with oncology, Dr Espino. Appreciate ICU, Nephrology, IM care. Vincenzo Vela MD
[2017-10-25] MEDS ORDERED: Diltiazem IV* 5 MG/ML 5 ML VIAL (for loading dose/IV Push) (25 MG) IV PUSH ONE (18:25)
[2017-10-25] MEDS ORDERED: Diltiazem IV VIAL* 125 MG in NS 0.9% 100 ML* 100 ML IV SCH (19:30)
[2017-10-26] MEDS: hydrALAZINE IV* 20 MG/ML VIAL IV SLOW PU PRN ×2 (02:01→08:42)
[2017-10-26] MEDS ORDERED: levETIRAcetam 500 MG IVPREMIX* 500 MG/100 ML BAG IVPB SCH (03:00)
[2017-10-26] MEDS ORDERED: levETIRAcetam IV* 500 MG in NS 0.9% 100 ML* 100 ML IVPB SCH (03:00)
[2017-10-26] MEDS: Dexamethasone IV* 4 MG/ML 1 ML (4 MG) IV SLOW PU SCH ×2 (06:09→18:21)
[2017-10-26] MEDS: proPAFENone TAB* 150 MG PO SCH ×2 (08:39→20:39)
[2017-10-26] MEDS: Metoprolol Tartrate TAB* 25 MG PO SCH ×2 (08:39→20:38)
--- NOTE | 2017-10-26 10:28 | PN ---
Progress Note - Progress Note Date of Service: 10/26/17 Note: Progress Note Critical Care 24 hour events/significant events: -no events overnight; in bed, awake/alert. Oriented x2. Answering questions appropriately. -denies headache/n/v/blurry vision. -carol/ramon removed yesterday -noted afib during HD yesterday; off cardizem infusion now; nsr Tele: NSR; afib yesterday Vitals: Vital Signs Temp 98.4 F 10/26/17 10:00 Pulse 61 10/26/17 10:00 Resp 19 10/26/17 10:00 BP 180/81 10/26/17 10:00 Pulse Ox 96 10/26/17 10:00 Intake & Output 10/25/17 10/26/17 10/26/17 18:59 06:59 18:59 Intake Total 60 304.9 0 Output Total 390 260 42 Balance -330 44.9 -42 Weight 134 lb 11.239 oz Intake: IV Fluids 268.6 Keppra 215 NS (0.9%) 53.6 Medicated IV 36.3 GEN - Diltiazem/Cardizem 36.3 Oral 60 0 Output: Urine 35 Colvin 355 260 42 O2/Vent: RA Infusions: heplock Medications: Alprazolam (Xanax Tab*) 0.25 mg PO TID PRN PRN Reason: ANXIETY Last Admin: 10/24/17 22:43 Dose: 0.25 mg Dexamethasone Sodium Phosphate (Decadron Iv*) 2 mg IV SLOW PU Q12H [facility] Fentanyl Citrate (Fentanyl*) 12.5 mcg IV SLOW PU Q4H PRN PRN Reason: PAIN Last Admin: 10/25/17 03:09 Dose: 12.5 mcg Hydralazine HCl (Apresoline Iv*) 5 mg IV SLOW PU Q6H PRN PRN Reason: BLOOD PRESSURE Last Admin: 10/26/17 08:42 Dose: 5 mg Hydralazine HCl (Apresoline Tab*) 25 mg PO BID PRN PRN Reason: for sbp >140 Hydrocortisone (Hytone Cream 1%*) 1 applic TOPICAL DAILY PRN PRN Reason: ITCHING Last Admin: 10/25/17 03:10 Dose: 1 applic Lactated Ringer's (Lactated Ringers 1000 Ml Bag*) 1,000 mls @ 5 mls/hr IV PER RATE [facility] Diltiazem HCl 125 mg/ Sodium (Chloride) 125 mls @ 5 mls/hr IV Q24H [facility]; Protocol Last Admin: 10/25/17 19:18 Dose: 5 mls/hr Levetiracetam (Keppra Tab*) 500 mg PO Q12H [facility] Metoprolol Tartrate (Lopressor Tab*) 25 mg PO BID [facility] Last Admin: 10/26/17 08:39 Dose: 25 mg Nifedipine (Procardia Xl Tab*) 30 mg PO DAILY [facility] Ondansetron HCl (Zofran 40 Mg Vial*) 4 mg IV Q6H PRN PRN Reason: NAUSEA/VOMITING Last Admin: 10/21/17 04:30 Dose: 4 mg Prochlorperazine Edisylate (Compazine Inj*) 5 mg IV Q6H PRN PRN Reason: NAUSEA/VOMITING Last Admin: 10/20/17 19:02 Dose: 1 ml Propafenone HCl (Rythmol*) 75 mg PO BID [facility] Last Admin: 10/26/17 08:39 Dose: 75 mg Physical Exam: General: awake, alert, no distress, no diaphoresis Head: left parietal dressing in place HEENT: no pallor, no icterus, moist mucous membranes Neck: soft, supple, no jvd, no stridor CVS: normal rate, regular, no murmur Resp: bilateral air entry, no rhales, no wheeze, no rhonchi, no acc muscle use Abdomen: soft, nontender, nondistended, bowel sounds present Ext: pulses+, warm, no edema Skin: intact, no breakdown, no dryness Neuro: awake, alert, orientedx3, moving all extremities, right upper ext 4-5/5, left side 5/5 Labs: - Imaging: ct brain 10/25 - no new changes noted (reviewed report) Assessment: 67y F pmhx Afib, Chf, HLD, COPD, h/o lung CA 1994 s/p lobectomy, ESRD on HD, h/o meningioma resection 2014; admitted for confusion, stroke likey symptoms, found to have left parietal mass with vasogenic edema. -Left parietal meningioma, s/p parietal tumour resection 10/18 -Left cerebellar hematoma resection 10/18 -Afib -ESRD on HD Plan: Neuro- awake, minimal/no confusion. CAROL removed. pt/ot today. cont keppra 500 po bid. decadrone 2mg iv q12h, tapering. CVS- nsr now. cont metoprolol 25mg bid. hypertensive, start nifedipine XL 30mg po dialy. no AC given hemorrhage. hydralazine prn. Resp- on RA, no distress ID- afebrile. wbc bright. Proteus UTI tx course complete. no abx indicated. GI- tolerating po intake. advnace/encourage as tolerated. Renal- ESRD on HD, HD today. Heme- cbc pending today Endo- fingersticks as needed Musculsk- pt/ot Wounds- wound care to craniotomy site. Nutrition- encourage po intake DVT prophylaxis: - GI prophylaxis:- Central Line:- Arterial Line:- Colvin Cathetor:- Disposition: discharge planning, pt/ot. transfer to medical floor. Code Status: full code Jack Carlson MD [facility] Registrar (Electronically Signed)
[2017-10-26] MEDS ORDERED: NIFEdipine ER TAB* 30 MG PO SCH (11:00)
[2017-10-26] MEDS ORDERED: amLODIPine TAB* 5 MG PO SCH (11:00)
[2017-10-26] MEDS: levETIRAcetam TAB* 500 MG PO SCH ×2 (11:23→22:50)
[2017-10-26] MEDS: amLODIPine TAB* 5 MG PO SCH (11:25)
[2017-10-26 11:38] LABS: Hematocrit 27 % (35-47); Mean Corpuscular HGB Conc 34 g/dl (31-36); Mean Corpuscular Hemoglobin 32 pg (27-31); Mean Corpuscular Volume 95 fL (80-97); Mean Platelet Volume 7.1 um3 (7.4-10.4); Platelet Count 266 10^3/ul (150-450); Red Blood Count 2.81 10^6/ul (4.00-5.40); Red Cell Distribution Width 15 % (10.5-15); White Blood Count 8.3 10^3/ul (3.5-10.8)
[2017-10-26 11:54] LABS: EGFR Non-African American 12.3 (>60)
[2017-10-27] MEDS: Dexamethasone IV* 4 MG/ML 1 ML (4 MG) IV SLOW PU SCH (05:50)
[2017-10-27 06:18] LABS: Hematocrit 22 % (35-47); Hemoglobin 7.5 g/dl (12.0-16.0); Mean Corpuscular HGB Conc 34 g/dl (31-36); Mean Corpuscular Hemoglobin 33 pg (27-31); Mean Corpuscular Volume 95 fL (80-97); Mean Platelet Volume 6.6 um3 (7.4-10.4); Platelet Count 181 10^3/ul (150-450); Red Blood Count 2.29 10^6/ul (4.00-5.40); Red Cell Distribution Width 15 % (10.5-15); White Blood Count 7.5 10^3/ul (3.5-10.8)
[2017-10-27 06:42] LABS: EGFR Non-African American 9.3 (>60)
--- NOTE | 2017-10-27 07:52 | PN ---
Progress Note - Progress Note Date of Service: 10/27/17 SOAP: Subjective: []Easily arousable Oriented Denies headache Objective: []Walking with much assistance No focal deficits Assessment: []Satis post op course Plan: []D/C Decadron Repeat CT in AM Placement whenever bed available
[2017-10-27] MEDS ORDERED: Epoetin Alfa* 10,000 UNITS/ML VIAL IV ONE (12:00)
[2017-10-27] MEDS: levETIRAcetam TAB* 500 MG PO SCH ×2 (14:40→23:18)
[2017-10-27] MEDS: amLODIPine TAB* 5 MG PO SCH (14:40)
[2017-10-27] MEDS: Metoprolol Tartrate TAB* 25 MG PO SCH ×2 (14:40→21:04)
[2017-10-27] MEDS: proPAFENone TAB* 150 MG PO SCH ×2 (14:41→21:02)
[2017-10-27] MEDS ORDERED: Metoprolol Tartrate TAB* 25 MG PO ONE (15:20)
[2017-10-27] MEDS ORDERED: Metoprolol Tartrate TAB* 25 MG ONE (15:29)
--- NOTE | 2017-10-27 16:57 | PN ---
Subjective Date of Service: 10/27/17 Interval History: Assumed care from ICU Into afib while receiving HD. This is at least the second time afib developed during HD this hospital stay No palpitations, SOB or CP Has no complaints. Anxious to get out of hospital Objective Active Medications: Alprazolam (Xanax Tab*) 0.25 mg PO TID PRN PRN Reason: ANXIETY Last Admin: 10/24/17 22:43 Dose: 0.25 mg Amlodipine Besylate (Norvasc Tab*) 5 mg PO DAILY [facility] Last Admin: 10/27/17 14:40 Dose: 5 mg Hydralazine HCl (Apresoline Iv*) 5 mg IV SLOW PU Q6H PRN PRN Reason: BLOOD PRESSURE Last Admin: 10/26/17 08:42 Dose: 5 mg Hydralazine HCl (Apresoline Tab*) 25 mg PO BID PRN PRN Reason: for sbp >140 Hydrocortisone (Hytone Cream 1%*) 1 applic TOPICAL DAILY PRN PRN Reason: ITCHING Last Admin: 10/25/17 03:10 Dose: 1 applic Levetiracetam (Keppra Tab*) 500 mg PO Q12H [facility] Last Admin: 10/27/17 14:40 Dose: 500 mg Metoprolol Tartrate (Lopressor Tab*) 25 mg PO BID [facility] Last Admin: 10/27/17 14:40 Dose: 25 mg Ondansetron HCl (Zofran 40 Mg Vial*) 4 mg IV Q6H PRN PRN Reason: NAUSEA/VOMITING Last Admin: 10/21/17 04:30 Dose: 4 mg Prochlorperazine Edisylate (Compazine Inj*) 5 mg IV Q6H PRN PRN Reason: NAUSEA/VOMITING Last Admin: 10/20/17 19:02 Dose: 1 ml Propafenone HCl (Rythmol*) 75 mg PO BID [facility] Last Admin: 10/27/17 14:41 Dose: 75 mg Vital Signs - 8 hr 10/27/17 10/27/17 10/27/17 14:22 15:08 16:38 Temperature 98.3 F 98.3 F Pulse Rate 133 95 85 Respiratory 16 19 Rate Blood Pressure 147/87 153/82 140/82 (mmHg) O2 Sat by Pulse 96 96 Oximetry Oxygen Devices in Use Now: None Appearance: interactive, NAD Eyes: No Scleral Icterus, PERRLA Ears/Nose/Mouth/Throat: Clear Oropharnyx, Mucous Membranes Moist Neck: NL Appearance and Movements; NL JVP, Trachea Midline Respiratory: Symmetrical Chest Expansion and Respiratory Effort, Clear to Auscultation Cardiovascular: NL Sounds; No Murmurs; No JVD, RRR, No Edema, - Abdominal: NL Sounds; No Tenderness; No Distention Lymphatic: No Cervical Adenopathy Extremities: No Edema Skin: - - wounds c/d/i Neurological: Alert and Oriented x 3 - zero words recall at 2 minutes, unable to spell world backwards, 1 out of 2 steps followed correctly, no focal findings , - Result Diagrams: 10/27/17 06:07 10/27/17 06:07 Additional Lab and Data: . Microbiology and Other Data: Microbiology 10/13/17 17:00 Nasal Screen MRSA (PCR)(YOSSI) - Final Nasal Mrsa Not Detected Assess/Plan/Problems-Billing Assessment: Ms. Cota is a 67 yo female with a PMH of afib and lung ca 1994 sp lobectomy ESRD on HD, meningioma s/p resection who was admitted on 10/13/17 with altered mental status found with left parietal mass c/b vasogenic edema and hematoma s/ p resection 10/18 - Patient Problems (1) Meningioma Comment: drains out BP 90-140 dc planning (2) UTI (urinary tract infection) Comment: proteus completed abx course (3) Atrial fibrillation Comment: Continue propafenone. check EKG tomorrow to check QTC metoprolol 25 BID - plan on increasing dose tomorrow if can tolerate Recommend resume aspirin when approved per neurosurgery. (4) End stage renal disease Comment: - Secondary to ANCA vasculitis history. - MWF dialysis while inpatient. Status and Disposition: discharge planning
[2017-10-28 06:34] LABS: Hematocrit 23 % (35-47); Hemoglobin 7.7 g/dl (12.0-16.0); Mean Corpuscular HGB Conc 34 g/dl (31-36); Mean Corpuscular Hemoglobin 32 pg (27-31); Mean Corpuscular Volume 95 fL (80-97); Mean Platelet Volume 6.6 um3 (7.4-10.4); Platelet Count 185 10^3/ul (150-450); Red Blood Count 2.37 10^6/ul (4.00-5.40); Red Cell Distribution Width 15 % (10.5-15); White Blood Count 7.4 10^3/ul (3.5-10.8)
[2017-10-28 07:03] LABS: EGFR Non-African American 14.5 (>60)
[2017-10-28] MEDS: proPAFENone TAB* 150 MG PO SCH ×2 (09:05→19:59)
[2017-10-28] MEDS: Metoprolol Tartrate TAB* 25 MG PO SCH ×2 (09:05→19:59)
[2017-10-28] MEDS: amLODIPine TAB* 5 MG PO SCH (09:05)
[2017-10-28] MEDS: levETIRAcetam TAB* 500 MG PO SCH ×2 (12:23→22:57)
--- NOTE | 2017-10-28 12:35 | RAD ---
Indication: Follow-up hemorrhage. CT of the brain was performed without IV contrast. Comparison is made with previous exam dated October 25, 2017. Again noted is left occipital craniotomy. Again noted is left cerebellar hyperdensity consistent with left cerebellar hematoma. This previously measured 2.3 cm in greatest AP dimension now measuring 2.8 cm and may be slightly larger. Mass effect is noted in the left cerebellar hemisphere. The fourth ventricle remains patent. Right cerebellum is unremarkable. Intraparenchymal hematoma in the right frontal lobe is noted. This is also unchanged from previous exam. Small areas of hematoma is noted in the left parietal area which is also stable since prior exam. Adjacent vasogenic edema is noted. IMPRESSION: Left occipital craniotomy and left cerebellar hematoma which appears to be slightly larger measuring 2.8 cm previously measuring 2.4 cm. Right frontal intraparenchymal hematoma and left parietal intraparenchymal hematoma in the area of prior surgery is also noted. There may be a small subdural hematoma in the left parietal area. This was likely present previously as well.
[2017-10-28] MEDS ORDERED: Metoprolol Tartrate TAB* 25 MG PO ONE (13:13)
--- NOTE | 2017-10-28 17:48 | PN ---
Subjective Date of Service: 10/28/17 Interval History: Sitting in chair, no complaints Denies pain No CP, SOB, LH, N/V Objective Active Medications: Alprazolam (Xanax Tab*) 0.25 mg PO TID PRN PRN Reason: ANXIETY Last Admin: 10/24/17 22:43 Dose: 0.25 mg Amlodipine Besylate (Norvasc Tab*) 5 mg PO DAILY [facility] Last Admin: 10/28/17 09:05 Dose: 5 mg Hydralazine HCl (Apresoline Iv*) 5 mg IV SLOW PU Q6H PRN PRN Reason: BLOOD PRESSURE Last Admin: 10/26/17 08:42 Dose: 5 mg Hydralazine HCl (Apresoline Tab*) 25 mg PO BID PRN PRN Reason: for sbp >140 Hydrocortisone (Hytone Cream 1%*) 1 applic TOPICAL DAILY PRN PRN Reason: ITCHING Last Admin: 10/25/17 03:10 Dose: 1 applic Levetiracetam (Keppra Tab*) 500 mg PO Q12H [facility] Last Admin: 10/28/17 12:23 Dose: 500 mg Metoprolol Tartrate (Lopressor Tab*) 50 mg PO DAILY [facility] Metoprolol Tartrate (Lopressor Tab*) 25 mg PO DAILY@1900 [facility] Ondansetron HCl (Zofran 40 Mg Vial*) 4 mg IV Q6H PRN PRN Reason: NAUSEA/VOMITING Last Admin: 10/21/17 04:30 Dose: 4 mg Prochlorperazine Edisylate (Compazine Inj*) 5 mg IV Q6H PRN PRN Reason: NAUSEA/VOMITING Last Admin: 10/20/17 19:02 Dose: 1 ml Propafenone HCl (Rythmol*) 75 mg PO BID [facility] Last Admin: 10/28/17 09:05 Dose: 75 mg Vital Signs - 8 hr 10/28/17 10/28/17 10/28/17 10:57 15:03 15:38 Temperature 98.0 F 98.4 F Pulse Rate 70 93 Respiratory 16 16 Rate Blood Pressure 149/65 125/70 131/72 (mmHg) O2 Sat by Pulse 99 98 Oximetry Oxygen Devices in Use Now: None Appearance: NAD Eyes: No Scleral Icterus, PERRLA Ears/Nose/Mouth/Throat: NL Teeth, Lips, Gums, Clear Oropharnyx Neck: NL Appearance and Movements; NL JVP, Trachea Midline Respiratory: Symmetrical Chest Expansion and Respiratory Effort, Clear to Auscultation Cardiovascular: RRR, - - 3/6 holosystolic murmur Abdominal: NL Sounds; No Tenderness; No Distention, No Hepatosplenomegaly Lymphatic: No Cervical Adenopathy Skin: - - cranial insicions c/d/i Neurological: Alert and Oriented x 3, - - nm intack Result Diagrams: 10/28/17 06:20 10/28/17 06:20 Additional Lab and Data: . Microbiology and Other Data: Microbiology 10/13/17 17:00 Nasal Screen MRSA (PCR)(YOSSI) - Final Nasal Mrsa Not Detected Assess/Plan/Problems-Billing Assessment: Ms. Cota is a 67 yo female with a PMH of afib and lung ca 1994 sp lobectomy ESRD on HD, meningioma s/p resection who was admitted on 10/13/17 with altered mental status found with left parietal mass c/b vasogenic edema and hematoma s/ p resection 10/18 - Patient Problems (1) Meningioma Comment: drains out BP 90-140 dc planning (2) UTI (urinary tract infection) Comment: proteus completed abx course (3) Atrial fibrillation Comment: Continue propafenone. Qtc wnl metoprolol increased to 50mg in AM and 25mg in PM Recommend resume aspirin when approved per neurosurgery. (4) End stage renal disease Comment: - Secondary to ANCA vasculitis history. - MWF dialysis while inpatient. Status and Disposition: discharge planning - [facility] tomorrow
[2017-10-29] MEDS: Metoprolol Tartrate TAB* 50 mg PO SCH (08:40)
[2017-10-29] MEDS: amLODIPine TAB* 5 MG PO SCH (08:40)
[2017-10-29] MEDS: proPAFENone TAB* 150 MG PO SCH ×2 (08:40→19:57)
[2017-10-29] MEDS: levETIRAcetam TAB* 500 MG PO SCH (10:24)
[2017-10-29] MEDS ORDERED: Epoetin Alfa* 10,000 UNITS/ML VIAL IV ONE (11:15)
--- NOTE | 2017-10-29 13:58 | DS ---
CC: Dr. Bah; Dr. Lee. * DISCHARGE SUMMARY: DATE OF ADMISSION: 10/13/17 DATE OF DISCHARGE: 10/29/17 PRIMARY CARE PROVIDER: Dr. Bah. PRIMARY DIAGNOSES: 1. 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 2. Left cerebellar hemorrhage SECONDARY DIAGNOSES: Include: 1. 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 2. Atrial fibrillation. 3. Chronic obstructive pulmonary disease. 4. Anemia of chronic disease. 5. History of lung cancer, status post lobectomy. 6. History of meningeal-based tumor. 7. Urinary tract infection, status post therapy in the hospital. MEDICATIONS ON DISCHARGE: Include: 1. Fluticasone 2 puffs inhaled in the morning as needed. 2. Vitamin E 800 mg daily. 3. Patiromer 8.5 mg daily as needed. 4. Dialyvite 800 with iron tab 1 tab daily. 5. Kayexalate 30 g daily as needed for hyperkalemia. 6. Renvela 2400 mg 3 times a day with meals. 7. Citalopram 10 mg daily. 8. PreserVision AREDS Softgels 1 cap twice daily. 9. Vitamin B12 1000 mcg daily. 10. Propafenone 75 mg twice daily. 11. Keppra 500 mg twice daily. 12. Hydralazine 25 mg twice daily as needed for hypertension, systolic blood pressures greater than 140. 13. Amlodipine 5 mg daily. 14. Metoprolol tartrate 50 mg in the morning and 25 mg in the evening. 15. Alprazolam 0.25 mg 3 times a day as needed for anxiety. PERTINENT LABORATORY DATA: Hemoglobin 7.7 on discharge. Urine culture, Proteus mirabilis status post therapy. PERTINENT IMAGING: Brain MRI, 10/13/17. Impression: Large extraaxial mass centered in the posterior left parietal region with surrounding vasogenic edema , significantly increased in size from prior exam causing mass effect as described. Differential diagnosis include invasive aggressive meningioma or less likely, dural metastatic disease. Brain CT, 10/28/17, day prior to discharge. Impression: Left occipital craniotomy, left cerebellar hematoma which appears to be slightly larger measuring 2.8 cm previously 2.4 cm, right frontal intraparenchymal hematoma and left parietal intraparenchymal hematoma in the area of prior surgery is also noted. There may be a small subdural hematoma in the left parietal area. This was likely present previously as well. Please note these results were discussed with Dr. Lee on the day of discharge. Requires no further intervention or imaging at this time. He fully agrees with discharge. PROCEDURE PERFORMED DURING HOSPITAL STAY: Left craniectomy with parietal mass resection 10/19/17, and a left suboccipital craniectomy for evacuation of intracranial hemorrhage, also 10/19/17. HISTORY OF PRESENT ILLNESS AND HOSPITAL COURSE: This is a 67-year-old female with past medical history as outlined in the history of present illness on the day of admission presented to the hospital confused from dialysis, was found with imaging above, notable for a large meningeal mass, identified as WHO grade 2 atypical meningioma after resection. She was taken to the emergency room where her mass was resected. She returned later that day after found with left cerebellar hematoma. She was monitored in the ICU under the care of the molded rubber goods cutter. She had serial imaging, monitored for resolution of hematoma. Her RUDDY and Arthur were removed on 10/25/17. She developed atrial fibrillation during the course of the hospital stay, required Cardizem infusion. She was also started on propafenone and her QTc were monitored. She returned into atrial fibrillation during hemodialysis on 10/27/17. It was controlled with a onetime dose of metoprolol p.o. and her total daily dose was increased from 25 twice daily to 50 in the morning and 25 in the evening. There can be consideration for increasing the total daily doses as blood pressure and heart rate necessitate, and as judged by recurrence of atrial fibrillation. Her blood pressure was controlled with addition of amlodipine as well as p.r.n. hydralazine oral as needed. The goal is to maintain her blood pressure between systolic blood pressures less than 140, which has not required p.r.n. doses of medications for over 48 hours. The patient received dialysis on the day of discharge. Additionally, as noted above, she had a urinary tract infection with Proteus and completed a course of antibiotics. On the day of discharge, the patient was sitting up in chair, she is interactive , she is pleasant, she is oriented. She knows why she is in the hospital but has limited short-term memory, 0/3 words at 2 minutes, difficulty following 2- step commands for instance, "show me 2 fingers in your left hand," she shows me her right hand. Otherwise, neurologically intact. She will be discharged to [facility] to follow up, to continue rehabilitation. DISCHARGE INSTRUCTIONS: At followup please: 1. Ensure the patient follows up with Neurosurgery in once 2 weeks for the management of wounds and evaluation of stability. 2. Adjust beta-rita as needed to achieve goal heart rate. She was very responsive to one-time dose of metoprolol 25 mg p.o. when needed for breakthrough atrial fibrillation. 3. Adjust antihypertensives to maintain systolic blood pressure less than 140. She has room to increase her amlodipine from 5 mg to 10 mg as a first step. 4. The patient is off of anticoagulation including aspirin. Can be restarted when judged appropriate by Neurosurgery. 5. No other specific labs or vitals that need followup. Reasons to return to the hospital were discussed with the patient, although she does have limited understanding secondary to short-term memory loss as indicated above. TIME SPENT: Greater than 60 minutes were spent to discharge the patient, greater than half spent [id number] with the patient. [id number]/[facility] #: [id number] RANDA
[2017-10-29] MEDS: hydrALAZINE TAB* 25 MG PO PRN (15:35)
[2017-10-29] MEDS: ALPRAZolam TAB* 0.25 MG PO PRN ×2 (15:35→19:57)
[2017-10-29] MEDS ORDERED: Ondansetron ODT TAB* 4 MG SL PRN (16:52)
--- NOTE | 2017-10-29 17:01 | PN ---
Subjective Date of Service: 10/29/17 Interval History: Seen before dialysis. Had no complaints Seen after midline removed and prepared for discharge. Patient had changed on now is adamant she does not want to go to rehab She is convinced that is coming to take her home. We placed and son on telephone with her who tried to convince her to go to rehab but she was not cooperative. In formal capacity assessment patient definitively lack the ability to participate in her discharge planning. I outlined in number form 3 reasons I was concerned about her return to home and she was not able to repeat any of my concerns. She identifies no barriers to returning home. Her discharge medications were reviewed with her but she can name no medications. She has serious physical limitations. Her does not think he can care for her at home and indicated he has trouble taking care of himself. Patient will remain hospitalized overnight and we will attempt discharge tomorrow. Her asked that he be notified so he can meet her there and provide some support on arrival Objective Active Medications: Alprazolam (Xanax Tab*) 0.25 mg PO TID PRN PRN Reason: ANXIETY Last Admin: 10/29/17 15:35 Dose: 0.25 mg Amlodipine Besylate (Norvasc Tab*) 5 mg PO DAILY [facility] Last Admin: 10/29/17 08:40 Dose: 5 mg Hydralazine HCl (Apresoline Tab*) 25 mg PO BID PRN PRN Reason: for sbp >140 Last Admin: 10/29/17 15:35 Dose: 25 mg Hydrocortisone (Hytone Cream 1%*) 1 applic TOPICAL DAILY PRN PRN Reason: ITCHING Last Admin: 10/25/17 03:10 Dose: 1 applic Levetiracetam (Keppra Tab*) 500 mg PO Q12H [facility] Last Admin: 10/29/17 10:24 Dose: 500 mg Metoprolol Tartrate (Lopressor Tab*) 50 mg PO DAILY [facility] Last Admin: 10/29/17 08:40 Dose: 50 mg Metoprolol Tartrate (Lopressor Tab*) 25 mg PO DAILY@1900 [facility] Last Admin: 10/28/17 19:59 Dose: 25 mg Ondansetron HCl (Zofran Odt Tab*) 4 mg SL Q6H PRN PRN Reason: NAUSEA/VOMITING Propafenone HCl (Rythmol*) 75 mg PO BID [facility] Last Admin: 10/29/17 08:40 Dose: 75 mg Vital Signs - 8 hr 10/29/17 10/29/17 10/29/17 14:00 14:41 15:35 Temperature 99.8 F 98.6 F Pulse Rate 64 73 Respiratory 16 20 18 Rate Blood Pressure 157/71 151/74 (mmHg) O2 Sat by Pulse 100 99 Oximetry 10/29/17 15:36 Temperature Pulse Rate 69 Respiratory Rate Blood Pressure (mmHg) O2 Sat by Pulse 100 Oximetry Oxygen Devices in Use Now: None Appearance: sitting in wheelchair, angry, NAD Eyes: No Scleral Icterus, PERRLA Ears/Nose/Mouth/Throat: Clear Oropharnyx, Mucous Membranes Moist Neck: NL Appearance and Movements; NL JVP, Trachea Midline Respiratory: Symmetrical Chest Expansion and Respiratory Effort, Clear to Auscultation Cardiovascular: RRR Extremities: No Edema Skin: - - cranial lucy c/d/i Neurological: Alert and Oriented x 3, - - cn2-12 intact, intact Result Diagrams: 10/28/17 06:20 10/28/17 06:20 Additional Lab and Data: . Microbiology and Other Data: Microbiology 10/13/17 17:00 Nasal Screen MRSA (PCR)(YOSSI) - Final Nasal Mrsa Not Detected Assess/Plan/Problems-Billing Assessment: Ms. Cota is a 67 yo female with a PMH of afib and lung ca 1994 sp lobectomy ESRD on HD, meningioma s/p resection who was admitted on 10/13/17 with altered mental status found with left parietal mass c/b vasogenic edema and hematoma s/ p resection 10/18 planned for d/c 10/29 but refused to go - Patient Problems (1) Meningioma Comment: drains out BP 90-[address] with Dr. Whitaker. No needed intervention (2) UTI (urinary tract infection) Comment: proteus completed abx course (3) Atrial fibrillation Comment: Continue propafenone. Qtc wnl metoprolol increased to 50mg in AM and 25mg in PM Recommend resume aspirin after dc (4) End stage renal disease Comment: - Secondary to ANCA vasculitis history. - MWF dialysis while inpatient. Status and Disposition: discharge planning - [facility] tomorrow Patient lacks capacity to refuse on my assessment and son would like patient placed in rehab. Plan discussed with today
[2017-10-29] MEDS: Metoprolol Tartrate TAB* 25 MG PO SCH (19:57)
[2017-10-30] MEDS: levETIRAcetam TAB* 500 MG PO SCH ×3 (00:18→23:05)
[2017-10-30] MEDS: proPAFENone TAB* 150 MG PO SCH ×2 (10:08→20:10)
[2017-10-30] MEDS: amLODIPine TAB* 5 MG PO SCH (10:09)
[2017-10-30] MEDS: Metoprolol Tartrate TAB* 50 mg PO SCH (10:09)
[2017-10-30] MEDS: hydrALAZINE TAB* 25 MG PO PRN (10:10)
[2017-10-30] MEDS ORDERED: Magnesium CITRATE* 300 ML BTL PO ONE (12:59)
[2017-10-30] MEDS ORDERED: Sodium Phosphate ADULT ENEMA* 118 ml bottle PR ONE (12:59)
[2017-10-30] MEDS ORDERED: Sodium Phosphate ADULT ENEMA* 118 ml bottle PR PRN (14:16)
--- NOTE | 2017-10-30 14:49 | PN ---
Subjective Date of Service: 10/30/17 Interval History: Pt feels well, poor memory, agreeable to STR c/o constipation Objective Active Medications: Amlodipine Besylate (Norvasc Tab*) 5 mg PO DAILY [facility] Last Admin: 10/30/17 10:09 Dose: 5 mg Hydralazine HCl (Apresoline Tab*) 25 mg PO BID PRN PRN Reason: for sbp >140 Last Admin: 10/30/17 10:10 Dose: 25 mg Hydrocortisone (Hytone Cream 1%*) 1 applic TOPICAL DAILY PRN PRN Reason: ITCHING Last Admin: 10/25/17 03:10 Dose: 1 applic Levetiracetam (Keppra Tab*) 500 mg PO Q12H [facility] Last Admin: 10/30/17 10:09 Dose: 500 mg Metoprolol Tartrate (Lopressor Tab*) 50 mg PO DAILY [facility] Last Admin: 10/30/17 10:09 Dose: 50 mg Metoprolol Tartrate (Lopressor Tab*) 25 mg PO DAILY@1900 [facility] Last Admin: 10/29/17 19:57 Dose: 25 mg Ondansetron HCl (Zofran Odt Tab*) 4 mg SL Q6H PRN PRN Reason: NAUSEA/VOMITING Propafenone HCl (Rythmol*) 75 mg PO BID [facility] Last Admin: 10/30/17 10:08 Dose: 75 mg Sodium Biphosphate/Sodium Phosphate (Fleet Enema*) 1 bottle ME ONCE PRN PRN Reason: 1 Vital Signs - 8 hr 10/30/17 10/30/17 08:00 10:12 Temperature 98.6 F Pulse Rate 73 Respiratory 18 18 Rate Blood Pressure 148/79 (mmHg) O2 Sat by Pulse 96 Oximetry Oxygen Devices in Use Now: None Appearance: 67 yo F in nAD, aAOx3, poor historian Eyes: No Scleral Icterus, PERRLA Ears/Nose/Mouth/Throat: NL Teeth, Lips, Gums, Mucous Membranes Moist Neck: NL Appearance and Movements; NL JVP, Trachea Midline Respiratory: Symmetrical Chest Expansion and Respiratory Effort, Clear to Auscultation Cardiovascular: NL Sounds; No Murmurs; No JVD, RRR Abdominal: NL Sounds; No Tenderness; No Distention, No Hepatosplenomegaly Lymphatic: No Cervical Adenopathy Extremities: No Clubbing, Cyanosis, - - left arm dialysis fistula present, chronic left arm edema noted Skin: No Rash or Ulcers, No Nodules or Sclerosis, - - scalp incision stapled-no wound dehiscence noted Neurological: NL Muscle Strength and Tone Result Diagrams: 10/28/17 06:20 10/28/17 06:20 Additional Lab and Data: . Microbiology and Other Data: Microbiology 10/13/17 17:00 Nasal Screen MRSA (PCR)(YOSSI) - Final Nasal Mrsa Not Detected Assess/Plan/Problems-Billing Assessment: Ms. Cota is a 67 yo female with a PMH of afib and lung ca 1994 sp lobectomy ESRD on HD, meningioma s/p resection who was admitted on 10/13/17 with altered mental status found with left parietal mass c/b vasogenic edema and hematoma s/ p resection 10/18 planned for d/c 10/29 but refused to go - Patient Problems (1) COPD (chronic obstructive pulmonary disease) Comment: - Asymptomatic. (2) Meningioma Comment: drains taken out BP 90-140 stable for discharge Needs to f/u with Dr. Espino to set up radiation tx in 1-2 weeks (3) UTI (urinary tract infection) Comment: proteus completed abx course (4) Anemia Comment: - Transfused 1 unit PRBC on 10/17/17 (5) Atrial fibrillation Comment: Continue propafenone, lopressor (6) End stage renal disease Comment: - Secondary to ANCA vasculitis history. - MWF dialysis while inpatient. (7) ANCA-associated vasculitis Comment: - Hx noted. Status and Disposition: discharge planning - [facility] Wednesday.d/c ready
[2017-10-30] MEDS: Sevelamer TAB* 800 MG PO SCH (16:14)
[2017-10-30] MEDS: Metoprolol Tartrate TAB* 25 MG PO SCH (20:09)
[2017-10-31 06:25] LABS: Hematocrit 24 % (35-47); Mean Corpuscular HGB Conc 34 g/dl (31-36); Mean Corpuscular Hemoglobin 33 pg (27-31); Mean Corpuscular Volume 98 fL (80-97); Mean Platelet Volume 7.1 um3 (7.4-10.4); Platelet Count 111 10^3/ul (150-450); Red Blood Count 2.42 10^6/ul (4.00-5.40); Red Cell Distribution Width 15 % (10.5-15); White Blood Count 6.9 10^3/ul (3.5-10.8)
[2017-10-31 06:41] LABS: EGFR Non-African American 10.3 (>60)
[2017-10-31] MEDS: amLODIPine TAB* 5 MG PO SCH (07:59)
[2017-10-31] MEDS: Sevelamer TAB* 800 MG PO SCH ×3 (07:59→16:20)
[2017-10-31] MEDS: proPAFENone TAB* 150 MG PO SCH ×2 (07:59→20:41)
[2017-10-31] MEDS: Metoprolol Tartrate TAB* 50 mg PO SCH (08:00)
[2017-10-31] MEDS: levETIRAcetam TAB* 500 MG PO SCH ×2 (10:27→22:49)
[2017-10-31] MEDS ORDERED: Heparin VIAL(*) 5000 UNITS/ML VIAL (FIVE THOUSAND) SUBCUT SCH (14:00)
--- NOTE | 2017-10-31 16:30 | PN ---
Subjective Date of Service: 10/31/17 Interval History: Pt feels well, does not recall our discussion yesterday re: d/c to STR Objective Active Medications: Amlodipine Besylate (Norvasc Tab*) 5 mg PO DAILY [facility] Last Admin: 10/31/17 07:59 Dose: 5 mg Hydralazine HCl (Apresoline Tab*) 25 mg PO BID PRN PRN Reason: for sbp >140 Last Admin: 10/30/17 10:10 Dose: 25 mg Hydrocortisone (Hytone Cream 1%*) 1 applic TOPICAL DAILY PRN PRN Reason: ITCHING Last Admin: 10/25/17 03:10 Dose: 1 applic Levetiracetam (Keppra Tab*) 500 mg PO Q12H [facility] Last Admin: 10/31/17 10:27 Dose: 500 mg Metoprolol Tartrate (Lopressor Tab*) 50 mg PO DAILY [facility] Last Admin: 10/31/17 08:00 Dose: 50 mg Metoprolol Tartrate (Lopressor Tab*) 25 mg PO DAILY@1900 [facility] Last Admin: 10/30/17 20:09 Dose: 25 mg Ondansetron HCl (Zofran Odt Tab*) 4 mg SL Q6H PRN PRN Reason: NAUSEA/VOMITING Propafenone HCl (Rythmol*) 75 mg PO BID [facility] Last Admin: 10/31/17 07:59 Dose: 75 mg Sevelamer Carbonate (Renvela Tab*) 2,400 mg PO TID WITH MEALS [facility] Last Admin: 10/31/17 16:20 Dose: 2,400 mg Sodium Biphosphate/Sodium Phosphate (Fleet Enema*) 1 bottle LA ONCE PRN PRN Reason: 1 Oxygen Devices in Use Now: None Appearance: 67 yo F in nAD, AAOx2, poor recall Eyes: No Scleral Icterus, PERRLA Ears/Nose/Mouth/Throat: NL Teeth, Lips, Gums, Mucous Membranes Moist Neck: NL Appearance and Movements; NL JVP, Trachea Midline Respiratory: Symmetrical Chest Expansion and Respiratory Effort, Clear to Auscultation Cardiovascular: NL Sounds; No Murmurs; No JVD, RRR Abdominal: NL Sounds; No Tenderness; No Distention Lymphatic: No Cervical Adenopathy Extremities: No Edema, No Clubbing, Cyanosis, - - dialysis fistula in left arm Skin: No Nodules or Sclerosis, - - scalp incicion stapled, no dehiscence noted Neurological: - - mild R facial droop Result Diagrams: 10/31/17 05:04 10/31/17 05:04 Additional Lab and Data: . Microbiology and Other Data: Microbiology 10/13/17 17:00 Nasal Screen MRSA (PCR)(YOSSI) - Final Nasal Mrsa Not Detected Assess/Plan/Problems-Billing Assessment: Ms. Cota is a 67 yo female with a PMH of afib and lung ca 1994 sp lobectomy ESRD on HD, meningioma s/p resection who was admitted on 10/13/17 with altered mental status found with left parietal mass c/b vasogenic edema and hematoma s/ p resection 10/18 planned for d/c 10/29 but refused to go - Patient Problems (1) Meningioma Comment: drains taken out BP 90-140 stable for discharge Needs to f/u with Dr. Espino to set up radiation tx in 1-2 weeks (2) COPD (chronic obstructive pulmonary disease) Comment: - Asymptomatic. (3) UTI (urinary tract infection) Comment: proteus completed abx course (4) Anemia Comment: - Transfused 1 unit PRBC on 10/17/17 (5) Atrial fibrillation Comment: Continue propafenone, lopressor In regular rhythm today (6) End stage renal disease Comment: - Secondary to ANCA vasculitis history. - MWF dialysis while inpatient. (7) ANCA-associated vasculitis Comment: - Hx noted. (8) DVT prophylaxis Comment: question of thrombocytopenia related to heparin raised by the manager copy. will cont SCD's Status and Disposition: discharge planning - [facility] Wednesday.d/c ready
[2017-10-31] MEDS ORDERED: Metoprolol Tartrate TAB* 25 MG PO SCH (21:00)
[2017-10-31] MEDS: Metoprolol Tartrate TAB* 25 MG PO SCH (21:32)
[2017-11-01 06:54] LABS: Hematocrit 23 % (35-47); Hemoglobin 7.8 g/dl (12.0-16.0); Mean Corpuscular HGB Conc 33 g/dl (31-36); Mean Corpuscular Hemoglobin 33 pg (27-31); Mean Corpuscular Volume 97 fL (80-97); Mean Platelet Volume 6.5 um3 (7.4-10.4); Platelet Count 91 10^3/ul (150-450); Red Blood Count 2.39 10^6/ul (4.00-5.40); Red Cell Distribution Width 16 % (10.5-15); White Blood Count 6.1 10^3/ul (3.5-10.8)
[2017-11-01] MEDS: Sevelamer TAB* 800 MG PO SCH ×2 (08:20→12:24)
[2017-11-01] MEDS: Metoprolol Tartrate TAB* 50 mg PO SCH (08:20)
[2017-11-01] MEDS: amLODIPine TAB* 5 MG PO SCH (08:20)
[2017-11-01] MEDS: proPAFENone TAB* 150 MG PO SCH (08:21)
[2017-11-01] MEDS: levETIRAcetam TAB* 500 MG PO SCH (12:24)
[2017-11-01] MEDS ORDERED: Epoetin Alfa* 10,000 UNITS/ML VIAL IV ONE (14:00)
--- NOTE | 2017-11-01 14:12 | DS ---
CC: Dr. Vela; Dr. Espino; Dr. Bah * ADDENDUM TO DISCHARGE SUMMARY DICTATED BY DR. DEREK MALAVE ON 10/29/2017 DATE OF ADMISSION: 10/13/2017. DATE OF DISCHARGE: 10/02/2017. HOSPITAL COURSE: Please note that on the day of planned discharge to [facility] on 10/29/2017, the patient became agitated and upset due to her problems with short-term memory. She forgot that she was going to rehab and placement had to be postponed. Unfortunately, she was unable to get to the care home facility over the weekend and she stayed the weekend in the hospital. During the time I was taking care of the patient, she was at her neurological baseline. She has a mild right-sided facial droop and she is in chronic atrial fibrillation that is rate controlled. She still has troubles with her short-term memory, and although she remembers that the president is Bharti, she thinks the year is 2009. Today, she is undergoing hemodialysis with a planned next hemodialysis to be on , 11/04/2017. Today, she is going to be discharged to [facility] facility after dialysis. MEDICATIONS: Her medications at discharge are unchanged from Dr. Malave's dictation. FOLLOW-UP: The patient is to follow-up with Dr. Espino in approximately a couple of weeks to discuss with Dr. Espino the possibility of radiation treatment for her meningioma. Please note that this is a short summary of the patient's hospital stay. Please refer to further medical record for details. [id number]/[facility] #: [id number] [facility]ITAL[facility]
[2017-11-01 16:21] VITALS: BP 147/78
== END 2017-11-01 16:45 | DRG 25 ==
LOC: ED 13:10 → ICU 15:17 → MED 10-14 14:44 → MEDTELE 10-15 11:48 → ICU 10-18 16:29 → MEDTELE 10-26 13:35 → MED 10-31 23:04
PROVIDERS: ADMIT Internal Medicine; ATTEND Internal Medicine
PROC: 5A1D70Z Performance of Urinary Filtration, Intermittent, Less than 6 Hours Per Day (ICD-10-PCS; 2017-10-15)
PROC: 5A1D70Z Performance of Urinary Filtration, Intermittent, Less than 6 Hours Per Day (ICD-10-PCS; 2017-10-17)
PROC: 00CC0ZZ Extirpation of Matter from Cerebellum, Open Approach (ICD-10-PCS; 2017-10-18)
PROC: 00B10ZZ Excision of Cerebral Meninges, Open Approach (ICD-10-PCS; 2017-10-18)
PROC: 0T9B70Z Drainage of Bladder with Drainage Device, Via Natural or Artificial Opening (ICD-10-PCS; 2017-10-18)
PROC: 30233N1 Transfusion of Nonautologous Red Blood Cells into Peripheral Vein, Percutaneous Approach (ICD-10-PCS; principal; 2017-10-20)
PROC: 5A1D70Z Performance of Urinary Filtration, Intermittent, Less than 6 Hours Per Day (ICD-10-PCS; 2017-10-20)
PROC: 5A1D70Z Performance of Urinary Filtration, Intermittent, Less than 6 Hours Per Day (ICD-10-PCS; 2017-10-22)
PROC: 5A1D70Z Performance of Urinary Filtration, Intermittent, Less than 6 Hours Per Day (ICD-10-PCS; 2017-10-27)
PROC: 5A1D70Z Performance of Urinary Filtration, Intermittent, Less than 6 Hours Per Day (ICD-10-PCS; 2017-10-27)
PROC: 5A1D70Z Performance of Urinary Filtration, Intermittent, Less than 6 Hours Per Day (ICD-10-PCS; 2017-10-29)
PROC: 5A1D70Z Performance of Urinary Filtration, Intermittent, Less than 6 Hours Per Day (ICD-10-PCS; 2017-11-01)
DX: D32.0 Benign neoplasm of cerebral meninges (principal); N18.6 End stage renal disease; G93.6 Cerebral edema; I61.9 Nontraumatic intracerebral hemorrhage, unspecified; I62.00 Nontraumatic subdural hemorrhage, unspecified; I42.9 Cardiomyopathy, unspecified; N02.8 Recurrent and persistent hematuria with other morphologic changes; N39.0 Urinary tract infection, site not specified; R47.01 Aphasia; Z88.0 Allergy status to penicillin; Z88.5 Allergy status to narcotic agent; Z88.8 Allergy status to other drugs, medicaments and biological substances; Z91.040 Latex allergy status; I50.9 Heart failure, unspecified; E78.00 Pure hypercholesterolemia, unspecified; I34.1 Nonrheumatic mitral (valve) prolapse; J44.9 Chronic obstructive pulmonary disease, unspecified; Z85.118 Personal history of other malignant neoplasm of bronchus and lung; K57.90 Diverticulosis of intestine, part unspecified, without perforation or abscess without bleeding; M17.0 Bilateral primary osteoarthritis of knee; Z99.2 Dependence on renal dialysis; F41.9 Anxiety disorder, unspecified; H26.9 Unspecified cataract; Z90.2 Acquired absence of lung [part of]; F32.9 Major depressive disorder, single episode, unspecified; Z98.51 Tubal ligation status; Z82.49 Family history of ischemic heart disease and other diseases of the circulatory system; R29.705 NIHSS score 5; Z90.710 Acquired absence of both cervix and uterus; I25.10 Atherosclerotic heart disease of native coronary artery without angina pectoris; I48.2 Chronic atrial fibrillation; R29.810 Facial weakness; D63.8 Anemia in other chronic diseases classified elsewhere; I45.81 Long QT syndrome; R00.0 Tachycardia, unspecified; I77.6 Arteritis, unspecified; D72.819 Decreased white blood cell count, unspecified; E83.51 Hypocalcemia; B96.4 Proteus (mirabilis) (morganii) as the cause of diseases classified elsewhere; N32.89 Other specified disorders of bladder
CPT/HCPCS: 36415; 70450; 70544; 70551; 71045; 80048; 80053; 80061; 81003; 81015; 82040; 82310; 82330; 82803; 83605; 83735; 83970; 84100; 84132; 84484; 85014; 85018; 85025; 85027; 85610; 85730; 86706; 86850; 86900; 86901; 86922; 87077; 87086; 87184; 87186; 87340; 87641; 88300; 88305; 88341; 88342; 88360; 90935; 93005; 93306; 99233; 99283; A9270-GY; C1713; C1776; G0257; G8978-GP-CI; G8978-GP-CJ; G8978-GP-CL; G8979-GP-CI; G8980-GP-CI; J0360; J0690; J0696; J0780; J0885; J1100; J1644; J2150; J2250; J2597; J2704; J3010; J3490; P9035; P9040